=== PATIENT | female | born 1940 | race Hispanic/Latino ===

== ENCOUNTER 2017-01-02 01:33 | Inpatient (IN) | payer MEDICARE, OTHER, MEDICAID ==
--- NOTE | 2017-01-02 01:37 | ED PDOC ---
Arrival/HPI - General Time Seen by Provider: 01/02/17 01:37 Historian: Patient, EMS - History of Present Illness Narrative History of Present Illness (Text): 01/02/17 01:37 Kp Sanders is a 76 year old female, whose past medical history includes hypertension,atrial fibrillation, COPD, aspiration pneumonia, left-sided CVA, and depression, who presents to the Emergency department sent from detention complaining of shortness of breath tonight. Patient notes some improvement after receiving Duoneb and Albuterol in the field. Patient denies any fever, chills, chest pain, nausea, vomiting, diarrhea, urinary symptoms, back pain, neck pain, headache, dizziness, or any other complaints. PMD: Dr. Jung Time/Duration: Other (tonight) Symptom Onset: Gradual Symptom Course: Unchanged Activities at Onset: Rest, Light Context: Home (senior care) Past Medical History - Provider Review Nursing Documentation Reviewed: Yes - Infectious Disease Hx of Infectious Diseases: None - Cardiac Hx Hypertension: Yes - Pulmonary Hx Respiratory Disorders: No - Neurological HX Cerebrovascular Accident: Yes Hx Dementia: Yes - HEENT Hx Cataracts: Yes - Renal Hx Renal Disorder: No - Endocrine/Metabolic Hx Endocrine Disorders: No - Hematological/Oncological Hx Anemia: Yes - Integumentary Hx Cellulitis: Yes (face) - Musculoskeletal/Rheumatological Hx Falls: No - Gastrointestinal Hx Gastrointestinal Disorders: No - Genitourinary/Gynecological Hx Genitourinary Disorders: No - Psychiatric Hx Depression: Yes Hx Substance Use: No - Anesthesia Hx Anesthesia: Yes Hx Anesthesia Reactions: No Hx Malignant Hyperthermia: No - Suicidal Assessment Feels Threatened In Home Enviroment: No Family/Social History - Physician Review Nursing Documentation Reviewed: Yes Family/Social History: No Known Family HX Smoking Status: Never Smoked Hx Alcohol Use: No Hx Substance Use: No Hx Substance Use Treatment: No Allergies/Home Meds Allergies/Adverse Reactions: Allergies No Known Allergies Allergy (Verified 01/02/17 01:38) Home Medications: Home Meds Medication Instructions Recorded Confirmed Acetaminophen [Tylenol (Renal)] 650 mg PO Q4H PRN 06/04/12 01/14/14 Albuterol/Ipratropium [Duoneb 3 1 ea IH Q6 PRN 06/04/12 01/14/14 mg/0.5 mg (3 ml) UD] Amlodipine Besylate 10 mg PO DAILY 06/04/12 01/19/14 Donepezil Hydrochloride 10 mg PO HS 06/04/12 01/19/14 Metoprolol Tartrate 50 mg PO DAILY 06/04/12 01/19/14 Mvi, Adult No.1 with Vit K [M.v.i. 1 tab PO DAILY 06/04/12 01/14/14 Adult] Omeprazole 20 mg PO BID 06/04/12 01/19/14 Warfarin Sodium [Warfarin] 4 mg PO DAILY 06/04/12 01/14/14 Calcium Carbonate [Oyster Shell 1 tab PO DAILY 01/14/14 01/19/14 Calcium 500] Ergocalciferol (Vitamin D2) 1 cap PO QWK 01/14/14 01/14/14 [Vitamin D2] Lidocaine [Lidoderm] 1 patch TP DAILY 01/14/14 01/19/14 [id number] Ethyl Esters [Lovaza] 2 cap PO BID 01/14/14 01/14/14 Travoprost [Travatan 2.5 ml] 1 drop OU HS 01/14/14 01/14/14 Review of Systems - Physician Review All systems were reviewed & negative as marked: Yes - Review of Systems Constitutional: Normal. absent: Fevers Eyes: Normal ENT: Normal Respiratory: SOB. absent: Cough Cardiovascular: Normal. absent: Chest Pain Gastrointestinal: Normal. absent: Abdominal Pain, Diarrhea, Nausea, Vomiting Genitourinary Female: Normal. absent: Dysuria, Frequency, Hematuria, Urine Output Changes Musculoskeletal: Normal. absent: Back Pain, Neck Pain Skin: Normal. absent: Rash Neurological: Normal. absent: Headache, Dizziness Endocrine: Normal Hemo/Lymphatic: Normal Psychiatric: Normal Physical Exam Vital Signs Reviewed: Yes Vital Signs Temp Pulse Resp BP Pulse Ox 01/02/17 04:24 100 H 100/43 L 01/02/17 04:22 100/43 L 01/02/17 01:52 95 01/02/17 01:34 99.1 F 106 H 18 101/50 L 94 L Temperature: Afebrile Blood Pressure: Normal Pulse: Regular Respiratory Rate: Normal Appearance: Positive for: Well-Appearing, Non-Toxic, Comfortable Pain Distress: None Mental Status: Positive for: Alert and Oriented X 3 - Systems Exam Head: Present: Atraumatic, Normocephalic Pupils: Present: PERRL Extroacular Muscles: Present: EOMI Conjunctiva: Present: Normal Mouth: Present: Moist Mucous Membranes Neck: Present: Normal Range of Motion Respiratory/Chest: Present: Decreased Breath Sounds (Decreased breath sounds bilaterally). No: Respiratory Distress, Accessory Muscle Use Cardiovascular: Present: Regular Rate and Rhythm, Normal S1, S2. No: Murmurs Abdomen: Present: Normal Bowel Sounds. No: Tenderness, Distention, Peritoneal Signs Upper Extremity: Present: Normal Inspection. No: Cyanosis, Edema Lower Extremity: Present: Normal Inspection. No: Edema Neurological: Present: GCS=15, CN II-XII Intact, Speech Normal, Other (Left- sided plegia) Skin: Present: Warm, Dry, Normal Color. No: Rashes Psychiatric: Present: Alert, Oriented x 3, Normal Insight, Normal Concentration Medical Decision Making ED Course and Treatment: 01/02/17 01:37 Impression: 76 year old female complaining of shortness of breath tonight. Plan: -- EKG -- Chest X-ray -- Labs, cardiac enzymes, BNP -- Solu-medrol -- Duoneb -- Reassess and disposition Prior Visits: Notes and results from previous visits were reviewed. Progress Notes: Reviewed EKG, sinus tachycardia at 118 bpm. Inferior infarct. Lateral ST/T wave changes. 01/02/17 03:25 Reviewed labs, troponin: 1.22, BNP: 7890. Lasix ordered. Reviewed radiology, Chest X-ray shows chronic interstitial markings. 01/02/17 03:[address] Jung, who is aware and agrees with plan. Accepts pt in to her service. Requests consults with Dr. Christianson and Dr. Del Castillo. case discussed with Dr. Whitten, sliver former, who is aware and and agrees with plan. educational institution president notified. Pt will be admitted to ICU for NSTEMI and CHF/COPD. - Critical Care Critical Care Minutes: 30 minutes - Lab Interpretations Lab Results: 01/02/17 01:55 01/02/17 01:55 Lab Results 01/02/17 01:55: WBC 10.7 D, RBC 4.13, Hgb 9.5 L, Hct 31.6 L, MCV 76.5 L, MCH 23.0 L, MCHC 30.1 L, RDW 17.7 H, Plt Count 270, MPV 11.6 H, PT 11.0, INR 1.02, APTT 26.6, Sodium 139, Potassium 4.4, Chloride 103, Carbon Dioxide 24, Anion Gap 16, BUN 21, Creatinine 1.1, Est GFR ( Amer) 58, Est GFR (Non-Af Amer ) 48, Random Glucose 180 H, Calcium 9.1, Total Bilirubin 0.5, AST 30, ALT 23, Alkaline Phosphatase 80, Lactate Dehydrogenase 547, Total Creatine Kinase 185, Troponin I 1.22 H* D, NT-Pro-B Natriuret Pep 7890 H, Total Protein 8.1, Albumin 3.9, Globulin 4.1, Albumin/Globulin Ratio 1.0 L I have reviewed the lab results: Yes - RAD Interpretation Radiology Orders: 01/02/17 01:52 CHEST PORTABLE [RAD] Stat Florist Designer: ED Physician - EKG Interpretation Interpreted by ED Physician: Yes Type: 12 lead EKG - Medication Orders Current Medication Orders: Albuterol/Ipratropium (Duoneb 3 Mg/0.5 Mg (3 Ml) Ud) 3 ml IH Q2H PRN PRN Reason: Shortness of Breath Last Admin: 01/03/17 04:00 Dose: 3 ML Albuterol/Ipratropium (Duoneb 3 Mg/0.5 Mg (3 Ml) Ud) 3 ml IH [id number] [facility] Last Admin: 01/03/17 13:05 Dose: 3 ML Aspirin (Ecotrin) 81 mg PO DAILY [facility] Last Admin: 01/03/17 08:59 Dose: 81 MG Atorvastatin Calcium (Lipitor) 80 mg PO DIN [facility] Last Admin: 01/02/17 17:04 Dose: 80 MG Budesonide (Pulmicort Respules) 1 mg IH [id number] [facility] Last Admin: 01/03/17 07:04 Dose: 0.5 MG Clopidogrel Bisulfate (Plavix) 75 mg PO DAILY [facility] Last Admin: 01/03/17 09:01 Dose: 75 MG Donepezil HCl (Aricept) 10 mg PO HS [facility] Last Admin: 01/02/17 23:13 Dose: 10 MG Levofloxacin/Dextrose (Levaquin 750mg) 150 mls @ 100 mls/hr IVPB Q48H [facility] Last Admin: 01/02/17 09:21 Dose: 100 MLS/HR eMAR Start Stop Document 01/02/17 09:21 JC (Rec: 01/02/17 09:21 [facility] [id number]) Intravenous Solution Start Date 01/02/17 Start Time 09:21 End Date 01/02/17 End time 10:25 Total Infusion Time 64 Latanoprost (Xalatan Opht) 0 ml OU HS [facility] Last Admin: 01/02/17 23:44 Dose: 2.5 ML Metoprolol Tartrate (Lopressor) 25 mg PO BID [facility] Last Admin: 01/03/17 09:00 Dose: 25 MG MAR Pulse and Blood Pressure Document 01/03/17 09:00 ALIPM (Rec: 01/03/17 09:00 ALIPM [id number]) Pulse Pulse Rate (60-90) 94 Blood Pressure Blood Pressure (100/60-150/90) 100/49 Pantoprazole Sodium (Protonix Inj) 40 mg IVP DAILY [facility] Last Admin: 01/03/17 09:01 Dose: 40 MG IVP Administration Document 01/03/17 09:01 ALIPM (Rec: 01/03/17 09:01 ALIPM [id number]) Charges for Administration # of IVP Administrations 1 Discontinued Medications Albuterol/Ipratropium (Duoneb 3 Mg/0.5 Mg (3 Ml) Ud) Confirm Administered Dose 3 ml .ROUTE .STK-MED ONE Stop: 01/02/17 01:51 Last Admin: 01/02/17 01:52 Dose: 3 ML Albuterol/Ipratropium (Duoneb 3 Mg/0.5 Mg (3 Ml) Ud) 3 ml IH ONCE STA Stop: 01/02/17 01:53 Last Admin: 01/02/17 01:55 Dose: Albuterol/Ipratropium (Duoneb 3 Mg/0.5 Mg (3 Ml) Ud) 3 ml IH [id number] [facility] Last Admin: 01/02/17 07:30 Dose: 3 ML Aspirin (Ecotrin) 325 mg PO STAT STA Stop: 01/02/17 04:06 Last Admin: 01/02/17 04:41 Dose: 325 MG Clopidogrel Bisulfate (Plavix) 75 mg PO STAT STA Stop: 01/02/17 10:34 Last Admin: 01/02/17 10:40 Dose: 75 MG Enoxaparin Sodium (Lovenox) 70 mg SC Q12H FILI PRN Reason: Protocol Last Admin: 01/02/17 23:13 Dose: 70 MG Subcutaneous Administrations Document 01/02/17 23:13 LEVI (Rec: 01/02/17 23:13 [facility]EVI [id number]) Injection Site MAR Injection Site Right Abdomen Charges for Administration # of Subcutaneous Administrations 1 Furosemide (Lasix) 60 mg IVP ONCE ONE Stop: 01/02/17 03:38 Last Admin: 01/02/17 04:22 Dose: Not Given Non-Admin Reason: BP Parameters Not Met MAR Blood Pressure Document 01/02/17 04:22 SB (Rec: 01/02/17 04:23 SB [id number]) Blood Pressure Blood Pressure (100/60-150/90) 100/43 Furosemide (Lasix) 40 mg IVP STAT STA Stop: 01/03/17 15:05 Last Admin: 01/03/17 15:05 Dose: 40 MG MAR Blood Pressure Document 01/03/17 15:05 ALIPM (Rec: 01/03/17 15:30 ALIPM [id number]) Blood Pressure Blood Pressure (100/60-150/90) 178/88 IVP Administration Document 01/03/17 15:05 ALIPM (Rec: 01/03/17 15:30 ALIPM [id number]) Charges for Administration # of IVP Administrations 1 Furosemide (Lasix) Confirm Administered Dose 40 mg .ROUTE .STK-MED ONE Stop: 01/03/17 15:06 Last Admin: 01/03/17 15:30 Dose: Heparin Sodium/Sodium Chloride (Heparin 50178 Units/250ml 1/2 Normal Saline) 250 mls @ 9.525 mls/hr IV .Q24H FILI; 12 UNITS/KG/HR PRN Reason: Protocol Heparin Sodium/Sodium Chloride (Heparin 57265 Units/250ml 1/2 Normal Saline) 250 mls @ 9.961 mls/hr IV .Q24H FILI; 12 UNITS/KG/HR PRN Reason: Protocol Last Titration: 01/02/17 07:12 Dose: 0 UNITS/KG/HR Titration Intervention Document 01/02/17 07:12 LEVI (Rec: 01/02/17 07:13 LEVI [id number]) Titration Dosing Titration Dose 0 IV Rate 0 Intake/Decrease Pause Methylprednisolone (Solu-Medrol) 125 mg IVP ONCE ONE Stop: 01/02/17 01:53 Last Admin: 01/02/17 02:06 Dose: 125 MG IVP Administration Document 01/02/17 02:06 SB (Rec: 01/02/17 02:06 SB [id number]) Charges for Administration # of IVP Administrations 1 Methylprednisolone (Solu-Medrol) 60 mg IV BID [facility] Last Admin: 01/02/17 09:20 Dose: 60 MG eMAR Start Stop Document 01/02/17 09:20 JC (Rec: 01/02/17 09:20 [facility] [id number]) Intravenous Solution Start Date 01/02/17 Start Time 09:20 End Date 01/02/17 End time 09:25 Total Infusion Time 5 Metoprolol Tartrate (Lopressor) 50 mg PO BID [facility] Last Admin: 01/02/17 04:24 Dose: Not Given Non-Admin Reason: BP Parameters Not Met [facility] Pulse and Blood Pressure Document 01/02/17 04:24 (Rec: 01/02/17 04:24 [id number] Pulse Pulse Rate (60-90) 100 Blood Pressure Blood Pressure (100/60-150/90) 100/43 Metoprolol Tartrate (Lopressor) 50 mg PO BID [facility] Last Admin: 01/02/17 17:04 Dose: 50 MG MAR Pulse and Blood Pressure Document 01/02/17 17:04 JC (Rec: 01/02/17 17:04 [facility] [id number]) Pulse Pulse Rate (60-90) 78 Blood Pressure Blood Pressure (100/60-150/90) 106/51 - Scribe Statement The provider has reviewed the documentation as recorded by the Tray Gusman Provider Attestation: All medical record entries made by the Tray were at my direction and personally dictated by me. I have reviewed the chart and agree that the record accurately reflects my personal performance of the history, physical exam, medical decision making, and the department course for this patient. I have also personally directed, reviewed, and agree with the discharge instructions and disposition. Disposition/Present on Arrival - Present on Arrival Any Indicators Present on Arrival: No History of DVT/PE: No History of Uncontrolled Diabetes: No Urinary Catheter: No History of Decub. Ulcer: No History Surgical Site Infection Following: None - Disposition Have Diagnosis and Disposition been Completed?: Yes Diagnosis: COPD exacerbation, CHF (congestive heart failure), NSTEMI (non-ST elevated myocardial infarction) Disposition: HOSPITALIZED Disposition Time: 03:46 Patient Plan: Admission Patient Problems: Current Active Problems Problem Status Diagnosed CHF (congestive heart failure) Acute COPD exacerbation Acute NSTEMI (non-ST elevated myocardial infarction) Acute Condition: GUARDED
[2017-01-02] MEDS ORDERED: Albuterol-Ipratrop 3 mg / 0.5 (3 ml) UD ONE (01:50)
[2017-01-02] MEDS ORDERED: Albuterol-Ipratrop 3 mg / 0.5 (3 ml) UD IH STA (01:52)
[2017-01-02 02:07] LABS: HEMATOCRIT 31.6 % (36.0-48.0); MEAN CELL VOLUME 76.5 fL (80.0-105.0); MEAN CORPUSCULAR HGB CONC 30.1 g/dl (31.0-37.0); MEAN PLATELET VOLUME 11.6 fl (7.0-11.0); RED CELL DISTRIBUTION WIDTH 17.7 % (11.5-14.5); WHITE BLOOD COUNT 10.7 10^3/ul (4.5-11.0)
[2017-01-02 02:14] LABS: BILIRUBIN,TOTAL 0.5 mg/dL (0.2-1.3); CALCIUM 9.1 mg/dL (8.4-10.5); POTASSIUM 4.4 mmol/L (3.6-5.0); TOTAL PROTEIN 8.1 g/dL (5.8-8.3)
[2017-01-02 02:15] LABS: INR 1.02 (0.93-1.08); PARTIAL THROMBOPLASTIN TIME 26.6 Seconds (23.7-30.8)
[2017-01-02 03:05] LABS: TROPONIN I 1.22 ng/mL
[2017-01-02] MEDS ORDERED: Heparin25000 units/250ml 1/2NS 250 ML IV SCH ×2 (04:00→04:45)
[2017-01-02] MEDS ORDERED: Albuterol-Ipratrop 3 mg / 0.5 (3 ml) UD IH PRN (04:02)
[2017-01-02] MEDS ORDERED: Aspirin 325 mg EC Tablets PO STA (04:05)
--- NOTE | 2017-01-02 05:05 | CP.PCM.CON ---
<BobbyKee green - Last Filed: 01/02/17 05:50> History of Present Illness - History of Present Illness History of Present Illness: ICU Consult note - Kee Cuellar PGY 1 cc: Shortness of breath HPI: Patient is a 76yo female with past medical history of hypertension, left- sided CVA, COPD and dementia that [facility] c/o shortness of breath for the past day. Patient is a poor historian and was unable to provide much medical history however she denied complaints of chest pain, palpitations, abdominal pain, nausea and vomiting. On arrival to the ED, patient's vitals were as follows: temperature 99.1F, heart rate 106bpm, blood pressure 101/50, RR 18, o2 sat 94% on 2LNC. Her labs were notable for a troponin of 1.22, NT-proBNP of 7890, H/H 9.5/31.6. An EKG revealed sinus tachycardia at 118bpm with inferior infarct (age undetermined) and lateral ST-T wave changes. A chest xray revealed increased interstitial markings. The patient was subsequently taken to the ICU for further management and treatment of suspected NSTEMI. 12point ROS as per HPI above otherwise negative PMHx: Hypertension, left-sided CVA, COPD, depression, dementia Allergies: NKDA Family Hx: Noncontributory Social Hx: Former smoker; Denies alcohol and illicit drugs PMD: Dr. Jung Past Patient History - Infectious Disease Hx of Infectious Diseases: None - Past Medical History & Family History Past Medical History?: Yes - Past Social History Smoking Status: Never Smoked - CARDIAC Hx Hypertension: Yes - PULMONARY Hx Respiratory Disorders: No - NEUROLOGICAL HX Cerebrovascular Accident: Yes Hx Dementia: Yes - HEENT Hx Cataracts: Yes - RENAL Hx Chronic Kidney Disease: No - ENDOCRINE/METABOLIC Hx Endocrine Disorders: No - HEMATOLOGICAL/ONCOLOGICAL Hx Anemia: Yes - INTEGUMENTARY Hx Cellulitis: Yes (face) - MUSCULOSKELETAL/RHEUMATOLOGICAL Hx Falls: No - GASTROINTESTINAL Hx Gastrointestinal Disorders: No - GENITOURINARY/GYNECOLOGICAL Hx Genitourinary Disorders: No - PSYCHIATRIC Hx Depression: Yes Hx Substance Use: No - ANESTHESIA Hx Anesthesia: Yes Hx Anesthesia Reactions: No Hx Malignant Hyperthermia: No Meds Allergies/Adverse Reactions: Allergies Allergy/AdvReac Type Severity Reaction Status Date / Time No Known Allergies Allergy Verified 01/02/17 01:38 - Medications Medications: Current Medications Albuterol/Ipratropium (Duoneb 3 Mg/0.5 Mg (3 Ml) Ud) 3 ml IH Q2H PRN PRN Reason: Shortness of Breath Albuterol/Ipratropium (Duoneb 3 Mg/0.5 Mg (3 Ml) Ud) 3 ml IH [id number] [facility] Aspirin (Ecotrin) 81 mg PO DAILY [facility] Atorvastatin Calcium (Lipitor) 80 mg PO DIN [facility] Heparin Sodium/Sodium Chloride (Heparin 99258 Units/250ml 1/2 Normal Saline) 250 mls @ 9.961 mls/hr IV .Q24H [facility]I; 12 UNITS/KG/HR PRN Reason: Protocol Last Admin: 01/02/17 04:50 Dose: 9.961 mls/hr Methylprednisolone (Solu-Medrol) 60 mg IV BID [facility] Metoprolol Tartrate (Lopressor) 50 mg PO BID [facility] Pantoprazole Sodium (Protonix Inj) 40 mg IVP DAILY [facility] Physical Exam - Constitutional Appears: No Acute Distress - Head Exam Head Exam: ATRAUMATIC, NORMAL INSPECTION, NORMOCEPHALIC - Eye Exam Eye Exam: EOMI, PERRL - ENT Exam ENT Exam: Mucous Membranes Moist - Neck Exam Neck exam: Positive for: Normal Inspection. Negative for: Lymphadenopathy, Tenderness, Thyromegaly - Respiratory Exam Respiratory Exam: Decreased Breath Sounds (decreased breath sounds bilaterally) , Rhonchi. absent: Accessory Muscle Use, Clear to Auscultation Bilateral, Rales , Wheezes - Cardiovascular Exam Cardiovascular Exam: RRR, +S1, +S2. absent: Gallop, JVD, Rubs - GI/Abdominal Exam GI & Abdominal Exam: Soft. absent: Distended, Firm, Guarding, Rebound, Tenderness - Neurological Exam Neurological exam: Alert, Oriented x3 - Psychiatric Exam Psychiatric exam: Normal Affect, Normal Mood - Skin Skin Exam: Dry, Intact, Normal Color, Warm Results - Vital Signs Recent Vital Signs: Last Vital Signs Temp 99.1 F 01/02/17 01:34 Pulse 100 H 01/02/17 04:44 Resp 18 01/02/17 04:44 BP 100/43 L 01/02/17 04:44 Pulse Ox 96 01/02/17 04:44 - Labs Result Diagrams: 01/02/17 01:55 01/02/17 01:55 Assessment & Plan - Assessment and Plan (Free Text) Assessment: 76yo female with history of hypertension, left-sided CVA, COPD and dementia admitted to the ICU for shortness of breath secondary to NSTEMI Plan: Neuro: -Maintain normothermia -History of dementia and left-sided CVA Cardio: -Troponin 1.22, will trend -EKG reviewed -Hemodynamic monitoring to maintain goal MAP > 65 -NSTEMI protocol - continue with heparin drip, metoprolol 50 PO BID, lipitor 80mg HS, ASA 81 PO qd -Cardiology consulted - Dr. Del Castillo -Echocardiogram pending Pulm: - Titrate to maintain spo2>90, pao2>60 -Currently oxygenating well (spo2>90) on 2L NC -Continue duoneb q4h FILI and q2h PRN GI: -NPO -GI prophylaxis with protonix Renal: -Monitor and replete electrolytes as needed -Will continue to monitor renal function -Strict I's and O's Endo: -Maintain euglycemia with goal blood glucose between 140-180 Heme: -Continue with heparin drip for NSTEMI ID: -Patient afebrile, no leukocytosis -no overt signs of infection Patient seen and case discussed with attending, Dr. Whitten - Date & Time Date: 01/02/17 Time: 05:19 <Malvin Whitten MD - Last Filed: 01/02/17 07:24> Meds - Medications Medications: Current Medications Albuterol/Ipratropium (Duoneb 3 Mg/0.5 Mg (3 Ml) Ud) 3 ml IH Q2H PRN PRN Reason: Shortness of Breath Albuterol/Ipratropium (Duoneb 3 Mg/0.5 Mg (3 Ml) Ud) 3 ml IH [id number] FILI Apixaban (Eliquis) 5 mg PO BID [facility] PRN Reason: Protocol Aspirin (Ecotrin) 81 mg PO DAILY [facility] Atorvastatin Calcium (Lipitor) 80 mg PO DIN [facility] Levofloxacin/Dextrose (Levaquin 750mg) 150 mls @ 100 mls/hr IVPB Q48H [facility] Methylprednisolone (Solu-Medrol) 60 mg IV BID [facility] Metoprolol Tartrate (Lopressor) 50 mg PO BID [facility] Pantoprazole Sodium (Protonix Inj) 40 mg IVP DAILY [facility] Results - Vital Signs Recent Vital Signs: Last Vital Signs Temp 98.9 F 01/02/17 06:31 Pulse 105 H 01/02/17 06:31 Resp 20 01/02/17 06:31 BP 117/65 01/02/17 06:31 Pulse Ox 96 01/02/17 04:30 - Labs Result Diagrams: 01/02/17 06:20 01/02/17 01:55 Labs: Laboratory Results - last 24 hr 01/02/17 06:20 WBC 8.3 D RBC 3.85 Hgb 9.0 L Hct 29.2 L MCV 75.8 L MCH 23.4 L MCHC 30.8 L RDW 17.8 H Plt Count 238 MPV 11.8 H Attending/Attestation - Attestation I have personally seen and examined this patient.: Yes I have fully participated in the care of the patient.: Yes I have reviewed all pertinent clinical information: Yes Notes (Text): 01/02/17 07:21 -I agree with the above consult H&P completed by the resident physician. -Briefly, the patient is a 76 year old woman with a history of hypertension, CVA (with residual left-sided hemiparesis), COPD and dementia, [facility] from the prison due to acute SOB and questionable chest pain. On ED labs, the patient also found to have elevated trop (1.12). She will be treated empirically for NSTEMI and COPD exacerbation.
[2017-01-02 06:33] LABS: HEMATOCRIT 29.2 % (36.0-48.0); MEAN CELL VOLUME 75.8 fL (80.0-105.0); MEAN CORPUSCULAR HEMOGLOBIN 23.4 pg (25.0-35.0); MEAN CORPUSCULAR HGB CONC 30.8 g/dl (31.0-37.0); MEAN PLATELET VOLUME 11.8 fl (7.0-11.0); PLATELET COUNT 238 10^3/uL (120.0-450.0); RED CELL DISTRIBUTION WIDTH 17.8 % (11.5-14.5)
[2017-01-02 06:48] LABS: ADD MANUAL DIFF? YES; WHITE BLOOD COUNT 8.3 10^3/ul (4.5-11.0)
[2017-01-02 07:03] VITALS: BMI 31.4
[2017-01-02 07:10] LABS: MAGNESIUM 2.2 mg/dL (1.7-2.2); PHOSPHOROUS 3.8 mg/dL (2.5-4.5)
[2017-01-02] MEDS ORDERED: Albuterol-Ipratrop 3 mg / 0.5 (3 ml) UD IH SCH (07:30)
[2017-01-02 07:42] LABS: TROPONIN I 5.95 ng/mL
[2017-01-02 08:31] LABS: ANISOCYTOSIS 1+; HYPOCHROMIA SLIGHT; NEUTROPHIL 95 % (50.0-70.0); PLATELET ESTIMATE NORMAL (NORMAL)
[2017-01-02 08:32] LABS: OVALOCYTES SLIGHT
[2017-01-02 08:34] LABS: MICROCYTOSIS 1+; TOXIC GRANULATION 1+
[2017-01-02 09:02] LABS: BILIRUBIN,TOTAL 0.4 mg/dL (0.2-1.3); CALCIUM 8.8 mg/dL (8.4-10.5); POTASSIUM 3.7 mmol/L (3.6-5.0); TOTAL PROTEIN 7.4 g/dL (5.8-8.3)
[2017-01-02 09:24] LABS: INR 1.02 (0.93-1.08); PARTIAL THROMBOPLASTIN TIME 27.3 Seconds (23.7-30.8)
[2017-01-02] MEDS ORDERED: MethylPREDNISolone 40 mg Vial IV SCH (10:00)
--- NOTE | 2017-01-02 10:02 | RAD ---
HISTORY: sob COMPARISON: 12/08/2015 FINDINGS: LUNGS: Opacity at right lung base. Possible pneumonia. Linear scar/ atelectasis at left base. PLEURA: No significant pleural effusion identified, no pneumothorax apparent. CARDIOVASCULAR: Normal. OSSEOUS STRUCTURES: No significant abnormalities. VISUALIZED UPPER ABDOMEN: Normal. OTHER FINDINGS: None. IMPRESSION: Opacity at right base. Possible pneumonia. Followup advised.
[2017-01-02] MEDS: Enoxaparin 80 mg Syringe SC SCH ×2 (10:40→23:13)
--- NOTE | 2017-01-02 11:13 | CON ---
DATE: 01/02/2017 SERVICE: Cardiology. REASON FOR CONSULTATION: Qad-RO-tmsnjdt myocardial infarction, congestive heart failure, COPD, cardi ac evaluation, transferred from [facility], [facility]. BRIEF CLINICAL HISTORY: This is a 76-year-old lady from [facility], bedridden, CVA with le ft-sided contracture of upper extremity transferred from [facility] complaining of shortnes s of breath. The patient has a history of atrial fibrillation paroxysmal, COPD on Eliquis; last dose of Eliquis was given last night as per chart. Transferred here because of shortness of breath. The patient denies any chest pain, denies any palpitation. PAST MEDICAL HISTORY: Significant for CVA, depression, COPD, atrial fibrillation paroxysmal, history of aspiration pneumonia. Very sketchy information available from the chart. The patient is a very poor historian. On admitting, patient had a temperature of 99 also. 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 ALLERGIES: No known drug allergy. CURRENT MEDICATIONS: The patient at [facility], was taking Coumadin 4 mg, , albutero l, amlodipine and acetaminophen. REVIEW OF SYSTEMS: As per HPI. PHYSICAL EXAMINATION: VITAL SIGNS: Temperature afebrile, heart rate 92, blood pressure 128/91. Temperature 99 on admissio n, 99.1. HEENT: PERRLA. Extraocular muscles intact. NECK: Supple. No carotid bruits or thyromegaly. CHEST: Clear to auscultation. Decreased air entry at the bases. ABDOMEN: Soft. EXTREMITIES: Clubbing and cyanosis negative. Left upper extremity contracture, history of cerebrova scular accident. LABORATORY DATA: EKG shows sinus tachycardia with significant ST-T changes noted. Blood workup as follows: WBC 8.3, hemoglobin 9, hematocrit 29.2, platelet count 238. INR 1. Sodium 130, potassium 3.7, chloride 103, carbon dioxide 20, anion gap of 19, BUN 22, creatinine 1.1. Rando m glucose 213. Troponin 1.22, second troponin 5.95. IMPRESSION: Non-ST segment myocardial infarction, coronary artery disease, diabetes, hypertension, h yperlipidemia, cerebrovascular accident, dementia. Tried to reach family in the chart, name is Rebeca Plascencia, telephone was [phone], repeat [phone] . Called this number, they say the bus iness has changed. Second number available in the chart is [phone]. This is the lab number and nobody is available, and this is the lab of the [facility], so no further information obta inable from the family member. Wanted to discuss the DNR issue. Since the patient is bedridden, asy mptomatic, demented, will try to treat medically. Initially, the word of mouth was still the patient was on Eliquis, last dose was last night, but does not appear to be true. When the medics reviewed, the patient was on Coumadin and mentioned that patient was on Coumadin 4 mg, so we will start Loveno x dose and treat as medical treatment for dhw-LR-imgkdfi myocardial infarction with diuretics, beta b locker and nitrate as blood pressure is tolerated. Again, because we need to sort out, Eliquis was s tarted, so is not sure where it was started here because of the medic found this, is on Eliquis menti oned. So we are going to discontinue Eliquis. We will try to reach Dr. Jung, reference venu Drummond nd we will discuss with her. But for now we will treat patient aggressively with medical treatment. No invasive cardiac workup. Will get echo. Further recommendation depends on hospital course. We will try to reach the family again with the numbers available to get more information as well as from Dr. Jung. Adam Del Castillo MD cc: [id number] TT: 01/02/2017 11:12:52 Confirmation # [id number] Dictation # [id number] an
[2017-01-02] MEDS: Albuterol-Ipratrop 3 mg / 0.5 (3 ml) UD IH SCH ×2 (13:13→19:57)
--- NOTE | 2017-01-02 14:43 | CON ---
DATE: 01/02/2017 HISTORY OF PRESENT ILLNESS: This is a 76-year-old lady with history of CVA, COPD, paroxysmal atrial fibrillation who was presented from alf with some rapid onset of dyspnea. The patient is a very poor historian and, besides this information, cannot provide any additional details. She denies chest pain , no nausea, no vomiting, no diarrhea, no constipation. PAST MEDICAL HISTORY: CVA, depression, COPD, paroxysmal atrial fibrillation and aspiration pneumonia. MEDICATIONS AT HOME: Warfarin, Travatan eyedrops, omeprazole, Lovaza, metoprolol, lidocaine, donepezil, amlodipine, Tylenol, DuoNeb. MEDICATIONS IN THE HOSPITAL: Aspirin, Lipitor, Plavix, Aricept, Lovenox, Levaquin, Solu-Medrol, metoprolol, Protonix. ALLERGIES: NKDA. FAMILY HISTORY: Noncontributory. SOCIAL HISTORY: No alcohol or illicit drug abuse. REVIEW OF SYSTEMS: Review of 12-organ system other than mentioned in history of present illness is negative. PHYSICAL EXAMINATION: VITAL SIGNS: Temperature 98.6, heart rate 96, blood pressure 125/64, respiratory rate 22, oxygen saturation 97% on nasal cannula. HEAD AND NECK: Atraumatic. LUNGS: Clear to auscultation bilaterally. HEART: Regular rate and rhythm. S1, S2 normal. ABDOMEN: Soft, nontender, nondistended. MUSCULOSKELETAL: No C/C/E. NEUROLOGIC: The patient moves all extremities spontaneously. SKIN: Moist. PSYCHIATRIC: The patient is alert and oriented x 3. LABORATORY DATA: WBC 8.3, hemoglobin 9, platelet count 238. Sodium 138, potassium 3.7, chloride 103, carbon dioxide 20, BUN 22, creatinine 1.1. Troponin 5.95. AST 55, ALT 23. INR 1.02. An EKG today showed ST depression in I, aVL, V4, V5, V6. Chest x-ray showed opacity at the right base, questionable pneumonia. ASSESSMENT AND PLAN: This is a 76-year-old lady who presented with acute or subacute onset of dyspnea, ST depression in anterolateral segments on EKG and troponin increment, all suggesting diagnosis of efx-ZH-vnfllhxql myocardial infarction. Coincidental finding of the right lower lobe infiltrate may be related to also component of CAP (formerly would-be meeting definition of healthcare-associated pneumonia). The patient does not appear to be wheezing; however, she has had a history of underlying chronic obstructive pulmonary disease; thus I will continue with inhaled corticosteroids and anticholinergic nebulizers. The patient currently is on dual antiplatelet therapy/therapeutic anticoagulation/statins/beta blockers. Dr. Del Castillo is trying to reach family to decide about invasive vs non-invasive approach. Echocardiogram is pending. At present time, the patient is hemodynamically stable and able to protect airways. Respiratory-kent, comfortable and stable. Will continue to target euvolemia, euglycemia, normothermia and oxygen saturation more than 90%. I will order procalcitonin, and if it returns elevated I will empirically escalate her antibiotic therapy. Otherwise, she will continue with levofloxacin at present time. Will continue with gastrointestinal prophylaxis. ccm time 40 min Siddhartha Loyola MD cc: [id number] TT: 01/02/2017 12:49:35 Confirmation # [id number] Dictation # [id number] mn 01/02/2017 13:42:24 NATHANIEL
[2017-01-02 14:50] LABS: TROPONIN I 9.09 ng/mL
--- NOTE | 2017-01-02 17:58 | CARD ---
APPROVED REPORT EKG Measurement Heart [id number] <Conclusion> Sinus tachycardia Possible Left atrial enlargement Inferior infarct, age undetermined Marked ST abnormality, possible lateral subendocardial injury Abnormal ECG
--- NOTE | 2017-01-02 18:01 | CARD ---
APPROVED REPORT EKG Measurement Heart [id number] <Conclusion> Sinus tachycardia Inferior infarct, age undetermined Marked ST abnormality, possible lateral subendocardial injury Abnormal ECG
--- NOTE | 2017-01-02 19:47 | CARD ---
APPROVED REPORT EXAM: Two-dimensional and M-mode echocardiogram with Doppler and color Doppler. INDICATION Chest Pain Non STEMI LVFX 2D DIMENSIONS Left Atrium (2D)4.7 (1.6-4.0cm)IVSd1.1 (0.7-1.1cm) LVDd4.6 (3.9-5.9cm)LVOT Diameter1.6 (1.8-2.4cm) PWd1.3 (0.7-1.1cm) M-Mode DIMENSIONS Aortic Root2.90 (2.2-3.7cm)Aortic Cusp Exc.0.70 (1.5-2.0cm) Aortic Valve AoV Peak Wrzcglqt051.0cm/sAoV NFF504.0cmAO Peak GR.74mmHg LVOT Peak Fsgabmgx78.5cm/sLVOT VTI24.90cmAO Mean GR.40mmHg GAYLA (VMAX)0.11cr8DJU (VTI)0.64bg5IZ P 1/2 Nuxe977hr Mitral Valve MV E Qoutanib097.0cm/sMV A Umdhlyzk426.0cm/sMV ZER65lc E/A ratio0.9MVA (PHT)2.44cm2 TDI Lateral E' Peak V4.97cm/sMedial E' Peak V4.29cm/sE/Lateral E'27.2 E/Medial E'31.5 Pulmonary Valve PV Peak Qflhkrna21.1cm/sPV Peak Grad.2mmHg Tricuspid Valve TR Peak Jgqtzgpm502cv/sRAP GGZMFGVS74lbOkAJ Peak Gr.33mmHg JJLO23caHw LEFT VENTRICLE The left ventricle is normal size. There is mild concentric left ventricular hypertrophy. The systolic function is moderately impaired.EF-35-40% Regional wall motion abnormalities noted. There is mild to moderate hypokinesis in the apical anterior wall. Transmitral Doppler flow pattern is Grade III-reversible restrictive diastolic dysfunction. No left ventricle thrombus noted on this study. There is no ventricular septal defect visualized. There is no left ventricular aneurysm. There is no mass noted in the left ventricle. RIGHT VENTRICLE The right ventricle is normal size. There is normal right ventricular wall thickness. The right ventricular systolic function is normal. ATRIA The left atrium is moderately dilated. The right atrium size is normal. The interatrial septum is intact with no evidence for an atrial septal defect. AORTIC VALVE The aortic valve is calcified and displays decreased opening. There is moderate aortic regurgitation. There is severe valvular aortic stenosis. There is no aortic valvular vegetation. MITRAL VALVE The mitral valve is thickened but opens well. Mitral annular calcification is moderate. Mitral regurgitation is mild to moderate. There is no mitral valve stenosis. There is no evidence of mitral valve prolapse. TRICUSPID VALVE The tricuspid valve leaflets are thickened , but open well. There is mild to moderate tricuspid regurgitation.RSVP-43 mmofHg. There is no tricuspid valve stenosis. There is no tricuspid valve prolapse or vegetation. GREAT VESSELS The aortic root is normal in size. The ascending aorta is normal in size. The pulmonary artery is normal. The IVC is normal in size and collapses >50% with inspiration. PERICARDIAL EFFUSION There is no pleural effusion. There is no pericardial effusion. <Conclusion> The left ventricle is normal size. The systolic function is moderately impaired.EF-35-40% There is moderate aortic regurgitation. There is severe valvular aortic stenosis. Mitral regurgitation is mild to moderate. There is mild to moderate tricuspid regurgitation.RSVP-43 mmofHg.
[2017-01-02] MEDS: Budesonide 0.5 mg/2 ml Inhal Susp UD IH SCH (19:57)
[2017-01-02] MEDS: Latanoprost 2.5 ml Opht Soln OU SCH (23:44)
[2017-01-03] MEDS: Albuterol-Ipratrop 3 mg / 0.5 (3 ml) UD IH SCH ×4 (01:10→20:10)
[2017-01-03 05:49] LABS: GRAN # 8.92 (1.4-6.5); GRAN % 89.4 % (50.0-68.0); HEMATOCRIT 24.9 % (36.0-48.0); LYMPH # 0.6 (1.2-3.4); LYMPH % 5.7 % (22.0-35.0); MEAN CELL VOLUME 74.8 fL (80.0-105.0); MEAN CORPUSCULAR HEMOGLOBIN 22.8 pg (25.0-35.0); MEAN CORPUSCULAR HGB CONC 30.5 g/dl (31.0-37.0); MEAN PLATELET VOLUME 11.3 fl (7.0-11.0); MONO # 0.5 (0.1-0.6); MONO % 4.9 % (1.0-6.0); PLATELET COUNT 234 10^3/uL (120.0-450.0)
[2017-01-03 05:52] LABS: ALB/GLOB RATIO 0.9 (1.1-1.8); BILIRUBIN,TOTAL 0.4 mg/dL (0.2-1.3); CALCIUM 8.5 mg/dL (8.4-10.5); MAGNESIUM 2.2 mg/dL (1.7-2.2); PHOSPHOROUS 3.8 mg/dL (2.5-4.5); POTASSIUM 4.1 mmol/L (3.6-5.0); TOTAL PROTEIN 6.8 g/dL (5.8-8.3)
[2017-01-03 06:22] LABS: ADD MANUAL DIFF? NO
[2017-01-03] MEDS: Budesonide 0.5 mg/2 ml Inhal Susp UD IH SCH ×2 (07:04→20:10)
--- NOTE | 2017-01-03 07:45 | CON ---
DATE: 01/02/2017 REFERRING PHYSICIAN: Dr. Jung REASON FOR CONSULTATION: Chronic obstructive lung disease, admitted with shortness of breath, heart failure. HISTORY OF PRESENT ILLNESS: This is a 76-year-old female sent from long term with past medical hi story significant for CVA, chronic obstructive lung disease, atrial fibrillation, recurrent aspiratio n pneumonia with shortness of breath, palpitation. Presently, lying in ICU bed, head at 45 degrees. There is no cough, no sputum production, but shortness of breath. No chest pain, no nausea, no vomi ting, no diarrhea. No leg pain or leg swelling. PAST MEDICAL HISTORY: Chronic obstructive lung disease, atrial fibrillation, history of stroke. ALLERGIES: None known. SOCIAL HISTORY: snf resident. No current smoking or alcohol use. FAMILY HISTORY: No significant cardiopulmonary disease reported. MEDICATIONS: She is on Aricept 10 mg daily, DuoNeb q. 2 hours p.r.n., also DuoNeb q. 6 hours around the clock, Ecotrin 81 mg daily, Levaquin 750 mg q. 48 hours, Lipitor 80 mg daily, metoprolol tartrate 50 mg twice a day, Lovenox 70 mg subQ q. 12 hours, Plavix 75 mg daily, Protonix 40 mg daily, Pulmico rt inhaled twice a day, eyedrops. REVIEW OF SYSTEMS: No headache, no rhinitis. Has some cough and shortness of breath. No chest pain . No vomiting, no hematuria, no diarrhea. No leg pain or leg swelling. PHYSICAL EXAMINATION: GENERAL: Lying in the bed, no acute distress. VITAL SIGNS: Temp is 98, heart rate 68, respiratory rate is 20, blood pressure 106/51, pulse ox 94% on room air. HEENT: Moist mucous membranes. Crowded airway. Mallampati score is 4. NECK: Supple. No JVD. LUNGS: Has a few rhonchi, crackles at the bases. HEART: S1, S2 irregular. ABDOMEN: Soft, nontender. No organomegaly. EXTREMITIES: No edema. NEUROLOGIC: Awake, alert, does follow simple commands, but confused. LABORATORY DATA: Shows hemoglobin 9.0, hematocrit 29.2, WBC 8.3, platelet count is 238. INR 1.02, P TT is 27. Sodium 138, potassium 3.7, chloride 103, bicarbonate 20, BUN 22, creatinine 1.1, glucose i s 213, hemoglobin A1c 5.7, calcium 8.8, phosphorus 3.8, magnesium 2.2, AST 55, ALT 23, alkaline phosp hatase is 81. LDH 537. Troponin is 9.09. ProBNP 7890. Albumin is 3.7. Cholesterol 152. TSH 0.44 . Had echocardiogram done today, which shows right ventricular systolic pressure is 43, LV ejection fraction is 35%-40%, severe valvular aortic stenosis, moderate aortic regurgitation. Chest x-ray sri ws right base opacity, may have effusion versus pneumonia. IMPRESSION AND PLAN: Non-ST elevation myocardial infarction, heart failure, severe aortic stenosis, pulmonary hypertension, cardiomyopathy, chronic obstructive lung disease. There is also right lower lobe pneumonia, history of chronic obstructive lung disease, history of cerebrovascular accident in t he past. There may be component of sleep apnea syndrome. Agree with Dr. Jung with the present man agement. The patient on anticoagulation, gastric prophylaxis. Keep head elevated at 45 degrees. Wi ll add inhaled bronchodilator. Also, start antibiotics. Follow up x-ray. Cardiology followup. Con friend of the court BiPAP use at nighttime. Thank you and we will follow with you. Adam Christianson MD cc: [id number] TT: 01/03/2017 07:45:06 Confirmation # [id number] Dictation # [id number] en
[2017-01-03 08:18] LABS: HEMATOCRIT 25.5 % (36.0-48.0)
--- NOTE | 2017-01-03 08:24 | HP ---
CHIEF COMPLAINT: Very short of breath, not feeling very well. HISTORY OF PRESENT ILLNESS: The patient is a 76-year-old, my private patient, resident of [facility], with past medical history of hypertension, atrial fibrillation, COPD, aspiration pneumonia, left-arturo ed CVA, history of bilateral carotid artery stenosis, history of bilateral carotid artery stenting, d epression, skin cancers. Came to the Emergency Room from long term complaining about shortness of breath. The patient noticed to have some improvement after receiving DuoNeb and albuterol in the eld. The patient denies any fever or chills, nausea, vomiting, or diarrhea. No hematuria, no hemato chezia. The patient is a very poor historian. She is partially aphasic due to CVA. I saw the patie nt in the unit. PAST MEDICAL HISTORY: Hypertension, CVA, dementia, cataract surgery, anemia, cellulitis of the face, depression, history of skin cancers. FAMILY HISTORY: Father and mother noncontributory. HABITS: Never smoked, no drugs, no ethanol. ALLERGIES: The patient is not allergic with any medications. HOME MEDICATIONS: Tylenol, DuoNeb, albuterol, donepezil, metoprolol, omeprazole. Used to be on Coum anival, now she is on Eliquis. On calcium, vitamin D, lidocaine, omega-3, Travatan. REVIEW OF SYSTEMS: The patient is seen and examined on the bedside in the unit. Cough is getting a little bit better. Shortness of breath is getting to be better. No fever, no chills, no chest pain, no abdominal pain, no diarrhea, nausea, vomiting. No dysuria, no hematuria. No swelling of the leg s. No back pain, no neck pain. No rash on the skin. No headache, no dizziness. PHYSICAL EXAMINATION: VITAL SIGNS: Temperature 99.1, pulse 106, respiratory rate 18, blood pressure 101/50, pulse oximetry 94. HEENT: Head normocephalic, atraumatic. Eyes: PERRLA. Extraocular muscles intact. Conjunctivae pi nk. Eyelids unremarkable. Nose patent. NECK: Supple. No carotid bruit. No JVD or thyromegaly. CHEST: Bilaterally symmetrical. HEART: S1, S2 positive. RESPIRATORY: Decreased breath sounds. ABDOMEN: Soft. Bowel sounds present. No organomegaly. EXTREMITIES: No edema, no cyanosis. LABORATORY DATA: White blood cells 10.7, hemoglobin 9.5, hematocrit 31.6, platelets 270. Sodium 139 , potassium 4.4, BUN 21, creatinine 1.1, glucose 180. ASSESSMENT AND PLAN: The patient is a 76-year-old lady with anemia, hyperglycemia, came with shortne ss of breath, history of cerebrovascular accident, hemiparalysis, depression, chronic obstructive pul monary disease; atrial fibrillation, paroxysmal; history of aspiration pneumonia, history of bilatera l carotid artery stenosis, status post ____. The patient used on Coumadin, but due to a different ty pe of skin cancers she saw Dr. Sandhu and he changed Coumadin to Eliquis. Now patient is getting El iquis. Hypercholesterolemia, dementia. The patient is full code. The patient had fcg-PC-npbapmr my ocardial infarction, with diuretics and beta annabelle and nitrates as blood pressure tolerated. No in vasive cardiac workup as per hog stomach preparer. Continue present treatment. Gastrointestinal and deep ve nous thrombosis prophylaxis. Repeat labs. Will follow up. Florence Jung MD cc: [id number] TT: 01/03/2017 08:24:22 jose alberto
--- NOTE | 2017-01-03 09:53 | PN ---
DATE: 01/03/2017 REASON FOR CONSULTATION AND FOLLOWUP: Tfg-HP-flsonbt myocardial infarction, congestive heart failure , COPD, cardiac evaluation, transferred from the care home, [facility], dropping hemog lobin and hematocrit. BRIEF CLINICAL HISTORY: This is a 76-year-old lady from [facility], CVA, left-sided, con tracture of upper extremity, weakness of left lower extremity, bedbound at [facility] and transferred because of shortness of breath, history of paroxysmal atrial fibrillation, COPD, on Eliq uis. Last dose of Eliquis was given last night as per chart. Transferred here because of the shortn ess of breath. The patient denies any chest pain, but significant ST-T changes. Subsequently, jhoan nt ruled in for kot-GF-xikthhk myocardial infarction. Tried yesterday to reach the family, son, but the number in the chart was a nonworking number and moved the business. This morning, patient droppe d hemoglobin, so I signed the consent for the physician, 2 physicians, one of the physicians I signed to get the blood transfusion. Admitting hemoglobin was 9.6, today it was 7.6. Denies any chest sheri n, shortness of breath, any palpitation. PHYSICAL EXAMINATION: VITAL SIGNS: Temperature afebrile, heart rate 89, blood pressure 99/49. HEENT: PERRLA. Extraocular muscles intact. NECK: Supple. No carotid bruits. No thyromegaly. CHEST: Clear to auscultation. HEART: S1, S2 regular. ABDOMEN: Soft. EXTREMITIES: Clubbing, cyanosis negative. BLOOD WORKUP: WBC 10, hemoglobin 7.6, hematocrit 24.9, platelet count 234. Chemistry shows sodium 1 30, potassium 4.1, chloride 104, carbon dioxide 24, anion gap , BUN 31, creatinine 1.2. Troponi n 9.09. Total CPK 310. IMPRESSION: Non-ST segment myocardial infarction, coronary artery disease, cerebrovascular accident, contracture of the left upper extremity, weakness on the left side, left-sided hemiparesis, carotid artery stenting, carotid artery stenosis, possible carotid artery stenting, paroxysmal atrial fibrill ation, was on Eliquis, dropping hemoglobin and hematocrit. Family members not available, neither on telephone as well and no contact information available, no other contact number available. The patie nt had echocardiography done yesterday that showed ejection fraction 35%-40%, moderate aortic regurgi tation, severe aortic stenosis, mild to moderate mitral regurgitation, mild to moderate tricuspid reg urgitation, right ventricular systolic pressure 43. In view of above, we suggested to treat the kristopher ent medically and no invasive workup. Reason because no family member is there and patient is asympt omatic as well as patient has dropping hemoglobin and hematocrit without invasive procedures started, so high risk of complication postop, so we will try to treat medically. We will hold Lovenox becaus e the patient is dropping hemoglobin and hematocrit. Continue aspirin and Plavix. Monitor hemoglobin and hematocrit. Give 2 units of packed red blood cells as physician consent because no family membe r is available, history of dementia as well. The patient is bedbound and bedridden, so aggressive me dical treatment for non-ST elevation myocardial infarction, monitor hemoglobin and hematocrit, histor y of aortic stenosis as mentioned. Continue low-dose beta-annabelle as blood pressure is tolerat ed. Now, the blood pressure is 99. We will cut down beta-annabelle to 25 mg daily. Continue gentle d iuretics. Continue atorvastatin, continue aspirin, continue Plavix. Monitor hemoglobin and hematocr it. Give 2 units of packed red blood cells. If the patient further drops hemoglobin and hematocrit, we will hold aspirin and Plavix as well. Overall, patient's condition is critical. Long-Term progno sis is extremely guarded. Discussed yesterday with Dr. Jung. Thank you, Dr. Jung, for providing us the opportunity in taking care of the patient. For the time being, we will not start Eliquis, though patient was started on Eliquis at [facility] for paroxysmal a trial fibrillation because the patient is dropping hemoglobin and hematocrit and is already on aspiri n and Plavix. Once the hemoglobin and hematocrit remains stable, we can consider later restarting El iquis. Also, we will send stool for guaiac. We will follow with you. Thank you, Dr. Jung, for providing us the opportunity in taking care of the patient. Adam Del Castillo MD cc: [id number] TT: 01/03/2017 09:52:57 Confirmation # [id number] Dictation # [id number] en
--- NOTE | 2017-01-03 12:26 | CP.CCUPN ---
<Nora Belle - Last Filed: 01/03/17 12:23> CCU Subjective - Physician Review Events Since Last Encounter (Free Text): 01/03/17 12:23 Patient seen and examined bedside. Started having gross hematuria overnight. Patient is unable to provide consent and family is unreachable (non-working phone number). Patient denies CP, SOB, however does not consistently answer all ROS questions. Critical Care Time Spent (in minutes): 30 CCU Objective - Vital Signs / Intake & Output Vital Signs (Last 4 hours): Vital Signs Temp Pulse Resp BP Pulse Ox 01/03/17 12:00 98.2 F 86 24 118/55 L 94 L 01/03/17 11:33 98.1 F 91 H 20 121/49 L 01/03/17 11:29 91 H 25 H 121/49 L 95 01/03/17 11:00 81 20 110/42 L 97 01/03/17 10:48 98.7 F 88 21 106/49 L 01/03/17 10:44 89 22 106/49 L 94 L 01/03/17 10:33 98.2 F 104 H 20 111/52 L 01/03/17 10:25 91 H 26 H 111/52 L 96 01/03/17 10:00 82 21 112/45 L 97 01/03/17 09:00 100 H 29 H 118/58 L 95 Intake and Output (Last 8hrs): Intake & Output 01/02/17 01/03/17 01/03/17 22:59 06:59 14:59 Intake Total 425 0 Output Total 0 Balance 425 0 Intake: Oral 325 Blood Product 0 Red Blood Cells Cpd As5 0 Lr Unit [id number] Other 100 Output: Stool 0 Other: Voiding Method Indwelling Catheter - Physical Exam Head: Positive for: Atraumatic, Normocephalic Pupils: Positive for: PERRL Extroacular Muscles: Positive for: EOMI Conjunctiva: Positive for: Normal Mouth: Positive for: Moist Mucous Membranes Neck: Positive for: Normal Range of Motion Respiratory/Chest: Positive for: Decreased Breath Sounds (Decreased breath sounds bilaterally). Negative for: Respiratory Distress, Accessory Muscle Use Cardiovascular: Positive for: Regular Rate and Rhythm, Normal S1, S2. Negative for: Murmurs Abdomen: Positive for: Normal Bowel Sounds. Negative for: Tenderness, Distention, Peritoneal Signs Upper Extremity: Positive for: Normal Inspection. Negative for: Cyanosis, Edema Lower Extremity: Positive for: Normal Inspection. Negative for: Edema Neurological: Positive for: GCS=15, CN II-XII Intact, Speech Normal, Other (Left -sided plegia) Skin: Positive for: Warm, Dry, Normal Color. Negative for: Rashes Psychiatric: Positive for: Alert, Oriented x 3, Normal Insight, Normal Concentration - Medications Active Medications: Active Medications Generic Name Dose Route Start Last Admin Trade Name Freq PRN Reason Stop Dose Admin Albuterol/Ipratropium 3 ml 01/02/17 04:02 01/03/17 04:00 Duoneb 3 Mg/0.5 Mg (3 Ml) Ud IH 3 ml Q2H PRN Administration Shortness of Breath Albuterol/Ipratropium 3 ml 01/02/17 14:00 01/03/17 07:04 Duoneb 3 Mg/0.5 Mg (3 Ml) Ud IH 3 ml [id number] FILI Administration Aspirin 81 mg 01/02/17 10:00 01/03/17 08:59 Ecotrin PO 81 mg DAILY FILI Administration Atorvastatin Calcium 80 mg 01/02/17 17:00 01/02/17 17:04 Lipitor PO 80 mg DIN FILI Administration Budesonide 1 mg 01/02/17 20:00 01/03/17 07:04 Pulmicort Respules IH 0.5 mg [id number] FILI Administration Clopidogrel Bisulfate 75 mg 01/03/17 10:00 01/03/17 09:01 Plavix PO 75 mg DAILY FILI Administration Donepezil HCl 10 mg 01/02/17 22:00 01/02/17 23:13 Aricept PO 10 mg HS FILI Administration Levofloxacin/Dextrose 150 mls @ 100 mls/hr 01/02/17 10:00 01/02/17 09:21 Levaquin 750mg IVPB 100 mls/hr Q48H FILI Administration Latanoprost 0 ml 01/02/17 22:00 01/02/17 23:44 Xalatan Opht OU 2.5 ml HS FILI Administration Metoprolol Tartrate 25 mg 01/03/17 10:00 01/03/17 09:00 Lopressor PO 25 mg BID FILI Administration Pantoprazole Sodium 40 mg 01/02/17 10:00 01/03/17 09:01 Protonix Inj IVP 40 mg DAILY FILI Administration - Patient Studies Lab Studies: Lab Studies 01/03/17 01/03/17 01/03/17 Range/Units 09:00 08:25 08:04 WBC (4.5-11.0) 10^3/ul RBC (3.5-6.1) 10^6/uL Hgb 7.7 L (12.0-16.0) gm/dL Hct 25.5 L (36.0-48.0) % MCV (80.0-105.0) fL MCH (25.0-35.0) pg MCHC (31.0-37.0) g/dl RDW (11.5-14.5) % Plt Count (120.0-450.0) 10^3/uL MPV (7.0-11.0) fl Gran % (50.0-68.0) % Lymph % (Auto) (22.0-35.0) % [place] % (Auto) (1.0-6.0) % Eos % (Auto) (1.5-5.0) % Baso % (Auto) (0.0-3.0) % Gran # (1.4-6.5) Lymph # (1.2-3.4) [place] # (0.1-0.6) Eos # (0.0-0.7) Baso # (0.0-2.0) K/mm3 Sodium (132-148) mmol/L Potassium (3.6-5.0) mmol/L Chloride (98-107) mmol/L Carbon Dioxide (21-33) mmol/L Anion Gap (10-20) BUN (7-21) mg/dL Creatinine (0.5-1.4) mg/dL Est GFR ( Amer) Est GFR (Non-Af Amer) Random Glucose (70-110) mg/dL Calcium (8.4-10.5) mg/dL Phosphorus (2.5-4.5) mg/dL Magnesium (1.7-2.2) mg/dL Total Bilirubin (0.2-1.3) mg/dL AST (15-39) U/L ALT (7-56) U/L Alkaline Phosphatase (38-133) U/L Lactate Dehydrogenase (333-699) U/L Total Creatine Kinase (35-230) U/L CK-MB (CK-2) (0.0-3.6) ng/mL CK-MB (CK-2) % (2.5-3.0) % Troponin I ng/mL Total Protein (5.8-8.3) g/dL Albumin (3.0-4.8) g/dL Globulin gm/dL Albumin/Globulin Ratio (1.1-1.8) Blood Type O POSITIVE Blood Type Confirm O POSITIVE Antibody Screen Negative Crossmatch See Detail BBK History Checked No verified bt 01/03/17 01/02/17 Range/Units 05:20 14:01 WBC 10.0 D (4.5-11.0) 10^3/ul RBC 3.33 L (3.5-6.1) 10^6/uL Hgb 7.6 L (12.0-16.0) gm/dL Hct 24.9 L (36.0-48.0) % MCV 74.8 L (80.0-105.0) fL MCH 22.8 L (25.0-35.0) pg MCHC 30.5 L (31.0-37.0) g/dl RDW 18.0 H (11.5-14.5) % Plt Count 234 (120.0-450.0) 10^3/uL MPV 11.3 H (7.0-11.0) fl Gran % 89.4 H (50.0-68.0) % Lymph % (Auto) 5.7 L (22.0-35.0) % [place] % (Auto) 4.9 (1.0-6.0) % Eos % (Auto) 0.0 L (1.5-5.0) % Baso % (Auto) 0.0 (0.0-3.0) % Gran # 8.92 H (1.4-6.5) Lymph # 0.6 L (1.2-3.4) [place] # 0.5 (0.1-0.6) Eos # 0.0 (0.0-0.7) Baso # 0.00 (0.0-2.0) K/mm3 Sodium 137 (132-148) mmol/L Potassium 4.1 (3.6-5.0) mmol/L Chloride 104 (98-107) mmol/L Carbon Dioxide 24 (21-33) mmol/L Anion Gap 13 (10-20) BUN 31 H (7-21) mg/dL Creatinine 1.2 (0.5-1.4) mg/dL Est GFR ( Amer) 53 Est GFR (Non-Af Amer) 44 Random Glucose 122 H (70-110) mg/dL Calcium 8.5 (8.4-10.5) mg/dL Phosphorus 3.8 (2.5-4.5) mg/dL Magnesium 2.2 (1.7-2.2) mg/dL Total Bilirubin 0.4 (0.2-1.3) mg/dL AST 61 H (15-39) U/L ALT 34 (7-56) U/L Alkaline Phosphatase 58 (38-133) U/L Lactate Dehydrogenase 596 (333-699) U/L Total Creatine Kinase 310 H (35-230) U/L CK-MB (CK-2) 26.0 H (0.0-3.6) ng/mL CK-MB (CK-2) % 8.4 H (2.5-3.0) % Troponin I 9.09 H* D ng/mL Total Protein 6.8 (5.8-8.3) g/dL Albumin 3.3 (3.0-4.8) g/dL Globulin 3.5 gm/dL Albumin/Globulin Ratio 0.9 L (1.1-1.8) Blood Type Blood Type Confirm Antibody Screen Crossmatch BBK History Checked Laboratory Results - last 24 hr 01/02/17 01/03/17 01/03/17 14:01 05:20 08:04 WBC 10.0 D RBC 3.33 L Hgb 7.6 L 7.7 L Hct 24.9 L 25.5 L MCV 74.8 L MCH 22.8 L MCHC 30.5 L RDW 18.0 H Plt Count 234 MPV 11.3 H Gran % 89.4 H Lymph % (Auto) 5.7 L [place] % (Auto) 4.9 Eos % (Auto) 0.0 L Baso % (Auto) 0.0 Gran # 8.92 H Lymph # 0.6 L [place] # 0.5 Eos # 0.0 Baso # 0.00 Sodium 137 Potassium 4.1 Chloride 104 Carbon Dioxide 24 Anion Gap 13 BUN 31 H Creatinine 1.2 Est GFR ( Amer) 53 Est GFR (Non-Af Amer) 44 Random Glucose 122 H Calcium 8.5 Phosphorus 3.8 Magnesium 2.2 Total Bilirubin 0.4 AST 61 H ALT 34 Alkaline Phosphatase 58 Lactate Dehydrogenase 596 Total Creatine Kinase 310 H CK-MB (CK-2) 26.0 H CK-MB (CK-2) % 8.4 H Troponin I 9.09 H* D Total Protein 6.8 Albumin 3.3 Globulin 3.5 Albumin/Globulin Ratio 0.9 L Blood Type Blood Type Confirm Antibody Screen Crossmatch BBK History Checked 01/03/17 01/03/17 08:25 09:00 WBC RBC Hgb Hct MCV MCH MCHC RDW Plt Count MPV Gran % Lymph % (Auto) [place] % (Auto) Eos % (Auto) Baso % (Auto) Gran # Lymph # [place] # Eos # Baso # Sodium Potassium Chloride Carbon Dioxide Anion Gap BUN Creatinine Est GFR ( Amer) Est GFR (Non-Af Amer) Random Glucose Calcium Phosphorus Magnesium Total Bilirubin AST ALT Alkaline Phosphatase Lactate Dehydrogenase Total Creatine Kinase CK-MB (CK-2) CK-MB (CK-2) % Troponin I Total Protein Albumin Globulin Albumin/Globulin Ratio Blood Type O POSITIVE Blood Type Confirm O POSITIVE Antibody Screen Negative Crossmatch See Detail BBK History Checked No verified bt EKG/Cardiology Studies: Cardiology / EKG Studies 01/03/17 08:55 ELECTROCARDIOGRAM Routine Comment: Reason For Exam: CAD PRE OP:: N Does Patient Have a Pacemaker?: No Review of Systems - Review of Systems Systems not reviewed;Unavailable: Dementia - Cardiovascular Cardiovascular: absent: Chest Pain, Dyspnea Critical Care Progress Note - Ventilator Checklist PUD Prophalyxis: Yes DVT Prophylaxis: (gross hematuria, Hb drop) - Nutrition Nutrition: Nutrition Category Date Time Status Heart Healthy Diet [DIET] Diets 01/02/17 Dinner Ordered Assessment/Plan - Assessment and Plan (Free Text) Assessment: 76 yo F w h/o CVA, COPD, PAF on coumadin, CAD, advanced dementia admitted to ICU with anterolateral NSTEMI and RLL infiltrate Plan: Neuro: Advanced dementia, NAD Continue Aricept Maintain normothermia CV: ASA and plavix for CAD s/p NSTEMI, h/o CVA Hold lovenox given gross hematuria Maintain MAP >65 2D ECHO showed LVEF 35-40%, mod AR, severe , mild-mod MR, mild-mod TR, RVSP 43mmHg, moderately dilated LA, grade 3 restrictive diastolic dysfunction Continue lipitor Pulm: Duonebs Q6hr, Pulmicort Tolerating Room air. Maintain spo2>90 GI/: Gross hematuria - hold SQL Transfuse 2units pRBCs Renal: CKD stage 3A. No acute issues. Monitor renal function I&Os Endo: A1C 5.7. Maintain euglycemia 140-180 ID: RLL PNA on Levaquin Afebrile. No leukocytosis. Procalcitonin still pending Heme: Gross heamturia - hold Lovenox Hb 7.6 this morning. Transfuse 2 units pRBCs. Repeat H&H DVT/GI ppx: Protonix, HHD, contraindication to AC due to active bleed Dispo: Transfer to telemetry - Date & Time Date: 01/03/17 Time: 12:26 <Siddhartha Loyola - Last Filed: 01/03/17 14:34> CCU Objective - Vital Signs / Intake & Output Vital Signs (Last 4 hours): Vital Signs Temp Pulse Resp BP Pulse Ox 01/03/17 14:00 84 26 H 108/47 L 96 01/03/17 13:47 98.4 F 86 20 128/45 L 01/03/17 13:42 91 H 60 H 128/45 L 96 01/03/17 13:27 98.6 F 80 22 103/44 L 01/03/17 13:17 98.6 F 85 22 103/44 L 01/03/17 13:16 98.6 F 85 22 103/44 L 01/03/17 13:12 86 45 H 103/44 L 95 01/03/17 13:00 77 51 H 106/44 L 93 L 01/03/17 12:05 84 27 H 95 01/03/17 12:00 98.2 F 86 24 118/55 L 94 L 01/03/17 11:33 98.1 F 91 H 20 121/49 L 01/03/17 11:29 91 H 25 H 121/49 L 95 01/03/17 11:00 81 20 110/42 L 97 01/03/17 10:48 98.7 F 88 21 106/49 L 01/03/17 10:44 89 22 106/49 L 94 L 01/03/17 10:33 98.2 F 104 H 20 111/52 L Intake and Output (Last 8hrs): Intake & Output 01/02/17 01/03/17 01/03/17 22:59 06:59 14:59 Intake Total 425 271 Output Total 0 Balance 425 271 Intake: Oral 325 Blood Product 261 Red Blood Cells Cpd As5 261 Lr Unit [id number] Red Blood Cells Cpd As5 0 Lr Unit [id number] Other 100 10 Red Blood Cells Cpd As5 10 Lr Unit [id number] Output: Stool 0 Other: Voiding Method Indwelling Catheter - Medications Active Medications: Active Medications Generic Name Dose Route Start Last Admin Trade Name Freq PRN Reason Stop Dose Admin Albuterol/Ipratropium 3 ml 01/02/17 04:02 01/03/17 04:00 Duoneb 3 Mg/0.5 Mg (3 Ml) Ud IH 3 ml Q2H PRN Administration Shortness of Breath Albuterol/Ipratropium 3 ml 01/02/17 14:00 01/03/17 13:05 Duoneb 3 Mg/0.5 Mg (3 Ml) Ud IH 3 ml [id number] FILI Administration Aspirin 81 mg 01/02/17 10:00 01/03/17 08:59 Ecotrin PO 81 mg DAILY FILI Administration Atorvastatin Calcium 80 mg 01/02/17 17:00 01/02/17 17:04 Lipitor PO 80 mg DIN FILI Administration Budesonide 1 mg 01/02/17 20:00 01/03/17 07:04 Pulmicort Respules IH 0.5 mg [id number] FILI Administration Clopidogrel Bisulfate 75 mg 01/03/17 10:00 01/03/17 09:01 Plavix PO 75 mg DAILY FILI Administration Donepezil HCl 10 mg 01/02/17 22:00 01/02/17 23:13 Aricept PO 10 mg HS FILI Administration Levofloxacin/Dextrose 150 mls @ 100 mls/hr 01/02/17 10:00 01/02/17 09:21 Levaquin 750mg IVPB 100 mls/hr Q48H FILI Administration Latanoprost 0 ml 01/02/17 22:00 04/06/17 23:44 Xalatan Opht OU 2.5 ml HS FILI Administration Metoprolol Tartrate 25 mg 01/03/17 10:00 01/03/17 09:00 Lopressor PO 25 mg BID FILI Administration Pantoprazole Sodium 40 mg 01/02/17 10:00 01/03/17 09:01 Protonix Inj IVP 40 mg DAILY FILI Administration - Patient Studies Lab Studies: Lab Studies 01/03/17 01/03/17 01/03/17 Range/Units 09:00 08:25 08:04 WBC (4.5-11.0) 10^3/ul RBC (3.5-6.1) 10^6/uL Hgb 7.7 L (12.0-16.0) gm/dL Hct 25.5 L (36.0-48.0) % MCV (80.0-105.0) fL MCH (25.0-35.0) pg MCHC (31.0-37.0) g/dl RDW (11.5-14.5) % Plt Count (120.0-450.0) 10^3/uL MPV (7.0-11.0) fl Gran % (50.0-68.0) % Lymph % (Auto) (22.0-35.0) % [place] % (Auto) (1.0-6.0) % Eos % (Auto) (1.5-5.0) % Baso % (Auto) (0.0-3.0) % Gran # (1.4-6.5) Lymph # (1.2-3.4) [place] # (0.1-0.6) Eos # (0.0-0.7) Baso # (0.0-2.0) K/mm3 Sodium (132-148) mmol/L Potassium (3.6-5.0) mmol/L Chloride (98-107) mmol/L Carbon Dioxide (21-33) mmol/L Anion Gap (10-20) BUN (7-21) mg/dL Creatinine (0.5-1.4) mg/dL Est GFR ( Amer) Est GFR (Non-Af Amer) Random Glucose (70-110) mg/dL Calcium (8.4-10.5) mg/dL Phosphorus (2.5-4.5) mg/dL Magnesium (1.7-2.2) mg/dL Total Bilirubin (0.2-1.3) mg/dL AST (15-39) U/L ALT (7-56) U/L Alkaline Phosphatase (38-133) U/L Lactate Dehydrogenase (333-699) U/L Total Creatine Kinase (35-230) U/L CK-MB (CK-2) (0.0-3.6) ng/mL CK-MB (CK-2) % (2.5-3.0) % Troponin I ng/mL Total Protein (5.8-8.3) g/dL Albumin (3.0-4.8) g/dL Globulin gm/dL Albumin/Globulin Ratio (1.1-1.8) Blood Type O POSITIVE Blood Type Confirm O POSITIVE Antibody Screen Negative Crossmatch See Detail BBK History Checked No verified bt 01/03/17 01/02/17 Range/Units 05:20 14:01 WBC 10.0 D (4.5-11.0) 10^3/ul RBC 3.33 L (3.5-6.1) 10^6/uL Hgb 7.6 L (12.0-16.0) gm/dL Hct 24.9 L (36.0-48.0) % MCV 74.8 L (80.0-105.0) fL MCH 22.8 L (25.0-35.0) pg MCHC 30.5 L (31.0-37.0) g/dl RDW 18.0 H (11.5-14.5) % Plt Count 234 (120.0-450.0) 10^3/uL MPV 11.3 H (7.0-11.0) fl Gran % 89.4 H (50.0-68.0) % Lymph % (Auto) 5.7 L (22.0-35.0) % [place] % (Auto) 4.9 (1.0-6.0) % Eos % (Auto) 0.0 L (1.5-5.0) % Baso % (Auto) 0.0 (0.0-3.0) % Gran # 8.92 H (1.4-6.5) Lymph # 0.6 L (1.2-3.4) [place] # 0.5 (0.1-0.6) Eos # 0.0 (0.0-0.7) Baso # 0.00 (0.0-2.0) K/mm3 Sodium 137 (132-148) mmol/L Potassium 4.1 (3.6-5.0) mmol/L Chloride 104 (98-107) mmol/L Carbon Dioxide 24 (21-33) mmol/L Anion Gap 13 (10-20) BUN 31 H (7-21) mg/dL Creatinine 1.2 (0.5-1.4) mg/dL Est GFR ( Amer) 53 Est GFR (Non-Af Amer) 44 Random Glucose 122 H (70-110) mg/dL Calcium 8.5 (8.4-10.5) mg/dL Phosphorus 3.8 (2.5-4.5) mg/dL Magnesium 2.2 (1.7-2.2) mg/dL Total Bilirubin 0.4 (0.2-1.3) mg/dL AST 61 H (15-39) U/L ALT 34 (7-56) U/L Alkaline Phosphatase 58 (38-133) U/L Lactate Dehydrogenase 596 (333-699) U/L Total Creatine Kinase 310 H (35-230) U/L CK-MB (CK-2) 26.0 H (0.0-3.6) ng/mL CK-MB (CK-2) % 8.4 H (2.5-3.0) % Troponin I 9.09 H* D ng/mL Total Protein 6.8 (5.8-8.3) g/dL Albumin 3.3 (3.0-4.8) g/dL Globulin 3.5 gm/dL Albumin/Globulin Ratio 0.9 L (1.1-1.8) Blood Type Blood Type Confirm Antibody Screen Crossmatch BBK History Checked Laboratory Results - last 24 hr 01/02/17 01/03/17 01/03/17 14:01 05:20 08:04 WBC 10.0 D RBC 3.33 L Hgb 7.6 L 7.7 L Hct 24.9 L 25.5 L MCV 74.8 L MCH 22.8 L MCHC 30.5 L RDW 18.0 H Plt Count 234 MPV 11.3 H Gran % 89.4 H Lymph % (Auto) 5.7 L [place] % (Auto) 4.9 Eos % (Auto) 0.0 L Baso % (Auto) 0.0 Gran # 8.92 H Lymph # 0.6 L [place] # 0.5 Eos # 0.0 Baso # 0.00 Sodium 137 Potassium 4.1 Chloride 104 Carbon Dioxide 24 Anion Gap 13 BUN 31 H Creatinine 1.2 Est GFR ( Amer) 53 Est GFR (Non-Af Amer) 44 Random Glucose 122 H Calcium 8.5 Phosphorus 3.8 Magnesium 2.2 Total Bilirubin 0.4 AST 61 H ALT 34 Alkaline Phosphatase 58 Lactate Dehydrogenase 596 Total Creatine Kinase 310 H CK-MB (CK-2) 26.0 H CK-MB (CK-2) % 8.4 H Troponin I 9.09 H* D Total Protein 6.8 Albumin 3.3 Globulin 3.5 Albumin/Globulin Ratio 0.9 L Blood Type Blood Type Confirm Antibody Screen Crossmatch BBK History Checked 01/03/17 01/03/17 08:25 09:00 WBC RBC Hgb Hct MCV MCH MCHC RDW Plt Count MPV Gran % Lymph % (Auto) [place] % (Auto) Eos % (Auto) Baso % (Auto) Gran # Lymph # [place] # Eos # Baso # Sodium Potassium Chloride Carbon Dioxide Anion Gap BUN Creatinine Est GFR ( Amer) Est GFR (Non-Af Amer) Random Glucose Calcium Phosphorus Magnesium Total Bilirubin AST ALT Alkaline Phosphatase Lactate Dehydrogenase Total Creatine Kinase CK-MB (CK-2) CK-MB (CK-2) % Troponin I Total Protein Albumin Globulin Albumin/Globulin Ratio Blood Type O POSITIVE Blood Type Confirm O POSITIVE Antibody Screen Negative Crossmatch See Detail BBK History Checked No verified bt EKG/Cardiology Studies: Cardiology / EKG Studies 01/03/17 08:55 ELECTROCARDIOGRAM Routine Comment: Reason For Exam: CAD PRE OP:: N Does Patient Have a Pacemaker?: No Critical Care Progress Note - Nutrition Nutrition: Nutrition Category Date Time Status Heart Healthy Diet [DIET] Diets 01/02/17 Dinner Ordered Addendum Addendum: 01/03/17 14:29 patient was seen, examined and discussed at bedside with Dr. Belle shoulder to shoulder. Her note reflects my exam, assessment and plan, except as below. Meds/ Labs/ONE reviewed. 76 yo female with NSTEMI. On TAC with Lovenox, however Hb dropped and gross hematuria present. Will hold lovenox, transfuse to hb 10, continue with DAP, bb and statins. Coronary angio decision will be deferred to cardio service. ccm time 40 min
--- NOTE | 2017-01-03 16:45 | CARD ---
APPROVED REPORT EKG Measurement Heart [id number] <Conclusion> Normal sinus rhythm Inferior infarct, age undetermined ST & T wave abnormality, consider lateral ischemia Abnormal ECG
[2017-01-03 21:12] LABS: MEAN CELL VOLUME 76.2 fL (80.0-105.0); MEAN CORPUSCULAR HEMOGLOBIN 24.8 pg (25.0-35.0); MEAN CORPUSCULAR HGB CONC 32.5 g/dl (31.0-37.0); MEAN PLATELET VOLUME 11.7 fl (7.0-11.0); RED CELL DISTRIBUTION WIDTH 17.2 % (11.5-14.5); WHITE BLOOD COUNT 9.3 10^3/ul (4.5-11.0)
[2017-01-03] MEDS: Latanoprost 2.5 ml Opht Soln OU SCH (21:21)
--- NOTE | 2017-01-03 21:22 | PN ---
DATE: 01/03/2017 REFERRING PHYSICIAN: Dr. Jung. SUBJECTIVE: She is lying in the bed, not feeling well, increasing shortness of breath, has a cough, hematuria, 12 hemoglobin requiring transfusion. No abdominal pain. No leg pain or leg swelling. OBJECTIVE: GENERAL: Mild distress secondary to cough and shortness of breath. VITAL SIGNS: Temperature is 98, heart rate 91, respiratory rate is 27, blood pressure 129/57, pulse ox 97% on nasal cannula. HEENT: Moist mucous membranes. Crowded airway. Mallampati score is 4. NECK: Supple. No JVD. LUNGS: Has bilateral expiratory wheezing and crackles. HEART: S1, S2. ABDOMEN: Soft, nontender, no organomegaly. Soni catheter has hematuria. EXTREMITIES: There is no edema. NEUROLOGIC: Awake, alert, follows simple commands. MEDICATIONS: She is on Aricept 10 mg at bedtime, DuoNeb q. 6 hours p.r.n., Ecotrin 81 mg daily, Leva herminio 750 mg q. 48 hours, Lipitor 10 mg daily, metoprolol tartrate 25 mg twice a day, Plavix 75 mg buck ly, Protonix 40 mg daily, Pulmicort inhaled twice a day, Lovenox just got discontinued. She received a stat dose of Lasix 40 mg 1 dose. LABORATORY DATA: Shows hemoglobin 7.6, hematocrit 24.9, WBC 10, platelet count is 234. INR 1.02, PT T 27. Sodium 137, potassium 4.1, chloride 104, bicarbonate 24, BUN 31, creatinine 1.2, glucose 122, calcium 8.5, phosphorus 3.8, magnesium 2.2, total bilirubin 0.4, AST 61, ALT 34, alkaline phosphatase 68, troponin 9.09. Albumin is 3.3. Procalcitonin 0.14. Microbiology in nares, positive and negati ve. IMPRESSION AND PLAN: [place], was on anticoagulation, ended up with hematuria, dropped hematocrit and hem oglobin, requiring transfusion, has cardiomyopathy with decreased LV function, presently in pulmonar y edema, also history of severe aortic stenosis, chronic obstructive lung disease, may have component of sleep apnea syndrome, history of cerebrovascular accident. Case discussed the hospitalist medical director. I also spoke to nursing staff and requested to keep the patient in the intensive care unit. Contin ue close followup. Follow up hemoglobin and hematocrit. Urology consult. Agree with discontinuing Lovenox. I agree with Lasix. May continue to use p.r.n. basis Lasix. Get ABG, chest x-ray, CBC, CM P, and BNP in the morning. Keep head elevated at 45 degrees. May use BiPAP while sleeping. Thank bony arita and we will follow with you. Adam Christianson MD cc: [id number] TT: 01/03/2017 21:21:35 Confirmation # [id number] Dictation # [id number]
[2017-01-04] MEDS: Albuterol-Ipratrop 3 mg / 0.5 (3 ml) UD IH SCH ×4 (01:15→20:00)
[2017-01-04 06:05] LABS: ADD MANUAL DIFF? NO
[2017-01-04 06:22] LABS: GRAN # 6.04 (1.4-6.5); HEMATOCRIT 33.5 % (36.0-48.0); LYMPH # 0.7 (1.2-3.4); LYMPH % 9.9 % (22.0-35.0); MEAN CELL VOLUME 76.5 fL (80.0-105.0); MEAN CORPUSCULAR HEMOGLOBIN 24.2 pg (25.0-35.0); MEAN CORPUSCULAR HGB CONC 31.6 g/dl (31.0-37.0); MONO # 0.4 (0.1-0.6); MONO % 6.1 % (1.0-6.0); PLATELET COUNT 208 10^3/uL (120.0-450.0); RED CELL DISTRIBUTION WIDTH 17.3 % (11.5-14.5); WHITE BLOOD COUNT 7.2 10^3/ul (4.5-11.0)
[2017-01-04 06:23] LABS: BILIRUBIN,TOTAL 0.9 mg/dL (0.2-1.3); CALCIUM 8.5 mg/dL (8.4-10.5); MAGNESIUM 2.2 mg/dL (1.7-2.2); PHOSPHOROUS 3.5 mg/dL (2.5-4.5); POTASSIUM 3.4 mmol/L (3.6-5.0); TOTAL PROTEIN 6.9 g/dL (5.8-8.3)
[2017-01-04 06:51] LABS: TROPONIN I 6.74 ng/mL
--- NOTE | 2017-01-04 07:30 | PN ---
DATE: 01/03/2017 SUBJECTIVE: The patient seen and examined on the bedside, still in the unit. Looks comfortable. Overnight had an episode of gross hematuria. The patient denies chest pain. No shortness of breath. No headache and no dizziness. No fever and no chills. No swelling of the legs. PHYSICAL EXAMINATION: VITAL SIGNS: Temperature 98.6, pulse 79, blood pressure 129/57 and respiratory rate 18. HEAD: Normocephalic and atraumatic. EYES: PERRLA. Extraocular muscles intact. Conjunctivae pink. Eyelids unremarkable. Nose patent. Mucous membranes moist. NECK: Supple. No carotid bruit, JVD or thyromegaly. CHEST: Bilaterally symmetrical. HEART: S1, S2 positive. LUNGS: Clear to auscultation. ABDOMEN: Soft. Bowel sounds positive. No organomegaly. EXTREMITIES: No edema and no cyanosis. NEUROLOGIC: The patient is awake, alert and communicating even if he is partially aphasic MEDICATIONS: Aricept, DuoNeb, Ecotrin, Levaquin, Lipitor, Lopressor, Plavix, Protonix, Pulmicort and Xarelto. LABORATORY DATA: White blood cells 9.7, hemoglobin 10.4, hematocrit 32.0 and platelets 196. Sodium 137, potassium 4.1, BUN 31, creatinine 1.2, glucose 122, troponin 5.95 and repeated 9.09. ASSESSMENT AND PLAN: The patient is a 76-year-old lady with anemia, hyperglycemia, diabetes mellitus, abnormal liver function test and troponin trending up, acute myocardial infarction. I reviewed Dr. Del Castillo's notes. Non-ST segment myocardial infarction, coronary artery disease, cerebrovascular accident , hemiparesis, contractures of the extremities, carotid artery stenting replacement and carotid artery stenosis disease fibrillation, was on Eliquis, drop in hemoglobin and hematocrit. The patient has only 1 son who is living in [place], does not keep in touch with that son. The patient has a public guardian. We can call [facility] to get guardianship number. According to Dr. Del Castillo, due to condition, he does not want to do invasive procedures. I appreciate Dr. Del Castillo's input. The patient has history of nephrolithiasis. manages patient's urologist, history of ureteral stent placement, history of hematuria overnight, holding Lovenox. Transfuse packed RBCs. The patient has positive aphagia, history of chronic obstructive pulmonary disease, asthma, hypertension and hypercholesterolemia. Continue present treatment. I reviewed Dr. Del Castillo's and Dr. Christianson's notes. Will follow up. Florence Jung MD cc: [id number] TT: 01/03/2017 22:36:57 Confirmation # [id number] Dictation # [id number] 01/04/2017 06:30:06 NATHANIEL
[2017-01-04] MEDS: Budesonide 0.5 mg/2 ml Inhal Susp UD IH SCH (07:47)
--- NOTE | 2017-01-04 09:11 | PN ---
DATE: 01/04/2017 SUBJECTIVE: The patient is resting in bed, awake and responds appropriately. She has no complaint o f increased shortness of breath, cough today. She continues to have hematuria and has no complaints of abdominal pain. The patient has had all anticoagulants held and is noted to have no fever or chil ls. No nausea or vomiting. No abdominal pain, no diarrhea. PHYSICAL EXAMINATION: VITAL SIGNS: Temperature is 98.4, her pulse is 98, BP is 129/57 and respirations are 27. The patien t's O2 saturation is 98 on 3 liters of nasal cannula. HEENT: Head is atraumatic, normocephalic. Eyes reactive to light. Ears, nose and throat seem to be within normal limits. NECK: Supple. No JVD, no thyroid enlargement, no lymph nodes. CARDIOVASCULAR: Heart has regular rate and rhythm. Normal S1, S2. LUNGS: Reveal mild rhonchi bilaterally. ABDOMEN: Soft. Decreased bowel sounds. GENITALIA AND RECTAL: Deferred. MUSCULOSKELETAL: There seems to be some weakness and contraction of the left upper extremity. GENITOURINARY: Deferred. NEUROLOGICAL: The patient does have some contractions and weakness of the left upper extremity, but is awake and alert and seems to be moving all extremities. LABORATORY: Reveal a white count of 7.2, hemoglobin is 10.6, hematocrit is 33.5 with platelets of 20 8,000. Sodium is 140, potassium 3.4, chloride 103, CO2 of 28 with a BUN of 33, creatinine of 1.3, an d a glucose of 88. Note that the patient does have an increased troponin of 6.74 down from 9.09 on . IMPRESSION: This patient has a non-ST elevation myocardial infarction, has history of coronary arter y disease. The patient has hematuria and dementia and history of congestive heart failure, chronic o bstructive pulmonary disease, and anemia. PLAN: The patient is getting bronchodilators of DuoNeb and all anticoagulants have been held and hem oglobin is being watched closely because of the hematuria. The patient is getting Lasix for appropri ate diuresis. She is on Levaquin as an antibiotic and Pulmicort as well. We will continue with aggr essive pulmonary toilet, continue with O2 via nasal cannula and continue to treat aggressively and wo rk closely with the other consultants and the primary care doctor. Herbert Cárdenas MD cc: [id number] TT: 01/04/2017 09:10:41 Confirmation # [id number] Dictation # [id number] jn
--- NOTE | 2017-01-04 12:05 | PN ---
DATE: 01/04/2017 REASON FOR THE CONSULTATION AND FOLLOWUP: [id number]-jcgkexn myocardial infarction, congestive heart jairon lure, COPD, cardiac evaluation, transferred from intermediate, [facility], dropping H and H, and hemat ocrit. BRIEF CLINICAL HISTORY: A 76-year-old female, transferred from the intermediate with a history of ch ronic left-sided weakness and contracture of upper extremity, bed bound, is a resident of [facility], transferred because of shortness of breath, history of paroxysmal atrial fibrillation, h istory of COPD, was on Eliquis, last dose of Eliquis was night before admission. The patient ruled i n for subsequent myocardial infarction because of underlying comorbidity, decided to treat medically. The patient dropped hemoglobin to 7.6 yesterday, 2 units of packed RBCs being given. PHYSICAL EXAMINATION: VITAL SIGNS: Temperature afebrile, heart rate 98, blood pressure 107/43. HEENT: PERRLA. Extraocular muscles intact. NECK: Supple. No carotid bruits. No thyromegaly. CHEST: Clear to auscultation. HEART: S1, S2 regular. ABDOMEN: Soft. EXTREMITIES: Clubbing and cyanosis negative. LABORATORY DATA: Blood workup as follows: WBC , hemoglobin 10.6, hematocrit 33.5, platelet cou nt 208. Chemistry shows sodium 140, potassium 3.4, chloride 106, carbon dioxide 28, anion gap of 12, BUN 33, creatinine 1.3. Troponin 6.74. CPK 153. IMPRESSION: Non-ST segment myocardial infarction, drop in hemoglobin and hematocrit, cerebrovascular accident, dementia, bed bound, asymptomatic. RECOMMENDATION: Aggressive medical treatment, though patient has qhx-LA-sxpooan myocardial infarctio n, but in view of underlying comorbidity, decided to treat medically. The patient had drop in hemogl obin and hematocrit. Stool guaiac is pending. We will give 2 units of packed RBC, keep hemoglobin a round 10, if needed, more. Abnormal LFTs, history of carotid artery stenosis, history of paroxysmal atrial fibrillation. Due to overall medical condition, decided to treat medically. No guardian is a vailable. Tried to reach the number of the son, was not available, so ultimately with a 2-physician consent, we gave 2 units of packed RBC yesterday. Continue aggressive medical treatment. No invasiv e cardiac workup is planned. Continue beta annabelle. Continue aspirin and Plavix as tolerated. We w ill follow with you. Thank you, Dr. Jung, for providing the opportunity in taking care of the patient. Repeat the blood workup in the morning. Adam Del Castillo MD cc: [id number] TT: 01/04/2017 12:05:16 Confirmation # [id number] Dictation # [id number]
--- NOTE | 2017-01-04 18:05 | CON ---
DATE: 01/04/2017 CHIEF COMPLAINT: Hematuria. HISTORY OF PRESENT ILLNESS: History is obtained from the chart since the patient is unable to give a competent history. She is a 76-year-old resident of [facility]. She has a history of atrial fibrill ation and has been on Eliquis, COPD, and she has had a CVA. She was admitted with shortness of breat h and found to have an WA. She has expressive aphasia. PAST MEDICAL HISTORY: Is significant for having had hypertension, dementia and a CVA. ALLERGIES: He has no allergies. MEDICATIONS: At home she is on DuoNeb, albuterol, Toprol, omeprazole and Eliquis. SOCIAL HISTORY: She does not drink or smoke. FAMILY HISTORY: Noncontributory. REVIEW OF SYMPTOMS: She has no apparent symptoms referable to the head, eyes, ears, nose or throat. She has ecchymoses visible. No apparent chest pain. No apparent nausea or vomiting. PHYSICAL EXAMINATION: VITAL SIGNS: Shows her to be afebrile, blood pressure 140/56, respirations 18, pulse 78. HEENT: Normocephalic. As mentioned, she has ecchymoses. CARDIAC: Currently, she is in sinus rhythm. ABDOMEN: Soft. No rebound, no guarding. No suprapubic tenderness. No CVA pain. GENITALIA: Soni is draining dark urine that is bloody. No clots. Her urine culture was growing a gram-negative kristin. She currently is on Levaquin. I spoke to t he nurse taking care of her. I would allow the urine just to clear on its own. If there is any issu e, I would not put a 3-way in, but rather change the catheter that she has and put in a 22-Czech 2-w ay and the catheter itself can be irrigated; the current one or a larger one as needed. Given the antonio nj's history and medical situation I would not do any intervention unless absolutely necessary. I am ordering a bedside renal ultrasound and a urine for cytology. I would not do any cystoscopy if t his clears. Elroy Jacobo MD cc: [id number] TT: 01/04/2017 18:04:56 Confirmation # [id number] Dictation # [id number] dn
--- NOTE | 2017-01-04 18:41 | PN ---
DATE: 01/04/2017 REFERRING PHYSICIAN: Dr. Jung. SUBJECTIVE: She is lying in the bed, eyes closed, has some nausea. No vomiting. Breathing is amy r. Cough is decreased. No abdominal pain. Still having hematuria. No leg swelling. OBJECTIVE: GENERAL: No acute distress. VITAL SIGNS: Temperature is 98, heart rate is ____, respiratory rate is 20, blood pressure 132/57, p ulse ox 95% on nasal cannula. HEENT: Moist mucous membranes. Crowded airway. Mallampati score is 4. NECK: Supple. No JVD. LUNGS: Has basilar crackles with few rhonchi. HEART: S1 and S2. ABDOMEN: Soft, nontender, nondistended. EXTREMITIES: There is no edema. NEUROLOGIC: Sleepy, arousable. Soni catheter draining bloody urine. MEDICATIONS: She is on Aricept 10 mg at bedtime, DuoNeb q. 2 hours p.r.n. and q. 6 hours around th e clock, Ecotrin 81 mg daily, Levaquin 750 mg q. 48 hours, Lipitor 80 mg daily, metoprolol tartrate 2 5 mg twice a day, ____ 5 mg daily, Protonix 20 mg daily, Pulmicort inhaled twice a day. Eye drops. LABORATORY DATA: Shows hemoglobin 10.6, hematocrit ____.5, WBC 7.2, platelet is 208. Sodium 140, po tassium 3.4, chloride 103, bicarbonate 28, BUN 33, creatinine 1.3, glucose 88, calcium is 8.5, phosph orus 3.5, magnesium is 2.2, AST 54, ALT 36, alkaline phosphatase is 59. LDH is 759. Troponin is 6.7 5. Albumin is 3.4. Urine culture has gram-negative rods. IMPRESSION AND PLAN: Status post myocardial infarction, cardiomyopathy, hematuria will extend requir ing blood transfusion, cardiomyopathy with decreased left ventricular function, probably pulmonary ed aide slowly improving, severe aortic stenosis, chronic obstructive lung disease, may be component of s leep apnea syndrome, history of cerebrovascular accident. Case discussed with the nursing staff. Al so reviewed urology note, Dr. Jacobo for conservative treatment. Follow H and H closely until urine cl ear. Keep head elevated at 45 degree. Bronchodilator. We will get a chest x-ray in the morning. F ollow up electrolytes. Thank you and will follow with you. Adam Christianson MD cc: [id number] TT: 01/04/2017 18:40:29 Confirmation # [id number] Dictation # [id number] jn
--- NOTE | 2017-01-04 21:35 | PN ---
DATE: 01/04/2017 SUBJECTIVE: The patient seen and examined on the bedside, sleepy, arousable, moving all 4 extremitie s. No focal deficits. No fever, no chills. Still having hematuria. No swelling of the leg. PHYSICAL EXAMINATION: VITAL SIGNS: Temperature 98, heart rate 80, respiratory rate 20, blood pressure 130/57, pulse oximet ry 96% on room air. HEENT: Head normocephalic, atraumatic. Eyes PERRLA. Extraocular muscles intact. Conjunctivae pink . Eyelids unremarkable. Nose patent. Mucous membranes moist. NECK: Supple. No carotid bruit, JVD or thyromegaly. CHEST: Bilaterally symmetrical. HEART: S1, S2 positive. ABDOMEN: Soft. Bowel sounds present. No organomegaly. EXTREMITIES: No edema, no cyanosis. NEUROLOGIC: The patient is sleepy, arousable. MEDICATIONS: Aricept, DuoNeb, Ecotrin, Levaquin, Lipitor, metoprolol, Protonix, Pulmicort. LABORATORY DATA: Hemoglobin 10.6, white blood cells 7.2, platelets 208. Sodium 140, potassium 3.4, BUN 33, creatinine 1.3. AST 54, ALT 36. Troponin 6.75. ASSESSMENT AND PLAN: The patient is a 76-year-old lady, status post myocardial infarction, cardiomyo jones, hematuria, anemia requiring blood transfusion, cardiomyopathy with decreased left ventricular ejection fraction, pulmonary edema, slowly improving, history of deep venous thrombosis, severe aorti c stenosis, chronic obstructive lung disease, sleep apnea, history of cerebrovascular accident, hemip legia. According to Dr. Jacobo, conservative treatment. Follow H and H, bronchodilators. I reviewed Dr. Christianson's notes. I reviewed Dr. Jacobo notes also. The patient has dementia, bilateral carotid art stevenson stenosis, status post a stent. Urine culture is growing gram-negative rods. The patient is on L evaquin. Given the patient's history and medical situation, according to Dr. Jacobo, would not do any intervention unless absolutely a necessity. He ordered bilateral renal ultrasound and urine for cyto logy. The patient is seen by Dr. Del Castillo also. Gastrointestinal and deep venous thrombosis prophylaxis. We will follow up. Florence Jung MD cc: [id number] TT: 01/04/2017 21:35:21 Confirmation # [id number] Dictation # [id number] rn
[2017-01-04] MEDS: Latanoprost 2.5 ml Opht Soln OU SCH (22:03)
[2017-01-05] MEDS: Albuterol-Ipratrop 3 mg / 0.5 (3 ml) UD IH SCH ×4 (01:42→20:41)
[2017-01-05 06:36] LABS: ADD MANUAL DIFF? NO
[2017-01-05 06:58] LABS: ALB/GLOB RATIO 0.9 (1.1-1.8); BILIRUBIN,TOTAL 0.6 mg/dL (0.2-1.3); CALCIUM 8.5 mg/dL (8.4-10.5); MAGNESIUM 2.2 mg/dL (1.7-2.2); PHOSPHOROUS 3.5 mg/dL (2.5-4.5); POTASSIUM 3.2 mmol/L (3.6-5.0); TOTAL PROTEIN 6.9 g/dL (5.8-8.3)
[2017-01-05 07:23] LABS: EOS % 0.5 % (1.5-5.0); GRAN # 4.52 (1.4-6.5); GRAN % 81.9 % (50.0-68.0); HEMATOCRIT 33.4 % (36.0-48.0); LYMPH # 0.7 (1.2-3.4); LYMPH % 11.8 % (22.0-35.0); MEAN CELL VOLUME 77.3 fL (80.0-105.0); MEAN CORPUSCULAR HEMOGLOBIN 24.5 pg (25.0-35.0); MEAN CORPUSCULAR HGB CONC 31.7 g/dl (31.0-37.0); MONO # 0.3 (0.1-0.6); MONO % 5.8 % (1.0-6.0); PLATELET COUNT 180 10^3/uL (120.0-450.0); WHITE BLOOD COUNT 5.5 10^3/ul (4.5-11.0)
[2017-01-05] MEDS: Budesonide 0.5 mg/2 ml Inhal Susp UD IH SCH ×2 (07:25→20:42)
[2017-01-05 07:41] LABS: TROPONIN I 3.3 ng/mL
--- NOTE | 2017-01-05 08:35 | PN ---
DATE: 01/05/2017 SUBJECTIVE: The patient is resting in bed, on room air and has a good O2 saturation. She has no com plaints of shortness of breath or cough. The patient has no abdominal pain and continues to be off a nticoagulants. No fever, chills. No nausea, vomiting, no diarrhea. PHYSICAL EXAMINATION: VITAL SIGNS: Her temperature is 97.4, pulse is 84, respirations are 26, and BP is 120/60. SKIN: Warm and dry. HEAD: Atraumatic, normocephalic. EYES: Reactive to light. EARS, NOSE AND THROAT: Seem to be within normal limits. NECK: Supple. No JVD, no thyroid enlargement, no lymph nodes. HEART: Has a regular rate and rhythm. Normal S1, S2. LUNGS: Reveal rare rhonchi. ABDOMEN: Soft, nontender, normal bowel sounds. GENITALIA AND RECTAL: Deferred. MUSCULOSKELETAL: No joint deformities. EXTREMITIES: Reveal no significant edema. NEUROLOGIC: She seemed to be grossly intact. LABORATORIES: Pending. IMPRESSION: The patient has a non-ST elevation myocardial infarction with a history of coronary jean claude ry disease. She has hematuria and dementia as well as a history of congestive heart failure, chronic obstructive pulmonary disease, and anemia. PLAN: We will continue with bronchodilators of DuoNeb and we will follow patient closely for hematur ia. The patient is getting Lasix for diuresis and Levaquin as well as Pulmicort. We will continue w ith aggressive pulmonary toilet, O2 via nasal cannula and work closely with the other consultants and the primary care doctor. Herbert Cárdenas MD cc: [id number] TT: 01/05/2017 08:35:03 Confirmation # [id number] Dictation # [id number] en
--- NOTE | 2017-01-05 08:56 | RAD ---
HISTORY: chf COMPARISON: 01/02/2017 FINDINGS: LUNGS: Improving infiltrate at right lung base. Improving vascular congestion PLEURA: No significant pleural effusion identified, no pneumothorax apparent. CARDIOVASCULAR: Normal. OSSEOUS STRUCTURES: No significant abnormalities. VISUALIZED UPPER ABDOMEN: Normal. OTHER FINDINGS: None. IMPRESSION: Improving vascular congestion and improving infiltrate right lung base
[2017-01-05] MEDS ORDERED: Potassium Chloride 20 mEq ER Tab PO ONE (11:21)
--- NOTE | 2017-01-05 12:34 | PN ---
DATE: 01/05/2017 REASON FOR CONSULTATION: [id number]-ML-[id number] myocardial infarction, congestive heart failure, COPD, cardi ac evaluation, transferred from skilled nursing, [facility], dropping H and H, and hematocrit, hematuria. BRIEF CLINICAL HISTORY: This is a 76-year-old female, transferred from skilled nursing with a history o f chronic left-sided weakness and contracture of upper extremity, bedbound, resident of [facility], transferred because of shortness of breath, paroxysmal atrial fibrillation, history of COPD, was on Eliquis, last dose prior to admission. Subsequently, the patient ruled in for myocardial inf arction, but because of underlying comorbidity and asymptomatic, it was decided to treat medically. Later on, patient dropped hemoglobin requiring 2 units of packed RBC. As no family member available, so physician consented, which I also consented as one of the physicians to give the blood. Now kristopher ent is stable. Denies any chest pain, shortness of breath, but still has hematuria, also decided to be treated medically. PHYSICAL EXAMINATION: VITAL SIGNS: Temperature afebrile, heart rate 84, blood pressure 120/60. HEENT: PERRLA. Extraocular muscles intact. NECK: Supple. No carotid bruit, no thyromegaly. CHEST: Clear to auscultation. HEART: S1, S2 regular. ABDOMEN: Soft. EXTREMITIES: Clubbing, cyanosis negative. BLOOD WORKUP: WBC 5.5, hemoglobin 10. , hematocrit 33.4, platelet count 180. Chemistry shows so dium 141, potassium 3.2, chloride 103, carbon dioxide 27, anion gap of 14, BUN , creatinine 1.2. Troponin 3.30. IMPRESSION: Non-ST segment myocardial infarction, anemia, dropping H and H, which is now stable stat us post 2 packed red blood cell transfusions, lowest hemoglobin is 7.7, hypokalemia, cerebrovascular accident, left-sided weakness, TSH low, probably sick euthyroid. Triglycerides 65, cholesterol 152, LDL 77, HDL 41. Hematuria, bedbound. RECOMMENDATION: Aggressive medical treatment. Continue Plavix, continue aspirin, continue atorvasta tin, continue beta annabelle. If the patient can tolerate aspirin and Plavix, continue Plavix for 4 we eks. Will treat as non-ST, medical treatment for [id number]-sacwcvr myocardial infarction. We will foll ow with you. Discontinue IV fluid. We will follow with you. Repeat the lab in the morning. Supple ment potassium and monitor electrolytes in the morning. Adam Del Castillo MD cc: [id number] TT: 01/05/2017 12:33:32 Confirmation # [id number] Dictation # [id number] en
[2017-01-05] MEDS: Cefepime 1gm in NS 100ml 100 ML IVPB SCH (17:35)
--- NOTE | 2017-01-05 17:53 | PN ---
DATE: 01/05/2017 REFERRING PHYSICIAN: Dr. Jung. SUBJECTIVE: She is lying in the bed, head at 45 degrees, sleepy, arousable. Mild cough and shortnes s of breath. No chest pain, no nausea, no vomiting, no diarrhea. Still has hematuria. No leg pain or leg swelling. OBJECTIVE: GENERAL: No acute distress. VITAL SIGNS: Temp is 98, heart rate 88, respiratory rate is 25, pulse ox 94% on nasal cannula, blood pressure 120/60. HEENT: Moist mucous membranes. Crowded airway. Mallampati score is 4. NECK: Supple. No JVD. LUNGS: Has scattered rhonchi and crackles at the bases. HEART: S1 and S2. ABDOMEN: Soft, nontender. No organomegaly. EXTREMITIES: There is no edema. NEUROLOGIC: Sleepy, arousable, follows simple commands. MEDICATIONS: She is on Aricept 10 mg at bedtime, DuoNeb q. 12 hours p.r.n. and q. 6 hours around the clock, Ecotrin 81 mg daily, Levaquin 750 mg q. 48 hours, Lipitor 80 mg daily, metoprolol tartrate 25 mg twice a day, Plavix 75 mg daily, Protonix 40 mg daily, Pulmicort inhaled twice a day. LABORATORY DATA: Shows hemoglobin 10.6, hematocrit 33.4, WBC 5.5, platelet is 180. Sodium 141, pota ssium 3.2, chloride 103, bicarbonate 27, BUN 23, creatinine 1.2, glucose 83, calcium is 8.5, phosphor us 3.5, magnesium 2.2. AST 41, ALT 33, alkaline phosphatase is 57, LDH is 628. Troponin is 3.3. Al bumin is 3.3. Urine culture has Providencia stuarti, which is resistant to Cipro. Chest x-ray done today, which shows improving vascular congestion and improving infiltrate in the right lung base. IMPRESSION AND PLAN: Status post myocardial infarction, cardiomyopathy, persistent hematuria requiri ng transfusion, has cardiomyopathy, decreased left ventricular function, resolving pulmonary edema. There may be a component of pneumonia. History of severe aortic stenosis, chronic obstructive lung d isease, may have sleep apnea syndrome, history of cerebrovascular accident in the remote past. Case discussed with the nursing staff. We will discontinue Levaquin and start cefepime 2 grams IV daily. Continue diuretics. Sleep apnea precautions. Keep head elevated at 45 degree. Follow up CBC, CMP. Aspiration precautions. Cardiology followup. Urology followup. Follow up labs in the morning. We will follow with you. Adam Christianson MD cc: [id number] TT: 01/05/2017 17:52:02 Confirmation # [id number] Dictation # [id number] rn
--- NOTE | 2017-01-05 19:44 | CP.PCM.CON ---
History of Present Illness - History of Present Illness History of Present Illness: Infectious Disease Consultation: January 05, 2017 76 yo female with presentation of shortness of breath. She was found to have signs for NSTEMI and admitted to the MICU for further care. She was later verified to have STEMI with decreased cardiac function and also found to have a UTI with gram negative rods. This was identified at [facility]. The patient herself is a very poor historian. There has been no leukocytosis or fevers during this hospitalization. The patient is a bit lethargic. PMHx: Hypertension, Left-sided CVA, COPD, depression, anxiety, paroxysmal atrial fibrillation, history of skin cancer PSHx: Cataract surgery Allergies: NKDA Social Hx: No tobacco, EtOH, or illicit drug use Active Medications Albuterol/Ipratropium (Duoneb 3 Mg/0.5 Mg (3 Ml) Ud) 3 ml IH Q2H PRN PRN Reason: Shortness of Breath Last Admin: 01/03/17 04:00 Dose: 3 ml Albuterol/Ipratropium (Duoneb 3 Mg/0.5 Mg (3 Ml) Ud) 3 ml IH [id number] [facility] Last Admin: 01/05/17 13:09 Dose: 3 ml Aspirin (Ecotrin) 81 mg PO DAILY [facility] Last Admin: 01/05/17 10:15 Dose: 81 mg Atorvastatin Calcium (Lipitor) 80 mg PO DIN [facility] Last Admin: 01/05/17 17:35 Dose: 80 mg Budesonide (Pulmicort Respules) 1 mg IH [id number] [facility] Last Admin: 01/05/17 07:25 Dose: 1 mg Clopidogrel Bisulfate (Plavix) 75 mg PO DAILY [facility] Last Admin: 01/05/17 10:15 Dose: 75 mg Donepezil HCl (Aricept) 10 mg PO HS [facility] Last Admin: 01/04/17 21:50 Dose: 10 mg Cefepime HCl (Maxipime 1gm) 100 mls @ 100 mls/hr IVPB Q24H [facility] PRN Reason: Protocol Last Admin: 01/05/17 17:35 Dose: 100 mls/hr Latanoprost (Xalatan Opht) 0 ml OU HS [facility] Last Admin: 01/04/17 22:03 Dose: 2.5 ml Metoprolol Tartrate (Lopressor) 25 mg PO BID [facility] Last Admin: 01/05/17 17:35 Dose: 25 mg Pantoprazole Sodium (Protonix Inj) 40 mg IVP DAILY [facility] Last Admin: 01/05/17 10:15 Dose: 40 mg Family Hx: none given ROS: Patient unable to provide. Past Patient History - Infectious Disease Hx of Infectious Diseases: None - Past Medical History & Family History Past Medical History?: Yes - Past Social History Smoking Status: Never Smoked - CARDIAC Hx Hypertension: Yes - PULMONARY Hx Respiratory Disorders: No - NEUROLOGICAL HX Cerebrovascular Accident: Yes Hx Dementia: Yes - HEENT Hx Cataracts: Yes - RENAL Hx Chronic Kidney Disease: No - ENDOCRINE/METABOLIC Hx Endocrine Disorders: No - HEMATOLOGICAL/ONCOLOGICAL Hx Anemia: Yes - INTEGUMENTARY Hx Cellulitis: Yes (face) - MUSCULOSKELETAL/RHEUMATOLOGICAL Hx Falls: No - GASTROINTESTINAL Hx Gastrointestinal Disorders: No - GENITOURINARY/GYNECOLOGICAL Hx Genitourinary Disorders: No - PSYCHIATRIC Hx Depression: Yes Hx Substance Use: No - ANESTHESIA Hx Anesthesia: Yes Hx Anesthesia Reactions: No Hx Malignant Hyperthermia: No Meds Allergies/Adverse Reactions: Allergies Allergy/AdvReac Type Severity Reaction Status Date / Time No Known Allergies Allergy Verified 01/02/17 01:38 - Medications Medications: Current Medications Albuterol/Ipratropium (Duoneb 3 Mg/0.5 Mg (3 Ml) Ud) 3 ml IH Q2H PRN PRN Reason: Shortness of Breath Last Admin: 01/03/17 04:00 Dose: 3 ml Albuterol/Ipratropium (Duoneb 3 Mg/0.5 Mg (3 Ml) Ud) 3 ml IH [id number] [facility] Last Admin: 01/05/17 13:09 Dose: 3 ml Aspirin (Ecotrin) 81 mg PO DAILY [facility] Last Admin: 01/05/17 10:15 Dose: 81 mg Atorvastatin Calcium (Lipitor) 80 mg PO DIN [facility] Last Admin: 01/05/17 17:35 Dose: 80 mg Budesonide (Pulmicort Respules) 1 mg IH [id number] [facility] Last Admin: 01/05/17 07:25 Dose: 1 mg Clopidogrel Bisulfate (Plavix) 75 mg PO DAILY [facility] Last Admin: 01/05/17 10:15 Dose: 75 mg Donepezil HCl (Aricept) 10 mg PO HS [facility] Last Admin: 01/04/17 21:50 Dose: 10 mg Cefepime HCl (Maxipime 1gm) 100 mls @ 100 mls/hr IVPB Q24H [facility] PRN Reason: Protocol Last Admin: 01/05/17 17:35 Dose: 100 mls/hr Latanoprost (Xalatan Opht) 0 ml OU HS [facility] Last Admin: 01/04/17 22:03 Dose: 2.5 ml Metoprolol Tartrate (Lopressor) 25 mg PO BID [facility] Last Admin: 01/05/17 17:35 Dose: 25 mg Pantoprazole Sodium (Protonix Inj) 40 mg IVP DAILY [facility] Last Admin: 01/05/17 10:15 Dose: 40 mg Physical Exam - Constitutional Appears: Non-toxic, No Acute Distress, Chronically Ill - Head Exam Head Exam: ATRAUMATIC, NORMOCEPHALIC - Eye Exam Eye Exam: EOMI, PERRL Pupil Exam: NORMAL ACCOMODATION, PERRL - ENT Exam ENT Exam: Mucous Membranes Moist, Normal External Ear Exam, TM's Normal Bilaterally - Neck Exam Neck exam: Positive for: Full Rom, Normal Inspection - Respiratory Exam Respiratory Exam: Clear to Auscultation Bilateral, NORMAL BREATHING PATTERN. absent: Rales, Rhonchi, Wheezes - Cardiovascular Exam Cardiovascular Exam: REGULAR RHYTHM, RRR, +S1, +S2 - GI/Abdominal Exam GI & Abdominal Exam: Normal Bowel Sounds, Soft. absent: Distended, Tenderness - Extremities Exam Extremities exam: Positive for: full ROM, normal inspection - Neurological Exam Neurological exam: Alert, CN II-XII Intact, Oriented x3 Additional comments: very poor memory especially short term memory. - Psychiatric Exam Psychiatric exam: Normal Affect, Normal Mood - Skin Skin Exam: Intact, Normal Color Results - Vital Signs Recent Vital Signs: Last Vital Signs Temp 98.1 F 01/05/17 12:00 Pulse 82 01/05/17 18:00 Resp 26 H 01/05/17 18:00 BP 136/56 L 01/05/17 18:00 Pulse Ox 97 01/05/17 18:00 - Labs Result Diagrams: 01/05/17 06:00 01/05/17 06:00 Labs: Laboratory Results - last 24 hr 01/05/17 06:00 WBC 5.5 D RBC 4.32 Hgb 10.6 L Hct 33.4 L MCV 77.3 L MCH 24.5 L MCHC 31.7 RDW 18.0 H Plt Count 180 Gran % 81.9 H Lymph % (Auto) 11.8 L [place] % (Auto) 5.8 Eos % (Auto) 0.5 L Baso % (Auto) 0.0 Gran # 4.52 Lymph # 0.7 L [place] # 0.3 Eos # 0.0 Baso # 0.00 Sodium 141 Potassium 3.2 L Chloride 103 Carbon Dioxide 27 Anion Gap 14 BUN 23 H Creatinine 1.2 Est GFR ( Amer) 53 Est GFR (Non-Af Amer) 44 Random Glucose 83 Calcium 8.5 Phosphorus 3.5 Magnesium 2.2 Total Bilirubin 0.6 AST 41 H ALT 33 Alkaline Phosphatase 57 Lactate Dehydrogenase 628 Total Creatine Kinase 116 Troponin I 3.30 H* D Total Protein 6.9 Albumin 3.3 Globulin 3.6 Albumin/Globulin Ratio 0.9 L Assessment & Plan - Assessment and Plan (Free Text) Assessment: 76 yo female with multiple medical issues including recent diagnosis of NSTEMI found to have a UTI with Providencia. Patient with cardiomyopathy, hematuria, anemia requiring transfusions. The Providencia in the urine can be treated with Rocephin IV. Levaquin can be stopped. Currently on fevers or leukocytosis. So far patient is fairly stable. She has a poor short term memory but answers questions for the most part appropriately. Supportive care. Thank you for allowing me to participate in the care of the patient, we will follow with you.
--- NOTE | 2017-01-05 19:55 | PN ---
DATE: 01/05/2017 SUBJECTIVE: The patient was seen and examined on the bedside, awake, mild cough and shortness of breath still. Soni bag is full with blood, still has hematuria. No swelling of the leg. No fever, no chills. PHYSICAL EXAMINATION: VITAL SIGNS: Temperature 98, heart rate 88, respiratory rate 25, pulse oximetry 94%, blood pressure 120/60. HEAD: Normocephalic, atraumatic. EYES: PERRLA. Extraocular muscles intact. Conjunctivae pink. Eyelids unremarkable. NOSE: Is patent. NECK: Supple. No carotid bruit, JVD or thyromegaly. CHEST: Bilaterally symmetrical. HEART: S1, S2 positive. LUNGS: Has decreased rhonchi and crackles at the bases. ABDOMEN: Soft. No organomegaly. EXTREMITIES: No edema, no cyanosis. NEUROLOGIC: The patient is awake and alert, but partially aphasic; otherwise, oriented x 3. MEDICATIONS: Aricept, DuoNeb, Ecotrin, Levaquin, Lipitor, metoprolol, Plavix, Protonix, Pulmicort, LABORATORY DATA: Hemoglobin 10.6, hematocrit 33.4, white blood cell 5.5, and platelets 180. Sodium 141, potassium 3.2, BUN 23, creatinine 1.2. AST 41, ALT 33. Urine culture has Providencia stuartii, which is resistant to Cipro. Chest x-ray done, which shows improving vascular congestion and improving infiltrates in the right lung base. ASSESSMENT AND PLAN: The patient is a 76-year-old lady status post myocardial infarction, cardiomyopathy, persistent hematuria requiring transfusion. The patient has a history of kidney stones and a history of stent in the ureter. She is actually a private patient of Dr. Pravin Holliday and by mistake somebody called consult of Dr. Jacobo and we invited Dr. Holliday back to come on the case. She has decreased left ventricular function, resolving pulmonary edema, pneumonia, history of severe aortic stenosis, chronic obstructive lung disease, sleep apnea syndrome, history of cerebrovascular accident in the remote past, hemiplegia, partial aphasia. Dr. Christianson discontinued the Levaquin and started her on cefepime. Continue diuretics. Sleep apnea precautions. Repeat labs. I appreciate Dr. Christianson, Dr. Del Castillo and Dr. Herbert Cárdensa consult. ID consult called with Dr. Joshi. Gastrointestinal and deep vein thrombosis prophylaxis. Will repeat labs and will followup. Florence Jung MD cc: [id number] TT: 01/05/2017 19:54:04 Confirmation # [id number] Dictation # [id number] dn NATHANIEL
[2017-01-05] MEDS: Latanoprost 2.5 ml Opht Soln OU SCH (21:20)
[2017-01-06] MEDS: Albuterol-Ipratrop 3 mg / 0.5 (3 ml) UD IH SCH ×4 (02:07→21:00)
[2017-01-06 05:29] LABS: ADD MANUAL DIFF? NO
[2017-01-06 05:45] LABS: BLOOD UREA NITROGEN 20 mg/dL (7-21); CALCIUM 8.3 mg/dL (8.4-10.5); CARBON DIOXIDE 26 mmol/L (21-33); CHLORIDE 103 mmol/L (95-110); GFR AFRICAN-AMERICAN > 60; GLUCOSE,RANDOM 100 mg/dL (70-110); POTASSIUM 3.8 mmol/L (3.6-5.0); SODIUM 138 mmol/L (132-148)
[2017-01-06 05:51] LABS: BASO # 0.01 K/mm3 (0.0-2.0); BASO % 0.2 % (0.0-3.0); EOS # 0.1 (0.0-0.7); EOS % 0.9 % (1.5-5.0); GRAN # 4.27 (1.4-6.5); GRAN % 77.9 % (50.0-68.0); HEMATOCRIT 31.8 % (36.0-48.0); LYMPH # 0.8 (1.2-3.4); LYMPH % 14.2 % (22.0-35.0); MEAN CELL VOLUME 77.8 fL (80.0-105.0); MEAN CORPUSCULAR HEMOGLOBIN 24.7 pg (25.0-35.0); MEAN CORPUSCULAR HGB CONC 31.8 g/dl (31.0-37.0); MEAN PLATELET VOLUME 12.3 fl (7.0-11.0); MONO # 0.4 (0.1-0.6); MONO % 6.8 % (1.0-6.0); PLATELET COUNT 181 10^3/uL (120.0-450.0); RED CELL DISTRIBUTION WIDTH 18.4 % (11.5-14.5); WHITE BLOOD COUNT 5.5 10^3/ul (4.5-11.0)
[2017-01-06] MEDS: Budesonide 0.5 mg/2 ml Inhal Susp UD IH SCH ×2 (08:08→21:00)
[2017-01-06] MEDS ORDERED: Iohexol 350 MG/100 ML VIAL ONE (09:06)
--- NOTE | 2017-01-06 09:08 | US ---
PROCEDURE: Ultrasound of the Kidneys HISTORY: Hematuria COMPARISON: None available. TECHNIQUE: Grayscale imaging was performed. FINDINGS: RIGHT KIDNEY: Measures: 10.6 cm. Normal in size, contour and echogenicity. There are multiple nonobstructing stones, the largest in the lower pole measures 13 mm. No hydronephrosis, solid or cystic mass. LEFT KIDNEY: Measures: 10.3 cm. Normal in size, contour and echogenicity. There is a 9 mm nonobstructing stone in the lower pole. There is a 1.8 x 1.5 cm simple cyst in the lower pole. No solid mass lesion or hydronephrosis visualized. OTHER FINDINGS: None. IMPRESSION: 1. Multiple nonobstructing stones in the right kidney, the largest in the lower pole measures 13 mm. No hydronephrosis. 2. 9 mm nonobstructing stone in the lower pole of the left kidney. No hydronephrosis.
--- NOTE | 2017-01-06 09:42 | RAD ---
HISTORY: infiltrate COMPARISON: 01/05/2017 FINDINGS: LUNGS: There is persistent mild pulmonary venous congestion. There is no focal consolidation. There is bibasilar atelectasis. The lungs are well inflated. PLEURA: No significant pleural effusion identified, no pneumothorax apparent. CARDIOVASCULAR: Normal. OSSEOUS STRUCTURES: No significant abnormalities. VISUALIZED UPPER ABDOMEN: Normal. OTHER FINDINGS: None. IMPRESSION: Persistent mild pulmonary venous congestion. No lobar pneumonia.
[2017-01-06] MEDS: Pantoprazole 40 mg EC Tab PO SCH (10:34)
--- NOTE | 2017-01-06 12:20 | PN ---
DATE: 01/06/2017 REASON FOR CONSULTATION AND FOLLOWUP: Joe-RH-bturcom myocardial infarction, coronary artery disease, congestive heart failure, COPD, cardiac evaluation, transfer from [facility], drop in he moglobin and hematocrit, status post packed RBC transfusion, hematuria. BRIEF CLINICAL HISTORY: This is a 76-year-old female who was transferred from the care home with history of chronic left-sided weakness and contracture of left upper extremity, bedbound, resident of [facility]. Transferred because of shortness of breath; paroxysmal atrial fibrillation, o n Eliquis, at [facility]; history of COPD. As mentioned above, was on Eliquis prior to adm ission. Subsequently the patient ruled in for myocardial infarction. Because of underlying comorbid ity and ____, it was decided to treat medically. The patient also dropped hemoglobin and hematocrit r equiring ____ packed RBCs. No next of kin or guardian is available on the phone, so medical consent for the transfusion is obtained by 2 physicians, including myself. PHYSICAL EXAMINATION: VITAL SIGNS: Temperature afebrile, heart rate 70, blood pressure 124/48. HEENT: PERRLA. Extraocular muscles intact. NECK: Supple. No carotid bruits. No thyromegaly. CHEST: Clear to auscultation. HEART: S1, S2 regular. ABDOMEN: Soft. EXTREMITIES: Clubbing and cyanosis negative. BLOOD WORKUP: WBC 5.5, hemoglobin 10.____, hematocrit 31.8, platelet count 181. Chemistry shows sod ium 130, potassium 3.____, chloride 103, carbon dioxide 26, anion gap of 13, BUN 20, creatinine 1.0. BNP 10,100. IMPRESSION: [id number] myocardial infarction, anemia, drop in hemoglobin and hematocrit, now wit h hemoglobin of 10.1, still keeps on dropping slowly; history of left-sided cerebrovascular accident, [id number] myocardial infarction, coronary artery disease. The patient had echocardiography on 01/02/2017 that showed ejection fraction 35-40%, severe aortic stenosis, mild to moderate mitral regu rgitation, mild to moderate tricuspid regurgitation, history of cerebrovascular accident with left-si ded weakness with contracture of left upper extremity. RECOMMENDATION: In view of above comorbidity, no invasive procedure is planned. Continue aspirin, c ontinue Plavix for 4 weeks then baby aspirin alone. Continue atorvastatin, continue beta-annabelle. M onitor H and H. May be transferred to the telemetry. Follow up with Dr. Holliday for hematuria. Ov humberto, patient's condition is critical. Mcfp prognosis is guarded. Will follow with you. Rita pickett aggressive medical treatment. No invasive cardiac workup is planned at this time as mentioned ab romeo. Adam Del Castillo MD cc: [id number] TT: 01/06/2017 11:29:25 Confirmation # [id number] Dictation # [id number] ia 01/06/2017 11:19:14
--- NOTE | 2017-01-06 12:50 | CP.CCUPN ---
<Trevon Lu - Last Filed: 01/06/17 12:44> CCU Subjective - Physician Review Subjective (Free Text): 01/06/17 12:44 Patient seen and examined at bedside in ICU. No acute events overnight. Urine remains cranberry-colored overnight but is improved coloration from prior days. Patient remains disoriented and intermittently confused, but denies acute complaint. Pleasantly demented, intermittently oriented to self only, but is able to answer yes/no questions appropriately and follow most commands. Still some shortness of breath, but improved over yesterday; denies pain with respiration, chest pain, loss of sensation, new weakness. CCU Objective - Vital Signs / Intake & Output Vital Signs (Last 4 hours): Vital Signs Pulse Resp BP Pulse Ox 01/06/17 11:00 76 22 132/48 L 96 01/06/17 10:29 72 125/48 L 01/06/17 10:00 78 22 125/48 L 98 01/06/17 09:00 80 22 117/40 L 95 Intake and Output (Last 8hrs): Intake & Output 01/05/17 01/06/17 01/06/17 22:59 06:59 14:59 Intake Total 820 480 Output Total 700 700 Balance 120 -220 Weight 78.789 kg Intake: IV 100 0 Left Forearm 100 0 Oral 720 480 Tube Feeding 0 TPN/PPN 0 Blood Product 0 Lipid 0 Albumin 0 Other 0 Output: Urine 700 700 Urethral (Soni) 700 700 Stool 0 Urine/Stool Mix 0 Emesis 0 Oral Regurgitation 0 Other 0 Other: Voiding Method Indwelling Catheter Indwelling Catheter # Voids Urethral (Soni) 0 # Bowel Movements 0 - Physical Exam Physical Exam Limitations: Positive for: Other (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 Negative for: Altered Mental Status , Uncooperative Head: Positive for: Atraumatic, Normocephalic. Negative for: Abrasion, Laceration Pupils: Positive for: PERRL, Other (small scattered copper-colored deposits in right cornea, none obscuring pupil). Negative for: Sluggish, Non-Reactive, Pinpoint Extroacular Muscles: Positive for: EOMI (requires repeat testing due to patient requiring frequent re-orientation, but no clear gaze deviation or nystagmus). Negative for: Gaze Palsy, Entrapment Conjunctiva: Positive for: Normal. Negative for: Injected Mouth: Positive for: Moist Mucous Membranes, Other (no gross asymmetry of movement/smile/frown). Negative for: Dry, Drooling Nose (External): Positive for: Atraumatic. Negative for: Abrasion, Contusion, Laceration Neck: Negative for: Meningeal Signs Respiratory/Chest: Positive for: Wheezes (faint expiratory wheezes in all tam ), Decreased Breath Sounds (decreased sounds in all tam). Negative for: Clear to Auscultation, Good Air Exchange, Respiratory Distress, Accessory Muscle Use, Rales, Rhonchi, Tachypneic, Tender to Palpation Cardiovascular: Positive for: Regular Rate and Rhythm, Normal S1, S2. Negative for: Murmurs, Irregular Rhythm, Tachycardic, Bradycardic Abdomen: Positive for: Normal Bowel Sounds. Negative for: Tenderness, Distention, Peritoneal Signs, Guarding, Mass/Organomegaly Upper Extremity: Positive for: Other (Right upper extremity - normal ROM, intact sensation in all tested tam, spontaneous movements and able to appropriately following commands; Left upper extremity - elbow and wrist held flexed against chest wall but held flaccidly, unable to move on command, sensation intact in tested tam except in wrist and hand; +2 radial pulses and warm to palpation bilaterally, no gross edema/erythema/asymmetry). Negative for: Normal Inspection, Cyanosis, Edema Lower Extremity: Positive for: Other (Right lower extremity - normal ROM, spontaneous movements and able to appropriately following commands; Left lower extremity - flaccid, no flexion at knee or hip; +1 dorsalis pulses bilaterally, no gross edema/erythema/asymmetry, no tenderness to palpation). 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 Negative for: Motor Func Grossly Intact (refer to upper and lower extremity exams), Normal Sensory Function (refer to upper extremity exam) Skin: Positive for: Warm, Dry, Normal Color, Other (scatter small spot of skin discoloration along upper extremities bilaterally). Negative for: Rashes, Erythematous, Hot, Cold, Laceration, Abscess, Abrasion Psychiatric: Positive for: Alert. Negative for: Oriented x 3, Normal Insight, Normal Concentration Other physical findings (Free Text): Awake and alert, intermittently oriented to self, not oriented to place/year/ condition, able to appropriately answer yes/no questions, able to follow most commands appropriately; requires frequent reorientation - Medications Active Medications: Active Medications Generic Name Dose Route Start Last Admin Trade Name Freq PRN Reason Stop Dose Admin Albuterol/Ipratropium 3 ml 01/02/17 04:02 01/03/17 04:00 Duoneb 3 Mg/0.5 Mg (3 Ml) Ud IH 3 ml Q2H PRN Administration Shortness of Breath Albuterol/Ipratropium 3 ml 01/02/17 14:00 01/06/17 08:07 Duoneb 3 Mg/0.5 Mg (3 Ml) Ud IH 3 ml [id number] LOLA Administration Aspirin 81 mg 01/02/17 10:00 01/06/17 10:29 Ecotrin PO 81 mg DAILY LOLA Administration Atorvastatin Calcium 80 mg 01/02/17 17:00 01/05/17 17:35 Lipitor PO 80 mg DIN LOLA Administration Budesonide 1 mg 01/02/17 20:00 01/06/17 08:08 Pulmicort Respules IH 1 mg [id number] LOLA Administration Clopidogrel Bisulfate 75 mg 01/03/17 10:00 01/06/17 10:33 Plavix PO 75 mg DAILY LOLA Administration Donepezil HCl 10 mg 01/02/17 22:00 01/05/17 21:20 Aricept PO 10 mg HS LOLA Administration Cefepime HCl 100 mls @ 100 mls/hr 01/05/17 17:30 01/05/17 17:35 Maxipime 1gm IVPB 100 mls/hr Q24H LOLA Administration Protocol Latanoprost 0 ml 01/02/17 22:00 01/05/17 21:20 Xalatan Opht OU 2.5 ml HS LOLA Administration Metoprolol Tartrate 25 mg 01/03/17 10:00 01/06/17 10:29 Lopressor PO 25 mg BID LOLA Administration Pantoprazole Sodium 40 mg 01/06/17 07:30 01/06/17 10:34 Protonix Ec Tab PO 40 mg ACB LOLA Administration - Patient Studies Lab Studies: Microbiology Studies 01/03/17 07:39 Urine Culture - Final Urine,Catheterized Providencia Stuartii Lab Studies 01/06/17 Range/Units 05:00 WBC 5.5 (4.5-11.0) 10^3/ul RBC 4.09 (3.5-6.1) 10^6/uL Hgb 10.1 L (12.0-16.0) gm/dL Hct 31.8 L (36.0-48.0) % MCV 77.8 L (80.0-105.0) fL MCH 24.7 L (25.0-35.0) pg MCHC 31.8 (31.0-37.0) g/dl RDW 18.4 H (11.5-14.5) % Plt Count 181 (120.0-450.0) 10^3/uL MPV 12.3 H (7.0-11.0) fl Gran % 77.9 H (50.0-68.0) % Lymph % (Auto) 14.2 L (22.0-35.0) % Pender % (Auto) 6.8 H (1.0-6.0) % Eos % (Auto) 0.9 L (1.5-5.0) % Baso % (Auto) 0.2 (0.0-3.0) % Gran # 4.27 (1.4-6.5) Lymph # 0.8 L (1.2-3.4) Pender # 0.4 (0.1-0.6) Eos # 0.1 (0.0-0.7) Baso # 0.01 (0.0-2.0) K/mm3 Sodium 138 (132-148) mmol/L Potassium 3.8 (3.6-5.0) mmol/L Chloride 103 (95-110) mmol/L Carbon Dioxide 26 (21-33) mmol/L Anion Gap 13 (10-20) BUN 20 (7-21) mg/dL Creatinine 1.0 (0.5-1.4) mg/dL Est GFR ( Amer) > 60 Est GFR (Non-Af Amer) 54 Random Glucose 100 (70-110) mg/dL Calcium 8.3 L (8.4-10.5) mg/dL NT-Pro-B Natriuret Pep 11021 H (0-450) pg/mL Laboratory Results - last 24 hr 01/06/17 05:00 WBC 5.5 RBC 4.09 Hgb 10.1 L Hct 31.8 L MCV 77.8 L MCH 24.7 L MCHC 31.8 RDW 18.4 H Plt Count 181 MPV 12.3 H Gran % 77.9 H Lymph % (Auto) 14.2 L Pender % (Auto) 6.8 H Eos % (Auto) 0.9 L Baso % (Auto) 0.2 Gran # 4.27 Lymph # 0.8 L Pender # 0.4 Eos # 0.1 Baso # 0.01 Sodium 138 Potassium 3.8 Chloride 103 Carbon Dioxide 26 Anion Gap 13 BUN 20 Creatinine 1.0 Est GFR ( Amer) > 60 Est GFR (Non-Af Amer) 54 Random Glucose 100 Calcium 8.3 L NT-Pro-B Natriuret Pep 74447 H Review of Systems - Review of Systems Systems not reviewed;Unavailable: Dementia Review of Systems: Some shortness of breath but improved over prior day, no chest pain or pain with respiration, no other acute complaints ROS limited due to dementia and disorientation (requires frequent reorientation) Critical Care Progress Note - Nutrition Nutrition: Nutrition Category Date Time Status Heart Healthy Diet [DIET] Diets 01/02/17 Dinner Ordered Assessment/Plan - Assessment and Plan (Free Text) Assessment: This is a 76 yo F with PMH of CVA with residual left extremity paresis , COPD, Paroxysmal AFib on coumadin, CAD, severe , and advanced dementia admitted to ICU for high-risk NSTEMI, who subsequently developed persisting zaire hematuria. Plan: Neuro: -Awake, alert, intermittently oriented to self only; no acute distress -following most commands appropriately, answers yes/no questions appropriately -Hx of dementia, Hx of CVA with residual left-extremity paresis -High fall risk; PT/OT consulted -Continue aricept -Maintain normothermia, Tmax overnight 100F Pulm: -Hx COPD, shortness of breath improved -Satting well on NC and Room Air, 94% on bedside monitor on room air at time of exam -Continue Duonebs q6 lola and q2 prn -Continue Budesonide -Pulm following (Dr. Christianson), appreciate any recs -Conservative O2 Management, maintain SaO2 > 90% and paO2 > 60 -CXR today notable for persistent mild pulmonary venous congestion, no lobar pneumonia -Levaquin stopped as per ID and Pulm Cardio: -Regular rate and rhythm, hemodynamically stable with BP of 135/42 and HR 70's at bedside at time of exam -Holding AC due to gross hematuria, hematuria persists but Hgb and BPs are stable -s/p 2 units pRBCs transfusion on 01/03, hgb stable since (10.1 today), no further transfusions indicated at this time -Cardio following (Dr. Del Castillo), appreciate any recs; initial issue was deciding invasive vs non-invasive management, patient unable to consent due to dementia and family/person to contact unreachable for several days (primary phone number incorrect/disconnected, secondary connects to patient's senior care) -Continue ASA and plavix, high dose statin; continue lopressor -Maintain MAP > 65 GI: -Heart-healthy diet -Protonix for GI ppx Renal: -Gross hematuria persists, but coloration improved (previously dark red urine, now cranberry-colored), no clots; continue to hold AC -Renal US obtained, notable for multiple right kidney stones (largest 13mm) and left kidney 9mm stone, both non-obstructing, no hydronephrosis bilaterally -Urine culture positive for Providencia stuartii, covered by Cefepime as per ID -ID (Dr. Joshi) and Urology (Dr. Aguilar) on board, appreciate any recs -Etilogy of hematuria likely nephrolithiasis vs 2/2 infection, may be multifactorial; Hgb and BP remain stable despite persistence of hematuria, no further transfusions indicated at this time -Avoid nephrotoxic drugs where feasible, Cr. 1.0 (was 1.1) -Maintain euvolemia and euglycemia -Monitor and replete electrolytes as needed -Monitor I's & O's ID: -CXR today negative for pneumonia, Levaquin stopped as per ID and Pulm -ID (Dr. Joshi) following, appreciate any recs -Continue Cefepime IV as per ID Heme: -Gross heamturia persists so continue holding AC, but Hgb and BPs stable, so no indication to transfuse further at this time -Hgb 10.1 (was 10.6) -S/p 2 units pRBCs on 01/03, transfused total 2 units pRBC during this hospitalization -SCDs for DVT ppx Dispo: In ICU for high risk NSTEMI and persisting hematuria, stable for transfer to telemetry at this point FEN: Heart-healthy diet Access: Peripheral IV Consults: Cardio, ID, Pulm, Urology Ppx: Protonix for GI, SCDs for DVT (avoid AC given persisting hematuria) Code status: Unknown, so full code Patient seen, reviewed, and discussed with attending, Dr. Morales. - Date & Time Date: 01/06/17 Time: 13:58 <Kelsey Morales MD H - Last Filed: 01/06/17 14:05> CCU Objective - Vital Signs / Intake & Output Vital Signs (Last 4 hours): Vital Signs Pulse Resp BP Pulse Ox 01/06/17 11:00 76 22 132/48 L 96 01/06/17 10:29 72 125/48 L Intake and Output (Last 8hrs): Intake & Output 01/05/17 01/06/17 01/06/17 22:59 06:59 14:59 Intake Total 820 480 Output Total 700 700 Balance 120 -220 Weight 173 lb 11.2 oz Intake: IV 100 0 Left Forearm 100 0 Oral 720 480 Tube Feeding 0 TPN/PPN 0 Blood Product 0 Lipid 0 Albumin 0 Other 0 Output: Urine 700 700 Urethral (Soni) 700 700 Stool 0 Urine/Stool Mix 0 Emesis 0 Oral Regurgitation 0 Other 0 Other: Voiding Method Indwelling Catheter Indwelling Catheter # Voids Urethral (Soni) 0 # Bowel Movements 0 - Medications Active Medications: Active Medications Generic Name Dose Route Start Last Admin Trade Name Freq PRN Reason Stop Dose Admin Albuterol/Ipratropium 3 ml 01/02/17 04:02 01/03/17 04:00 Duoneb 3 Mg/0.5 Mg (3 Ml) Ud IH 3 ml Q2H PRN Administration Shortness of Breath Albuterol/Ipratropium 3 ml 01/02/17 14:00 01/06/17 13:18 Duoneb 3 Mg/0.5 Mg (3 Ml) Ud IH 3 ml [id number] LOLA Administration Aspirin 81 mg 01/02/17 10:00 01/06/17 10:29 Ecotrin PO 81 mg DAILY LOLA Administration Atorvastatin Calcium 80 mg 01/02/17 17:00 01/05/17 17:35 Lipitor PO 80 mg DIN LOLA Administration Budesonide 1 mg 01/02/17 20:00 01/06/17 08:08 Pulmicort Respules IH 1 mg [id number] LOLA Administration Clopidogrel Bisulfate 75 mg 01/03/17 10:00 01/06/17 10:33 Plavix PO 75 mg DAILY LOLA Administration Donepezil HCl 10 mg 01/02/17 22:00 01/05/17 21:20 Aricept PO 10 mg HS LOLA Administration Cefepime HCl 100 mls @ 100 mls/hr 01/05/17 17:30 01/05/17 17:35 Maxipime 1gm IVPB 100 mls/hr Q24H LOLA Administration Protocol Latanoprost 0 ml 01/02/17 22:00 01/05/17 21:20 Xalatan Opht OU 2.5 ml HS LOLA Administration Metoprolol Tartrate 25 mg 01/03/17 10:00 01/06/17 10:29 Lopressor PO 25 mg BID LOLA Administration Pantoprazole Sodium 40 mg 01/06/17 07:30 01/06/17 10:34 Protonix Ec Tab PO 40 mg ACB LOLA Administration - Patient Studies Lab Studies: Lab Studies 01/06/17 Range/Units 05:00 WBC 5.5 (4.5-11.0) 10^3/ul RBC 4.09 (3.5-6.1) 10^6/uL Hgb 10.1 L (12.0-16.0) gm/dL Hct 31.8 L (36.0-48.0) % MCV 77.8 L (80.0-105.0) fL MCH 24.7 L (25.0-35.0) pg MCHC 31.8 (31.0-37.0) g/dl RDW 18.4 H (11.5-14.5) % Plt Count 181 (120.0-450.0) 10^3/uL MPV 12.3 H (7.0-11.0) fl Gran % 77.9 H (50.0-68.0) % Lymph % (Auto) 14.2 L (22.0-35.0) % Pender % (Auto) 6.8 H (1.0-6.0) % Eos % (Auto) 0.9 L (1.5-5.0) % Baso % (Auto) 0.2 (0.0-3.0) % Gran # 4.27 (1.4-6.5) Lymph # 0.8 L (1.2-3.4) Pender # 0.4 (0.1-0.6) Eos # 0.1 (0.0-0.7) Baso # 0.01 (0.0-2.0) K/mm3 Sodium 138 (132-148) mmol/L Potassium 3.8 (3.6-5.0) mmol/L Chloride 103 (95-110) mmol/L Carbon Dioxide 26 (21-33) mmol/L Anion Gap 13 (10-20) BUN 20 (7-21) mg/dL Creatinine 1.0 (0.5-1.4) mg/dL Est GFR ( Amer) > 60 Est GFR (Non-Af Amer) 54 Random Glucose 100 (70-110) mg/dL Calcium 8.3 L (8.4-10.5) mg/dL NT-Pro-B Natriuret Pep 62957 H (0-450) pg/mL Laboratory Results - last 24 hr 01/06/17 05:00 WBC 5.5 RBC 4.09 Hgb 10.1 L Hct 31.8 L MCV 77.8 L MCH 24.7 L MCHC 31.8 RDW 18.4 H Plt Count 181 MPV 12.3 H Gran % 77.9 H Lymph % (Auto) 14.2 L Pender % (Auto) 6.8 H Eos % (Auto) 0.9 L Baso % (Auto) 0.2 Gran # 4.27 Lymph # 0.8 L Pender # 0.4 Eos # 0.1 Baso # 0.01 Sodium 138 Potassium 3.8 Chloride 103 Carbon Dioxide 26 Anion Gap 13 BUN 20 Creatinine 1.0 Est GFR ( Amer) > 60 Est GFR (Non-Af Amer) 54 Random Glucose 100 Calcium 8.3 L NT-Pro-B Natriuret Pep 42388 H Critical Care Progress Note - Nutrition Nutrition: Nutrition Category Date Time Status Heart Healthy Diet [DIET] Diets 01/02/17 Dinner Ordered Attending/Attestation - Attestation I have personally seen and examined this patient.: Yes I have fully participated in the care of the patient.: Yes I have reviewed all pertinent clinical information: Yes Notes (Text): 01/06/17 14:02 76 y/o F w/ NSTEMI and Hematuria NSTEMI Conservative medical management per Cardiology. Asprin, plavix B Blockers as needed. No cardiac cath planned. No further troponin elevation or CP. Hematuria Noted to have HGb drop earlier in the admission. currently stable > 10. Off Heparin. On plavix and asprin. US renal showed multiple renal stones, non obstructive currently but possibly contributed to the hematuria and UTI. On abx for presumed Gram neg torri in the urine. Currently afebrile and asymptomatic. ID following. PT/OT needed Transfer out later today to telemetry . cc time 45 min
--- NOTE | 2017-01-06 13:25 | PQF CHF ---
This form is a permanent part of the medical record Dr. Jung, Please document type and severity of CHF present in this patient. Clarification of your documentation is requested to better reflect the severity of illness and intensity of treatment of your patient. Indicators present ASK SCREENING NURSE ? [x] Diagnosis of CHF and/or history of CHF [x] BNP > 200 [x] Imaging Finding of Pulmonary Edema /Pleural Effusions [] Fluid/Volume Overload [] Pitting edema [] Ejection Fraction < 40% (Indicative of Systolic Heart Failure) [] Ejection Fraction > 40% (Indicative of Diastolic Heart Failure) [] Dyspnea / Orthopenea / Paroxysmal Nocturnal Dyspnea [] Other: Location in the medical record that reflects the above clinical findings: [] Treatment Provided: [] PHYSICIAN'S RESPONSE Based on your medical judgment of the clinical indicators outlined above, are you treating this patient for a known or suspected: [] Acute CHF [] Systolic [] Diastolic [] Combined [] Chronic CHF [] Systolic [] Diastolic [] Combined [] Acute on Chronic CHF []Systolic [] Diastolic [] Combined [] CHF due hypertension [] Acute systolic []Chronic systolic [] Acute/ chronic systolic [] Other, please indicate: [] [] If Unable to Determine, please check the box, sign and date. Present On Admission (POA) Indicator: [] Present at the time of admission [] Not present at the time of admission [] Clinically Undetermined In responding to this query, please exercise your independent professional judgment. The fact that a question is asked does not imply that any particular answer is desired or expected. Thank you for your clarification on this documentation. If you have any questions please call:[ ] * Thank you, [ ]Debbie Watt [facility] #[id number] leguillon debeader NATHANIEL
[2017-01-06] MEDS: Cefepime 1gm in NS 100ml 100 ML IVPB SCH (17:33)
--- NOTE | 2017-01-06 19:33 | CP.PCM.PN ---
Subjective - Date & Time of Evaluation Date of Evaluation: 01/06/17 Time of Evaluation: 18:30 - Subjective Subjective: Infectious Disease Follow Up: January 06, 2017 76 yo female with presentation of shortness of breath. She was found to have signs for NSTEMI and admitted to the MICU for further care. She was later verified to have STEMI with decreased cardiac function and also found to have a UTI with gram negative rods. This was identified at [facility]. The patient herself is a very poor historian. There has been no leukocytosis or fevers during this hospitalization. The patient is a bit lethargic. She is less short of breath compared to yesterday and she states that she feels much better today comparatively speaking. Objective - Vital Signs/Intake and Output Vital Signs (last 24 hours): Temp Pulse Resp BP Pulse Ox 97.8 F 78 23 133/44 L 98 01/06/17 16:00 01/06/17 18:00 01/06/17 18:00 01/06/17 18:00 01/06/17 18:00 Intake and Output: 01/06/17 01/07/17 18:59 06:59 Intake Total 520 Output Total 600 Balance -80 - Medications Medications: Current Medications Albuterol/Ipratropium (Duoneb 3 Mg/0.5 Mg (3 Ml) Ud) 3 ml IH Q2H PRN PRN Reason: Shortness of Breath Last Admin: 01/03/17 04:00 Dose: 3 ml Albuterol/Ipratropium (Duoneb 3 Mg/0.5 Mg (3 Ml) Ud) 3 ml IH [id number] [facility] Last Admin: 01/06/17 13:18 Dose: 3 ml Aspirin (Ecotrin) 81 mg PO DAILY [facility] Last Admin: 01/06/17 10:29 Dose: 81 mg Atorvastatin Calcium (Lipitor) 80 mg PO DIN [facility] Last Admin: 01/06/17 17:30 Dose: 80 mg Budesonide (Pulmicort Respules) 1 mg IH [id number] [facility] Last Admin: 01/06/17 08:08 Dose: 1 mg Clopidogrel Bisulfate (Plavix) 75 mg PO DAILY [facility] Last Admin: 01/06/17 10:33 Dose: 75 mg Donepezil HCl (Aricept) 10 mg PO HS [facility] Last Admin: 01/05/17 21:20 Dose: 10 mg Cefepime HCl (Maxipime 1gm) 100 mls @ 100 mls/hr IVPB Q24H [facility] PRN Reason: Protocol Last Admin: 01/06/17 17:33 Dose: 100 mls/hr Latanoprost (Xalatan Opht) 0 ml OU HS [facility] Last Admin: 01/05/17 21:20 Dose: 2.5 ml Metoprolol Tartrate (Lopressor) 25 mg PO BID [facility] Last Admin: 01/06/17 17:30 Dose: 25 mg Pantoprazole Sodium (Protonix Ec Tab) 40 mg PO ACB [facility] Last Admin: 01/06/17 10:34 Dose: 40 mg - Labs Labs: 01/06/17 05:00 01/06/17 05:00 PT 11.0 Seconds (9.9-11.8) 01/02/17 06:00 INR 1.02 (0.93-1.08) 01/02/17 06:00 APTT 27.3 Seconds (23.7-30.8) 01/02/17 06:00 - Constitutional Appears: Non-toxic, No Acute Distress, Chronically Ill - Head Exam Head Exam: ATRAUMATIC, NORMOCEPHALIC - Eye Exam Eye Exam: EOMI, PERRL Pupil Exam: NORMAL ACCOMODATION, PERRL - ENT Exam ENT Exam: Mucous Membranes Moist, Normal External Ear Exam, TM's Normal Bilaterally - Neck Exam Neck Exam: Full ROM, Normal Inspection - Respiratory Exam Respiratory Exam: Clear to Ausculation Bilateral, NORMAL BREATHING PATTERN. absent: Rales, Rhonchi, Wheezes - Cardiovascular Exam Cardiovascular Exam: REGULAR RHYTHM, RRR, +S1 - GI/Abdominal Exam GI & Abdominal Exam: Soft, Normal Bowel Sounds. absent: Distended, Tenderness - Extremities Exam Extremities Exam: Full ROM, Normal Inspection - Neurological Exam Neurological Exam: Alert, Awake, CN II-XII Intact, Oriented x3 Additional comments: very poor memory especially short term memory. - Psychiatric Exam Psychiatric exam: Normal Affect, Normal Mood - Skin Skin Exam: Intact, Normal Color Assessment and Plan - Assessment and Plan (Free Text) Assessment: 76 yo female with multiple medical issues including recent diagnosis of NSTEMI found to have a UTI with Providencia. Patient with cardiomyopathy, hematuria, anemia requiring transfusions. The Providencia in the urine can be treated with Cefepime IV. Currently on fevers or leukocytosis. So far patient is fairly stable. She has a poor short term memory but answers questions for the most part appropriately. Overall, she states that she feels better over the past few days. Supportive care. Continue on Cefepime treatment. No further cultures pending at this time. Thank you for allowing me to participate in the care of the patient, we will follow with you.
--- NOTE | 2017-01-06 20:39 | PN ---
DATE: 01/06/2017 REFERRING PHYSICIAN: Dr. Jung. SUBJECTIVE: She is lying in the bed, sleepy, arousable. Has some cough, decreased shortness of dean th. No chest pain, no nausea, no vomiting. Very poor appetite. Still has a Soni catheter with hem aturia. No leg swelling. OBJECTIVE: GENERAL: Sleepy, arousable. VITAL SIGNS: Temp is 98, heart rate 78, respiratory rate is 22, blood pressure 133/44, pulse ox 98% on nasal cannula. HEENT: Small oral cavity. Crowded airway. NECK: Supple. No JVD. LUNGS: Have crackles and rhonchi. HEART: S1, S2. ABDOMEN: Soft, nontender. No organomegaly. EXTREMITIES: There is no edema. NEUROLOGIC: Sleepy, arousable. MEDICATIONS: She is on Aricept 10 mg at bedtime, DuoNeb q. 6 hours, Ecotrin 81 mg daily, Lipitor 80 mg daily, metoprolol tartrate 25 mg twice a day, cefepime 1 g q. 24 hours, Plavix 75 mg daily, Proton ix 40 mg ACB, Pulmicort inhaled twice a day. LABORATORY DATA: Shows hemoglobin 10.1, hematocrit 31.8, WBC 5.5, platelet is 181. Sodium 138, pota ssium 3.8, chloride 103, bicarbonate 26, BUN 20, creatinine 1.0. Glucose is 100, calcium is 8.3. Pr oBNP is 10,100. Urine culture has providencia. Chest x-ray done today shows persistent mild pulmona ry venous congestion. IMPRESSION AND PLAN: Status post myocardial infarction, cardiomyopathy, persistent hematuria requiri ng transfusion, cardiomyopathy, decreased left ventricular function, resolving pulmonary edema, histo ry of cerebrovascular accident, severe aortic stenosis, chronic obstructive lung disease. May have a component of sleep apnea syndrome. Will try to place her on BiPAP 10/7 with 35% oxygen while sleepi ng. Keep head at 45 degrees. Inhaled bronchodilator. Continue diuretics. Follow up H and H. Thank you, and will follow with you. Adam Christianson MD cc: [id number] TT: 01/06/2017 20:39:39 Confirmation # [id number] Dictation # [id number] mn
[2017-01-06] MEDS: Latanoprost 2.5 ml Opht Soln OU SCH (21:45)
[2017-01-07] MEDS: Albuterol-Ipratrop 3 mg / 0.5 (3 ml) UD IH SCH ×4 (01:29→20:59)
--- NOTE | 2017-01-07 01:55 | PN ---
DATE: 01/06/2017 SUBJECTIVE: The patient was seen and examined on the bedside. He looks comfortable, still in the unit. No fever, no chills, no nausea, vomiting, or diarrhea. No hematuria or hematochezia. No swelling of the legs. Poor appetite. The patient has a Soni catheter with hematuria. The patient is not a very good historian. PHYSICAL EXAMINATION: VITAL SIGNS: Temperature 98, heart rate 78, respiratory rate is 22, blood pressure 133/44, and pulse oximetry 98% on nasal cannula. HEENT: Head normocephalic, atraumatic. Eyes: PERRLA. Extraocular muscles intact. Conjunctivae pink. Eyelids unremarkable. Nose patent. NECK: Supple. No carotid bruit, JVD or thyromegaly. CHEST: Bilaterally symmetrical. HEART: S1, S2 positive. LUNGS: Has crackles at the rhonchi. ABDOMEN: Soft, nontender. No organomegaly. EXTREMITIES: No edema, no cyanosis. NEUROLOGIC: The patient is awake, alert. MEDICATIONS: Aricept, DuoNeb, Ecotrin, Lipitor, metoprolol, cefepime, Plavix, Protonix, Pulmicort, LABORATORY DATA: Hemoglobin 10.1, hematocrit 31.8, white blood cells 5.5, and platelets 191. Sodium 138, potassium 3.8, BUN 20, creatinine 1.0, glucose 100. Urine culture has Providencia. Chest x-ray shows a persistent mild pulmonary venous congestion. ASSESSMENT AND PLAN: The patient is a 76-year-old lady status post myocardial infarction, cardiomyopathy, persistent hematuria requiring blood transfusion, decreased left ventricular function, resolving pulmonary edema, still has pulmonary congestion, cerebrovascular accident, severe stenosis, chronic lung disease, sleep apnea syndrome. Dr. Christianson put the patient on BiPAP, 07/05 with 35% oxygen while sleeping. Forty-five degree in violation of bronchodilators. Urologist is on the case. The patient is seen by Dr. Joshi, infectious disease. Has NSTEMI, cardiomyopathy. Providencia in the urine can be treated with cefepime. Currently no fever or leukocytosis, but overall the patient feels better. Gastrointestinal and deep venous thrombosis prophylaxis. We will follow up. Florence Jung MD cc: [id number] TT: 01/07/2017 01:42:10 Confirmation # [id number] Dictation # [id number] jn MTDD
[2017-01-07 06:09] LABS: ADD MANUAL DIFF? NO
[2017-01-07 06:20] LABS: BASO # 0.01 K/mm3 (0.0-2.0); BASO % 0.2 % (0.0-3.0); EOS # 0.1 (0.0-0.7); EOS % 2.1 % (1.5-5.0); GRAN # 4.31 (1.4-6.5); GRAN % 75.3 % (50.0-68.0); HEMATOCRIT 31.5 % (36.0-48.0); LYMPH # 0.9 (1.2-3.4); LYMPH % 15.4 % (22.0-35.0); MEAN CELL VOLUME 78.2 fL (80.0-105.0); MEAN CORPUSCULAR HEMOGLOBIN 24.6 pg (25.0-35.0); MEAN CORPUSCULAR HGB CONC 31.4 g/dl (31.0-37.0); MONO # 0.4 (0.1-0.6); PLATELET COUNT 158 10^3/uL (120.0-450.0); RED CELL DISTRIBUTION WIDTH 18.6 % (11.5-14.5); WHITE BLOOD COUNT 5.7 10^3/ul (4.5-11.0)
[2017-01-07 06:36] LABS: BLOOD UREA NITROGEN 16 mg/dL (7-21); CALCIUM 8.2 mg/dL (8.4-10.5); CARBON DIOXIDE 27 mmol/L (21-33); CHLORIDE 103 mmol/L (98-107); GFR AFRICAN-AMERICAN > 60; GLUCOSE,RANDOM 89 mg/dL (70-110); PHOSPHOROUS 3.5 mg/dL (2.5-4.5); POTASSIUM 3.6 mmol/L (3.6-5.0); SODIUM 137 mmol/L (132-148)
[2017-01-07] MEDS: Pantoprazole 40 mg EC Tab PO SCH (07:39)
[2017-01-07] MEDS: Budesonide 0.5 mg/2 ml Inhal Susp UD IH SCH ×2 (08:00→20:59)
--- NOTE | 2017-01-07 08:41 | PQF CHF ---
This form is a permanent part of the medical record Dr. Del Castillo, This query was referred to you from Dr. Jung: Please specify type and severity of CHF present in this patient. Clarification of your documentation is requested to better reflect the severity of illness and intensity of treatment of your patient. Indicators present [x] Diagnosis of CHF and/or history of CHF [x] BNP > 200 [x] Imaging Finding of Pulmonary Edema /Pleural Effusions [] Fluid/Volume Overload [] Pitting edema [] Ejection Fraction < 40% (Indicative of Systolic Heart Failure) [x] Ejection Fraction > 40% (Indicative of Diastolic Heart Failure) [] Dyspnea / Orthopenea / Paroxysmal Nocturnal Dyspnea [] Other: Location in the medical record that reflects the above clinical findings: [] Treatment Provided: [] PHYSICIAN'S RESPONSE Based on your medical judgment of the clinical indicators outlined above, are you treating this patient for a known or suspected: [] Acute CHF [] Systolic [] Diastolic [] Combined [] Chronic CHF [] Systolic [] Diastolic [] Combined [x] Acute on Chronic CHF [x]Systolic [] Diastolic [] Combined [] CHF due hypertension [] Acute systolic []Chronic systolic [] Acute/ chronic systolic [] Other, please indicate: [] [] If Unable to Determine, please check the box, sign and date. Present On Admission (POA) Indicator: [] Present at the time of admission [] Not present at the time of admission [] Clinically Undetermined In responding to this query, please exercise your independent professional judgment. The fact that a question is asked does not imply that any particular answer is desired or expected. Thank you for your clarification on this documentation. If you have any questions please call:[ ] * Thank you, [ ]Debbie Watt [facility] #[id number] laboratory supervisor NATHANIEL
--- NOTE | 2017-01-07 12:14 | PN ---
DATE: 01/07/2017 REASON FOR CONSULTATION AND FOLLOWUP: Non-ST segment myocardial infarction, cardiac evaluation. Ane meagan, status post packed RBCs transfusion, hematuria. BRIEF CLINICAL HISTORY: A 76-year-old female transferred [facility] the [facility] with history of chron ic left-sided weakness with contracture of extremity, bedbound, resident of a detention, transferr ed because of shortness of breath, subsequently ruled in for myocardial infarction, decided to treat medically. The patient is anemic, required 2 units of packed RBC. Denies any chest pain, shortness of breath, any palpitation. PHYSICAL EXAMINATION: VITAL SIGNS: Temperature afebrile, heart rate 77, blood pressure 120/60. HEENT: PERRLA. Extraocular muscles intact. NECK: Supple. No carotid bruits. No thyromegaly. CHEST: Clear to auscultation. HEART: S1, S2 regular. ABDOMEN: Soft. EXTREMITIES: Clubbing and cyanosis negative. LABORATORY DATA: WBC 5.3, hemoglobin 9.9, hematocrit 31.5, platelet count 158. Chemistry shows sodi um 137, potassium 3.6, chloride 103, carbon dioxide 27, anion gap of 11, BUN 16, creatinine 0.9. IMPRESSION: Non-ST segment myocardial infarction, coronary artery disease, bedbound, asymptomatic, d rop in hemoglobin and hematocrit, status post packed RBC, cerebrovascular accident, left-sided weakne ss with contracture. RECOMMENDATION: Since the patient is asymptomatic and demented and bedbound, I will try to treat the patient medically. No coronary intervention is planned. No family member is around, tried to get i n touch with family member, but unable. So, ultimately we gave the consent for the blood with 2 phys icians. At this point, we will try to treat patient medically with baby aspirin 81 mg, atorvastatin, metoprolol and Plavix 75 mg as tolerated. We will follow with you. Thank you, Dr. Jung, for providing the opportunity in taking care of the patient. We will follow w ith you. Adam Del Castillo MD cc:Florence Jung MD [id number] TT: 01/07/2017 12:13:33 Confirmation # [id number] Dictation # [id number] tn
[2017-01-07] MEDS: Cefepime 1gm in NS 100ml 100 ML IVPB SCH (17:52)
--- NOTE | 2017-01-07 18:55 | PN ---
DATE: 01/07/2017 REFERRING PHYSICIAN: Dr. Jung SUBJECTIVE: She is lying in the bed, head at 45 degree. Night was unremarkable. Still has some cou gh, wheezing. No sputum production. No nausea, no vomiting, no diarrhea. No leg pain or leg swelli ng. Persistent bloody urine. OBJECTIVE: GENERAL: No acute distress. VITAL SIGNS: Temp is 98, heart rate is 84, respiratory rate is 20, blood pressure 129/45, pulse ox 9 5% on nasal cannula. HEENT: Moist mucous membranes. Crowded airway. Mallampati score is 4. NECK: Supple. No JVD. LUNGS: Has basilar crackles and rhonchi. HEART: S1, S2. ABDOMEN: Soft, nontender. No organomegaly. EXTREMITIES: There is no edema. NEUROLOGIC: Awake, alert, follows simple command. MEDICATIONS: She is on Aricept 10 mg at bedtime, DuoNeb q.2 hours p.r.n. and q.6 hours around the cl ock, Ecotrin 81 mg daily, Lipitor 80 mg daily, Lopressor 25 mg twice a day, cefepime 1 gram IV q.24 h ours, Plavix 75 mg daily, Protonix 40 mg daily, Pulmicort inhaled twice a day. LABORATORY DATA: Shows hemoglobin 9.9, hematocrit 31.5, WBC 5.7, platelet is 158. Sodium 137, potas sium 3.6, chloride 103, bicarbonate 27, BUN 16, creatinine 0.9, glucose 89, calcium 8.2, phosphorus 3 .5, magnesium is 2.0. ProBNP was 10,100. IMPRESSION AND PLAN: Status post myocardial infarction, cardiomyopathy, persistent hematuria requiri ng transfusion, has a decreased left ventricular function, resolving pulmonary edema, history of cere brovascular accident, severe aortic stenosis, chronic obstructive lung disease. May have a component of sleep apnea syndrome. Will continue bronchodilator. Keep head elevated at 45 degree. Careful w ith fluids. Continue diuretics. Encourage bilevel positive airway pressure use at nighttime. Aspir ation precaution. Cardiology followup. Urology followup. Follow up labs in the morning. Thank you and we will follow with you. Adam Christianson MD cc: [id number] TT: 01/07/2017 18:54:52 Confirmation # [id number] Dictation # [id number] sn
[2017-01-07] MEDS: Latanoprost 2.5 ml Opht Soln OU SCH (21:29)
--- NOTE | 2017-01-07 21:46 | PN ---
DATE: 01/07/2017 SUBJECTIVE: The patient was seen and examined on the bedside in the unit, sitting on the recliner, feeling better. No nausea, vomiting, or diarrhea. No hematuria or hematochezia. No swelling of the leg. No chest pain, no palpitations. Looks improved a lot. PHYSICAL EXAMINATION: VITAL SIGNS: Temperature 98, heart rate 84, respiratory rate 20, blood pressure 110 /45, pulse oximetry is 95% on nasal cannula. HEENT: Head normocephalic, atraumatic. Eyes, PERRLA. Extraocular muscles intact. Conjunctivae pink. Eyelids unremarkable. Nose patent. Mucous membranes moist. NECK: Supple. No carotid bruit, JVD or thyromegaly. CHEST: Bilaterally symmetrical. HEART: S1, S2 positive. LUNGS: Has basal crackles and rhonchi. ABDOMEN: Soft, nontender. No organomegaly. EXTREMITIES: No edema, no cyanosis. NEUROLOGIC: The patient is awake, alert, follows simple commands. MEDICATIONS: Aricept, DuoNeb, Ecotrin, Lipitor, Lopressor, cefepime, Plavix, Protonix, Pulmicort, LABORATORY DATA: Hemoglobin 9.9, hematocrit 31.5, white blood cells 5.7, platelets 158. Sodium 137, potassium 3.6, BUN 15, creatinine 0.9, magnesium 2.0. BNP is 10,100. ASSESSMENT AND PLAN: The patient is a 76-year-old female with multiple medical problems, status post myocardial infarction, cardiomyopathy, persistent hematuria requiring transfusion, has decreased left ventricular function, resolving pulmonary edema, history of cerebrovascular accident, severe aortic stenosis, chronic obstructive lung disease, sleep apnea syndrome. Continue diuretics. Dr. Christianson ordered positive airway pressure at nighttime, aspiration precautions. Seen by Dr. Del Castillo, fire protection engineer. Non-ST segment myocardial infarction, coronary artery disease, bedbound, asymptomatic. Due to hematuria, hemoglobin dropped, got packed RBC. Cerebrovascular accident. The patient has left-sided weakness and contractures, dementia according to fire protection engineer because of the patient's comorbidities, dementia, bedbound. The patient is asymptomatic at rest. We will treat the patient medically. No cardiac intervention is planned. Seen by the urologist and Dr. Adi ROBLEDO. Continue present treatment. Repeat labs. We will follow up. Florence Jung MD cc: [id number] TT: 01/07/2017 21:45:53 Confirmation # [id number] Dictation # [id number] rn MTDD
[2017-01-08] MEDS: Albuterol-Ipratrop 3 mg / 0.5 (3 ml) UD IH SCH ×4 (02:05→20:30)
[2017-01-08 06:50] LABS: HEMATOCRIT 32.3 % (36.0-48.0); MEAN CELL VOLUME 78.2 fL (80.0-105.0); MEAN CORPUSCULAR HEMOGLOBIN 24.2 pg (25.0-35.0); PLATELET COUNT 160 10^3/uL (120.0-450.0); RED CELL DISTRIBUTION WIDTH 19.1 % (11.5-14.5); WHITE BLOOD COUNT 6.6 10^3/ul (4.5-11.0)
[2017-01-08 06:58] LABS: ALB/GLOB RATIO 0.9 (1.1-1.8); ALKALINE PHOSPHATASE 59 U/L (38-133); ALT/SGPT 31 U/L (7-56); AST/SGOT 39 U/L (15-39); BILIRUBIN,TOTAL 0.6 mg/dL (0.2-1.3); BLOOD UREA NITROGEN 17 mg/dL (7-21); CALCIUM 8.4 mg/dL (8.4-10.5); CARBON DIOXIDE 26 mmol/L (21-33); CHLORIDE 104 mmol/L (98-107); GFR AFRICAN-AMERICAN > 60; GLUCOSE,RANDOM 92 mg/dL (70-110); POTASSIUM 3.4 mmol/L (3.6-5.0); SODIUM 138 mmol/L (132-148); TOTAL PROTEIN 6.6 g/dL (5.8-8.3)
[2017-01-08] MEDS: Budesonide 0.5 mg/2 ml Inhal Susp UD IH SCH ×2 (07:09→20:31)
[2017-01-08] MEDS: Pantoprazole 40 mg EC Tab PO SCH (08:16)
--- NOTE | 2017-01-08 08:22 | PQF ANEMIA ---
This form is a permanent part of the medical record Dr. Jung, Please specify the type and severity of the anemia present and treated: acute or chronic blood loss, other. Clarification of your documentation is requested to better reflect the severity of illness and intensity of treatment of your patient. Indicators present [x] Anemia [x] Drop in H&H from []___ to []___ [x] Hypotension [] GI Bleed [x] Transfusion(s) [x] Acute bleed other sites : gross hematuria [] Tachycardia [] Surgical Procedure Blood Loss (expected not a complication) Other:[] Location in the medical record that reflects the above clinical findings: [x] Treatment Provided: [] PHYSICIAN'S RESPONSE Based on your medical judgment of the clinical indicators outlined above, are you treating this patient for a known or suspected: [] Acute blood loss anemia [] Chronic blood loss anemia x[] Acute on Chronic blood loss anemia [] Anemia due to malignancy [] Anemia due to chemotherapy or radiation therapy [] Anemia of Chronic Disease, please specify: [] [] Other, please indicate type of anemia []____ [] If Unable to Determine, please check the box, sign and date. Present On Admission (POA) Indicator: [x] Present at the time of admission [] Not present at the time of admission [] Clinically Undetermined In responding to this query, please exercise your independent professional judgment. The fact that a question is asked does not imply that any particular answer is desired or expected. Thank you for your clarification on this documentation. If you have any questions please call:[ ] * Thank you, [ ]Debbie Watt [facility] #[id number] system administration advisor NATHANIEL
[2017-01-08] MEDS ORDERED: Potassium Chloride 20 mEq ER Tab PO ONE (09:29)
--- NOTE | 2017-01-08 10:00 | PN ---
DATE: 01/08/2017 REASON FOR CONSULTATION FOLLOWUP: Tol-FE-zwyznee myocardial infarction, cardiac evaluation, anemia, status post RBC transfusion, hematuria. BRIEF CLINICAL HISTORY: This is a 76-year-old female transferred from the [facility] with left-arturo ed weakness, contracture of upper extremity, bed bound, resident of [facility]. Subsequently, the patient ruled in for myocardial infarction. The patient was anemic, required transfusion. Lying fla t. Denies any chest pain, mild wheezing. PHYSICAL EXAMINATION: VITAL SIGNS: Temperature afebrile, heart rate 84, blood pressure 129/45. HEENT: PERRLA. Extraocular muscles intact. NECK: Supple. No carotid bruit or thyromegaly. CHEST: Clear to auscultation. HEART: S1, S2 regular. ABDOMEN: Soft. EXTREMITIES: Clubbing and cyanosis negative. LABORATORY DATA: Blood workup as follows: WBC 6.6, hemoglobin 10.0, hematocrit 32.3, platelet count 160. Chemistry shows sodium 138, potassium 3.4, chloride 104, carbon dioxide 36, anion gap of 11, B UN 17, creatinine 0.9. Total protein 6.6, albumin 3.2, albumin/globulin ratio 0.9. IMPRESSION: Hypokalemia, anemia, status post RBC transfusion, cerebrovascular accident, left-sided w eakness. Fmr-ZL-mgvibta myocardial infarction, coronary artery disease. Wheezing. Usm-DF-sytqmkt m yocardial infarction, asymptomatic. No chest pain. History of paroxysmal atrial fibrillation, was o n Eliquis at [facility]. Now, the patient is in normal sinus. The patient's last echo 01/02/2017 sh owed ejection fraction 35-40%, moderate aortic regurgitation, severe valvular aortic stenosis, mild t o moderate mitral regurgitation, mild to moderate tricuspid regurgitation, cardiomyopathy, severe aor tic stenosis. RECOMMENDATION: Continue aggressive medical treatment. Overall, the patient's condition has a lot o f comorbidity. Based on this and symptomatology, from cardiac point of view, no chest pain, no angin al symptoms, try to treat medically. Continue atorvastatin, continue beta annabelle. Continue aspirin . We will give 1 dose of Lasix now; patient is wheezing. We will follow with you. Thank you, Dr. Jung, for providing the opportunity in taking care of the patient. Adam Del Castillo MD cc: [id number] TT: 01/08/2017 10:00:28 Confirmation # [id number] Dictation # [id number] tn
--- NOTE | 2017-01-08 12:56 | PN ---
DATE: 01/08/2017 REFERRING PHYSICIAN: Dr. Jung. SUBJECTIVE: The patient is lying in the bed, sleepy, arousable. Night was unremarkable. Still has some cough and shortness of breath. No nausea, no vomiting, diarrhea. Has continuous bloody urine. No leg swelling. OBJECTIVE: GENERAL: No acute distress. VITAL SIGNS: Temperature is 98, heart is 84, respiratory rate is 129/45, pulse ox 94% on 3 liters na jelly cannula. HEENT: Moist mucous membrane. Crowded airway. NECK: Supple, no JVD. LUNGS: Have scattered crackles in the bases and scattered rhonchi. HEART: S1, S2. ABDOMEN: Soft, nontender. No organomegaly. EXTREMITIES: There is no edema. NEUROLOGIC: Awake, alert, follows simple commands. MEDICATIONS: She is on Aricept 10 mg at bedtime, DuoNeb q. 2 hours p.r.n., DuoNeb q. 6 hours around the clock, Ecotrin 81 mg daily, potassium 20 mEq daily, Lasix 40 mg IV daily, Lipitor 80 mg daily, m etoprolol tartrate 25 mg twice a day, cefepime 1 g q. 12 hours, Plavix 75 mg daily, Protonix 40 mg da agata, Pulmicort inhaled twice a day. LABORATORY DATA: Shows hemoglobin 10.0, hematocrit 32.3, WBC 6.6, platelet is 160. Sodium 138, pota ssium 3.4, chloride 104, bicarbonate 26, BUN 17, creatinine 0.9, glucose 92, calcium is 8.4, AST 39, ALT 31, alk phos is 59, albumin is 3.2. IMPRESSION AND PLAN: Status post myocardial infarction, cardiomyopathy, persistent hematuria requiri ng transfusion, decreased LV function, resolving pulmonary edema, history of cerebrovascular acciden t, severe aortic stenosis, chronic obstructive lung disease, may have a component of sleep apnea synd [place]. I spoke to nursing staff. Keep head elevated at 45 degrees, get out of bed to chair, diuretic s have been increased, needs close monitoring for cardiopulmonary stability. We will encourage CPAP use. Follow up labs in the morning. Thank you and we will follow with you. Adam Christianson MD cc: [id number] TT: 01/08/2017 12:55:40 Confirmation # [id number] Dictation # [id number] an
[2017-01-08] MEDS: Cefepime 1gm in NS 100ml 100 ML IVPB SCH (16:48)
--- NOTE | 2017-01-08 17:08 | CP.PCM.PN ---
Subjective - Date & Time of Evaluation Date of Evaluation: 01/07/17 Time of Evaluation: 17:04 - Subjective Subjective: Infectious Disease Follow Up: January 07, 2017 76 yo female with presentation of shortness of breath. She was found to have signs for NSTEMI and admitted to the MICU for further care. She was later verified to have STEMI with decreased cardiac function and also found to have a UTI with gram negative rods. This was identified at [facility]. The patient herself is a very poor historian. There has been no leukocytosis or fevers during this hospitalization. The patient is a bit lethargic. She is less short of breath compared to yesterday and she states that she feels much better today comparatively speaking. She is not making any new complaints. Objective - Vital Signs/Intake and Output Vital Signs (last 24 hours): Temp Pulse Resp BP Pulse Ox 98.3 F 81 18 134/50 L 94 L 01/08/17 14:20 01/08/17 15:10 01/08/17 14:20 01/08/17 14:20 01/08/17 14:20 Intake and Output: 01/08/17 01/08/17 06:59 18:59 Intake Total 300 600 Output Total 500 1050 Balance -200 -450 - Medications Medications: Current Medications Albuterol/Ipratropium (Duoneb 3 Mg/0.5 Mg (3 Ml) Ud) 3 ml IH Q2H PRN PRN Reason: Shortness of Breath Last Admin: 01/03/17 04:00 Dose: 3 ml Albuterol/Ipratropium (Duoneb 3 Mg/0.5 Mg (3 Ml) Ud) 3 ml [facility] [id number] [facility] Last Admin: 01/08/17 13:08 Dose: 3 ml Aspirin (Ecotrin) 81 mg PO DAILY [facility] Last Admin: 01/08/17 09:22 Dose: 81 mg Atorvastatin Calcium (Lipitor) 80 mg PO DIN [facility] Last Admin: 01/08/17 16:53 Dose: 80 mg Budesonide (Pulmicort Respules) 1 mg IH [id number] [facility] Last Admin: 01/08/17 07:09 Dose: 1 mg Clopidogrel Bisulfate (Plavix) 75 mg PO DAILY [facility] Last Admin: 01/08/17 09:22 Dose: 75 mg Donepezil HCl (Aricept) 10 mg PO HS [facility] Last Admin: 01/07/17 21:29 Dose: 10 mg Furosemide (Lasix) 40 mg IV DAILY [facility] Cefepime HCl (Maxipime 1gm) 100 mls @ 100 mls/hr IVPB Q24H FILI PRN Reason: Protocol Last Admin: 01/08/17 16:48 Dose: 100 mls/hr Latanoprost (Xalatan Opht) 0 ml OU HS [facility] Last Admin: 01/07/17 21:29 Dose: 2.5 ml Metoprolol Tartrate (Lopressor) 25 mg PO BID [facility] Last Admin: 01/08/17 09:22 Dose: 25 mg Pantoprazole Sodium (Protonix Ec Tab) 40 mg PO ACB [facility] Last Admin: 01/08/17 08:16 Dose: 40 mg Potassium Chloride (K-Dur 20 Meq Er Tab) 20 meq PO BRK [facility] - Labs Labs: 01/08/17 05:30 01/08/17 05:30 PT 11.0 Seconds (9.9-11.8) 01/02/17 06:00 INR 1.02 (0.93-1.08) 01/02/17 06:00 APTT 27.3 Seconds (23.7-30.8) 01/02/17 06:00 - Constitutional Appears: Non-toxic, No Acute Distress, Chronically Ill - Head Exam Head Exam: ATRAUMATIC, NORMOCEPHALIC - Eye Exam Eye Exam: EOMI, PERRL Pupil Exam: NORMAL ACCOMODATION, PERRL - ENT Exam ENT Exam: Mucous Membranes Moist, Normal External Ear Exam, TM's Normal Bilaterally - Neck Exam Neck Exam: Full ROM, Normal Inspection - Respiratory Exam Respiratory Exam: Clear to Ausculation Bilateral, NORMAL BREATHING PATTERN. absent: Rales, Rhonchi, Wheezes - Cardiovascular Exam Cardiovascular Exam: REGULAR RHYTHM, RRR, +S1, +S2 - GI/Abdominal Exam GI & Abdominal Exam: Soft, Normal Bowel Sounds. absent: Distended, Tenderness - Extremities Exam Extremities Exam: Full ROM, Normal Inspection - Neurological Exam Neurological Exam: Alert, Awake, CN II-XII Intact, Oriented x3 Additional comments: very poor memory especially short term memory. - Psychiatric Exam Psychiatric exam: Normal Affect, Normal Mood - Skin Skin Exam: Intact, Normal Color Assessment and Plan - Assessment and Plan (Free Text) Assessment: 76 yo female with multiple medical issues including recent diagnosis of NSTEMI found to have a UTI with Providencia. Patient with cardiomyopathy, hematuria, anemia requiring transfusions. The Providencia in the urine can be treated with Cefepime IV. Currently on fevers or leukocytosis. So far patient is fairly stable. She has a poor short term memory but answers questions for the most part appropriately. Overall, she states that she feels better over the past few days. Supportive care. Continue on Cefepime treatment. No further cultures pending at this time. Thank you for allowing me to participate in the care of the patient, we will follow with you.
--- NOTE | 2017-01-08 17:12 | CP.PCM.PN ---
Subjective - Date & Time of Evaluation Date of Evaluation: 01/08/17 Time of Evaluation: 15:30 - Subjective Subjective: Infectious Disease Follow Up: January 08, 2017 76 yo female with presentation of shortness of breath. She was found to have signs for NSTEMI and admitted to the MICU for further care. She was later verified to have STEMI with decreased cardiac function and also found to have a UTI with gram negative rods. This was identified at [facility]. The patient herself is a very poor historian. There has been no leukocytosis or fevers during this hospitalization. The patient is a bit lethargic. She is less short of breath compared to admission. No new complaints at this time. Objective - Vital Signs/Intake and Output Vital Signs (last 24 hours): Temp Pulse Resp BP Pulse Ox 98.3 F 82 18 111/74 94 L 01/08/17 14:20 01/08/17 17:05 01/08/17 14:20 01/08/17 17:05 01/08/17 14:20 Intake and Output: 01/08/17 01/08/17 06:59 18:59 Intake Total 300 600 Output Total 500 1050 Balance -200 -450 - Medications Medications: Current Medications Albuterol/Ipratropium (Duoneb 3 Mg/0.5 Mg (3 Ml) Ud) 3 ml IH Q2H PRN PRN Reason: Shortness of Breath Last Admin: 01/03/17 04:00 Dose: 3 ml Albuterol/Ipratropium (Duoneb 3 Mg/0.5 Mg (3 Ml) Ud) 3 ml IH [id number] [facility] Last Admin: 01/08/17 13:08 Dose: 3 ml Aspirin (Ecotrin) 81 mg PO DAILY [facility] Last Admin: 01/08/17 09:22 Dose: 81 mg Atorvastatin Calcium (Lipitor) 80 mg PO DIN [facility] Last Admin: 01/08/17 16:53 Dose: 80 mg Budesonide (Pulmicort Respules) 1 mg IH [id number] [facility] Last Admin: 01/08/17 07:09 Dose: 1 mg Clopidogrel Bisulfate (Plavix) 75 mg PO DAILY [facility] Last Admin: 01/08/17 09:22 Dose: 75 mg Donepezil HCl (Aricept) 10 mg PO HS [facility] Last Admin: 01/07/17 21:29 Dose: 10 mg Furosemide (Lasix) 40 mg IV DAILY [facility] Cefepime HCl (Maxipime 1gm) 100 mls @ 100 mls/hr IVPB Q24H [facility] PRN Reason: Protocol Last Admin: 01/08/17 16:48 Dose: 100 mls/hr Latanoprost (Xalatan Opht) 0 ml OU HS [facility] Last Admin: 01/07/17 21:29 Dose: 2.5 ml Metoprolol Tartrate (Lopressor) 25 mg PO BID [facility] Last Admin: 01/08/17 17:05 Dose: 25 mg Pantoprazole Sodium (Protonix Ec Tab) 40 mg PO ACB [facility] Last Admin: 01/08/17 08:16 Dose: 40 mg Potassium Chloride (K-Dur 20 Meq Er Tab) 20 meq PO BRK [facility] - Labs Labs: 01/08/17 05:30 01/08/17 05:30 PT 11.0 Seconds (9.9-11.8) 01/02/17 06:00 INR 1.02 (0.93-1.08) 01/02/17 06:00 APTT 27.3 Seconds (23.7-30.8) 01/02/17 06:00 - Constitutional Appears: Non-toxic, No Acute Distress, Chronically Ill - Head Exam Head Exam: ATRAUMATIC, NORMOCEPHALIC - Eye Exam Eye Exam: EOMI, PERRL Pupil Exam: NORMAL ACCOMODATION, PERRL - ENT Exam ENT Exam: Mucous Membranes Moist, Normal External Ear Exam, TM's Normal Bilaterally - Neck Exam Neck Exam: Full ROM, Normal Inspection - Respiratory Exam Respiratory Exam: Clear to Ausculation Bilateral, NORMAL BREATHING PATTERN. absent: Rales, Rhonchi, Wheezes - Cardiovascular Exam Cardiovascular Exam: REGULAR RHYTHM, RRR, +S1, +S2 - GI/Abdominal Exam GI & Abdominal Exam: Soft, Normal Bowel Sounds. absent: Distended, Tenderness - Extremities Exam Extremities Exam: Full ROM, Normal Inspection - Neurological Exam Neurological Exam: Alert, Awake, CN II-XII Intact, Oriented x3 Additional comments: very poor memory especially short term memory. - Psychiatric Exam Psychiatric exam: Normal Affect, Normal Mood - Skin Skin Exam: Intact, Normal Color Assessment and Plan - Assessment and Plan (Free Text) Assessment: 76 yo female with multiple medical issues including recent diagnosis of NSTEMI found to have a UTI with Providencia. Patient with cardiomyopathy, hematuria, anemia requiring transfusions. The Providencia in the urine can be treated with Cefepime IV. Currently on fevers or leukocytosis. So far patient is fairly stable. She has a poor short term memory but answers questions for the most part appropriately. Overall, she states that she feels better over the past few days. Supportive care. Continued on Cefepime treatment. No further cultures pending at this time. No new issues. Transferred to Telemetry Floor today. Thank you for allowing me to participate in the care of the patient, we will follow with you.
--- NOTE | 2017-01-08 21:46 | PCM.URO ---
Urology Progress Note - Objective Lab Results Last 24 Hours: Laboratory Results - last 24 hr 01/08/17 05:30 WBC 6.6 RBC 4.13 Hgb 10.0 L Hct 32.3 L MCV 78.2 L MCH 24.2 L MCHC 31.0 RDW 19.1 H Plt Count 160 Sodium 138 Potassium 3.4 L Chloride 104 Carbon Dioxide 26 Anion Gap 11 BUN 17 Creatinine 0.9 Est GFR ( Amer) > 60 Est GFR (Non-Af Amer) > 60 Random Glucose 92 Calcium 8.4 Total Bilirubin 0.6 AST 39 ALT 31 Alkaline Phosphatase 59 Total Protein 6.6 Albumin 3.2 Globulin 3.4 Albumin/Globulin Ratio 0.9 L Intake & Output: Intake & Output 01/08/17 01/08/17 01/09/17 06:59 18:59 06:59 Intake Total 300 600 Output Total 500 1050 Balance -200 -450 Intake: Oral 300 600 Output: Urine 1050 Urethral (Soni) 1050 Stool 500 Other: Voiding Method Indwelling Catheter Vital Signs: Vital Signs - 24 hr 01/07/17 01/07/17 01/08/17 22:00 23:00 00:00 Temperature 98 F Pulse Rate 88 75 76 Respiratory 26 H 20 23 Rate Blood Pressure 149/54 L 142/50 L 152/51 H O2 Sat by Pulse 95 96 95 Oximetry 01/08/17 01/08/17 01/08/17 01:00 02:00 03:00 Temperature Pulse Rate 73 73 72 Respiratory 18 23 24 Rate Blood Pressure 137/47 L 137/48 L 142/63 O2 Sat by Pulse 95 95 94 L Oximetry 01/08/17 01/08/17 01/08/17 03:01 04:00 05:00 Temperature 98.4 F Pulse Rate 73 73 73 Respiratory 28 H 26 H 29 H Rate Blood Pressure 142/53 L 142/48 L 139/51 L O2 Sat by Pulse 96 94 L 94 L Oximetry 01/08/17 01/08/17 01/08/17 06:00 07:00 08:00 Temperature Pulse Rate 68 73 86 Respiratory 23 22 Rate Blood Pressure 144/49 L 140/52 L 122/49 L O2 Sat by Pulse 95 93 L 92 L Oximetry 01/08/17 01/08/17 01/08/17 09:00 09:22 09:39 Temperature Pulse Rate 88 84 Respiratory 24 Rate Blood Pressure 137/52 L 129/45 L 129/45 L O2 Sat by Pulse 92 L Oximetry 01/08/17 01/08/17 01/08/17 10:00 11:00 12:00 Temperature Pulse Rate 89 85 87 Respiratory 25 H 23 29 H Rate Blood Pressure 145/52 L 141/58 L 147/69 O2 Sat by Pulse 94 L 93 L 93 L Oximetry 01/08/17 01/08/17 01/08/17 13:00 14:00 14:01 Temperature Pulse Rate 72 85 85 Respiratory 30 H 20 Rate Blood Pressure 141/57 L 147/55 L O2 Sat by Pulse 96 91 L 93 L Oximetry 01/08/17 01/08/17 01/08/17 14:20 15:10 17:05 Temperature 98.3 F Pulse Rate 84 81 82 Respiratory 18 Rate Blood Pressure 134/50 L 111/74 O2 Sat by Pulse 94 L Oximetry 01/08/17 01/08/17 17:25 18:00 Temperature 98.2 F Pulse Rate 82 82 Respiratory 20 18 Rate Blood Pressure 111/74 111/74 O2 Sat by Pulse Oximetry
[2017-01-08] MEDS: Latanoprost 2.5 ml Opht Soln OU SCH (22:35)
[2017-01-09 06:13] VITALS: O2SAT 93
[2017-01-09] MEDS: Budesonide 0.5 mg/2 ml Inhal Susp UD IH SCH ×2 (07:42→19:34)
[2017-01-09] MEDS: Albuterol-Ipratrop 3 mg / 0.5 (3 ml) UD IH SCH ×3 (07:42→19:34)
[2017-01-09] MEDS: Potassium Chloride 20 mEq ER Tab PO SCH (08:20)
[2017-01-09] MEDS: Pantoprazole 40 mg EC Tab PO SCH (08:20)
[2017-01-09 08:24] LABS: HEMATOCRIT 32.2 % (36.0-48.0); MEAN CELL VOLUME 77.4 fL (80.0-105.0); MEAN CORPUSCULAR HEMOGLOBIN 24.3 pg (25.0-35.0); MEAN CORPUSCULAR HGB CONC 31.4 g/dl (31.0-37.0); PLATELET COUNT 170 10^3/uL (120.0-450.0); RED CELL DISTRIBUTION WIDTH 19.3 % (11.5-14.5); WHITE BLOOD COUNT 7.7 10^3/ul (4.5-11.0)
[2017-01-09 08:36] LABS: BILIRUBIN,TOTAL 0.7 mg/dL (0.2-1.3); CALCIUM 8.7 mg/dL (8.4-10.5); POTASSIUM 3.3 mmol/L (3.6-5.0); TOTAL PROTEIN 7.1 g/dL (5.8-8.3)
--- NOTE | 2017-01-09 09:02 | PN ---
DATE: 01/08/2017 SUBJECTIVE: The patient was seen and examined on the bedside. Looks comfortable. No nausea, vomiti ng, or diarrhea. No hematuria or hematochezia. No swelling of the leg. No chest pain, no palpitati on, no headache, no dizziness. No fever, no chills. PHYSICAL EXAMINATION: VITAL SIGNS: Temperature 98, pulse 84, blood pressure 129/45, pulse oximetry 94% on 3 liters nasal c annula. HEENT: Head normocephalic, atraumatic. Eyes: PERRLA. Extraocular muscles intact. Conjunctivae pin k. Eyelids unremarkable. Nose patent. Mucous membranes moist. NECK: Supple. No carotid bruit, JVD or thyromegaly. LUNGS: Has scattered crackles in the bases and scattered rhonchi. HEART: S1, S2 positive. ABDOMEN: Soft, nontender, no organomegaly. EXTREMITIES: No edema, no cyanosis. NEUROLOGIC: The patient is awake, alert, follows simple commands. MEDICATIONS: Aricept, DuoNeb, Ecotrin, potassium, Lasix, Lipitor, metoprolol, cefepime, Plavix, Prot hugo, Pulmicort. LABORATORY DATA: Hemoglobin 10.0, hematocrit 32.3, white blood cell 6.6, platelets 160. Sodium 138, potassium 3.4, BUN 17, creatinine 0.9, glucose 92, AST 39, ALT 31. ASSESSMENT AND PLAN: The patient is a 76-year-old lady, status post myocardial infarction, cardiomyo jones, persistent hematuria requiring transfusion because of anemia, decreased left ventricular funct ion, resolved, pulmonary edema, history of cerebrovascular accident, severe aortic stenosis, chronic obstructive lung disease, obstructive sleep apnea syndrome. The patient looks better. Discussion do ne with Dr. Christianson and nursing staff. Get out of bed. Diuretics have been increased. Needs close m onitoring for cardiopulmonary stability. Will encourage CPAP. Reviewed Dr. Christianson's notes. I revie wed Dr. Vinnie Joshi's notes also. Has urinary tract infection with Providencia, getting antibiotics, cefepime. Gastrointestinal and deep vein thrombosis prophylaxis. Florence Jung MD cc: [id number] TT: 01/08/2017 20:36:38 Confirmation # [id number] Dictation # [id number] kecia 01/09/2017 08:01:52
[2017-01-09] MEDS ORDERED: Potassium Chloride 20 mEq ER Tab PO ONE ×2 (09:16→17:00)
--- NOTE | 2017-01-09 09:58 | PN ---
DATE: 01/08/2017 UROLOGY PROGRESS NOTE See the previously dictated consult note. The patient has some hematuria and urolithiasis. The patient was originally seen in the ICU. She is admitted with an exacerbation of COPD. She is no w currently resting comfortably in her bed. Soni catheter still has blood in the urine. PAST MEDICAL HISTORY AND SURGICAL HISTORY: No other changes. REVIEW OF SYSTEMS: Listed. PHYSICAL EXAMINATION: GENERAL: Well-nourished female in no apparent distress. VITAL SIGNS: Noted. ABDOMEN: Relatively soft. Soni catheter is with blood in the urine. LABORATORY DATA: Noted. DIAGNOSES: Urolithiasis, gross hematuria. PLAN: As follows: We will have to discuss the options with Dr. Jung and the patient, and then get consent if possible for a cystoscopy, rule out malignancies and whether or not the stone should be t reated, we need to consider carefully. The patient has had recurrent episodes over time. We will have to discuss various options. Pravin Holliday MD cc: [id number] TT: 01/09/2017 09:57:10 Confirmation # [id number] Dictation # [id number] jn
--- NOTE | 2017-01-09 10:10 | CON ---
DATE: 01/06/2017 REASON FOR CONSULTATION: Hematuria. The patient is a very pleasant lady who is in the ICU currently for the presence of gross hematuria a nd infection. She is also in for admission of exacerbation of COPD. From a urology standpoint, she has blood in the Soni catheter. She has a history of stone disease. See the plan as listed below. PAST MEDICAL AND SURGICAL HISTORY: As listed on the chart. REVIEW OF SYSTEMS: SOCIAL HISTORY: Essentially unremarkable. (I do want to mention, though, that she requires consent not from herself.) See below. PHYSICAL EXAMINATION: GENERAL: Well-nourished female in no apparent distress. VITAL SIGNS: Within normal limits. ABDOMEN: Not grossly distended. Soni catheter in place. Noted to be having bloody urine. DIAGNOSES: Gross hematuria and urolithiasis. PLAN: We will discuss options with Dr. Jung for now and do nothing while the patient is recovering . We will see how recovery goes and then we discuss options for stones. We will, for now, leave the Soni catheter in place and see how the patient does clinically, and then we can discuss options. T he patient may require cystoscopy and treatment of the stones and evaluation of the blood in the urin e. The blood in the urine could certainly be infection, could be malignancy, especially with her who le history. We have to discuss as well as consider her medical options, medical stability factor; will discuss th is with Dr. Jung, but for now, just continue the Soni catheter and will monitor the patient and th en we will see what to do. Pravin Holliday MD cc: [id number] TT: 01/09/2017 10:09:40 Confirmation # [id number] Dictation # [id number]
--- NOTE | 2017-01-09 16:21 | PN ---
DATE: 01/09/2017 REASON FOR CONSULTATION FOLLOWUP: [id number] myocardial infarction, cardiac evaluation, anemia, status post packed RBC transfusion, hematuria. BRIEF CLINICAL HISTORY: A 76-year-old female transferred from the intermediate with left-sided CVA c ontracture, bedbound, transferred from the intermediate. Subsequently, the patient ruled in for myoc ardial infarction and the patient was anemic, required blood transfusion. Lying flat. Denies any ch est pain, shortness of breath, any palpitation, is status post so far 3 packed units of blood has bee n transfused. PHYSICAL EXAMINATION: VITAL SIGNS: Temperature afebrile, heart rate 77, blood pressure 149/49. HEENT: PERRLA. Extraocular muscles intact. NECK: Supple. No carotid bruits. No thyromegaly. CHEST: Clear to auscultation. HEART: S1, S2 regular. ABDOMEN: Soft. EXTREMITIES: Clubbing, cyanosis negative. BLOOD WORKUP: WBC 7. , hemoglobin 10. , hematocrit 32.2, platelet count 170. Chemistry show s sodium 130, potassium 3.3, chloride 102, carbon dioxide 27, anion gap of 12, BUN 20, creatinine 1.2 . Total protein 7.1, albumin 3.5, albumin/globulin ratio 1.0. IMPRESSION: Hematuria, status post packed red blood cell transfusion, [id number] myocardial infa rction, coronary artery disease, cardiomyopathy, ejection fraction 35%-40%, severe aortic stenosis, m oderate aortic regurgitation, mild to moderate mitral regurgitation, mild to moderate tricuspid regur gitation, cardiomyopathy, possibly ischemic, anemia, cerebrovascular accident with contracture of the upper extremity of left side. RECOMMENDATION: Aggressive medical treatment. No plan for cardiac intervention at this time. Becau se of underlying comorbidity and the patient is asymptomatic, we will treat medically. The patient's family has no guardian. Blood transfusion consent needs done by 2 physicians consent. So far, is s table. Once the patient is stable from urology point of view, hematuria, patient can be transferred back to intermediate. Cardiology point of view, patient is fairly stable, aggressive medical treatme nt. Continue aspirin, continue Plavix for 4 weeks, then baby aspirin alone. Continue atorvastatin. Continue gentle diuretics. In a day or two, if remains stable, we will change the Lasix to p.o. Co ntinue potassium supplement p.r.n. Continue antibiotic. Continue low-dose beta-annabelle. We will fo llow with you. Thank you, Dr. Jung, for providing us the opportunity in taking care of the patient. We will suppl ement potassium today 40; 20 mEq was given in the morning, we will give 20 more additional. We will get SMA-7, magnesium level in the morning. Adam Del Castillo MD cc: [id number] TT: 01/09/2017 16:20:37 Confirmation # [id number] Dictation # [id number]
[2017-01-09] MEDS: Cefepime 1gm in NS 100ml 100 ML IVPB SCH (17:49)
--- NOTE | 2017-01-09 18:25 | CP.PCM.PN ---
Subjective - Date & Time of Evaluation Date of Evaluation: 01/09/17 Time of Evaluation: 17:30 - Subjective Subjective: Infectious Disease Follow Up: January 09, 2017 76 yo female with presentation of shortness of breath. She was found to have signs for NSTEMI and admitted to the MICU for further care. She was later verified to have STEMI with decreased cardiac function and also found to have a UTI with gram negative rods. This was identified at [facility]. The patient herself is a very poor historian. There has been no leukocytosis or fevers during this hospitalization. The patient is a bit lethargic. She is less short of breath compared to admission. No new complaints at this time. Patient appears fairly comfortable at this time. Currently receiving Cefepime treatment. Objective - Vital Signs/Intake and Output Vital Signs (last 24 hours): Temp Pulse Resp BP Pulse Ox 98.3 F 86 18 127/80 93 L 01/09/17 11:53 01/09/17 17:49 01/09/17 11:53 01/09/17 17:49 01/09/17 06:00 Intake and Output: 01/09/17 01/09/17 06:59 18:59 Intake Total 780 Output Total 425 Balance 355 - Medications Medications: Current Medications Albuterol/Ipratropium (Duoneb 3 Mg/0.5 Mg (3 Ml) Ud) 3 ml IH Q2H PRN PRN Reason: Shortness of Breath Last Admin: 01/03/17 04:00 Dose: 3 ml Albuterol/Ipratropium (Duoneb 3 Mg/0.5 Mg (3 Ml) Ud) 3 ml IH [id number] [facility] Last Admin: 01/09/17 13:48 Dose: Not Given Aspirin (Ecotrin) 81 mg PO DAILY [facility] Last Admin: 01/09/17 09:40 Dose: 81 mg Atorvastatin Calcium (Lipitor) 80 mg PO DIN [facility] Last Admin: 01/09/17 17:48 Dose: 80 mg Budesonide (Pulmicort Respules) 1 mg IH [id number] [facility] Last Admin: 01/09/17 07:42 Dose: 1 mg Clopidogrel Bisulfate (Plavix) 75 mg PO DAILY [facility] Last Admin: 01/09/17 09:41 Dose: 75 mg Donepezil HCl (Aricept) 10 mg PO HS [facility] Last Admin: 01/08/17 22:18 Dose: 10 mg Furosemide (Lasix) 40 mg IV DAILY [facility] Last Admin: 01/09/17 09:40 Dose: 40 mg Cefepime HCl (Maxipime 1gm) 100 mls @ 100 mls/hr IVPB Q24H [facility] PRN Reason: Protocol Last Admin: 01/09/17 17:49 Dose: 100 mls/hr Latanoprost (Xalatan Opht) 0 ml OU HS [facility] Last Admin: 01/08/17 22:35 Dose: 2.5 ml Metoprolol Tartrate (Lopressor) 25 mg PO BID [facility] Last Admin: 01/09/17 17:49 Dose: 25 mg Pantoprazole Sodium (Protonix Ec Tab) 40 mg PO ACB [facility] Last Admin: 01/09/17 08:20 Dose: 40 mg Potassium Chloride (K-Dur 20 Meq Er Tab) 20 meq PO BRK [facility] Last Admin: 01/09/17 08:20 Dose: 20 meq - Labs Labs: 01/09/17 07:00 01/09/17 07:20 PT 11.0 Seconds (9.9-11.8) 01/02/17 06:00 INR 1.02 (0.93-1.08) 01/02/17 06:00 APTT 27.3 Seconds (23.7-30.8) 01/02/17 06:00 - Constitutional Appears: Non-toxic, No Acute Distress, Chronically Ill - Head Exam Head Exam: ATRAUMATIC, NORMOCEPHALIC - Eye Exam Eye Exam: EOMI, PERRL Pupil Exam: NORMAL ACCOMODATION, PERRL - ENT Exam ENT Exam: Mucous Membranes Moist, Normal External Ear Exam, TM's Normal Bilaterally - Neck Exam Neck Exam: Full ROM, Normal Inspection - Respiratory Exam Respiratory Exam: Clear to Ausculation Bilateral, NORMAL BREATHING PATTERN. absent: Rales, Rhonchi, Wheezes - Cardiovascular Exam Cardiovascular Exam: REGULAR RHYTHM, RRR, +S1, +S2 - GI/Abdominal Exam GI & Abdominal Exam: Soft, Normal Bowel Sounds. absent: Distended, Tenderness - Extremities Exam Extremities Exam: Full ROM, Normal Inspection - Neurological Exam Neurological Exam: Alert, Awake, CN II-XII Intact, Oriented x3 Additional comments: very poor memory especially short term memory. - Psychiatric Exam Psychiatric exam: Normal Affect, Normal Mood - Skin Skin Exam: Intact, Normal Color Assessment and Plan - Assessment and Plan (Free Text) Assessment: 76 yo female with multiple medical issues including recent diagnosis of NSTEMI found to have a UTI with Providencia. Patient with cardiomyopathy, hematuria, anemia requiring transfusions. The Providencia in the urine can be treated with Cefepime IV. Currently on fevers or leukocytosis. So far patient is fairly stable. She has a poor short term memory but answers questions for the most part appropriately. Overall, she states that she feels better over the past few days. Supportive care. Continue on Cefepime treatment. No further cultures pending at this time. Planning 7 days of therapy with Cefepime. Patient still with hematuria and possible urolithiasis. On Cefepime for Providencia UTI. Possible cystoscopy in the future. Thank you for allowing me to participate in the care of the patient, we will follow with you.
--- NOTE | 2017-01-09 20:56 | PN ---
DATE: 01/09/2017 REFERRING PHYSICIAN: Dr. Jung. SUBJECTIVELY: She is lying in the bed, sleepy, arousable. No headache, no rhinitis. Still has some cough and shortness of breath. No nausea, no vomiting, no diarrhea. Has bloody urine. No leg swel ling. OBJECTIVELY: In no acute distress. Temp is 98, heart rate is 86, respiratory rate is 18, blood pressure 127/80, pulse ox 93% on room air . HENT: Moist mucous membrane. Crowded airway. NECK: Supple. No JVD. LUNGS: Has basilar crackles. HEART: S1 and S2. ABDOMEN: Soft, nontender. No organomegaly. EXTREMITIES: No edema. NEUROLOGICALLY: Sleepy, arousable. Follows simple commands. MEDICATIONS: She is on Aricept 10 mg at bedtime, DuoNeb q. 2 hours p.r.n., Ecotrin 81 mg daily, pota ssium 20 mEq daily, Lasix 40 mg daily, Lipitor 80 mg daily, metoprolol tartrate 25 mg twice a day, ce fepime 1 g IV q. 24 hours, Plavix 75 mg daily, Protonix 40 mg daily, Pulmicort inhaled twice a day. LABORATORY DATA: Shows hemoglobin 10.1, hematocrit 32.2, WBC 7.7, platelet is 170. Sodium 138, pota ssium 2.3, chloride 102, bicarbonate 27, BUN 20, creatinine 1.2, glucose is 104, calcium 8.7. AST is 29, ALT 33, alk phos is 58, albumin is 3.5. IMPRESSION AND PLAN: Status post myocardial infarction, cardiomyopathy, persistent hematuria requiri ng transfusion, decreased left ventricular function resolved, and pulmonary edema, history of cerebro vascular accident, severe aortic stenosis, chronic obstructive lung disease, may have a sleep apnea s yndrome. Continue bronchodilator. Keep head at 45 degrees. Sleep apnea precautions. The patient refused to use CPAP. Careful with sedation. Follow up H and H. The patient was seen by Dr. Pravin Holliday. If persistent hematuria is there, need to consider other options including cystoscopy, understanding the risk/benefit ratio. From the last 1 week or so she persistent bleeding. If cleared by cardiolog y, may need to do cysto. Thank you, and will follow with you. Adam Christianson MD cc: [facility] TT: 01/09/2017 20:55:49 Confirmation # [id number] Dictation # [id number]
[2017-01-09] MEDS: Latanoprost 2.5 ml Opht Soln OU SCH (21:06)
[2017-01-10 07:24] LABS: ADD MANUAL DIFF? NO
[2017-01-10 07:28] LABS: BASO # 0.01 K/mm3 (0.0-2.0); BASO % 0.1 % (0.0-3.0); EOS # 0.2 (0.0-0.7); EOS % 2.2 % (1.5-5.0); GRAN # 6.23 (1.4-6.5); GRAN % 74.5 % (50.0-68.0); HEMATOCRIT 33.2 % (36.0-48.0); LYMPH # 1.5 (1.2-3.4); LYMPH % 17.6 % (22.0-35.0); MEAN CELL VOLUME 77.9 fL (80.0-105.0); MEAN CORPUSCULAR HEMOGLOBIN 23.7 pg (25.0-35.0); MEAN CORPUSCULAR HGB CONC 30.4 g/dl (31.0-37.0); MONO # 0.5 (0.1-0.6); MONO % 5.6 % (1.0-6.0); PLATELET COUNT 186 10^3/uL (120.0-450.0); RED CELL DISTRIBUTION WIDTH 19.4 % (11.5-14.5); WHITE BLOOD COUNT 8.4 10^3/ul (4.5-11.0)
[2017-01-10 07:58] LABS: ALB/GLOB RATIO 0.9 (1.1-1.8); BILIRUBIN,TOTAL 0.6 mg/dL (0.2-1.3); CALCIUM 8.9 mg/dL (8.4-10.5); MAGNESIUM 1.9 mg/dL (1.7-2.2); POTASSIUM 4.2 mmol/L (3.6-5.0); TOTAL PROTEIN 7.1 g/dL (5.8-8.3)
[2017-01-10] MEDS: Pantoprazole 40 mg EC Tab PO SCH (08:00)
[2017-01-10] MEDS: Potassium Chloride 20 mEq ER Tab PO SCH (08:00)
--- NOTE | 2017-01-10 08:05 | PN ---
DATE: 01/09/2017 SUBJECTIVE: The patient was seen and examined on the bedside, looks comfortable. No nausea, vomiting, or diarrhea. No hematuria or hematochezia. No swelling of the leg. No chest pain, no palpitations, still having hematuria. PHYSICAL EXAMINATION: VITAL SIGNS: Temperature is 98, heart raten 80 , respiratory rate 12, blood pressure 127/80, and pulse oximetry 93% on room air. HEENT: Head normocephalic, atraumatic. Eyes: PERRLA. Extraocular muscles intact. Conjunctivae pink. Eyelids unremarkable. Nose patent. Mucous membranes moist. NECK: Supple. No carotid bruit, JVD or thyromegaly. LUNGS: Has bibasilar crackles. HEART: S1, S2 positive. ABDOMEN: Soft. No organomegaly. EXTREMITIES: No edema, no cyanosis. NEUROLOGIC: The patient is awake, follows simple commands. MEDICATIONS: Aricept, DuoNeb, Ecotrin, potassium, Lasix, Lipitor, metoprolol, cefepime, Plavix, Protonix, Pulmicort, LABORATORY DATA: Hemoglobin 10.1, hematocrit 32.2, white blood cells 7.7, and platelets 170. Sodium 138, potassium 2.3, BUN 20, creatinine 1.2, AST 29, ALT 33. ASSESSMENT: The patient who is 76-year-old lady, status post myocardial infarction, cardiomyopathy, persistent hematuria, history of nephrolithiasis, history of ureteral stents, requiring transfusion. Urologist is on the case. Decreased left ventricular ejection fraction , had pulmonary edema, history of cerebrovascular accident, severe aortic stenosis, chronic obstructive pulmonary disease, may have sleep apnea syndrome, hemiparesis, history of carotid artery disease. PLAN: To continue present treatment, use a CPAP, careful with sedation. Follow up H and H. The patient has persistent hematuria. Dr. Pravin Holliday has to do cystoscopy. From the last one week, the patient has persistent hematuria. First patient was seen by Dr. Jacobo, but the patient had Dr. Pravin Holliday as private urologist long time . Dr. Pravin Holliday consult called. Now awaiting Dr. Holliday's input. Seen by Dr. Christianson, Dr. Joshi and Dr. Del Castillo. GI, DVT prophylaxis. Repeat labs. We will follow. Florence Jung MD cc: [id number] TT: 01/10/2017 00:42:25 Confirmation # [id number] Dictation # [id number] 01/10/2017 02:35:35 NATHANIEL
[2017-01-10] MEDS: Albuterol-Ipratrop 3 mg / 0.5 (3 ml) UD IH SCH ×2 (08:13→13:43)
[2017-01-10] MEDS: Budesonide 0.5 mg/2 ml Inhal Susp UD IH SCH (08:14)
[2017-01-10 11:57] VITALS: TEMP 98.5
[2017-01-10] MEDS ORDERED: Enoxaparin 60 mg Syringe SC SCH (13:15)
--- NOTE | 2017-01-10 14:10 | PN ---
DATE: 01/10/2017 REFERRING PHYSICIAN: Dr. Jung. SUBJECTIVE: She is lying in the bed, head at 45 degrees. No headache, no rhinitis. Still has some cough. No nausea, no vomiting, no diarrhea. Has hematuria. No leg pain or leg swelling. OBJECTIVE: GENERAL: No acute distress. VITAL SIGNS: Temp is 98, heart rate is 78, respiratory rate is 20, blood pressure 142/59 and pulse o x 94% on 2 liters nasal cannula. HEENT: Moist mucous membrane. No ulcer or oral thrush noted. Crowded airway. NECK: Supple, no JVD. LUNGS: Has a few crackles in the bases. HEART: S1, S2. ABDOMEN: Soft, nontender. No organomegaly. EXTREMITIES: No edema. NEUROLOGIC: Awake, alert, follows simple commands, but confused. MEDICATIONS: She is on Aricept 10 mg at bedtime, DuoNeb q. 2 hours p.r.n. and q. 6 hours around the clock, Ecotrin 81 mg daily, potassium 20 mEq daily, Lasix 40 mg daily, Lipitor 80 mg daily, metoprolo l tartrate 25 mg twice a day, Lovenox 60 mg subQ q. 12 hours, Protonix 40 mg daily, Pulmicort inhaled twice a day. LABORATORY DATA: Shows hemoglobin 10.1, hematocrit 33.2, WBC 8.4, platelet is 186. Sodium 142, pota ssium 4.2, chloride 104, bicarbonate 26, BUN 26, creatinine 1.3, calcium is 8.9, AST 31, ALT 31, antonio line phosphatase is 63, albumin is 3.1. Urine culture has Providencia. IMPRESSION AND PLAN: Status post myocardial infarction, cardiomyopathy, persistent hematuria requiri ng transfusion, pulmonary edema which is slowly improving, history of cerebrovascular accident, aorti c stenosis, chronic obstructive lung disease, may have sleep apnea syndrome. Noted patient started o n full anticoagulation. Also on platelet inhibitor, Plavix and aspirin. We will speak to Dr. Jung if needs Lovenox so we can discontinue it. Continue following H and H. Aspiration precautions. Ur ology followup. If no cystoscopy, patient could be sent back to residential and follow H and H ever y 2-3 days. Will follow with you. Adam Christianson MD cc: [facility] TT: 01/10/2017 14:09:54 Confirmation # [id number] Dictation # [id number]
--- NOTE | 2017-01-10 15:02 | PN ---
DATE: 01/10/2017 The patient is in room 271, bed 1. REASON FOR CONSULTATION AND FOLLOWUP: Non-ST segment elevation myocardial infarction, anemia, status post RBC transfusion, hematuria. HISTORY OF PRESENT ILLNESS: A 76-year-old female who was [facility] with left-arturo ed CVA, contracture on the left arm and bedbound. The patient found to have severe anemia, required blood transfusion. Also found to have non-ST segment elevation myocardial infarction. The patient l silas flat in bed without any chest pain, shortness of breath, palpitation. The patient already recei rain 3 units of blood transfusions. PHYSICAL EXAMINATION: VITAL SIGNS: Blood pressure 137/63, respirations 19, pulse 78, temperature 98.5. HEAD: Normocephalic. EYES: Pupils normal. Conjunctivae slightly pale. NECK: JVP low. Carotid equal. THORAX: AP diameter normal. LUNGS: Clear. CARDIOVASCULAR: S1, S2. ABDOMEN: Soft, no tenderness, no organomegaly. Bowel sounds normal. EXTREMITIES: No clubbing, no cyanosis. LABORATORIES: WBC 8.4, hemoglobin 10.1, hematocrit 33.2, platelets 186. Sodium 142, potassium 4.2, BUN 26, creatinine 1.3. AST, ALT normal. Total protein, albumin normal. DIAGNOSES: Hematuria, status post packed blood transfusion, severe anemia, non-ST segment elevation myocardial infarction, cardiomyopathy, ejection fraction 35%-40%, severe aortic stenosis, moderate ao rtic regurgitation, mild to moderate mitral regurgitation, mild to moderate tricuspid regurgitation, cardiomyopathy possibly ischemic, cerebrovascular accident with contracture of upper extremity on the left side. PLAN: The patient has other comorbidities and she is asymptomatic from cardiac point of view, so we will treat her medically. The patient's family has no guardian, so blood transfusion was given with 2 physicians' consent. We will continue aspirin and Plavix for 4 weeks and then baby aspirin alone. Continue atorvastatin. Continue gentle diuretics. The patient, if needs any procedure, then Plavix can be stopped and restart after the procedure because patient has been having zaire hematuria, so s he may need urology intervention. In the meantime, patient can be [facility]. Continue present therapy. Adam Rothman MD cc: [id number] TT: 01/10/2017 15:02:33 Confirmation # [id number] Dictation # [id number]
--- NOTE | 2017-01-10 16:23 | CP.PCM.PN ---
Subjective - Date & Time of Evaluation Date of Evaluation: 01/10/17 Time of Evaluation: 15:15 - Subjective Subjective: Infectious Disease Follow Up: January 10, 2017 76 yo female with presentation of shortness of breath. She was found to have signs for NSTEMI and admitted to the MICU for further care. She was later verified to have STEMI with decreased cardiac function and also found to have a UTI with gram negative rods. This was identified at [facility]. The patient herself is a very poor historian. There has been no leukocytosis or fevers during this hospitalization. The patient is a bit lethargic. She is less short of breath compared to admission. No new complaints at this time. Patient appears fairly comfortable at this time. Currently receiving Cefepime treatment. Objective - Vital Signs/Intake and Output Vital Signs (last 24 hours): Temp Pulse Resp BP Pulse Ox 98.5 F 78 19 142/59 L 93 L 01/10/17 11:57 01/10/17 11:57 01/10/17 11:57 01/10/17 11:57 01/10/17 05:27 Intake and Output: 01/10/17 01/10/17 06:59 18:59 Intake Total 1080 Output Total 1050 Balance 30 - Medications Medications: Current Medications Albuterol/Ipratropium (Duoneb 3 Mg/0.5 Mg (3 Ml) Ud) 3 ml IH Q2H PRN PRN Reason: Shortness of Breath Last Admin: 01/03/17 04:00 Dose: 3 ml Albuterol/Ipratropium (Duoneb 3 Mg/0.5 Mg (3 Ml) Ud) 3 ml IH [id number] [facility] Last Admin: 01/10/17 13:43 Dose: 3 ml Aspirin (Ecotrin) 81 mg PO DAILY [facility] Last Admin: 01/10/17 10:12 Dose: 81 mg Atorvastatin Calcium (Lipitor) 80 mg PO DIN [facility] Last Admin: 01/09/17 17:48 Dose: 80 mg Budesonide (Pulmicort Respules) 1 mg IH [id number] [facility] Last Admin: 01/10/17 08:14 Dose: 1 mg Donepezil HCl (Aricept) 10 mg PO HS [facility] Last Admin: 01/09/17 21:06 Dose: 10 mg Enoxaparin Sodium (Lovenox) 60 mg SC Q12H FILI PRN Reason: Protocol Furosemide (Lasix) 40 mg PO DAILY [facility] Latanoprost (Xalatan Opht) 0 ml OU HS [facility] Last Admin: 01/09/17 21:06 Dose: 2.5 ml Metoprolol Tartrate (Lopressor) 25 mg PO BID [facility] Last Admin: 01/10/17 10:12 Dose: 25 mg Pantoprazole Sodium (Protonix Ec Tab) 40 mg PO ACB [facility] Last Admin: 01/10/17 08:00 Dose: 40 mg Potassium Chloride (K-Dur 20 Meq Er Tab) 20 meq PO BRK [facility] Last Admin: 01/10/17 08:00 Dose: 20 meq - Labs Labs: 01/10/17 05:30 01/10/17 05:30 PT 11.0 Seconds (9.9-11.8) 01/02/17 06:00 INR 1.02 (0.93-1.08) 01/02/17 06:00 APTT 27.3 Seconds (23.7-30.8) 01/02/17 06:00 - Constitutional Appears: Non-toxic, No Acute Distress, Chronically Ill - Head Exam Head Exam: ATRAUMATIC, NORMOCEPHALIC - Eye Exam Eye Exam: EOMI, PERRL Pupil Exam: NORMAL ACCOMODATION, PERRL - ENT Exam ENT Exam: Mucous Membranes Moist, Normal External Ear Exam, TM's Normal Bilaterally - Neck Exam Neck Exam: Full ROM, Normal Inspection - Respiratory Exam Respiratory Exam: Clear to Ausculation Bilateral, NORMAL BREATHING PATTERN. absent: Rales, Rhonchi, Wheezes - Cardiovascular Exam Cardiovascular Exam: REGULAR RHYTHM, RRR, +S1, +S2 - GI/Abdominal Exam GI & Abdominal Exam: Soft, Normal Bowel Sounds. absent: Tenderness, Diminished Bowel Sounds - Extremities Exam Extremities Exam: Full ROM, Normal Inspection - Neurological Exam Neurological Exam: Alert, Awake, CN II-XII Intact, Oriented x3 - Psychiatric Exam Psychiatric exam: Normal Affect, Normal Mood - Skin Skin Exam: Intact, Normal Color Assessment and Plan - Assessment and Plan (Free Text) Assessment: 76 yo female with multiple medical issues including recent diagnosis of NSTEMI found to have a UTI with Providencia. Patient with cardiomyopathy, hematuria, anemia requiring transfusions. The Providencia in the urine can be treated with Cefepime IV. Currently on fevers or leukocytosis. So far patient is fairly stable. She has a poor short term memory but answers questions for the most part appropriately. Overall, she states that she feels better over the past few days. Supportive care. Continue on Cefepime treatment. No further cultures pending at this time. Planning 7 days of therapy with Cefepime. On day 6 today. She can go back to nursing facility today. Patient still with hematuria and possible urolithiasis. On Cefepime for Providencia UTI. Possible cystoscopy in the future. Thank you for allowing me to participate in the care of the patient, we will follow with you.
[2017-01-10 17:29] LABS: FOLATE > 20.0 ng/mL
[2017-01-10 17:44] VITALS: BP 135/41; PULSE 84; RESP 20
--- NOTE | 2017-01-10 18:48 | DS ---
Discharged on 01/10/2017 to [facility]. CHIEF COMPLAINT: Shortness of breath, not feeling very well. HISTORY OF PRESENT ILLNESS: The patient is a 76-year-old female with multiple medical problems, a re sident of [facility], with history of atrial fibrillation, COPD, aspiration pneumonia, left-sided CVA, history of bilateral carotid artery stenosis, history of bilateral carotid artery stenting, depressi on, skin cancer, came to the Emergency Room from the alf complaining about severe shortness of breath. The patient noted to have some improvement after receiving, DuoNeb, albuterol. We admitt ed the patient. Chest x-ray done and renal ultrasound. Urologist consult called because the patient started hematuria. The patient was seen by Dr. Jacobo and Dr. Pravin Holliday, seen by Dr. Adi Woodall for infectious disease. The patient was kept in the unit. Seen by Dr. Herbert Cárdenas in the unit. Th e patient had acute ID because of her comorbidity. Further testing was not done as per line up machine operator because of hematuria. Urologist wanted to do cystoscopy, but is not doing it because the patient is on Plavix and aspirin. We spoke to Dr. Holliday and he is planning to do a cystoscopy as outpatient. PAST MEDICAL HISTORY: Hypertension, CVA, dementia, cataract surgery, anemia, cellulitis of the face, depression, history of skin cancer. FAMILY HISTORY: Father and mother noncontributory. HABITS: Never smoked, no drugs, no ethanol. ALLERGIES: The patient is not allergic to any medications. HOME MEDICATIONS: Reviewed by me. REVIEW OF SYSTEMS: The patient was seen and examined on the bedside early in the morning. Looks com fortable. Still Soni bag has blood, but feeling better. No headache, no dizziness. No shortness o f breath. No rhinitis. Coughing is better. No nausea, vomiting, or diarrhea. No fever, no chills. PHYSICAL EXAMINATION: VITAL SIGNS: Temperature 98, heart rate 78, respiratory rate 20, blood pressure 140/59, pulse oximet ry 94% on 2 liters nasal cannula. HEENT: Head normocephalic, atraumatic. Eyes: PERRLA. Extraocular muscles intact. Conjunctivae pin k. Eyelids unremarkable. Nose patent. Mucous membranes moist. NECK: Supple. No carotid bruit, JVD or thyromegaly. CHEST: Bilaterally symmetrical. HEART: S1, S2 positive. LUNGS: Clear to auscultation. ABDOMEN: Soft. Bowel sounds present. No organomegaly. EXTREMITIES: No edema, no cyanosis. NEUROLOGIC: The patient is awake, alert, follows simple commands. MEDICATIONS: Aricept, DuoNeb, Ecotrin, potassium, Lasix, Lipitor, metoprolol, Lovenox, Protonix, Pul micort. LABORATORY DATA: Hemoglobin 10.1, hematocrit 33.2, white blood cells 8.4, platelets 186. Sodium 142 , potassium 4.2, BUN 26, creatinine 1.3, AST 31, ALT 31. Urine culture has Providencia. ASSESSMENT AND PLAN: The patient is a 76-year-old lady status post myocardial infarction, cardiomyop athy, persistent hematuria requiring blood transfusion, anemia, pulmonary edema slowly improving, his tory of cerebrovascular accident, aortic stenosis, history of obstructive lung disease, sleep apnea s yndrome. According to patient, needs cystoscopy. According to Dr. Holliday, he will do as outpatient after stabilization of the patient. Aspiration precautions. Today, the patient is going back to re habilitation. We will follow up with H and H 2 times a week. Had left-sided cerebrovascular acciden t, contraction of the left arm and bedbound. The patient had non-ST segment elevated myocardial infa rction. The patient received 3 units of packed RBCs. History of bilateral carotid artery stenting d one many years ago. Because of many comorbidities, line up machine operator planned to treat patient medically Continue atorvastatin. According to line up machine operator, we have to keep at least Plavix and aspirin for 4 weeks. According to line up machine operator, the procedure can be done and we can hold Plavix. Gastrointestina l and deep venous thrombosis prophylaxis. We will follow up. Florence Jung MD cc: [id number] TT: 01/10/2017 18:48:03 kecia
== END 2017-01-10 19:00 | disposition home health service (06) | DRG 280 ==
LOC: ED 01:33 → ERH 03:44 → CCU 06:26 → 2RSO 01-08 14:34
PROVIDERS: ADMIT Internal Medicine; ATTEND Internal Medicine
PROC: 30233N1 Transfusion of Nonautologous Red Blood Cells into Peripheral Vein, Percutaneous Approach (ICD-10-PCS; principal; 2017-01-03)
DX: I21.4 Non-ST elevation (NSTEMI) myocardial infarction (principal); I50.23 Acute on chronic systolic (congestive) heart failure; J18.9 Pneumonia, unspecified organism; D62 Acute posthemorrhagic anemia; N02.9 Recurrent and persistent hematuria with unspecified morphologic changes; N39.0 Urinary tract infection, site not specified; J44.1 Chronic obstructive pulmonary disease with (acute) exacerbation; I69.354 Hemiplegia and hemiparesis following cerebral infarction affecting left non-dominant side; I11.0 Hypertensive heart disease with heart failure; I27.2 Other secondary pulmonary hypertension; F03.90 Unspecified dementia, unspecified severity, without behavioral disturbance, psychotic disturbance, mood disturbance, and anxiety; E11.65 Type 2 diabetes mellitus with hyperglycemia; I08.3 Combined rheumatic disorders of mitral, aortic and tricuspid valves; F32.9 Major depressive disorder, single episode, unspecified; I48.0 Paroxysmal atrial fibrillation; I65.23 Occlusion and stenosis of bilateral carotid arteries; E78.00 Pure hypercholesterolemia, unspecified; R31.0 Gross hematuria; D50.0 Iron deficiency anemia secondary to blood loss (chronic); J45.909 Unspecified asthma, uncomplicated; N20.0 Calculus of kidney; G47.33 Obstructive sleep apnea (adult) (pediatric); E87.6 Hypokalemia; E07.81 Sick-euthyroid syndrome; I25.10 Atherosclerotic heart disease of native coronary artery without angina pectoris; B96.89 Other specified bacterial agents as the cause of diseases classified elsewhere; I25.5 Ischemic cardiomyopathy; I69.320 Aphasia following cerebral infarction; Z95.828 Presence of other vascular implants and grafts; Z85.828 Personal history of other malignant neoplasm of skin; Z86.718 Personal history of other venous thrombosis and embolism; Z74.01 Bed confinement status

== ENCOUNTER 2017-01-29 06:11 | Day surgery (SDC) | payer MEDICARE, OTHER, MEDICAID ==
[2017-01-23 07:57] VITALS: BMI 33.3
[2017-01-29] MEDS ORDERED: ePHEDrine 50 mg/ml Inj ONE (08:31)
[2017-01-29] MEDS ORDERED: Phenylephrine 10 mg/ml Inj ONE (08:31)
[2017-01-29] MEDS ORDERED: Propofol 10 mg/ml Inj (20 ML) ONE (08:31)
[2017-01-29] MEDS ORDERED: Iohexol 240 (50 ml) ONE ×2 (08:52→09:39)
[2017-01-29] MEDS ORDERED: cefTRIAXone (Rocephin) 1 gm Inj ONE (08:52)
[2017-01-29] MEDS ORDERED: Lidocaine 2% Jelly (Uro-Jet) ONE (08:52)
[2017-01-29] MEDS ORDERED: Sodium Chloride 0.9% 1,000 ML IV SCH (10:15)
[2017-01-29 10:57] VITALS: RESP 18; TEMP 97.4
[2017-01-29 11:45] VITALS: BP 151/63; PULSE 65; O2SAT 92
--- NOTE | 2017-01-29 15:40 | RAD ---
PROCEDURE: Retrograde pyelogram HISTORY: BILATERAL STENTS COMPARISON: TECHNIQUE: Fluoroscopy was provided in the operating room. Seventeen images were submitted. FINDINGS: Study shows a dilated right distal ureter. There is placement of the stent. 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 There is placement of a stent into the lower pole collecting system IMPRESSION: As above
--- NOTE | 2017-02-12 12:22 | HP ---
UROLOGY ADMISSION HISTORY AND PHYSICAL REASON FOR THE ADMISSION: Treatment of kidney stones. A very pleasant lady who has some kind of underlying disorder for which, although she is able to answ er questions, she has the ____. I discussed options for her medical treatment with her medical doctor as well. She has ____ infections, and she has kidney stones ____ she is here today for retrograde and stent in [facility]. We had stopped her Plavix in preparation for today. She is here for beginning stage I of ____ stone ____. See the plan below. PAST MEDICAL HISTORY: As listed above. No history of an DE or CVA, and ____ on the chart. I previo usly saw her in a recent consult, ____ it looks well. MEDICATIONS: See the chart. Again, she has been off the Plavix and the aspirin. REVIEW OF SYSTEMS: Listed above, noncontributory. SOCIAL HISTORY: Socially, as mentioned above. ____. PHYSICAL EXAM: ____. VITAL SIGNS: ____ noted. The ____. So the patient is very ____. ____: Within normal limits. DIAGNOSES: Urolithiasis, hematuria, recurrent urinary tract infection. PLAN: The patient has been on antibiotics. She is going to get extra antibiotic prophylaxis today. Discussed the options with her medical doctor, and I got consent from the state. She has been transferred from a half-way. She lives at [facility]. PLAN: 1. Antibiotic prophylaxis. 2. Cysto-retrograde stent insertion. ____. Pravin Holliday MD cc: [id number] TT: 02/12/2017 09:29:36 jn 02/12/2017 11:21:18
--- NOTE | 2017-02-12 12:22 | OP ---
PROCEDURE DATE: 01/29/2017 PREOPERATIVE DIAGNOSES: Urolithiasis, recurrent urinary tract infections, hematuria. POSTOPERATIVE DIAGNOSES: Urolithiasis, recurrent urinary tract infections, hematuria. PROCEDURE: Cystoscopy, bilateral retrograde pyelograms and stent insertion on the left and insertion of Soni catheter. COMPLICATIONS: There were no complications. ____ further plans. We discussed various options with medical team. She is here for the above listed procedure. FINDINGS: Normal bladder mucosa. Kidney outline ____. Double-J stent inserted. There were no complications. INDICATIONS: See the history and physical. PROCEDURE: After obtaining informed consent, the patient was brought to the operating ____. Routine monitors were placed. Timeouts was called. Consent had been obtained, confirmed the patient and po sitioning, antibiotic prophylaxis, etc. all done. Timeout confirmed everything. The procedure began ____ urethra. Ureteral orifices were identified. Retrograde pyelogram performed . A double-J stent inserted. Bladder was emptied ____. At the termination of the procedure, the double-J stent is in good locatio n. There were no complications. Pravin Holliday MD cc: [id number] TT: 02/12/2017 09:47:16 tn
--- NOTE | 2017-02-12 12:32 | OP ---
PROCEDURE DATE: 02/12/2017 UROLOGY OPERATIVE REPORT PREOPERATIVE DIAGNOSES: Urolithiasis, recurrent infections. POSTOPERATIVE DIAGNOSES: Urolithiasis, recurrent infections. PROCEDURE: ____ bilateral retrograde pyelograms, and bilateral double-J stent insertion, and bilater al hydronephrosis. There were no complications. At the termination of the procedure, the Soni catheter placed at the patient's double-J stent. COMPLICATIONS: There were no complications. INDICATIONS: ____. We had stopped the Plavix ____. ____Foley ____ urinary ____. ____ to evaluate ____. ____. PROCEDURE: After obtaining informed consent, the patient was placed on the table ____. ____ the urethra. ____ unremarkable. Able to insert a Soni catheter ____ without complications. ____. Pravin Holliday MD cc: [id number] TT: 02/12/2017 11:00:39 jn
== END 2017-01-29 13:50 | disposition home or self-care (01) ==
LOC: SDS 06:11
PROVIDERS: ATTEND Urology
DX: N20.0 Calculus of kidney (principal); N39.0 Urinary tract infection, site not specified; R31.9 Hematuria, unspecified
CPT/HCPCS: 52332; 74420; C1758; C1769 ×2; C2625; J0696; J1100; J2001; J2370; J2405; J2704; J3010; J7040; J7120; Q9966

== ENCOUNTER 2017-02-19 06:04 | Day surgery (SDC) | payer MEDICARE, OTHER, MEDICAID ==
[2017-01-23 07:57] VITALS: BMI 33.3
[2017-02-19] MEDS ORDERED: HYDROmorphone 0.5 mg/0.5 ml ISec IVP PRN (08:39)
[2017-02-19] MEDS ORDERED: Iohexol 240 (50 ml) ONE (09:42)
[2017-02-19] MEDS ORDERED: Propofol 10 mg/ml Inj (20 ML) ONE (09:43)
[2017-02-19] MEDS: cefTRIAXone (Rocephin) 1 gm Inj ONE ×2 (10:00→10:11)
[2017-02-19] MEDS ORDERED: ePHEDrine 50 mg/ml Inj ONE (10:04)
[2017-02-19 11:19] VITALS: PULSE 77
[2017-02-19 11:43] VITALS: RESP 20; TEMP 97.5; O2SAT 96
[2017-02-19 13:11] VITALS: BP 119/69
--- NOTE | 2017-02-19 18:05 | RAD ---
PROCEDURE: Fluoroscopy up to 1 hr. HISTORY: CYSTOGRAM BILATERAL COMPARISON: None TECHNIQUE: Standard protocol for this study/examination. FINDINGS: Submitted images from the current procedure: Greater than 10. IMPRESSION: Total fluoroscopic time (continuous mode) utilized during the procedure: 1 minutes 49 seconds.
--- NOTE | 2017-03-10 11:53 | OP ---
PROCEDURE DATE: 02/19/2017 PREOPERATIVE DIAGNOSES: Urinary retention, voiding dysfunction, bilateral hydronephrosis. POSTOPERATIVE DIAGNOSES: Urinary retention, voiding dysfunction, bilateral hydronephrosis. PROCEDURES: A cystoscopy, removal of a left double-J stent, removal of right double-J stent, left re trograde pyelogram, right retrograde pyelogram, insertion of bilateral stents. COMPLICATIONS: There were no complications. INDICATIONS: See the history and physical for further details. A very pleasant lady with hydronephr osis with voiding dysfunction, recurrent infections. We discussed options with the patient, but mostly also with her ____, with the state-assigned ____ of attorney recruiter. After discussing options, the patient is here for the above procedure. PROCEDURE: After obtaining informed consent, the patient was placed on the table, routine monitors p laced, timeouts were called. Again, the patient has recurrent infections, some stone disease. It is a little bit of a difficult management issue and hydronephrosis is noted, and the patient is here fo r the above procedure. DESCRIPTION OF PROCEDURE: After obtaining informed consent, the patient was placed on the table. Wesley eouts were called and we confirmed the patient. We had consent from the state-appointed . Antibiotic prophylaxis was given. Cystoscope via the urethra. Identified the stents, removed 1 stent. Retrograde pyelogram is perform ed. I removed 1 stent. Put a wire up to the kidney, put an open-ended, put a contrast, and then we repla nora it. Same thing on either side. Bilateral stent changes. There were no complications. We left the patient with an indwelling Soni. We need to discuss further options in terms of stone management, but today I just wanted to change th e stents and see the current status with films that were submitted to the radiologist for further rev iew and then further plans will follow. Pravin Holliday MD cc: [phone] TT: 03/10/2017 11:42:34 ut 03/10/2017 10:52:08
--- NOTE | 2017-03-13 10:20 | OP ---
PROCEDURE DATE: 02/19/2017 This is a repeat of a dictation, as I am dictating it and going through my mind, this is a repeat of a dictation. The details are clear, but I would like to type in that this is a repeat dictation. PREOPERATIVE DIAGNOSES: Hydronephrosis, stone disease, recurrent infections, urinary retention, void ing dysfunction. POSTOPERATIVE DIAGNOSES: Hydronephrosis, stone disease, recurrent infections, urinary retention, voi ding dysfunction. PROCEDURE: Cystoscopy, removal of right double-J stent, right retrograde pyelogram, insertion of rig ht double-J stent, a left retrograde pyelogram, removal of a left double-J stent, insertion of a left double-J stent, insertion of Soni catheter and cystogram. COMPLICATIONS: There were no complications. BLOOD LOSS: Less than 10 mL. INDICATIONS: See history and physical for the details. A very pleasant lady first from the al [employer] and also from the power of insurance attorney for the [facility]. See the previous history. The patient with stone disease and hydronephrosis and here now for the abo ve procedure. There were no complications. PLAN: To continue to change the stent. We have to discuss further management issues. See the history and physical for details. DESCRIPTION OF PROCEDURE: After obtaining informed consent and discussing options, the patient broug ht to the OR and placed on the table, routine monitors placed, timeouts were called to confirm the pa tient, the positioning, etc. The patient had been given antibiotic prophylaxis, cystoscope via the u rethra. The patient placed in lithotomy. We confirmed everything. Cystoscope via the urethra, identified the ureteral stents. Removed one wire up to the kidney through the stent. A retrograde pyelogram was then done over an open-ended catheter and then a wire was put back in and we placed a new double-J stent, similarly on the other side. Both sides without difficulty. There seems to still be some hydronephrosis. Films are submitted for the radiologist to read. We also placed a Soni catheter and there were no complications. The patient tolerated without complication. ADDENDUM: See the history and physical for the details. The patient is living in a care home. V stevenson difficult management issue because we have had some other issues. Further plans will follow at this point. Pravin Holliday MD cc: [phone] TT: 03/13/2017 10:19:38 rn
--- NOTE | 2017-05-05 10:25 | HP ---
UROLOGY ADMISSION HISTORY AND PHYSICAL REASON FOR ADMISSION: Urinary retention and bilateral hydronephrosis. HISTORY OF PRESENT ILLNESS: Ms. Sanders is a very pleasant lady. She is actually pleasant, aware of her surrounding, but for provision sake, we obtain consent from the stay. This is a patient with stone disease, hydronephrosis, urinary retention and voiding dysfunction and what she is here for today is to change the stents bilaterally. We are not actually actively treating her stones, we just changing her stents and we will also inserting a Soni catheter (I do want mention that every time we see the patient, she is in retention and every time we leave the Soni catheter) and even despite multiple phone calls to the home very often the catheter is removed. Including today, the patient is in urinary retention. So, the plan for today, see the plan listed below. In the interim, the patient had not any difficulty. She is from what I can gather from the skilled nursing notes and from the nurses, the patient has been stable throughout. She came here for a change in the stent and for Soni catheter insertion. See the plan listed below. PAST MEDICAL AND SURGICAL HISTORY: As listed in the chart. The patient of Dr. Jung. No history of an [place]. SOCIAL HISTORY: Socially, as mentioned, we obtain consent from the stay. She lives in a skilled nursing. MEDICATIONS: See chart. ALLERGIES: NONE. PHYSICAL EXAMINATION: GENERAL: A well-nourished female in no apparent distress. VITAL SIGNS: Within normal limits as listed in the chart. LUNGS: Clear. HEART: S1 and S2. ABDOMEN: Soft and nontender. PELVIC/RECTAL: no pelvic or rectal mass. DIAGNOSES: Urolithiasis, gross hematuria, urinary retention and hydronephrosis. PLAN: As follows; we are going to bring the patient to the hospital for cystoscopy. Then, I remove the stent and insert a new stent. We will going to insert a Soni catheter and further plan as follow. I have explain to the stay and to the medical doctors our plan, and the plan is as listed above. I have also explained to the stay, but apparently the risk associated. Pravin Holliday MD
== END 2017-02-19 13:55 ==
LOC: SDS 06:04
PROVIDERS: ATTEND Urology
DX: N13.2 Hydronephrosis with renal and ureteral calculous obstruction (principal)
CPT/HCPCS: 52332; 74430; 88300; C2625; J0696; J1170; J2001; J2405; J2704; J3010; Q9966

== ENCOUNTER 2017-02-21 01:49 | Inpatient (IN) | payer MEDICARE, OTHER, MEDICAID ==
[2017-02-21 01:54] VITALS: BMI 36.0
[2017-02-21] MEDS ORDERED: Vancomycin 1gm in NS 250ml 1 GM/250 ML BAG IVPB STA (02:25)
[2017-02-21] MEDS ORDERED: Piperacill/Tazo 4.5gm in NS 4.5 GM/100 ML BAG IVPB STA (02:25)
[2017-02-21 02:52] LABS: PH,URINE 6.5 (4.7-8.0); URINE BILIRUBIN NEGATIVE (NEGATIVE); URINE BLOOD LARGE (NEGATIVE); URINE GLUCOSE (UA) NEGATIVE (NEGATIVE); URINE KETONE NEGATIVE (NEGATIVE); URINE LEUKOCYTE ESTERASE MODERATE Leu/uL (NEGATIVE); URINE PROTEIN 100 mg/dL (<30 mg/dL)
[2017-02-21 02:53] LABS: URINE APPEARANCE SLIGHT-CLOUDY (CLEAR)
[2017-02-21 03:04] LABS: ADD MANUAL DIFF? NO
[2017-02-21 03:16] LABS: URINE RBC 25 - 30 /hpf (0-2); URINE WBC 15 - 20 /hpf (0-6)
[2017-02-21 03:17] LABS: URINE AMORPHOUS SEDIMENT MODERATE; URINE EPITHELIAL CELLS MANY /hpf (0-5)
--- NOTE | 2017-02-21 03:18 | ED PDOC ---
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 Patient was given Tylenol. Denies headache, dizziness, chest pain, shortness of breath, abdominal pain, nausea, vomiting, diarrhea, urinary symptoms, or any other complaints at this time. 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) - HEENT Hx Cataracts: Yes Hx Glaucoma: Yes - Renal Hx Renal Disorder: No - Endocrine/Metabolic Hx Endocrine Disorders: No - Hematological/Oncological Hx Blood Transfusions: (UNKNOWN) - Integumentary Hx Cellulitis: Yes (face) - Musculoskeletal/Rheumatological Hx Musculoskeletal Disorders: Yes (HEMIPLEGIA, HEMIPARESIS) - Gastrointestinal Hx Gastrointestinal Disorders: No Hx Gastroesophageal Reflux: Yes - Genitourinary/Gynecological Hx Genitourinary Disorders: No - Psychiatric Hx Emotional Abuse: No Hx Physical Abuse: No Hx Substance Use: No - Anesthesia Hx Anesthesia: Yes Hx Anesthesia Reactions: No Hx Malignant Hyperthermia: No - Suicidal Assessment Feels Threatened In Home Enviroment: No Family/Social History - Physician Review Nursing Documentation Reviewed: Yes Family/Social History: No Known Family HX Smoking Status: Never Smoked Hx Alcohol Use: No Hx Substance Use: No Hx Substance Use Treatment: No Allergies/Home Meds Allergies/Adverse Reactions: Allergies No Known Allergies Allergy (Verified 01/02/17 01:38) Home Medications: Home Meds Medication Instructions Recorded Confirmed Aspirin [Adult Low Dose Aspirin EC] 81 mg PO DAILY 01/23/17 02/21/17 Atorvastatin [Lipitor] 80 mg PO DAILY 01/23/17 02/21/17 Bimatoprost [Lumigan 2.5 ml] 1 drop OU HS 01/23/17 02/21/17 Budesonide [Pulmicort Respules] 1 mg IH Q12H 01/23/17 02/21/17 Calcium Carbonate [Calcium 1,250 mg PO DAILY 01/23/17 02/21/17 Carbonate] Clopidogrel [Plavix] 75 mg PO DAILY 01/23/17 02/21/17 Donepezil [Aricept] 10 mg PO DAILY 01/23/17 02/21/17 Famotidine [Pepcid] 40 mg PO DAILY 01/23/17 02/21/17 Furosemide [Lasix] 40 mg PO DAILY 01/23/17 02/21/17 Metoprolol Tartrate [Lopressor] 25 mg PO BID 01/23/17 02/21/17 Multivitamin [Multivitamins] 1 each PO DAILY 01/23/17 02/21/17 Acetaminophen [Tylenol 325mg tab] 650 mg PO Q6H PRN 02/17/17 02/21/17 Albuterol/Ipratropium [Duoneb 3 1 inh INH Q6H PRN 02/17/17 02/21/17 mg/0.5 mg (3 ml) UD] Potassium Chloride [K-Dur 20] 20 meq PO DAILY 02/17/17 02/21/17 Travoprost [Travatan Z 2.5 ml] 1 % OU HS 02/17/17 02/21/17 Physical Exam - Physical Exam Narrative Physical Exam (Text): - Review of Systems Constitutional: Present: Fever absent: Fatigue, Weight Change Eyes: Normal ENT: Normal Respiratory: Normal absent: SOB, Cough, Sputum Cardiovascular: Normal absent: Chest pain, Palpitations, Syncope Gastrointestinal: Normal absent: Abdominal pain, Diarrhea, Nausea, Vomiting Genitourinary: Normal. absent: Dysuria, Frequency, Hematuria Musculoskeletal: Normal. absent: Arthralgias, Back Pain, Neck Pain Skin: Normal Neurological: Normal absent: Focal Weakness Endocrine: Normal Hemo/Lymphatic: Normal Psychiatric: Normal - Physical exam Patient appears age appropriate, speaking full sentences without difficulty - Systems Exam Head: Present: Atraumatic, Normocephalic Pupils: Present: PERRL Extraocular Muscles: Present: EOMI Conjunctiva: Present: Normal Mouth: Present: Moist Mucous Membranes Neck: Present: Normal Range of Motion. No: MIDLINE TENDERNESS, Paraspinal Tenderness Respiratory/Chest: Present: Bibasilar crackles , Good Air Exchange. No: Respiratory Distress, Accessory Muscle Use, Tachypneic Cardiovascular: Present: Regular Rate and Rhythm, Normal S1, S2, Peripheral Pulses Present. No: Murmurs Abdomen: Present: Normal Bowel Sounds, No: Tenderness, Peritoneal Signs, Rebound, Guarding, Distention Back: Present: Normal Inspection. No: Midline Tenderness, Paraspinal Tenderness Upper Extremity: Present: No mobility of left extremity, pt states it is chronic. No: Cyanosis, Edema Lower Extremity: Present: No mobility of left extremity, pt states it is chronic. No: Edema Neurological: Present: GCS=15, Speech Normal, cranial nerves II through XII fully intact with no cerebellar abnormality. No focal neurological deficits other than LUE/LLE. Skin: Present: Warm, Dry, Normal Color. No: Rashes Lymphatic: Present: OX3, NI, NC Psychiatric: Present: Alert, Oriented x 3, Normal Insight, Normal Concentration Vital Signs Reviewed: Yes Vital Signs Temp Pulse Resp BP Pulse Ox 02/21/17 05:41 99.3 F 77 16 104/50 L 94 L 02/21/17 04:03 100.6 F H 02/21/17 02:01 100.6 F H 79 16 129/50 L 94 L Temperature: Febrile Blood Pressure: Hypotensive Pulse: Regular Respiratory Rate: Normal Appearance: Positive for: Well-Appearing, Non-Toxic, Comfortable Pain Distress: None Mental Status: Positive for: Alert and Oriented X 3 Medical Decision Making ED Course and Treatment: 02/21/17 03:24 Impression: A 76 year old female who presents to the emergency department from [facility] for evaluation of fever. Patient currently denies any complaints. On PE, pt has bibasilar crackles and no mobility of left extremities s/p CVA. Plan: -- EKG -- Labs -- Chest X-ray -- Motrin -- IV fluids -- Blood Culture -- Urine Culture -- Urinalysis -- Reassess and disposition Progress Notes: 02/21/17 03:28 Patient did not receive 30mg/kg initial bolus due to finding of bibasilar crackles and possibility of fluid overload. 02/21/17 04:06 Chest X-Ray interpreted by me: Chest xray shows no cardiomegaly, no pneumothorax, no effusion, no infiltrates. 02/21/17 04:20 Case discussed with who is aware and agrees with the plan to admit patient to telemetry. Accepts patient under her service with on consult. Patient is aware and in agreement with plan. - Lab Interpretations Lab Results: 02/21/17 02:47 02/21/17 02:47 Lab Results 02/21/17 02:47: Sodium 134, Chloride 100, Potassium 3.8, Carbon Dioxide 28, Anion Gap 10, BUN 14, Creatinine 0.9, Est GFR ( Amer) > 60, Est GFR (Non- Af Amer) > 60, Random Glucose 109, Calcium 8.5, Phosphorus 3.5, Magnesium 1.9, Total Bilirubin 0.6, AST 25, ALT 29, Alkaline Phosphatase 76, Troponin I 0.05 D , Total Protein 6.4, Albumin 3.2, Globulin 3.2, Albumin/Globulin Ratio 1.0 L 02/21/17 02:47: pO2 43, VBG pH 7.39, VBG pCO2 46.0, VBG HCO3 27.8, VBG Total CO2 29.2 H, VBG O2 Sat (Calc) 84.5 H, VBG Base Excess 2.5 H, VBG Potassium 3.9, Sodium 135.0, Chloride 106.0, Glucose 111 H, Lactate 0.8, FiO2 21.0, Venous Blood Potassium 3.9 02/21/17 02:47: PT 11.9 H, INR 1.10 H, APTT 29.0 02/21/17 02:47: WBC 11.1 H D, RBC 3.59, Hgb 9.0 L, Hct 29.5 L, MCV 82.2, MCH 25.1, MCHC 30.5 L, RDW 19.7 H, Plt Count 139, MPV 12.7 H, Gran % 89.5 H, Lymph % (Auto) 5.2 L, Turner % (Auto) 5.0, Eos % (Auto) 0.1 L, Baso % (Auto) 0.2, Gran # 9.93 H, Lymph # 0.6 L, Turner # 0.6, Eos # 0.0, Baso # 0.02 02/21/17 02:30: Urine Color yellow, Urine Appearance Slight-cloudy, Urine pH 6.5 , Ur Specific Fritch 1.015, Urine Protein 100 H, Urine Glucose (UA) Negative, Urine Ketones Negative, Urine Blood Large H, Urine Nitrate Negative, Urine Bilirubin Negative, Urine Urobilinogen 1.0 H, Ur Leukocyte Esterase Moderate H, Urine RBC 25 - 30, Urine WBC 15 - 20, Ur Epithelial Cells Many, Amorphous Sediment Moderate I have reviewed the lab results: Yes - RAD Interpretation Radiology Orders: 02/21/17 02:25 CHEST PORTABLE [RAD] Stat Television Picture Tube Rebuilder: Radiologist - EKG Interpretation Interpreted by ED Physician: Yes Type: 12 lead EKG - Medication Orders Current Medication Orders: Discontinued Medications Sodium Chloride 2,000 ml/ IV (SUPPLIES) 2,000 mls @ 6,259.56 mls/hr IV ONCE ONE PRN Reason: 60 ML/KG/HR Stop: 02/21/17 02:26 Last Admin: 02/21/17 04:05 Dose: 6,259.56 mls/hr Vancomycin HCl (Vancomycin 1gm) 1 gm in 250 mls @ 167 mls/hr IVPB STAT STA PRN Reason: Protocol Stop: 02/21/17 03:54 Last Admin: 02/21/17 05:27 Dose: 167 mls/hr Piperacillin Sod/Tazobactam Sod (Zosyn 4.5 Gm In Ns 100ml) 4.5 gm in 100 mls @ 200 mls/hr IVPB STAT STA PRN Reason: Protocol Stop: 02/21/17 02:54 Last Admin: 02/21/17 04:04 Dose: 200 mls/hr Ibuprofen (Motrin Tab) 600 mg PO STAT STA Stop: 02/21/17 02:30 Last Admin: 02/21/17 04:03 Dose: 600 mg - Scribe Statement The provider has reviewed the documentation as recorded by the Tray Chicas Provider Attestation: Provider Scribe Attestation: All medical record entries made by the Tray were at my direction and personally dictated by me. I have reviewed the chart and agree that the record accurately reflects my personal performance of the history, physical exam, medical decision making, and the department course for this patient. I have also personally directed, reviewed, and agree with the discharge instructions and disposition. Disposition/Present on Arrival - Present on Arrival Any Indicators Present on Arrival: No History of DVT/PE: No History of Uncontrolled Diabetes: No Urinary Catheter: No History of Decub. Ulcer: No History Surgical Site Infection Following: None - Disposition Have Diagnosis and Disposition been Completed?: Yes Diagnosis: Fever Disposition: HOSPITALIZED Disposition Time: 04:21 Patient Plan: Admission Condition: FAIR
[2017-02-21 03:20] LABS: VENOUS BLOOD GAS BASE EXCESS 2.5 mmol/L (0.0-2.0); VENOUS BLOOD PH 7.39 (7.32-7.43)
[2017-02-21 03:21] LABS: ALKALINE PHOSPHATASE 76 U/L (38-133); ALT/SGPT 29 U/L (7-56); AST/SGOT 25 U/L (15-39); BILIRUBIN,TOTAL 0.6 mg/dL (0.2-1.3); BLOOD UREA NITROGEN 14 mg/dL (7-21); CALCIUM 8.5 mg/dL (8.4-10.5); CARBON DIOXIDE 28 mmol/L (21-33); CHLORIDE 100 mmol/L (98-107); GFR AFRICAN-AMERICAN > 60; GLUCOSE,RANDOM 109 mg/dL (70-110); MAGNESIUM 1.9 mg/dL (1.7-2.2); PHOSPHOROUS 3.5 mg/dL (2.5-4.5); POTASSIUM 3.8 mmol/L (3.6-5.0); SODIUM 134 mmol/L (132-148); TOTAL PROTEIN 6.4 g/dL (5.8-8.3)
[2017-02-21 03:23] LABS: INR 1.1 (0.93-1.08)
[2017-02-21 03:24] LABS: WHITE BLOOD COUNT 11.1 10^3/ul (4.5-11.0)
[2017-02-21 03:25] LABS: BASO # 0.02 K/mm3 (0.0-2.0); BASO % 0.2 % (0.0-3.0); EOS % 0.1 % (1.5-5.0); GRAN # 9.93 (1.4-6.5); GRAN % 89.5 % (50.0-68.0); HEMATOCRIT 29.5 % (36.0-48.0); LYMPH # 0.6 (1.2-3.4); LYMPH % 5.2 % (22.0-35.0); MEAN CELL VOLUME 82.2 fL (80.0-105.0); MEAN CORPUSCULAR HEMOGLOBIN 25.1 pg (25.0-35.0); MEAN CORPUSCULAR HGB CONC 30.5 g/dl (31.0-37.0); MEAN PLATELET VOLUME 12.7 fl (7.0-11.0); MONO # 0.6 (0.1-0.6); PLATELET COUNT 139 10^3/uL (120.0-450.0); RED CELL DISTRIBUTION WIDTH 19.7 % (11.5-14.5)
[2017-02-21 03:31] LABS: TROPONIN I 0.05 ng/mL
[2017-02-21] MEDS: Cefepime IV 2 gm in NS 2 GM/100 ML BAG IVPB SCH ×2 (09:00→13:50)
--- NOTE | 2017-02-21 09:31 | RAD ---
HISTORY: Sepsis Patient COMPARISON: 01/06/2017 FINDINGS: LUNGS: No active pulmonary disease. PLEURA: No significant pleural effusion identified, no pneumothorax apparent. CARDIOVASCULAR: Normal. OSSEOUS STRUCTURES: No significant abnormalities. VISUALIZED UPPER ABDOMEN: Normal. OTHER FINDINGS: None. IMPRESSION: No active disease.
[2017-02-21] MEDS ORDERED: Budesonide 0.5 mg/2 ml Inhal Susp UD IH SCH (10:30)
--- NOTE | 2017-02-21 15:18 | CARD ---
APPROVED REPORT EKG Measurement Heart [id number] <Conclusion> Normal sinus rhythm Inferior infarct, age undetermined ST & T wave abnormality, consider anterolateral ischemia Abnormal ECG
--- NOTE | 2017-02-21 17:25 | CP.PCM.CON ---
History of Present Illness - History of Present Illness History of Present Illness: 76 year old female with PMH of CVA, CAD with history of STEMI, history of UTI, indwelling Soni catheter, urolithiasis and S/P bilateral ureteral stent placement, history of skin cancer, atril fibrillation was brought in from the correction because of fevers. the patient did not notice that she was febrile and denies chills. The patient has an indwelling Soni catheter but denies suprapubic pain or flank pain. The patient denies headache or dizziness, no chest pain, no SOB, no cough or colds, no abdominal pain, no SOB, no sore throat , no dysphagia. Infectious Diseases consult is requested to further evaluate and manage. 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) - HEENT Hx Cataracts: Yes Hx Glaucoma: Yes - RENAL Hx Chronic Kidney Disease: No - ENDOCRINE/METABOLIC Hx Endocrine Disorders: No - HEMATOLOGICAL/ONCOLOGICAL Hx Blood Transfusions: (UNKNOWN) - INTEGUMENTARY Hx Cellulitis: Yes (face) - MUSCULOSKELETAL/RHEUMATOLOGICAL Hx Musculoskeletal Disorders: Yes (HEMIPLEGIA, HEMIPARESIS) - GASTROINTESTINAL Hx Gastrointestinal Disorders: No Hx Gastroesophageal Reflux: Yes - GENITOURINARY/GYNECOLOGICAL Hx Genitourinary Disorders: No - PSYCHIATRIC Hx Emotional Abuse: No Hx Physical Abuse: No Hx Substance Use: No - SURGICAL HISTORY Hx Surgeries: Yes (CYSTO 01/29/17) - ANESTHESIA Hx Anesthesia: Yes Hx Anesthesia Reactions: No Hx Malignant Hyperthermia: No Meds Allergies/Adverse Reactions: Allergies Allergy/AdvReac Type Severity Reaction Status Date / Time No Known Allergies Allergy Verified 01/02/17 01:38 Physical Exam - Constitutional Appears: Non-toxic, No Acute Distress - Head Exam Head Exam: NORMAL INSPECTION - ENT Exam ENT Exam: Mucous Membranes Moist - Neck Exam Neck exam: Negative for: Lymphadenopathy, Meningismus - Respiratory Exam Respiratory Exam: Decreased Breath Sounds - Cardiovascular Exam Cardiovascular Exam: +S1, +S2 - GI/Abdominal Exam GI & Abdominal Exam: Soft. absent: Tenderness Results - Vital Signs Recent Vital Signs: Last Vital Signs Temp 99.3 F 02/21/17 05:41 Pulse 77 02/21/17 05:41 Resp 16 02/21/17 05:41 BP 104/50 L 02/21/17 05:41 Pulse Ox 94 L 02/21/17 05:41 - Labs Result Diagrams: 02/21/17 02:47 02/21/17 02:47 Assessment & Plan - Assessment and Plan (Free Text) Plan: Assessment Consider sepsis due to urinary tract infection in a patient with bilateral ureteral stents and indwelling Soni catheter CVA CAD with history of STEMI history of UTI indwelling Soni catheter urolithiasis and S/P bilateral ureteral stent placement history of skin cancer atrial fibrillation Plan Based on previous cultures, we have started the patient on Cefepime pending blood and urine cx; will also check renal ultrasound Will monitor clinically
[2017-02-21] MEDS: Albuterol-Ipratrop 3 mg / 0.5 (3 ml) UD INH PRN (17:55)
--- NOTE | 2017-02-21 18:35 | CP.PCM.PN ---
<AllegraHiren - Last Filed: 02/21/17 19:10> Subjective - Date & Time of Evaluation Date of Evaluation: 02/21/17 Time of Evaluation: 18:31 - Subjective Subjective: Rapid Response Note. Dr. Musa Responded stat to 263-1. As per nursing staff, patient was seen by primary attending a little while prior to IT SECURITY ANALYST. Patient c/o shortness of breath, was ordered breathing treatment. Patient then started c/o increasing Shortness of breath visibly in distress and so IT SECURITY ANALYST called. Currently, patient denies any chest pain. Does report short of breath. No N/V/D. no other complaints. VS: 99.5F Axillary 104.5F Rectal 184/92 HR 142 O2 Saturation 96 on nonrebreather FS blood glucose 171 Objective - Vital Signs/Intake and Output Vital Signs (last 24 hours): Temp Pulse Resp BP Pulse Ox 98.4 F 73 20 137/55 L 94 L 02/21/17 12:00 02/21/17 12:00 02/21/17 12:00 02/21/17 13:00 02/21/17 05:41 - Medications Medications: Current Medications Acetaminophen (Tylenol 325mg Tab) 650 mg PO Q6H PRN PRN Reason: Fever >100.4 F Albuterol/Ipratropium (Duoneb 3 Mg/0.5 Mg (3 Ml) Ud) 3 ml INH [id number] PRN PRN Reason: Shortness of Breath Aspirin (Ecotrin) 81 mg PO DAILY [facility] Atorvastatin Calcium (Lipitor) 80 mg PO DAILY [facility] Budesonide (Pulmicort Respules) 1 mg IH Q12H [facility] Calcium Carbonate (Oscal) 1,250 mg PO DAILY [facility] Last Admin: 02/21/17 13:00 Dose: 1,250 mg Clopidogrel Bisulfate (Plavix) 75 mg PO DAILY [facility] Last Admin: 02/21/17 13:00 Dose: 75 mg Donepezil HCl (Aricept) 10 mg PO DAILY [facility] Last Admin: 02/21/17 12:59 Dose: 10 mg Famotidine (Pepcid) 40 mg PO DAILY [facility] Furosemide (Lasix) 40 mg PO DAILY [facility] Last Admin: 02/21/17 13:00 Dose: 40 mg Furosemide (Lasix) 40 mg IVP STAT STA Stop: 02/21/17 18:28 Cefepime HCl (Maxipime 2gm) 2 gm in 100 mls @ 100 mls/hr IVPB Q8 [facility] PRN Reason: Protocol Stop: 02/26/17 06:16 Last Admin: 02/21/17 13:50 Dose: 100 mls/hr Latanoprost (Xalatan Opht) 0 ml OU HS [facility] Methylprednisolone (Solu-Medrol) 125 mg IVP ONCE ONE Stop: 02/21/17 18:28 Metoprolol Tartrate (Lopressor) 25 mg PO BID [facility] Multivitamins (Thera Tab) 1 tab PO DAILY [facility] Potassium Chloride (K-Dur 20 Meq Er Tab) 20 meq PO DAILY [facility] - Labs Labs: PT 11.9 Seconds (9.9-11.8) H 02/21/17 02:47 INR 1.10 (0.93-1.08) H 02/21/17 02:47 APTT 29.0 Seconds (23.7-30.8) 02/21/17 02:47 - Constitutional Appears: In Acute Distress - Head Exam Head Exam: ATRAUMATIC, NORMAL INSPECTION, NORMOCEPHALIC - Eye Exam Eye Exam: EOMI, PERRL Pupil Exam: PERRL - ENT Exam ENT Exam: Mucous Membranes Moist - Respiratory Exam Respiratory Exam: Accessory Muscle Use, Decreased Breath Sounds, Rales ( Scattered), Rhonchi, Wheezes, Respiratory Distress - Cardiovascular Exam Cardiovascular Exam: Tachycardia. absent: JVD - GI/Abdominal Exam GI & Abdominal Exam: Soft. absent: Distended, Rigid, Tenderness, Rebound - Extremities Exam Extremities Exam: Normal Inspection. absent: Calf Tenderness, Pedal Edema Additional comments: Left arm contracture - Neurological Exam Neurological Exam: Alert, Awake, Oriented x3 - Psychiatric Exam Psychiatric exam: Anxious - Skin Skin Exam: Diaphoretic Additional comments: pink, diaphoretic. Assessment and Plan - Assessment and Plan (Free Text) Assessment: 76yo F with acute respiratory distress. Upon chart review, patient was admitted overnight for fever noticed at [facility] living. Found to have a lactate of 2.7 on ABG. Rectal temp of 104.5F. Plan: - CODE sepsis - STAT CXR, EKG, ABG - 40mg Lasix - 125mg Solumedrol - Tylenol 650 RC - Consult ICU, Dr. Rocky Morales. Case discussed with Dr. Morales. Will evaluate - Consult Pulmonology, Dr. Christianson - CXR shows congestion. Will hold fluids due to risk of overload at this time. Secondary to underlying CHF. - f/u Stool C. Diff - Repeat Blood Cxs - Notified attending physician, Dr. Paredes. Requested ICU and pulmonary consults. - Notified Dr. Christianson, requests transfer patient to ICU. Additional orders placed as per Dr. Christianson: Vanc q12, Vac trough after 3rd dose. <Val Musa - Last Filed: 02/21/17 20:38> Objective - Vital Signs/Intake and Output Vital Signs (last 24 hours): Temp Pulse Resp BP Pulse Ox 104.5 F H 144 H 20 128/100 H 94 L 02/21/17 19:01 02/21/17 18:49 02/21/17 12:00 02/21/17 18:27 02/21/17 05:41 Intake and Output: 02/21/17 02/22/17 18:59 06:59 Intake Total 0 Output Total 700 Balance -700 - Medications Medications: Current Medications Acetaminophen (Tylenol 325mg Tab) 650 mg PO Q6H PRN PRN Reason: Fever >100.4 F Albuterol/Ipratropium (Duoneb 3 Mg/0.5 Mg (3 Ml) Ud) 3 ml INH [id number] PRN PRN Reason: Shortness of Breath Last Admin: 02/21/17 17:55 Dose: 3 ml Aspirin (Ecotrin) 81 mg PO DAILY [facility] Atorvastatin Calcium (Lipitor) 80 mg PO DAILY [facility] Budesonide (Pulmicort Respules) 1 mg IH Q12H [facility] Calcium Carbonate (Oscal) 1,250 mg PO DAILY [facility] Last Admin: 02/21/17 13:00 Dose: 1,250 mg Clopidogrel Bisulfate (Plavix) 75 mg PO DAILY [facility] Last Admin: 02/21/17 13:00 Dose: 75 mg Donepezil HCl (Aricept) 10 mg PO DAILY [facility] Last Admin: 02/21/17 12:59 Dose: 10 mg Famotidine (Pepcid) 40 mg PO DAILY [facility] Furosemide (Lasix) 40 mg PO DAILY [facility] Last Admin: 02/21/17 13:00 Dose: 40 mg Cefepime HCl (Maxipime 2gm) 2 gm in 100 mls @ 100 mls/hr IVPB Q8 [facility] PRN Reason: Protocol Stop: 02/26/17 06:16 Last Admin: 02/21/17 13:50 Dose: 100 mls/hr Vancomycin HCl (Vancomycin 1gm) 1 gm in 250 mls @ 167 mls/hr IVPB Q12H [facility] PRN Reason: Protocol Meropenem 1g/NS 100mL IVPB (Meropenem 1g/Ns 100ml Ivpb) 1 gm in 100 mls @ 100 mls/hr IVPB STAT STA PRN Reason: Protocol Stop: 02/21/17 20:34 Sodium Chloride (Sodium Chloride 0.9%) 1,000 mls @ 999 mls/hr IV .Q1H1M STA Stop: 02/21/17 20:36 Metronidazole (Flagyl) 500 mg in 100 mls @ 100 mls/hr IVPB Q8 [facility] PRN Reason: Protocol Latanoprost (Xalatan Opht) 0 ml OU HS [facility] Metoprolol Tartrate (Lopressor) 25 mg PO BID [facility] Multivitamins (Thera Tab) 1 tab PO DAILY [facility] Potassium Chloride (K-Dur 20 Meq Er Tab) 20 meq PO DAILY [facility] - Labs Labs: 02/21/17 18:54 02/21/17 18:54 PT 11.9 Seconds (9.9-11.8) H 02/21/17 02:47 INR 1.10 (0.93-1.08) H 02/21/17 02:47 APTT 29.0 Seconds (23.7-30.8) 02/21/17 02:47 Attending/Attestation - Attestation I have personally seen and examined this patient.: Yes I have fully participated in the care of the patient.: Yes I have reviewed all pertinent clinical information, including history, physical exam and plan: Yes Notes (Text): 02/21/17 20:30 Patient was initially treated for clinical findings of CHF and COPD. Her Hr was 150 and lactate was reported 2.7. Code sepsis was called.Her temp was repeated rectally,it was 104.5 Fluids were not ordered immediately due to CHF. Dr Jung was notified.Javier Morales and Dr Christianson were consulted. Additional orders were placed and pt was transferred to the ICU.
[2017-02-21 18:38] LABS: ARTERIAL BLOOD GAS PH 7.25 (7.35-7.45)
--- NOTE | 2017-02-21 18:42 | RAD ---
HISTORY: Shortness of breath. Rapid response protocol. Portable study 18:32. COMPARISON: February 21, 2017. 02:51. FINDINGS: LUNGS: Multifocal infiltrates the overall appearance suggests acute pulmonary edema. PLEURA: No significant pleural effusion identified, no pneumothorax apparent. CARDIOVASCULAR: Cardiomegaly OSSEOUS STRUCTURES: No significant abnormalities. VISUALIZED UPPER ABDOMEN: Normal. OTHER FINDINGS: None. IMPRESSION: Acute pulmonary edema/ multifocal infiltrates. Findings not seen on the prior study February 21, 2017. At 02:51.
[2017-02-21 18:56] LABS: ADD MANUAL DIFF? NO
[2017-02-21 19:06] LABS: BASO # 0.03 K/mm3 (0.0-2.0); BASO % 0.1 % (0.0-3.0); EOS # 0.1 (0.0-0.7); EOS % 0.6 % (1.5-5.0); GRAN # 17.34 (1.4-6.5); HEMATOCRIT 35.2 % (36.0-48.0); LYMPH # 2.2 (1.2-3.4); LYMPH % 10.5 % (22.0-35.0); MEAN CELL VOLUME 80.5 fL (80.0-105.0); MEAN CORPUSCULAR HEMOGLOBIN 25.2 pg (25.0-35.0); MEAN CORPUSCULAR HGB CONC 31.3 g/dl (31.0-37.0); MONO # 0.8 (0.1-0.6); MONO % 3.8 % (1.0-6.0); PLATELET COUNT 206 10^3/uL (120.0-450.0); RED CELL DISTRIBUTION WIDTH 19.4 % (11.5-14.5); WHITE BLOOD COUNT 20.4 10^3/ul (4.5-11.0)
[2017-02-21 19:09] LABS: ALKALINE PHOSPHATASE 92 U/L (38-133); ALT/SGPT 28 U/L (7-56); AST/SGOT 21 U/L (15-39); BILIRUBIN,TOTAL 0.7 mg/dL (0.2-1.3); BLOOD UREA NITROGEN 15 mg/dL (7-21); CALCIUM 9.1 mg/dL (8.4-10.5); CARBON DIOXIDE 22 mmol/L (21-33); CHLORIDE 104 mmol/L (98-107); GFR AFRICAN-AMERICAN > 60; GLUCOSE,RANDOM 190 mg/dL (70-110); POTASSIUM 4.4 mmol/L (3.6-5.0); SODIUM 138 mmol/L (132-148); TOTAL PROTEIN 6.9 g/dL (5.8-8.3)
[2017-02-21] MEDS ORDERED: Sodium Chloride 0.9% 1,000 ML IV STA ×2 (19:24→19:36)
[2017-02-21] MEDS: metroNIDAZOLE IV 500 mg/100 ml 500 MG/100 ML BAG IVPB SCH (19:35)
[2017-02-21] MEDS: Vancomycin 1gm in NS 250ml 1 GM/250 ML BAG IVPB SCH (19:35)
--- NOTE | 2017-02-21 19:46 | CP.CCUPN ---
CCU Subjective - Physician Review Events Since Last Encounter (Free Text): 02/21/17 19:39 Called to the medical floor due to acute tachycardia and fevers. Pt was apparently seen SOB and tachypneic . Upon seeing the patient she had already received solumedrol, lasix and nebulizers. Found to have elevated lactate, WBC and Sinus tachycardia. CCU Objective - Vital Signs / Intake & Output Vital Signs (Last 4 hours): Vital Signs Temp BP 02/21/17 19:01 104.5 F H 02/21/17 18:27 128/100 H Intake and Output (Last 8hrs): Intake & Output 02/21/17 02/21/17 02/21/17 06:59 14:59 22:59 Intake Total 0 Output Total 700 Balance -700 Weight 185 lb 4.8 oz Intake: Oral 0 Output: Urine 700 Urine, Voided 700 Other: Voiding Method Indwelling Catheter # Bowel Movements 0 - Physical Exam Head: Positive for: Atraumatic, Normocephalic Pupils: Positive for: PERRL Extroacular Muscles: Positive for: Gaze Palsy Conjunctiva: Positive for: Normal Mouth: Positive for: Moist Mucous Membranes Neck: Positive for: Normal Range of Motion Respiratory/Chest: Positive for: Accessory Muscle Use Abdomen: Positive for: Normal Bowel Sounds Neurological: Positive for: Speech Normal (L CVA . minimal speech ) Psychiatric: Positive for: Alert - Medications Active Medications: Active Medications Generic Name Dose Route Start Last Admin Trade Name Freq PRN Reason Stop Dose Admin Acetaminophen 650 mg 02/21/17 10:20 Tylenol 325mg Tab PO Q6H PRN Fever >100.4 F Albuterol/Ipratropium 3 ml 02/21/17 10:20 02/21/17 17:55 Duoneb 3 Mg/0.5 Mg (3 Ml) Ud INH 3 ml [id number] PRN Administration Shortness of Breath Aspirin 81 mg 02/22/17 10:00 Ecotrin PO DAILY FILI Atorvastatin Calcium 80 mg 02/22/17 10:00 Lipitor PO DAILY FILI Budesonide 1 mg 02/21/17 10:30 Pulmicort Respules IH Q12H FILI Calcium Carbonate 1,250 mg 02/21/17 10:30 02/21/17 13:00 Oscal PO 1,250 mg DAILY FILI Administration Clopidogrel Bisulfate 75 mg 02/21/17 10:30 02/21/17 13:00 Plavix PO 75 mg DAILY FILI Administration Donepezil HCl 10 mg 02/21/17 10:30 02/21/17 12:59 Aricept PO 10 mg DAILY FILI Administration Famotidine 40 mg 02/22/17 10:00 Pepcid PO DAILY FILI Furosemide 40 mg 02/21/17 10:30 02/21/17 13:00 Lasix PO 40 mg DAILY FILI Administration Cefepime HCl 2 gm in 100 mls @ 100 mls/hr 02/21/17 06:15 02/21/17 13:50 Maxipime 2gm IVPB 02/26/17 06:16 100 mls/hr Q8 FILI Administration Protocol Vancomycin HCl 1 gm in 250 mls @ 167 mls/hr 02/21/17 19:15 Vancomycin 1gm IVPB Q12H FILI Protocol Sodium Chloride 1,000 mls @ 999 mls/hr 02/21/17 19:24 Sodium Chloride 0.9% IV 02/21/17 20:24 .Q1H1M STA Meropenem 1g/NS 100mL IVPB 1 gm in 100 mls @ 100 mls/hr 02/21/17 19:35 Meropenem 1g/Ns 100ml Ivpb IVPB 02/21/17 20:34 STAT STA Protocol Sodium Chloride 1,000 mls @ 999 mls/hr 02/21/17 19:36 Sodium Chloride 0.9% IV 02/21/17 20:36 .Q1H1M STA Latanoprost 0 ml 02/21/17 22:00 Xalatan Opht OU HS FILI Metoprolol Tartrate 25 mg 02/21/17 18:00 Lopressor PO BID FILI Multivitamins 1 tab 02/22/17 10:00 Thera Tab PO DAILY FILI Potassium Chloride 20 meq 02/22/17 10:00 K-Dur 20 Meq Er Tab PO DAILY FILI - Patient Studies Lab Studies: Lab Studies 02/21/17 02/21/17 02/21/17 Range/Units 18:54 18:35 06:14 WBC 20.4 H D (4.5-11.0) 10^3/ul RBC 4.37 (3.5-6.1) 10^6/uL Hgb 11.0 L (12.0-16.0) gm/dL Hct 35.2 L (36.0-48.0) % MCV 80.5 (80.0-105.0) fL MCH 25.2 (25.0-35.0) pg MCHC 31.3 (31.0-37.0) g/dl RDW 19.4 H (11.5-14.5) % Plt Count 206 (120.0-450.0) 10^3/uL Gran % 85.0 H (50.0-68.0) % Lymph % (Auto) 10.5 L (22.0-35.0) % [place] % (Auto) 3.8 (1.0-6.0) % Eos % (Auto) 0.6 L (1.5-5.0) % Baso % (Auto) 0.1 (0.0-3.0) % Gran # 17.34 H (1.4-6.5) Lymph # 2.2 (1.2-3.4) [place] # 0.8 H (0.1-0.6) Eos # 0.1 (0.0-0.7) Baso # 0.03 (0.0-2.0) K/mm3 pCO2 48 H (35-45) mm/Hg pO2 89.0 (80-100) mm/Hg HCO3 21.0 (21-28) mmol/L ABG pH 7.25 L (7.35-7.45) ABG Total CO2 22.5 (22-28) mmol.L ABG O2 Saturation 97.5 (95-98) % ABG Base Excess -6.4 L (-2.0-3.0) mmol/L ABG Potassium 3.9 (3.6-5.2) mmol/L Sodium 139.0 (132-148) mmol/L Chloride 113.0 H (98-107) mmol/L Glucose 184 H (65-105) mg/dl Lactate 2.7 H (0.7-2.1) mmol/L FiO2 50.0 % Procalcitonin 0.16 L (0.19-0.49) NG/ML Arterial Blood Potassium 3.9 (3.6-5.2) mmol/L Laboratory Results - last 24 hr 02/21/17 02/21/17 02/21/17 06:14 18:35 18:54 WBC 20.4 H D RBC 4.37 Hgb 11.0 L Hct 35.2 L MCV 80.5 MCH 25.2 MCHC 31.3 RDW 19.4 H Plt Count 206 Gran % 85.0 H Lymph % (Auto) 10.5 L [place] % (Auto) 3.8 Eos % (Auto) 0.6 L Baso % (Auto) 0.1 Gran # 17.34 H Lymph # 2.2 Screven # 0.8 H Eos # 0.1 Baso # 0.03 pCO2 48 H pO2 89.0 HCO3 21.0 ABG pH 7.25 L ABG Total CO2 22.5 ABG O2 Saturation 97.5 ABG Base Excess -6.4 L ABG Potassium 3.9 Sodium 139.0 Chloride 113.0 H Glucose 184 H Lactate 2.7 H FiO2 50.0 Procalcitonin 0.16 L Arterial Blood Potassium 3.9 EKG/Cardiology Studies: Cardiology / EKG Studies 02/21/17 18:30 EKG [ELECTROCARDIOGRAM] Stat Comment: Reason For Exam: sob Review of Systems - Review of Systems Systems not reviewed;Unavailable: Altered Mental Status (lethargic, tachypneic and diaphoretic) Critical Care Progress Note - Ventilator Checklist PUD Prophalyxis: Yes DVT Prophylaxis: Yes Assessment/Plan - Assessment and Plan (Free Text) Assessment: 76 y/o F w/ Worsening Sepsis likely from Urinary source. Would continue IV fluids w/ N.S 2L STAT Continue Vancomycin and Meropenum added . Blood and urine cx added. BIPAP added to help overcome the WOB . ABG shows acute resp acidosis . Would give volume before treating any HR . Would likely need a CT abd/ pelvis to r/o any other findings. Urology consult would be warranted. PCP aware of the change in the level of care. DVT P Hep sq tid. Sinus tachycardia , should improve after treating fevers with Tylenol and IV fluids. cc time 65 min
[2017-02-21 20:01] LABS: TROPONIN I 0.17 ng/mL
[2017-02-21] MEDS: Meropenem 1g/NS 100mL IVPB 1 GM/100 ML PIGGYBACK IVPB STA ×2 (20:57→20:59)
--- NOTE | 2017-02-21 20:59 | PN ---
DATE: 02/21/2017 SUBJECTIVE: The patient was seen and examined on the bedside in the evening, was in her home, looks like coughing, wheezing and shortness of breath. I informed nurse that the patient needs stat DuoNeb treatment. PHYSICAL EXAMINATION: VITAL SIGNS: Temperature 98.4, pulse 73, blood pressure 137/55. HEENT: Head normocephalic, atraumatic. Eyes open. Nose patent. Mucous membranes are moist. NECK: Supple. No carotid bruit, JVD or thyromegaly. CHEST: Bilaterally symmetrical. HEART: S1, S2 positive. LUNGS: Positive wheezing bilaterally. ABDOMEN: Soft. Bowel sounds positive. No organomegaly. EXTREMITIES: No edema, no cyanosis. NEUROLOGIC: The patient is awake, alert and moving all 4 extremities. No focal deficits. MEDICATIONS: Aricept, DuoNeb, Ecotrin, Flagyl, K-Dur, Lasix, Lipitor, Lopressor, cefepime, meropenem , Pepcid, Lasix. LABORATORY DATA: White blood cells is 11.1, hemoglobin 9.0, hematocrit 29.5, and platelets 139. Sod ium 134, potassium 3.9, BUN 14, creatinine 0.9, glucose 109. ASSESSMENT AND PLAN: The patient is a 76-year-old lady with leukocytosis, anemia, history of chronic obstructive pulmonary disease, asthma, history of cerebrovascular accident, coronary artery disease , history of STEMI, multiple time urinary tract infection, indwelling Soni catheter, urolithiasis, a sked to evaluate ureteral stent placement, history of skin cancer, atrial fibrillation, has shortness of breath. DuoNeb given. Sepsis may be urinary tract infection with bilateral ureteral stents and indwelling Soni catheter. Urolithiasis, atrial fibrillation. The patient is getting cefepime, wait ing for the culture. Reviewed Dr. Alofnso's paper. GI and deep venous thrombosis prophylaxis. Repea t labs. We will follow up. Florence Jung MD cc: [id number] TT: 02/21/2017 20:59:09 Confirmation # [id number] Dictation # [id number] antonio
--- NOTE | 2017-02-21 21:15 | CON ---
DATE: 02/21/2017 REFERRING PHYSICIAN: Dr. Jung. REASON FOR CONSULT: History of CVA, may have sleep apnea syndrome, chronic obstructive lung disease. HISTORY OF PRESENT ILLNESS: This is a 76-year-old female. She is a shelter resident. Also, christian s atrial fibrillation and recurrent aspiration pneumonia, brought in not feeling well, shortness of b reath. No hemoptysis, no hematemesis, no hematuria, no diarrhea reported. PAST MEDICAL HISTORY: Chronic obstructive lung disease, atrial fibrillation, history of stroke, recu rrent aspiration pneumonia. ALLERGIES: None known. SOCIAL HISTORY: prison resident. No history of smoking or alcohol use. FAMILY HISTORY: No significant cardiopulmonary disease reported. MEDICATIONS: She is on Aricept 10 mg daily, DuoNeb q. 6 hours p.r.n., Ecotrin 81 mg daily, potassium 20 mEq daily, Lasix 40 mg daily, Lipitor 80 mg daily, metoprolol tartrate 25 mg twice a day, cefepim e 2 g IV q. 8 hours, Pepcid 40 mg daily, Plavix 75 mg daily, budesonide inhaled twice a day, multivit amins daily, Tylenol p.r.n., eye drops. REVIEW OF SYSTEMS: No headache, no rhinitis. Has cough, shortness of breath. General body aches an d pains. No nausea, no vomiting. No dysuria, no leg pain or leg swelling. PHYSICAL EXAMINATION: GENERAL: Sleepy, arousable. VITAL SIGNS: Temp is 98, heart rate is 73, respiratory rate is 20, blood pressure 137/55, pulse 94% on room air. HEENT: Moist mucous membranes. Crowded airway. Mallampati score is 4. NECK: Supple. No JVD. LUNGS: Has a poor effort with scattered rhonchi. HEART: S1, S2. ABDOMEN: Soft, nontender. No organomegaly. EXTREMITIES: There is no edema. NEUROLOGIC: Sleepy, arousable, follows simple commands. LABORATORY DATA: Shows hemoglobin 9.0, hematocrit 29.5, WBC 11.1, and platelet is 139. INR 1.10, PT T is 29. Blood gases show VBG pH 7.39, pCO2 is 46, O2 43. Sodium 134, potassium 2.8, chloride 100, bicarbonate 28, BUN 14, creatinine 0.9, glucose 109, calcium 8.5, magnesium 1.9, AST 25, ALT 29, antonio line phosphatase is 76, albumin is 3.2. Procalcitonin 0.16. Chest x-ray done in the ER today shows no significant pleural effusion. IMPRESSION AND PLAN: Cardiomyopathy, history of myocardial infarction, renal stone with persistent h ematuria, history of cerebrovascular accident, aortic stenosis, chronic obstructive lung disease, may have a sleep apnea syndrome. Will continue antibiotics. Keep head elevated at 45 degrees. Broncho dilator, will place her on CPAP 8 cm with 35% oxygen while sleeping. Follow up labs in the morning. Thank you and will follow with you. Adam Christianson MD cc: [id number] TT: 02/21/2017 21:14:46 Confirmation # [id number] Dictation # [id number] jn
[2017-02-21] MEDS ORDERED: Iohexol 350 MG/100 ML VIAL ONE (21:53)
[2017-02-21] MEDS ORDERED: Non Formulary Medication (Bimatoprost [Lumigan] 1 DROP) OU SCH (22:00)
--- NOTE | 2017-02-21 22:47 | HP ---
CHIEF COMPLAINT: Fever, shortness of breath. HISTORY OF PRESENT ILLNESS: The patient is a 76-year-old my private patient, a resident of [place] ,has history of cerebrovascular accident with left upper and lower extremity weakness, indwelling Snoi catheter, was having fever, shortness of breath, and faint. [place]'s then sent the patient to [facility] Emergency Room. The patient was admitted. Antibiotics were given. ID consult called. PAST MEDICAL HISTORY: Atrial fibrillation, congestive heart failure, COPD, dementia, history of paralysis, cataract, glaucoma, hemiplegia, hemiparesis. FAMILY HISTORY: Mother, father noncontributory. HABITS: Never smoked, no drugs, no ethanol. ALLERGIES: The patient is not allergic to any medications. HOME MEDICATIONS: Reviewed by me. Aspirin, Lipitor, Pulmicort, Plavix, Aricept , Pepcid, Lasix, Lopressor, DuoNeb, potassium. PHYSICAL EXAMINATION: The patient is examined on the bedside in the unit. She was having shortness of breath. No diarrhea, no constipation, no headache, no dizziness. The patient partially aphasic, not able to give a complete review of systems. For further H and P, see my 2 days of progress notes. Florence Jung MD cc: [id number] TT: 02/21/2017 22:46:21 jn MTDD
--- NOTE | 2017-02-21 23:07 | CT ---
EXAM: CT Chest Without and With Intravenous Contrast CLINICAL HISTORY: 76 years old, female; Signs and symptoms; Fever; Shortness of breath; Additional info: Sepsis, h/o as TECHNIQUE: Axial computed tomography images of the chest without and with intravenous contrast. This CT exam was performed using one or more of the following dose reduction techniques: automated exposure control, adjustment of the mA and/or kV according to patient size, and/or use of iterative reconstruction technique. Coronal and sagittal reformatted images were created and reviewed. CONTRAST: 100 mL of OMNI administered intravenously. COMPARISON: There are no prior studies for comparison. FINDINGS: Artifacts: Motion artifact degrades image quality. Lungs and Pleural space: Trachea and main bronchi are patent. There are bilateral pleural effusions right greater than left. There are patchy opacities bilaterally greatest in the left upper lobe. There are groundglass opacities bilaterally. There is airspace disease at both lung bases. Heart and Vasculature: The heart is mildly enlarged. There are coronary calcifications. There are calcifications at the aortic valve.There is no aneurysm or dissection.There are vascular calcifications. There is perfusion of the 3 arch vessels. There is no thoracic aortic aneurysm or dissection. There is mural thrombus in the distal thoracic aorta with small areas of ulceration. Bolus timing and motion limit evaluation of pulmonary vessels. Mediastinum: Esophagus is unremarkable. There is a small hiatal hernia. There are shotty mediastinal nodes. There is no hilar adenopathy. Thyroid: Thyroid is unremarkable Bones/joints: Bony structures are osteopenic.There are degenerative changes in the osseus structures. Soft tissues: unremarkable Upper abdomen: Refer to the following report for abdominal findings IMPRESSION: Bilateral airspace disease/pneumonia with pleural effusions and basilar atelectasis; cardiomegaly and atherosclerotic disease, no aortic aneurysm or dissection EXAM: CT Abdomen and Pelvis Without and With Intravenous Contrast CLINICAL HISTORY: 76 years old, female; Signs and symptoms; Fever; Shortness of breath; Additional info: Sepsis, h/o as TECHNIQUE: Axial computed tomography images of the abdomen and pelvis without and with intravenous contrast. This CT exam was performed using one or more of the following dose reduction techniques: automated exposure control, adjustment of the mA and/or kV according to patient size, and/or use of iterative reconstruction technique. Coronal and sagittal reformatted images were created and reviewed. CONTRAST: 100 mL of OMNI administered intravenously. EXAM DATE/TIME: 02/21/2017 9:26 PM COMPARISON: There are no prior studies for comparison. FINDINGS: Lower thorax: Refer to prior report for chest findings ABDOMEN: Liver: There are multiple low attenuation lesions in the liver too small to accurately characterize. Gallbladder and bile ducts: Gallbladder is distended with small calcified stones. Common bile duct is mildly prominent. Pancreas: Pancreas is atrophic. Spleen: Spleen is unremarkable. There are accessory spleens in the left upper quadrant. Adrenals: unremarkable Kidneys and ureters: There are bilateral nonobstructing renal stones. There are small renal cysts There are bilateral ureteral stents. On the left, the stent is in the upper pole moiety of a duplication. There is no upper pole pelvocaliectasis or ureterectasis. There is mild left lower pole ureterectasis to the level of the pelvis. There may be a single system distally. There is air in the right renal collecting system. There is right pelvocaliectasis and ureterectasis. Stomach and bowel: Stomach is almost empty. Rotation is normal. There is no small bowel obstruction. Terminal ileum is unremarkable. Appendix is unremarkable. Colon is incompletely distended which limits evaluation.There is diverticulosis. Appendix: See stomach and bowel PELVIS: Bladder: The bladder is empty. There is a Soni catheter in the bladder. There is mild bladder wall thickening. There is perivesical inflammation. There is a small amount of air in the bladder. Reproductive: Uterus and adnexal structures are unremarkable. ABDOMEN and PELVIS: Intraperitoneal space: There is no free fluid in the pelvis. There is no free air. There is a small amount of free fluid in the left colic gutter. Bones/joints: Bony structures are osteopenic.There are degenerative changes in the osseus structures. There is L5-S1 ankylosis. There are postsurgical changes in the left hip. Soft tissues: There is a small fat containing umbilical hernia. Vasculature: Abdominal aorta is normal in caliber. There is extensive atherosclerotic disease. There is an IVC filter. Lymph nodes: unremarkable IMPRESSION: Gallstones; bilateral nonobstructing renal stones; bilateral ureteral stents with right pelvocaliectasis and ureterectasis; mild left lower pole pelvocaliectasis and ureterectasis; bladder wall thickening with perivesical inflammation; minimal free fluid in the left colic gutter; atherosclerotic disease, no abdominal aortic aneurysm; IVC filter Additional findings as described above.
[2017-02-21 23:10] LABS: VENOUS BLOOD PH 7.37 (7.32-7.43)
[2017-02-22] MEDS: Latanoprost 2.5 ml Opht Soln OU SCH ×2 (01:50→22:31)
[2017-02-22] MEDS: Enoxaparin 80 mg Syringe SC SCH ×2 (02:07→13:02)
[2017-02-22 05:14] LABS: VENOUS BLOOD GAS BASE EXCESS -2.8 mmol/L (0.0-2.0); VENOUS BLOOD PH 7.29 (7.32-7.43)
[2017-02-22 05:30] LABS: HEMATOCRIT 30.7 % (36.0-48.0); MEAN CORPUSCULAR HEMOGLOBIN 24.5 pg (25.0-35.0); MEAN CORPUSCULAR HGB CONC 30.3 g/dl (31.0-37.0); PLATELET COUNT 134 10^3/uL (120.0-450.0); RED CELL DISTRIBUTION WIDTH 19.4 % (11.5-14.5); WHITE BLOOD COUNT 8.5 10^3/ul (4.5-11.0)
[2017-02-22 05:40] LABS: BILIRUBIN,TOTAL 0.4 mg/dL (0.2-1.3); CALCIUM 8.6 mg/dL (8.4-10.5); POTASSIUM 4.1 mmol/L (3.6-5.0); TOTAL PROTEIN 6.4 g/dL (5.8-8.3)
[2017-02-22] MEDS: metroNIDAZOLE IV 500 mg/100 ml 500 MG/100 ML BAG IVPB SCH ×3 (05:55→22:30)
[2017-02-22] MEDS: Meropenem 1g/NS 100mL IVPB 1 GM/100 ML PIGGYBACK IVPB SCH ×3 (06:11→22:27)
[2017-02-22] MEDS: Albuterol-Ipratrop 3 mg / 0.5 (3 ml) UD INH PRN ×2 (07:09→20:28)
[2017-02-22] MEDS: Potassium Chloride 20 mEq ER Tab PO SCH (09:16)
[2017-02-22] MEDS: Multivitamin Therapeutic Tab PO SCH (09:16)
--- NOTE | 2017-02-22 09:16 | PN ---
DATE: 02/22/2017 The patient is in bed in no acute distress, nontoxic, was seen in [facility], bed 1. PHYSICAL EXAMINATION: VITAL SIGNS: Temperature is 97, blood pressure is 119/60, respiratory rate of 20, heart rate of 82. HEENT: Unremarkable. NECK: Supple. LUNGS: Have decreased breath sounds. HEART: Normal S1, S2. ABDOMEN: Soft, nontender. LABORATORY DATA: Reveals a white count of 8, hemoglobin of 9. The chemistries reveal a BUN of 18, c reatinine of 1.1. Urinalysis is noted. Microbiology reveals the blood cultures are [facility] and [facility]; bilateral airspace disease, pneumo radha with pleural effusions and basilar atelectasis, cardiomegaly was noted of the chest and abdomen a nd pelvis, gallstones are noted, nonobstructive renal stones are noted, bilateral ureteral stents and bladder wall thickening is noted. Dr. Jung's history and physical examination is noted. ASSESSMENT AND PLAN: A 76-year-old female with cerebrovascular accident, coronary artery disease, hi story of ST elevation myocardial infarction and history of urinary tract infection and sepsis with ur inary tract infection and bilateral stent, indwelling Soni catheter in the patient with cerebrovascu lar accident, coronary artery disease. Currently, the patient is on cefepime with negative blood cul tures. The urine cultures are pending. Will make further recommendations. The patient is also on v ancomycin, meropenem and Flagyl. We will check on the urine cultures and make appropriate changes. Lamberto Lima MD cc: [id number] TT: 02/22/2017 09:15:31 Confirmation # [id number] Dictation # [id number] antonio
[2017-02-22] MEDS: Vancomycin 1gm in NS 250ml 1 GM/250 ML BAG IVPB SCH ×2 (09:17→20:41)
--- NOTE | 2017-02-22 09:41 | US ---
PROCEDURE: Ultrasound of the Kidneys HISTORY: rule out hydronephrosis COMPARISON: Renal ultrasound 01/05/2017. TECHNIQUE: Sonogram of the kidneys. FINDINGS: RIGHT KIDNEY: Measures: 10.1 cm. Unremarkable in echogenicity. Cortical thinning noted which can be seen in medical renal disease. Multiple nonobstructing stones noted with the largest measuring 1.1 cm in the mid/ lower pole. There is a questionable 1.2 cm cyst in the mid/lower pole. No hydronephrosis is identified. LEFT KIDNEY: Measures: 10.6 cm. Unremarkable in echogenicity. Cortical thinning noted which can be seen in medical renal disease. Lower pole cyst measuring 1.2 cm. No shadowing renal stone or hydronephrosis is identified. OTHER FINDINGS: None IMPRESSION: Cortical thinning of both kidneys which can be seen in medical renal disease. Nonobstructing right renal stones as above with the largest measuring 1.1 cm. No hydronephrosis. Suspected right renal cyst. Left renal cyst as above.
--- NOTE | 2017-02-22 14:10 | CARD ---
APPROVED REPORT EKG Measurement Heart [id number] <Conclusion> Supraventricular tachycardia Left axis deviation Left ventricular hypertrophy with repolarization abnormality Cannot rule out Septal infarct, age undetermined Abnormal ECG
--- NOTE | 2017-02-22 15:05 | CP.CCUPN ---
<Veda Alvarez - Last Filed: 02/22/17 15:12> CCU Subjective - Physician Review Events Since Last Encounter (Free Text): 02/22/17 15:04 Pt stable overnight Subjective (Free Text): 02/22/17 15:04 Critical care progress note for Dr. Mariia Alvarez, PGY-1 Pt S & E at bedside this AM. 76F w/PMH CVA, CAD with history of STEMI, history of UTI, indwelling Soni catheter, urolithiasis and S/P bilateral ureteral stent placement, history of skin cancer, atril fibrillation admitted for tachycardia, diaphoresis, tachypnea - possible worsening sepsis. Pt stabilized overnight. CCU Objective - Vital Signs / Intake & Output Vital Signs (Last 4 hours): Vital Signs Temp Pulse Resp BP Pulse Ox 02/22/17 14:00 85 20 122/58 L 97 02/22/17 13:50 74 15 99 02/22/17 13:45 78 16 114/49 L 98 02/22/17 13:40 73 14 99 02/22/17 13:30 76 16 124/48 L 98 02/22/17 13:20 82 17 98 02/22/17 13:15 81 17 118/51 L 97 02/22/17 13:10 89 24 99 02/22/17 13:00 77 14 117/45 L 99 02/22/17 12:50 76 17 99 02/22/17 12:45 74 14 109/45 L 99 02/22/17 12:40 74 14 99 02/22/17 12:30 86 37 H 127/47 L 84 L 02/22/17 12:20 85 22 98 02/22/17 12:15 92 H 27 H 149/65 97 02/22/17 12:10 86 18 98 02/22/17 12:00 97.7 F 92 H 20 114/89 87 L 02/22/17 11:53 83 19 117/54 L 97 02/22/17 11:52 84 02/22/17 11:50 84 22 90 L 02/22/17 11:46 86 32 H 117/54 L 87 L 02/22/17 11:40 73 16 100 02/22/17 11:30 73 15 112/46 L 100 02/22/17 11:20 73 16 100 02/22/17 11:15 72 14 114/44 L 78 L 02/22/17 11:10 79 15 73 L Intake and Output (Last 8hrs): Intake & Output 02/22/17 02/22/17 02/22/17 06:59 14:59 22:59 Intake Total 650 Output Total 975 Balance -325 Intake: IV 650 Left Forearm 650 Output: Urine 975 Urine, Voided 975 Other: Voiding Method Indwelling Catheter - Physical Exam Head: Positive for: Atraumatic, Normocephalic Pupils: Positive for: PERRL Extroacular Muscles: Positive for: Gaze Palsy Conjunctiva: Positive for: Normal Mouth: Positive for: Moist Mucous Membranes Neck: Positive for: Normal Range of Motion Respiratory/Chest: Positive for: Accessory Muscle Use Abdomen: Positive for: Normal Bowel Sounds Neurological: Positive for: Speech Normal (L CVA . minimal speech ) Psychiatric: Positive for: Alert - Medications Active Medications: Active Medications Generic Name Dose Route Start Last Admin Trade Name Freq PRN Reason Stop Dose Admin Acetaminophen 650 mg 02/21/17 10:20 Tylenol 325mg Tab PO Q6H PRN Fever >100.4 F Albuterol/Ipratropium 3 ml 02/21/17 10:20 02/22/17 07:09 Duoneb 3 Mg/0.5 Mg (3 Ml) Ud INH 3 ml [id number] PRN Administration Shortness of Breath Aspirin 81 mg 02/22/17 10:00 02/22/17 09:15 Ecotrin PO 81 mg DAILY FILI Administration Atorvastatin Calcium 80 mg 02/22/17 10:00 02/22/17 09:16 Lipitor PO 80 mg DAILY FILI Administration Budesonide 1 mg 02/21/17 10:30 Pulmicort Respules IH Q12H FILI Calcium Carbonate 1,250 mg 02/21/17 10:30 02/22/17 09:16 Oscal PO 1,250 mg DAILY FILI Administration Clopidogrel Bisulfate 75 mg 02/21/17 10:30 02/22/17 09:16 Plavix PO 75 mg DAILY FILI Administration Donepezil HCl 10 mg 02/21/17 10:30 02/22/17 09:15 Aricept PO 10 mg DAILY FILI Administration Enoxaparin Sodium 70 mg 02/22/17 01:30 02/22/17 13:02 Lovenox SC 70 mg Q12H FILI Administration Protocol Famotidine 40 mg 02/22/17 10:00 02/22/17 09:15 Pepcid PO 40 mg DAILY FILI Administration Furosemide 40 mg 02/21/17 10:30 02/21/17 13:00 Lasix PO 40 mg DAILY FILI Administration Vancomycin HCl 1 gm in 250 mls @ 167 mls/hr 02/21/17 19:15 02/22/17 09:17 Vancomycin 1gm IVPB 167 mls/hr Q12H FILI Administration Protocol Metronidazole 500 mg in 100 mls @ 100 mls/hr 02/21/17 22:00 02/22/17 13:02 Flagyl IVPB 100 mls/hr Q8 FILI Administration Protocol Meropenem 1g/NS 100mL IVPB 1 gm in 100 mls @ 100 mls/hr 02/22/17 06:00 13:01 Meropenem 1g/Ns 100ml Ivpb IVPB 02/26/17 07:01 100 mls/hr Q8 FILI Administration Protocol Latanoprost 0 ml 02/21/17 22:00 02/22/17 01:50 Xalatan Opht OU Not Given HS FILI Metoprolol Tartrate 25 mg 02/21/17 18:00 Lopressor PO BID FILI Multivitamins 1 tab 02/22/17 10:00 02/22/17 09:16 Thera Tab PO 1 tab DAILY FILI Administration Potassium Chloride 20 meq 02/22/17 10:00 02/22/17 09:16 K-Dur 20 Meq Er Tab PO 20 meq DAILY FILI Administration - Patient Studies Lab Studies: Lab Studies 02/22/17 02/22/17 02/22/17 Range/Units 06:30 05:00 05:00 WBC (4.5-11.0) 10^3/ul RBC (3.5-6.1) 10^6/uL Hgb (12.0-16.0) gm/dL Hct (36.0-48.0) % MCV (80.0-105.0) fL MCH (25.0-35.0) pg MCHC (31.0-37.0) g/dl RDW (11.5-14.5) % Plt Count (120.0-450.0) 10^3/uL Gran % (50.0-68.0) % Lymph % (Auto) (22.0-35.0) % Bull[place] % (Auto) (1.0-6.0) % Eos % (Auto) (1.5-5.0) % Baso % (Auto) (0.0-3.0) % Gran # (1.4-6.5) Lymph # (1.2-3.4) [place] # (0.1-0.6) Eos # (0.0-0.7) Baso # (0.0-2.0) K/mm3 pCO2 (35-45) mm/Hg pO2 30 (80-100) mm/Hg HCO3 (21-28) mmol/L ABG pH (7.35-7.45) ABG Total CO2 (22-28) mmol.L ABG O2 Saturation (95-98) % ABG Base Excess (-2.0-3.0) mmol/L ABG Potassium (3.6-5.2) mmol/L VBG pH 7.29 L (7.32-7.43) VBG pCO2 50.0 (40-60) VBG HCO3 24.0 (21-28) mmol/l VBG Total CO2 25.5 (22-28) mmol.L VBG O2 Sat (Calc) 55.3 (40-65) % VBG Base Excess -2.8 L (0.0-2.0) mmol/L VBG Potassium 4.2 (3.6-5.2) mmol/L Sodium 138.0 139 (132-148) mmol/L Chloride 111.0 H 105 (98-107) mmol/L Glucose 177 H (65-105) mg/dl Lactate 2.7 H (0.7-2.1) mmol/L FiO2 21.0 % Potassium 4.1 (3.6-5.0) mmol/L Carbon Dioxide 22 (21-33) mmol/L Anion Gap 16 (10-20) BUN 18 (7-21) mg/dL Creatinine 1.1 (0.5-1.4) mg/dL Est GFR ( Amer) 58 Est GFR (Non-Af Amer) 48 Random Glucose 162 H (70-110) mg/dL Lactic Acid (0.7-2.1) mmol/L Calcium 8.6 (8.4-10.5) mg/dL Total Bilirubin 0.4 (0.2-1.3) mg/dL AST 60 H (15-39) U/L ALT 35 (7-56) U/L Alkaline Phosphatase 72 (38-133) U/L Troponin I 9.92 H* D ng/mL Total Protein 6.4 (5.8-8.3) g/dL Albumin 3.1 (3.0-4.8) g/dL Globulin 3.2 gm/dL Albumin/Globulin Ratio 1.0 L (1.1-1.8) Arterial Blood Potassium (3.6-5.2) mmol/L Venous Blood Potassium 4.2 (3.6-5.2) mmol/L 02/22/17 02/21/17 02/21/17 Range/Units 05:00 23:59 23:02 WBC 8.5 D (4.5-11.0) 10^3/ul RBC 3.79 (3.5-6.1) 10^6/uL Hgb 9.3 L (12.0-16.0) gm/dL Hct 30.7 L (36.0-48.0) % MCV 81.0 (80.0-105.0) fL MCH 24.5 L (25.0-35.0) pg MCHC 30.3 L (31.0-37.0) g/dl RDW 19.4 H (11.5-14.5) % Plt Count 134 (120.0-450.0) 10^3/uL Gran % (50.0-68.0) % Lymph % (Auto) (22.0-35.0) % Bull[place] % (Auto) (1.0-6.0) % Eos % (Auto) (1.5-5.0) % Baso % (Auto) (0.0-3.0) % Gran # (1.4-6.5) Lymph # (1.2-3.4) Bulloch # (0.1-0.6) Eos # (0.0-0.7) Baso # (0.0-2.0) K/mm3 pCO2 (35-45) mm/Hg pO2 (80-100) mm/Hg HCO3 (21-28) mmol/L ABG pH (7.35-7.45) ABG Total CO2 (22-28) mmol.L ABG O2 Saturation (95-98) % ABG Base Excess (-2.0-3.0) mmol/L ABG Potassium (3.6-5.2) mmol/L VBG pH (7.32-7.43) VBG pCO2 (40-60) VBG HCO3 (21-28) mmol/l VBG Total CO2 (22-28) mmol.L VBG O2 Sat (Calc) (40-65) % VBG Base Excess (0.0-2.0) mmol/L VBG Potassium (3.6-5.2) mmol/L Sodium (132-148) mmol/L Chloride (98-107) mmol/L Glucose (65-105) mg/dl Lactate (0.7-2.1) mmol/L FiO2 % Potassium (3.6-5.0) mmol/L Carbon Dioxide (21-33) mmol/L Anion Gap (10-20) BUN (7-21) mg/dL Creatinine (0.5-1.4) mg/dL Est GFR ( Amer) Est GFR (Non-Af Amer) Random Glucose (70-110) mg/dL Lactic Acid 1.5 (0.7-2.1) mmol/L Calcium (8.4-10.5) mg/dL Total Bilirubin (0.2-1.3) mg/dL AST (15-39) U/L ALT (7-56) U/L Alkaline Phosphatase (38-133) U/L Troponin I 4.34 H* D ng/mL Total Protein (5.8-8.3) g/dL Albumin (3.0-4.8) g/dL Globulin gm/dL Albumin/Globulin Ratio (1.1-1.8) Arterial Blood Potassium (3.6-5.2) mmol/L Venous Blood Potassium (3.6-5.2) mmol/L 02/21/17 02/21/17 02/21/17 Range/Units 23:02 18:54 18:54 WBC 20.4 H D (4.5-11.0) 10^3/ul RBC 4.37 (3.5-6.1) 10^6/uL Hgb 11.0 L (12.0-16.0) gm/dL Hct 35.2 L (36.0-48.0) % MCV 80.5 (80.0-105.0) fL MCH 25.2 (25.0-35.0) pg MCHC 31.3 (31.0-37.0) g/dl RDW 19.4 H (11.5-14.5) % Plt Count 206 (120.0-450.0) 10^3/uL Gran % 85.0 H (50.0-68.0) % Lymph % (Auto) 10.5 L (22.0-35.0) % Bulloch % (Auto) 3.8 (1.0-6.0) % Eos % (Auto) 0.6 L (1.5-5.0) % Baso % (Auto) 0.1 (0.0-3.0) % Gran # 17.34 H (1.4-6.5) Lymph # 2.2 (1.2-3.4) Bulloch # 0.8 H (0.1-0.6) Eos # 0.1 (0.0-0.7) Baso # 0.03 (0.0-2.0) K/mm3 pCO2 (35-45) mm/Hg pO2 56 H (80-100) mm/Hg HCO3 (21-28) mmol/L ABG pH (7.35-7.45) ABG Total CO2 (22-28) mmol.L ABG O2 Saturation (95-98) % ABG Base Excess (-2.0-3.0) mmol/L ABG Potassium (3.6-5.2) mmol/L VBG pH 7.37 (7.32-7.43) VBG pCO2 38.0 L (40-60) VBG HCO3 22.0 (21-28) mmol/l VBG Total CO2 23.2 (22-28) mmol.L VBG O2 Sat (Calc) 92.2 H (40-65) % VBG Base Excess -3.0 L (0.0-2.0) mmol/L VBG Potassium 3.6 (3.6-5.2) mmol/L Sodium 136.0 138 (132-148) mmol/L Chloride 111.0 H 104 (98-107) mmol/L Glucose 183 H (65-105) mg/dl Lactate 1.7 (0.7-2.1) mmol/L FiO2 21.0 % Potassium 4.4 (3.6-5.0) mmol/L Carbon Dioxide 22 (21-33) mmol/L Anion Gap 16 (10-20) BUN 15 (7-21) mg/dL Creatinine 0.9 (0.5-1.4) mg/dL Est GFR ( Amer) > 60 Est GFR (Non-Af Amer) > 60 Random Glucose 190 H (70-110) mg/dL Lactic Acid (0.7-2.1) mmol/L Calcium 9.1 (8.4-10.5) mg/dL Total Bilirubin 0.7 (0.2-1.3) mg/dL AST 21 (15-39) U/L ALT 28 (7-56) U/L Alkaline Phosphatase 92 (38-133) U/L Troponin I 0.17 H* D ng/mL Total Protein 6.9 (5.8-8.3) g/dL Albumin 3.5 (3.0-4.8) g/dL Globulin 3.5 gm/dL Albumin/Globulin Ratio 1.0 L (1.1-1.8) Arterial Blood Potassium (3.6-5.2) mmol/L Venous Blood Potassium 3.6 (3.6-5.2) mmol/L 05/26/17 Range/Units 18:35 WBC (4.5-11.0) 10^3/ul RBC (3.5-6.1) 10^6/uL Hgb (12.0-16.0) gm/dL Hct (36.0-48.0) % MCV (80.0-105.0) fL MCH (25.0-35.0) pg MCHC (31.0-37.0) g/dl RDW (11.5-14.5) % Plt Count (120.0-450.0) 10^3/uL Gran % (50.0-68.0) % Lymph % (Auto) (22.0-35.0) % [place] % (Auto) (1.0-6.0) % Eos % (Auto) (1.5-5.0) % Baso % (Auto) (0.0-3.0) % Gran # (1.4-6.5) Lymph # (1.2-3.4) Bulloch # (0.1-0.6) Eos # (0.0-0.7) Baso # (0.0-2.0) K/mm3 pCO2 48 H (35-45) mm/Hg pO2 89.0 (80-100) mm/Hg HCO3 21.0 (21-28) mmol/L ABG pH 7.25 L (7.35-7.45) ABG Total CO2 22.5 (22-28) mmol.L ABG O2 Saturation 97.5 (95-98) % ABG Base Excess -6.4 L (-2.0-3.0) mmol/L ABG Potassium 3.9 (3.6-5.2) mmol/L VBG pH (7.32-7.43) VBG pCO2 (40-60) VBG HCO3 (21-28) mmol/l VBG Total CO2 (22-28) mmol.L VBG O2 Sat (Calc) (40-65) % VBG Base Excess (0.0-2.0) mmol/L VBG Potassium (3.6-5.2) mmol/L Sodium 139.0 (132-148) mmol/L Chloride 113.0 H (98-107) mmol/L Glucose 184 H (65-105) mg/dl Lactate 2.7 H (0.7-2.1) mmol/L FiO2 50.0 % Potassium (3.6-5.0) mmol/L Carbon Dioxide (21-33) mmol/L Anion Gap (10-20) BUN (7-21) mg/dL Creatinine (0.5-1.4) mg/dL Est GFR ( Amer) Est GFR (Non-Af Amer) Random Glucose (70-110) mg/dL Lactic Acid (0.7-2.1) mmol/L Calcium (8.4-10.5) mg/dL Total Bilirubin (0.2-1.3) mg/dL AST (15-39) U/L ALT (7-56) U/L Alkaline Phosphatase (38-133) U/L Troponin I ng/mL Total Protein (5.8-8.3) g/dL Albumin (3.0-4.8) g/dL Globulin gm/dL Albumin/Globulin Ratio (1.1-1.8) Arterial Blood Potassium 3.9 (3.6-5.2) mmol/L Venous Blood Potassium (3.6-5.2) mmol/L Laboratory Results - last 24 hr 02/21/17 02/21/17 02/21/17 18:35 18:54 18:54 WBC 20.4 H D RBC 4.37 Hgb 11.0 L Hct 35.2 L MCV 80.5 MCH 25.2 MCHC 31.3 RDW 19.4 H Plt Count 206 Gran % 85.0 H Lymph % (Auto) 10.5 L [place] % (Auto) 3.8 Eos % (Auto) 0.6 L Baso % (Auto) 0.1 Gran # 17.34 H Lymph # 2.2 Bulloch # 0.8 H Eos # 0.1 Baso # 0.03 pCO2 48 H pO2 89.0 HCO3 21.0 ABG pH 7.25 L ABG Total CO2 22.5 ABG O2 Saturation 97.5 ABG Base Excess -6.4 L ABG Potassium 3.9 VBG pH VBG pCO2 VBG HCO3 VBG Total CO2 VBG O2 Sat (Calc) VBG Base Excess VBG Potassium Sodium 139.0 138 Chloride 113.0 H 104 Glucose 184 H Lactate 2.7 H FiO2 50.0 Potassium 4.4 Carbon Dioxide 22 Anion Gap 16 BUN 15 Creatinine 0.9 Est GFR ( Amer) > 60 Est GFR (Non-Af Amer) > 60 Random Glucose 190 H Lactic Acid Calcium 9.1 Total Bilirubin 0.7 AST 21 ALT 28 Alkaline Phosphatase 92 Troponin I 0.17 H* D Total Protein 6.9 Albumin 3.5 Globulin 3.5 Albumin/Globulin Ratio 1.0 L Arterial Blood Potassium 3.9 Venous Blood Potassium 02/21/17 02/21/17 02/21/17 23:02 23:02 23:59 WBC RBC Hgb Hct MCV MCH MCHC RDW Plt Count Gran % Lymph % (Auto) [place] % (Auto) Eos % (Auto) Baso % (Auto) Gran # Lymph # Bull[place] # Eos # Baso # pCO2 pO2 56 H HCO3 ABG pH ABG Total CO2 ABG O2 Saturation ABG Base Excess ABG Potassium VBG pH 7.37 VBG pCO2 38.0 L VBG HCO3 22.0 VBG Total CO2 23.2 VBG O2 Sat (Calc) 92.2 H VBG Base Excess -3.0 L VBG Potassium 3.6 Sodium 136.0 Chloride 111.0 H Glucose 183 H Lactate 1.7 FiO2 21.0 Potassium Carbon Dioxide Anion Gap BUN Creatinine Est GFR ( Amer) Est GFR (Non-Af Amer) Random Glucose Lactic Acid 1.5 Calcium Total Bilirubin AST ALT Alkaline Phosphatase Troponin I 4.34 H* D Total Protein Albumin Globulin Albumin/Globulin Ratio Arterial Blood Potassium Venous Blood Potassium 3.6 02/22/17 02/22/17 02/22/17 05:00 05:00 05:00 WBC 8.5 D RBC 3.79 Hgb 9.3 L Hct 30.7 L MCV 81.0 MCH 24.5 L MCHC 30.3 L RDW 19.4 H Plt Count 134 Gran % Lymph % (Auto) [place] % (Auto) Eos % (Auto) Baso % (Auto) Gran # Lymph # [place] # Eos # Baso # pCO2 pO2 30 HCO3 ABG pH ABG Total CO2 ABG O2 Saturation ABG Base Excess ABG Potassium VBG pH 7.29 L VBG pCO2 50.0 VBG HCO3 24.0 VBG Total CO2 25.5 VBG O2 Sat (Calc) 55.3 VBG Base Excess -2.8 L VBG Potassium 4.2 Sodium 139 138.0 Chloride 105 111.0 H Glucose 177 H Lactate 2.7 H FiO2 21.0 Potassium 4.1 Carbon Dioxide 22 Anion Gap 16 BUN 18 Creatinine 1.1 Est GFR ( Amer) 58 Est GFR (Non-Af Amer) 48 Random Glucose 162 H Lactic Acid Calcium 8.6 Total Bilirubin 0.4 AST 60 H ALT 35 Alkaline Phosphatase 72 Troponin I Total Protein 6.4 Albumin 3.1 Globulin 3.2 Albumin/Globulin Ratio 1.0 L Arterial Blood Potassium Venous Blood Potassium 4.2 02/22/17 06:30 WBC RBC Hgb Hct MCV MCH MCHC RDW Plt Count Gran % Lymph % (Auto) [place] % (Auto) Eos % (Auto) Baso % (Auto) Gran # Lymph # [place] # Eos # Baso # pCO2 pO2 HCO3 ABG pH ABG Total CO2 ABG O2 Saturation ABG Base Excess ABG Potassium VBG pH VBG pCO2 VBG HCO3 VBG Total CO2 VBG O2 Sat (Calc) VBG Base Excess VBG Potassium Sodium Chloride Glucose Lactate FiO2 Potassium Carbon Dioxide Anion Gap BUN Creatinine Est GFR ( Amer) Est GFR (Non-Af Amer) Random Glucose Lactic Acid Calcium Total Bilirubin AST ALT Alkaline Phosphatase Troponin I 9.92 H* D Total Protein Albumin Globulin Albumin/Globulin Ratio Arterial Blood Potassium Venous Blood Potassium EKG/Cardiology Studies: Cardiology / EKG Studies 02/21/17 18:30 EKG [ELECTROCARDIOGRAM] Stat Comment: Reason For Exam: sob Assessment/Plan - Assessment and Plan (Free Text) Assessment: 76F w/PMH sig for CVA, CAD with history of STEMI, hx UTI, indwelling Soni catheter, urolithiasis and s/p B/L ureteral stent placement, hx skin cancer, afib admitted to ICU 2/2 acute tachypneia and fevers w/elevated WBC and lactate. Pt stable overnight. Leukocytosis resolved. Plan: Neuro Hx CVA Alert Awake AOx1 (self, thinks she is in [facility], thinks it is November) Cont home med: Aricept Stable CVS Hx CAD w/hx of STEMI, afib Normotensive Slightly Hypotensive Trops positive, 9.92 from 4.34, up trending Previous history of increased troponins in December 2016 Cont ASA Cont Lipitor Cont Plavix Cont Lovenox 70mg SC Q12H Cards consulted Pulm Sat 97% on RA Target SaO2 >94% VBG: pH 7.29, pCO2 50, pO2 30, HCO3 24 Cont Duonebs Cont Pulmicort Monitor Pulm following- CPAP GI HHD Monitor Nephro Electrolytes WNL Cont home med: K-Dur 20mEq QD, MV, Ca Carbonate Monitor Soni in place I/O's U/A pos for mod LE, neg for nitrate Monitor Endo BS 95 Target euglycemia as per NICE sugar trial ID Febrile over last 24H, Tmax 104.5- no further fevers Leukocytosis resolved from 20.4 to 8.5 Lacate 2.7 from 1.7 U/A pos for mod LE, neg nitrate, lrg blood, high protein FU blood cxr FU urine cxr FU C diff FU Vanc trough today Tylenol PRN fever Cont Vanco 1gm Q12H Cont Flagyl 500mg Q8H Cont Merrem 1gm Q8H ID following Heme Hgb 9.3 from 11 Hct 30.7 from 35.2 Plts 134 from 206 PT 11.9 INR 1.10 PTT 29 Cont Lovenox 70mg SC Q12H Monitor MSK PT/OT eval Fall precautions GI/DVT ppx Cont Lovenox 70mg SC Q12H Pepcid SCDs Dispo Stablized overnight Poss transfer to floor later today if continues to be stable. DW attending - Date & Time Date: 02/22/17 Time: 08:00 <Andrew CACERES,Kelsey Etienne - Last Filed: 02/22/17 15:48> CCU Objective - Vital Signs / Intake & Output Vital Signs (Last 4 hours): Vital Signs Temp Pulse Resp BP Pulse Ox 02/22/17 14:00 85 20 122/58 L 97 02/22/17 13:50 74 15 99 02/22/17 13:45 78 16 114/49 L 98 02/22/17 13:40 73 14 99 02/22/17 13:30 76 16 124/48 L 98 02/22/17 13:20 82 17 98 02/22/17 13:15 81 17 118/51 L 97 02/22/17 13:10 89 24 99 02/22/17 13:00 77 14 117/45 L 99 02/22/17 12:50 76 17 99 02/22/17 12:45 74 14 109/45 L 99 02/22/17 12:40 74 14 99 02/22/17 12:30 86 37 H 127/47 L 84 L 02/22/17 12:20 85 22 98 02/22/17 12:15 92 H 27 H 149/65 97 02/22/17 12:10 86 18 98 02/22/17 12:00 97.7 F 92 H 20 114/89 87 L 02/22/17 11:53 83 19 117/54 L 97 02/22/17 11:52 84 02/22/17 11:50 84 22 90 L 02/22/17 11:46 86 32 H 117/54 L 87 L Intake and Output (Last 8hrs): Intake & Output 02/22/17 02/22/17 02/22/17 06:59 14:59 22:59 Intake Total 650 Output Total 975 Balance -325 Intake: IV 650 Left Forearm 650 Output: Urine 975 Urine, Voided 975 Other: Voiding Method Indwelling Catheter - Medications Active Medications: Active Medications Generic Name Dose Route Start Last Admin Trade Name Freq PRN Reason Stop Dose Admin Acetaminophen 650 mg 02/21/17 10:20 Tylenol 325mg Tab PO Q6H PRN Fever >100.4 F Albuterol/Ipratropium 3 ml 02/21/17 10:20 02/22/17 07:09 Duoneb 3 Mg/0.5 Mg (3 Ml) Ud INH 3 ml [id number] PRN Administration Shortness of Breath Aspirin 81 mg 02/22/17 10:00 02/22/17 09:15 Ecotrin PO 81 mg DAILY FILI Administration Atorvastatin Calcium 80 mg 02/22/17 10:00 02/22/17 09:16 Lipitor PO 80 mg DAILY FILI Administration Budesonide 1 mg 02/21/17 10:30 Pulmicort Respules IH Q12H FILI Calcium Carbonate 1,250 mg 02/21/17 10:30 02/22/17 09:16 Oscal PO 1,250 mg DAILY FILI Administration Clopidogrel Bisulfate 75 mg 02/21/17 10:30 02/22/17 09:16 Plavix PO 75 mg DAILY FILI Administration Donepezil HCl 10 mg 02/21/17 10:30 02/22/17 09:15 Aricept PO 10 mg DAILY FILI Administration Enoxaparin Sodium 70 mg 02/22/17 01:30 02/22/17 13:02 Lovenox SC 70 mg Q12H FILI Administration Protocol Famotidine 40 mg 02/22/17 10:00 02/22/17 09:15 Pepcid PO 40 mg DAILY FILI Administration Furosemide 40 mg 02/21/17 10:30 02/21/17 13:00 Lasix PO 40 mg DAILY FILI Administration Vancomycin HCl 1 gm in 250 mls @ 167 mls/hr 02/21/17 19:15 02/22/17 09:17 Vancomycin 1gm IVPB 167 mls/hr Q12H FILI Administration Protocol Metronidazole 500 mg in 100 mls @ 100 mls/hr 02/21/17 22:00 02/22/17 13:02 Flagyl IVPB 100 mls/hr Q8 FILI Administration Protocol Meropenem 1g/NS 100mL IVPB 1 gm in 100 mls @ 100 mls/hr 02/22/17 06:00 13:01 Meropenem 1g/Ns 100ml Ivpb IVPB 02/26/17 07:01 100 mls/hr Q8 FILI Administration Protocol Latanoprost 0 ml 02/21/17 22:00 02/22/17 01:50 Xalatan Opht OU Not Given HS FILI Metoprolol Tartrate 25 mg 02/21/17 18:00 Lopressor PO BID FILI Multivitamins 1 tab 02/22/17 10:00 02/22/17 09:16 Thera Tab PO 1 tab DAILY FILI Administration Potassium Chloride 20 meq 02/22/17 10:00 02/22/17 09:16 K-Dur 20 Meq Er Tab PO 20 meq DAILY FILI Administration - Patient Studies Lab Studies: Lab Studies 02/22/17 02/22/17 02/22/17 Range/Units 06:30 05:00 05:00 WBC (4.5-11.0) 10^3/ul RBC (3.5-6.1) 10^6/uL Hgb (12.0-16.0) gm/dL Hct (36.0-48.0) % MCV (80.0-105.0) fL MCH (25.0-35.0) pg MCHC (31.0-37.0) g/dl RDW (11.5-14.5) % Plt Count (120.0-450.0) 10^3/uL Gran % (50.0-68.0) % Lymph % (Auto) (22.0-35.0) % Bulloch % (Auto) (1.0-6.0) % Eos % (Auto) (1.5-5.0) % Baso % (Auto) (0.0-3.0) % Gran # (1.4-6.5) Lymph # (1.2-3.4) Bulloch # (0.1-0.6) Eos # (0.0-0.7) Baso # (0.0-2.0) K/mm3 pCO2 (35-45) mm/Hg pO2 30 (80-100) mm/Hg HCO3 (21-28) mmol/L ABG pH (7.35-7.45) ABG Total CO2 (22-28) mmol.L ABG O2 Saturation (95-98) % ABG Base Excess (-2.0-3.0) mmol/L ABG Potassium (3.6-5.2) mmol/L VBG pH 7.29 L (7.32-7.43) VBG pCO2 50.0 (40-60) VBG HCO3 24.0 (21-28) mmol/l VBG Total CO2 25.5 (22-28) mmol.L VBG O2 Sat (Calc) 55.3 (40-65) % VBG Base Excess -2.8 L (0.0-2.0) mmol/L VBG Potassium 4.2 (3.6-5.2) mmol/L Sodium 138.0 139 (132-148) mmol/L Chloride 111.0 H 105 (98-107) mmol/L Glucose 177 H (65-105) mg/dl Lactate 2.7 H (0.7-2.1) mmol/L FiO2 21.0 % Potassium 4.1 (3.6-5.0) mmol/L Carbon Dioxide 22 (21-33) mmol/L Anion Gap 16 (10-20) BUN 18 (7-21) mg/dL Creatinine 1.1 (0.5-1.4) mg/dL Est GFR ( Amer) 58 Est GFR (Non-Af Amer) 48 Random Glucose 162 H (70-110) mg/dL Lactic Acid (0.7-2.1) mmol/L Calcium 8.6 (8.4-10.5) mg/dL Total Bilirubin 0.4 (0.2-1.3) mg/dL AST 60 H (15-39) U/L ALT 35 (7-56) U/L Alkaline Phosphatase 72 (38-133) U/L Troponin I 9.92 H* D ng/mL Total Protein 6.4 (5.8-8.3) g/dL Albumin 3.1 (3.0-4.8) g/dL Globulin 3.2 gm/dL Albumin/Globulin Ratio 1.0 L (1.1-1.8) Arterial Blood Potassium (3.6-5.2) mmol/L Venous Blood Potassium 4.2 (3.6-5.2) mmol/L 02/22/17 02/21/17 02/21/17 Range/Units 05:00 23:59 23:02 WBC 8.5 D (4.5-11.0) 10^3/ul RBC 3.79 (3.5-6.1) 10^6/uL Hgb 9.3 L (12.0-16.0) gm/dL Hct 30.7 L (36.0-48.0) % MCV 81.0 (80.0-105.0) fL MCH 24.5 L (25.0-35.0) pg MCHC 30.3 L (31.0-37.0) g/dl RDW 19.4 H (11.5-14.5) % Plt Count 134 (120.0-450.0) 10^3/uL Gran % (50.0-68.0) % Lymph % (Auto) (22.0-35.0) % Bulloch % (Auto) (1.0-6.0) % Eos % (Auto) (1.5-5.0) % Baso % (Auto) (0.0-3.0) % Gran # (1.4-6.5) Lymph # (1.2-3.4) Bulloch # (0.1-0.6) Eos # (0.0-0.7) Baso # (0.0-2.0) K/mm3 pCO2 (35-45) mm/Hg pO2 (80-100) mm/Hg HCO3 (21-28) mmol/L ABG pH (7.35-7.45) ABG Total CO2 (22-28) mmol.L ABG O2 Saturation (95-98) % ABG Base Excess (-2.0-3.0) mmol/L ABG Potassium (3.6-5.2) mmol/L VBG pH (7.32-7.43) VBG pCO2 (40-60) VBG HCO3 (21-28) mmol/l VBG Total CO2 (22-28) mmol.L VBG O2 Sat (Calc) (40-65) % VBG Base Excess (0.0-2.0) mmol/L VBG Potassium (3.6-5.2) mmol/L Sodium (132-148) mmol/L Chloride (98-107) mmol/L Glucose (65-105) mg/dl Lactate (0.7-2.1) mmol/L FiO2 % Potassium (3.6-5.0) mmol/L Carbon Dioxide (21-33) mmol/L Anion Gap (10-20) BUN (7-21) mg/dL Creatinine (0.5-1.4) mg/dL Est GFR ( Amer) Est GFR (Non-Af Amer) Random Glucose (70-110) mg/dL Lactic Acid 1.5 (0.7-2.1) mmol/L Calcium (8.4-10.5) mg/dL Total Bilirubin (0.2-1.3) mg/dL AST (15-39) U/L ALT (7-56) U/L Alkaline Phosphatase (38-133) U/L Troponin I 4.34 H* D ng/mL Total Protein (5.8-8.3) g/dL Albumin (3.0-4.8) g/dL Globulin gm/dL Albumin/Globulin Ratio (1.1-1.8) Arterial Blood Potassium (3.6-5.2) mmol/L Venous Blood Potassium (3.6-5.2) mmol/L 02/21/17 02/21/17 02/21/17 Range/Units 23:02 18:54 18:54 WBC 20.4 H D (4.5-11.0) 10^3/ul RBC 4.37 (3.5-6.1) 10^6/uL Hgb 11.0 L (12.0-16.0) gm/dL Hct 35.2 L (36.0-48.0) % MCV 80.5 (80.0-105.0) fL MCH 25.2 (25.0-35.0) pg MCHC 31.3 (31.0-37.0) g/dl RDW 19.4 H (11.5-14.5) % Plt Count 206 (120.0-450.0) 10^3/uL Gran % 85.0 H (50.0-68.0) % Lymph % (Auto) 10.5 L (22.0-35.0) % Bulloch % (Auto) 3.8 (1.0-6.0) % Eos % (Auto) 0.6 L (1.5-5.0) % Baso % (Auto) 0.1 (0.0-3.0) % Gran # 17.34 H (1.4-6.5) Lymph # 2.2 (1.2-3.4) Bulloch # 0.8 H (0.1-0.6) Eos # 0.1 (0.0-0.7) Baso # 0.03 (0.0-2.0) K/mm3 pCO2 (35-45) mm/Hg pO2 56 H (80-100) mm/Hg HCO3 (21-28) mmol/L ABG pH (7.35-7.45) ABG Total CO2 (22-28) mmol.L ABG O2 Saturation (95-98) % ABG Base Excess (-2.0-3.0) mmol/L ABG Potassium (3.6-5.2) mmol/L VBG pH 7.37 (7.32-7.43) VBG pCO2 38.0 L (40-60) VBG HCO3 22.0 (21-28) mmol/l VBG Total CO2 23.2 (22-28) mmol.L VBG O2 Sat (Calc) 92.2 H (40-65) % VBG Base Excess -3.0 L (0.0-2.0) mmol/L VBG Potassium 3.6 (3.6-5.2) mmol/L Sodium 136.0 138 (132-148) mmol/L Chloride 111.0 H 104 (98-107) mmol/L Glucose 183 H (65-105) mg/dl Lactate 1.7 (0.7-2.1) mmol/L FiO2 21.0 % Potassium 4.4 (3.6-5.0) mmol/L Carbon Dioxide 22 (21-33) mmol/L Anion Gap 16 (10-20) BUN 15 (7-21) mg/dL Creatinine 0.9 (0.5-1.4) mg/dL Est GFR ( Amer) > 60 Est GFR (Non-Af Amer) > 60 Random Glucose 190 H (70-110) mg/dL Lactic Acid (0.7-2.1) mmol/L Calcium 9.1 (8.4-10.5) mg/dL Total Bilirubin 0.7 (0.2-1.3) mg/dL AST 21 (15-39) U/L ALT 28 (7-56) U/L Alkaline Phosphatase 92 (38-133) U/L Troponin I 0.17 H* D ng/mL Total Protein 6.9 (5.8-8.3) g/dL Albumin 3.5 (3.0-4.8) g/dL Globulin 3.5 gm/dL Albumin/Globulin Ratio 1.0 L (1.1-1.8) Arterial Blood Potassium (3.6-5.2) mmol/L Venous Blood Potassium 3.6 (3.6-5.2) mmol/L 02/21/17 Range/Units 18:35 WBC (4.5-11.0) 10^3/ul RBC (3.5-6.1) 10^6/uL Hgb (12.0-16.0) gm/dL Hct (36.0-48.0) % MCV (80.0-105.0) fL MCH (25.0-35.0) pg MCHC (31.0-37.0) g/dl RDW (11.5-14.5) % Plt Count (120.0-450.0) 10^3/uL Gran % (50.0-68.0) % Lymph % (Auto) (22.0-35.0) % Bulloch % (Auto) (1.0-6.0) % Eos % (Auto) (1.5-5.0) % Baso % (Auto) (0.0-3.0) % Gran # (1.4-6.5) Lymph # (1.2-3.4) Bulloch # (0.1-0.6) Eos # (0.0-0.7) Baso # (0.0-2.0) K/mm3 pCO2 48 H (35-45) mm/Hg pO2 89.0 (80-100) mm/Hg HCO3 21.0 (21-28) mmol/L ABG pH 7.25 L (7.35-7.45) ABG Total CO2 22.5 (22-28) mmol.L ABG O2 Saturation 97.5 (95-98) % ABG Base Excess -6.4 L (-2.0-3.0) mmol/L ABG Potassium 3.9 (3.6-5.2) mmol/L VBG pH (7.32-7.43) VBG pCO2 (40-60) VBG HCO3 (21-28) mmol/l VBG Total CO2 (22-28) mmol.L VBG O2 Sat (Calc) (40-65) % VBG Base Excess (0.0-2.0) mmol/L VBG Potassium (3.6-5.2) mmol/L Sodium 139.0 (132-148) mmol/L Chloride 113.0 H (98-107) mmol/L Glucose 184 H (65-105) mg/dl Lactate 2.7 H (0.7-2.1) mmol/L FiO2 50.0 % Potassium (3.6-5.0) mmol/L Carbon Dioxide (21-33) mmol/L Anion Gap (10-20) BUN (7-21) mg/dL Creatinine (0.5-1.4) mg/dL Est GFR ( Amer) Est GFR (Non-Af Amer) Random Glucose (70-110) mg/dL Lactic Acid (0.7-2.1) mmol/L Calcium (8.4-10.5) mg/dL Total Bilirubin (0.2-1.3) mg/dL AST (15-39) U/L ALT (7-56) U/L Alkaline Phosphatase (38-133) U/L Troponin I ng/mL Total Protein (5.8-8.3) g/dL Albumin (3.0-4.8) g/dL Globulin gm/dL Albumin/Globulin Ratio (1.1-1.8) Arterial Blood Potassium 3.9 (3.6-5.2) mmol/L Venous Blood Potassium (3.6-5.2) mmol/L Laboratory Results - last 24 hr 02/21/17 02/21/17 02/21/17 18:35 18:54 18:54 WBC 20.4 H D RBC 4.37 Hgb 11.0 L Hct 35.2 L MCV 80.5 MCH 25.2 MCHC 31.3 RDW 19.4 H Plt Count 206 Gran % 85.0 H Lymph % (Auto) 10.5 L Bulloch % (Auto) 3.8 Eos % (Auto) 0.6 L Baso % (Auto) 0.1 Gran # 17.34 H Lymph # 2.2 Bulloch # 0.8 H Eos # 0.1 Baso # 0.03 pCO2 48 H pO2 89.0 HCO3 21.0 ABG pH 7.25 L ABG Total CO2 22.5 ABG O2 Saturation 97.5 ABG Base Excess -6.4 L ABG Potassium 3.9 VBG pH VBG pCO2 VBG HCO3 VBG Total CO2 VBG O2 Sat (Calc) VBG Base Excess VBG Potassium Sodium 139.0 138 Chloride 113.0 H 104 Glucose 184 H Lactate 2.7 H FiO2 50.0 Potassium 4.4 Carbon Dioxide 22 Anion Gap 16 BUN 15 Creatinine 0.9 Est GFR ( Amer) > 60 Est GFR (Non-Af Amer) > 60 Random Glucose 190 H Lactic Acid Calcium 9.1 Total Bilirubin 0.7 AST 21 ALT 28 Alkaline Phosphatase 92 Troponin I 0.17 H* D Total Protein 6.9 Albumin 3.5 Globulin 3.5 Albumin/Globulin Ratio 1.0 L Arterial Blood Potassium 3.9 Venous Blood Potassium 02/21/17 02/21/17 02/21/17 23:02 23:02 23:59 WBC RBC Hgb Hct MCV MCH MCHC RDW Plt Count Gran % Lymph % (Auto) Bulloch % (Auto) Eos % (Auto) Baso % (Auto) Gran # Lymph # Bulloch # Eos # Baso # pCO2 pO2 56 H HCO3 ABG pH ABG Total CO2 ABG O2 Saturation ABG Base Excess ABG Potassium VBG pH 7.37 VBG pCO2 38.0 L VBG HCO3 22.0 VBG Total CO2 23.2 VBG O2 Sat (Calc) 92.2 H VBG Base Excess -3.0 L VBG Potassium 3.6 Sodium 136.0 Chloride 111.0 H Glucose 183 H Lactate 1.7 FiO2 21.0 Potassium Carbon Dioxide Anion Gap BUN Creatinine Est GFR ( Amer) Est GFR (Non-Af Amer) Random Glucose Lactic Acid 1.5 Calcium Total Bilirubin AST ALT Alkaline Phosphatase Troponin I 4.34 H* D Total Protein Albumin Globulin Albumin/Globulin Ratio Arterial Blood Potassium Venous Blood Potassium 3.6 02/22/17 02/22/17 02/22/17 05:00 05:00 05:00 WBC 8.5 D RBC 3.79 Hgb 9.3 L Hct 30.7 L MCV 81.0 MCH 24.5 L MCHC 30.3 L RDW 19.4 H Plt Count 134 Gran % Lymph % (Auto) Bulloch % (Auto) Eos % (Auto) Baso % (Auto) Gran # Lymph # Bulloch # Eos # Baso # pCO2 pO2 30 HCO3 ABG pH ABG Total CO2 ABG O2 Saturation ABG Base Excess ABG Potassium VBG pH 7.29 L VBG pCO2 50.0 VBG HCO3 24.0 VBG Total CO2 25.5 VBG O2 Sat (Calc) 55.3 VBG Base Excess -2.8 L VBG Potassium 4.2 Sodium 139 138.0 Chloride 105 111.0 H Glucose 177 H Lactate 2.7 H FiO2 21.0 Potassium 4.1 Carbon Dioxide 22 Anion Gap 16 BUN 18 Creatinine 1.1 Est GFR ( Amer) 58 Est GFR (Non-Af Amer) 48 Random Glucose 162 H Lactic Acid Calcium 8.6 Total Bilirubin 0.4 AST 60 H ALT 35 Alkaline Phosphatase 72 Troponin I Total Protein 6.4 Albumin 3.1 Globulin 3.2 Albumin/Globulin Ratio 1.0 L Arterial Blood Potassium Venous Blood Potassium 4.2 02/22/17 06:30 WBC RBC Hgb Hct MCV MCH MCHC RDW Plt Count Gran % Lymph % (Auto) Bulloch % (Auto) Eos % (Auto) Baso % (Auto) Gran # Lymph # Bulloch # Eos # Baso # pCO2 pO2 HCO3 ABG pH ABG Total CO2 ABG O2 Saturation ABG Base Excess ABG Potassium VBG pH VBG pCO2 VBG HCO3 VBG Total CO2 VBG O2 Sat (Calc) VBG Base Excess VBG Potassium Sodium Chloride Glucose Lactate FiO2 Potassium Carbon Dioxide Anion Gap BUN Creatinine Est GFR ( Amer) Est GFR (Non-Af Amer) Random Glucose Lactic Acid Calcium Total Bilirubin AST ALT Alkaline Phosphatase Troponin I 9.92 H* D Total Protein Albumin Globulin Albumin/Globulin Ratio Arterial Blood Potassium Venous Blood Potassium EKG/Cardiology Studies: Cardiology / EKG Studies 02/21/17 18:30 EKG [ELECTROCARDIOGRAM] Stat Comment: Reason For Exam: sob Attending/Attestation - Attestation I have personally seen and examined this patient.: Yes I have fully participated in the care of the patient.: Yes I have reviewed all pertinent clinical information: Yes Notes (Text): 02/22/17 15:44 76 y/o F brought to the ICU due to concern for possible worsening intra abdominal infection CT abd shows signs of Cystitis with ureter stents in place. Overnight , unclear if labs were accurate due to WBC normalization after one blood draw. Continued on empiric abx , f/u cx . NSTEMI found with troponin elevation . Cardiology consulted and may have medical management planned. would continue Lovenox bid , beta blockers as tolerated . ppi cc time 65 min
[2017-02-22] MEDS: Nitroglycerin 2% Ointment Foilpak UD TOP SCH ×2 (16:15→22:31)
--- NOTE | 2017-02-22 19:06 | CON ---
DATE: 02/22/2017 REASON FOR CONSULTATION: Positive troponin, cardiac evaluation, asymptomatic. BRIEF CLINICAL HISTORY: This is a 76-year-old female with past medical history of [id number]-buvlvyj olivia cardial infarction, coronary artery disease, anemia, status multiple transfusions, history of cerebro vascular accident with contracted left upper extremity, left-sided weakness, indwelling Soni cathete r, a resident of [facility], transferred because of the fever, shortness of breath, flu. T he patient was in telemetry initially. Yesterday ____ found to have tachycardia, fever, sepsis, WBC 20,000, so moved to the ICU with possible code sepsis. Later on, subsequently the patient ruled in for myocardial infarction. First troponin was 0.05, next was 0.17, next was 4.37, now is 9.92, so ca rdiac consult was called. The patient is asymptomatic in ICU 129, bed 1. Denies any chest pain, sri rtness of breath, any palpitation. Hemoglobin count is 9. A past history significant for non-ST-seg ment myocardial infarction, bed bound CVA with left upper extremity contracted and weakness in the le ft lower extremity, history of leh-SP-dyesijj myocardial infarction in 01/02/2017, at that time it was decided to treat medically. The patient does not have a family member. The patient this time admitt ed with leukocytosis, anemia. PAST MEDICAL HISTORY: Significant for CVA, COPD and non-STEMI, multiple urinary tract infections, ur olithiasis, and urethral stent in the past. PREVIOUS CARDIAC WORKUP: As follows: The patient had last month a ghs-RP-heusgyc myocardial infarct ion. The patient at that time echo was done that shows ejection fraction 35%-40%, severe aortic sten osis, moderate aortic regurgitation, mild to moderate mitral regurgitation, mild to moderate tricuspi d regurgitation, cardiomyopathy, possibly ischemic. Echo dated 01/02/2017 that shows aortic valve area 0.4 cm2, mild to moderate mitral regurgitation, mild to moderate tricuspid regurgitation, systolic p ressure of 43. ALLERGIES: No known drug allergies. SOCIAL HISTORY: Does not smoke. No history of alcohol abuse. CURRENT MEDICATIONS: The patient is taking at jail: Lum[place], Lipitor, aspirin, metoprolol, L asix, clopidogrel, potassium chloride and multivitamin. REVIEW OF SYSTEMS: Negative except for HPI. PHYSICAL EXAMINATION: VITAL SIGNS: Temperature afebrile, heart rate 84, blood pressure 102/58. HEENT: PERRLA. Extraocular muscles intact. NECK: Supple. No carotid bruits. No thyromegaly. CHEST: Clear to auscultation. HEART: S1, S2 regular. ABDOMEN: Soft. EXTREMITIES: Clubbing and cyanosis negative. EKG shows significant ST-T wave changes noted. LABORATORY DATA: Blood workup as follows: WBC 8.5, hemoglobin 9.0, hematocrit 30.7, platelet count 134. Chemistry shows sodium 130, potassium 4.0, chloride 105, carbon dioxide 22, anion gap of 15, BU N 18, creatinine 1.1, the GFR 58 mL/hour. Total ____ 0.64, albumin 3, albumin/globulin ratio 1. IMPRESSION: Non-ST segment myocardial infarction, ST-T changes, severe aortic stenosis, hypertension , hyperlipidemia, cardiomyopathy, ejection fraction 30% - 35%, anemia, gastrointestinal bleed, chroni c obstructive pulmonary disease, cerebrovascular accident, left-side contracted. RECOMMENDATION: In view of patient's condition, comorbidity with severe aortic stenosis, no family m embers around to give the consent. Last time we gave the consent as no family member there, so 2 phy sicians signed the consent including myself and give the blood transfusion. In view of above and sin ce the patient is asymptomatic, at the top of everything, the patient is asymptomatic, will try to tr eat patient medically, start beta annabelle, aspirin, Plavix, Lovenox and nitrites. We will follow linda guerrero. Thank you, Dr. Jung, for providing the opportunity in taking care of this patient. The patient is absolutely asymptomatic. Denies any chest pain. Adam Del Castillo MD cc: [id number] TT: 02/22/2017 19:05:42 Confirmation # [id number] Dictation # [id number] antonio
--- NOTE | 2017-02-22 19:54 | PN ---
DATE: 02/22/2017 PULMONARY CRITICAL CARE PROGRESS NOTE REFERRING PHYSICIAN: Dr. Jung. SUBJECTIVE: She is in the intensive care unit, overnight events noted. Rapid response was called be cause of the tachypnea, tachycardia and respiratory issues, found to have AR, presently lying in the intensive care unit, head up 45 degrees, more awake and alert, feels better, decreased shortness of b reath. No cough, no chest pain, no nausea, no vomiting, no diarrhea. No leg pain or leg swelling. OBJECTIVE: GENERAL: No acute distress. VITAL SIGNS: Temp is 98, heart rate is 103, respiratory rate is 22, blood pressure 138/57, pulse ox 93% on nasal cannula. HEENT: Moist mucous membranes. Crowded airway. Mallampati score is 4. NECK: Supple. No JVD. LUNGS: Has scattered rhonchi. HEART: S1 and S2. ABDOMEN: Soft, nontender. No organomegaly. EXTREMITIES: There is no edema. NEUROLOGIC: Awake, alert, follows simple command. MEDICATIONS: She is on Aricept 10 mg daily, DuoNeb q. 6 hours, Ecotrin 81 mg daily, Flagyl 500 mg q. 8 hours, potassium 20 mEq daily, Lasix 40 mg daily, Lipitor 80 mg daily, metoprolol tartrate 25 mg t wice a day, Lovenox 70 mg subQ q. 12 hours, meropenem 1 g IV q. 8 hours, Pepcid 40 mg daily, Plavix 7 5 mg daily, Pulmicort inhaled twice a day, multivitamins daily, Tylenol p.r.n., vancomycin 1 g IV q. 12 hours. LABORATORY DATA: Shows hemoglobin 9.3, hematocrit 30.7, WBC 8.5, platelet count is 134. VBG done to day shows pH 7.29, pCO2 of 50, O2 is 55. Sodium 139, potassium 4.1, chloride 105, bicarbonate 22, BU N 18, creatinine 1.1, glucose 162, calcium is 8.6, AST 60, ALT 35, alkaline phosphatase is 72. Tropo betsey is 9.9. Albumin is 3.1. Microbiology: Blood cultures have been negative. Urine culture grew m ultiple organisms, may be contaminated. CT of the chest, abdomen and pelvis done today, which shows gallstones, bilateral nonobstructive renal stone, bilateral urethral stents with right , and ure teral ureterectasis, mild left lower pole , bladder wall thickened with perivesicular inflammati on. Chest CT shows bilateral airspace disease with pneumonia and pleural effusions with basilar atel ectasis, cardiomegaly. IMPRESSION AND PLAN: Cardiomyopathy, history of AR, has AR again, sepsis probably source is kidney _ ____ renal stones and stents, history of hematuria in the past, history of cerebrovascular accident, aortic stenosis, chronic obstructive lung disease, may have component of sleep apnea syndrome with CO 2 retention. We will get cardiology consult; Dr. Rothman's consult is placed. Pulmonary point of vie w, keep head elevated at [address] on her BiPAP / with 35% oxygen while sleeping. Gastric prophylaxis. Sequential compression device to lower extremity. Continue antibiotics cover ing healthcare-associated organism. We ordered ABG, chest x-ray, CBC for the morning. Critical care time more than 35 minutes. Thank you and will follow with you. Adam Christianson MD cc: [id number] TT: 02/22/2017 19:52:40 Confirmation # [id number] Dictation # [id number] mn
[2017-02-23] MEDS: Enoxaparin 80 mg Syringe SC SCH ×3 (01:42→21:31)
[2017-02-23] MEDS: Albuterol-Ipratrop 3 mg / 0.5 (3 ml) UD INH PRN ×2 (05:30→07:05)
[2017-02-23] MEDS: metroNIDAZOLE IV 500 mg/100 ml 500 MG/100 ML BAG IVPB SCH (06:00)
[2017-02-23] MEDS: Nitroglycerin 2% Ointment Foilpak UD TOP SCH ×4 (06:00→21:31)
[2017-02-23 06:26] LABS: ALB/GLOB RATIO 1.1 (1.1-1.8); ALKALINE PHOSPHATASE 73 U/L (38-133); ALT/SGPT 36 U/L (7-56); AST/SGOT 49 U/L (15-39); BILIRUBIN,TOTAL 0.5 mg/dL (0.2-1.3); BLOOD UREA NITROGEN 22 mg/dL (7-21); CALCIUM 8.8 mg/dL (8.4-10.5); CARBON DIOXIDE 23 mmol/L (21-33); CHLORIDE 110 mmol/L (98-107); GFR AFRICAN-AMERICAN > 60; GLUCOSE,RANDOM 115 mg/dL (70-110); SODIUM 143 mmol/L (132-148); TOTAL PROTEIN 6.4 g/dL (5.8-8.3)
[2017-02-23] MEDS: Meropenem 1g/NS 100mL IVPB 1 GM/100 ML PIGGYBACK IVPB SCH ×3 (06:41→21:31)
--- NOTE | 2017-02-23 08:02 | PN ---
DATE: 02/22/2017 The patient is a 76-year-old female. The patient was seen and examined on the bedside, looks comfortable. No nausea, vomiting, diarrhea. No hematuria, no hematochezia. No swelling of the legs. No chest pain, no palpitation. The patient is almost nonverbal, is not able to give a complete review of systems. PHYSICAL EXAMINATION: VITAL SIGNS: Temperature 98, heart rate 80 , respirations 22, blood pressure 113/57, pulse oximetry 93% on nasal cannula. HEENT: Head normocephalic, atraumatic. Eyes PERRLA. Extraocular muscles intact. Conjunctivae clear. Nose patent. Mucous membranes moist. NECK: Supple. No carotid bruit, no JVD, no thyromegaly. CHEST: Bilaterally symmetrical. HEART: S1, S2 positive. LUNGS: Clear to auscultation. ABDOMEN: Soft. Bowel sounds positive. No organomegaly. EXTREMITIES: No edema, no cyanosis. NEUROLOGIC: The patient is awake, alert, follows simple commands. MEDICATIONS: Aricept, DuoNeb, Ecotrin, Flagyl, potassium, Lasix, Lipitor, metoprolol, Lovenox, meropenem, Pepcid, Plavix, Pulmicort, multivitamins, Tylenol. LABORATORIES: Hemoglobin 9.3, hematocrit 30.7, white blood cells 8.5, platelets 134. Sodium noted , potassium 4.1, BUN 18, creatinine 1.1, glucose 162, AST 60, ALT 35. ASSESSMENT AND PLAN: The patient is a 76-year-old with cardiomyopathy, history of myocardial infarction, sepsis, probably source is renal stones and stenting, history of hematuria, cerebrovascular accident, aortic stenosis, history of chronic obstructive lung disease, history of carotid artery stenting, has sleep apnea. Garment Cutter is on the case. Senior Technical Support Engineer is on the case. Using BiPAP /. Gastric prophylaxis, sequential compression devices prophylaxis. Continue antibiotics. Gastrointestinal and deep venous thrombosis prophylaxis. Repeat labs. We will follow up. Florence Jung MD cc: [id number] TT: 02/23/2017 08:01:35 Confirmation # [id number] Dictation # [id number] en MTDD
[2017-02-23 09:12] LABS: PH,URINE 5.5 (4.7-8.0); URINE BILIRUBIN NEGATIVE (NEGATIVE); URINE BLOOD LARGE (NEGATIVE); URINE GLUCOSE (UA) NEGATIVE (NEGATIVE); URINE KETONE NEGATIVE (NEGATIVE); URINE LEUKOCYTE ESTERASE MODERATE Leu/uL (NEGATIVE); URINE PROTEIN TRACE mg/dL (<30 mg/dL); URINE UROBILINOGEN 0.2 E.U./dL (<1 E.U./dL)
[2017-02-23] MEDS: Potassium Chloride 20 mEq ER Tab PO SCH (09:16)
[2017-02-23] MEDS: Multivitamin Therapeutic Tab PO SCH (09:17)
[2017-02-23 09:41] LABS: URINE APPEARANCE CLEAR (CLEAR)
[2017-02-23 09:42] LABS: URINE EPITHELIAL CELLS MANY /hpf (0-5); URINE RBC 25 - 30 /hpf (0-2)
--- NOTE | 2017-02-23 09:42 | RAD ---
HISTORY: chf COMPARISON: 02/21/2017 FINDINGS: LUNGS: There is a decrease seen right lower lobe perihilar infiltrate. Decreased vascular congestion PLEURA: No significant pleural effusion identified, no pneumothorax apparent. CARDIOVASCULAR: Mild cardiomegaly OSSEOUS STRUCTURES: No significant abnormalities. VISUALIZED UPPER ABDOMEN: Normal. OTHER FINDINGS: None. IMPRESSION: Decreased CHF
--- NOTE | 2017-02-23 10:16 | PN ---
DATE: 02/23/2017 The patient is in bed, in no acute distress, nontoxic. PHYSICAL EXAMINATION: VITAL SIGNS: Temperature is 98, blood pressure is 117/60, respiratory rate of 18. HEENT: Unremarkable. NECK: Supple. LUNGS: Have decreased breath sounds. HEART: Normal S1, S2. ABDOMEN: Soft, nontender. LABORATORY EXAMINATION: Reveals the patient's white count is 8.5, hemoglobin of 9, platelets of 134. Chemistries: BUN of 22, creatinine of 1.0. Troponin is 9.9. Urinalysis is noted. Vancomycin tro ugh is 17.6. Microbiology reveals the blood cultures are negative. Repeat blood cultures are negati ve. Review of orders reveals the patient to be on IV Flagyl, IV meropenem and IV vancomycin. The patient had a chest x-ray today, which report is not available and had a CAT scan of the chest an d the abdomen. CAT scan of the abdomen is gallstones, nonobstructing renal stones, bilateral uretera l stents, and no abdominal aortic aneurysm, IVC filter is seen and bilateral airspace disease, pneumo radha with pleural effusions and basal atelectasis. Dr. Del Castillo's consultation is reviewed. ASSESSMENT AND PLAN: A 76-year-old female with cerebrovascular accident, coronary artery disease, hi story of ST elevation myocardial infarction, history of urinary tract infection with sepsis with urin e as the source, bilateral stents, coronary artery disease and negative blood cultures and at this ti me, non-ST elevation segment myocardial infarction with severe aortic stenosis and hypertension and c ardiomyopathy with an ejection fraction of 30%-35% with acute systolic congestive heart failure on to p of chronic congestive heart failure and with a procalcitonin that is normal makes bacterial pneumon ia less likely and positive urinalysis. Waiting for final culture results, thus far negative. We wi ll discontinue the Flagyl, discontinue the vancomycin. Blood cultures thus far are negative. Hoa oneill on meropenem day #2. The patient's white count is normal as of yesterday at 8.5. We will repeat a urinalysis and urine culture. The patient initially did have a temperature of 100.6, may be from the acute myocardial infarction and congestive heart failure. We will follow with you. Lamberto Lima MD cc: [id number] TT: 02/23/2017 10:16:01 Confirmation # [id number] Dictation # [id number] en
[2017-02-23 10:58] LABS: HEMATOCRIT 28.2 % (36.0-48.0); MEAN CELL VOLUME 78.3 fL (80.0-105.0); MEAN CORPUSCULAR HGB CONC 31.9 g/dl (31.0-37.0); PLATELET COUNT 148 10^3/uL (120.0-450.0); RED CELL DISTRIBUTION WIDTH 19.2 % (11.5-14.5); WHITE BLOOD COUNT 15.3 10^3/ul (4.5-11.0)
[2017-02-23 11:02] LABS: ADD MANUAL DIFF? YES
[2017-02-23 11:39] LABS: ATYPICAL LYMPHOCYTE 0 % (0.0-0.0); BAND 0 % (0-2); NEUTROPHIL 92 % (50.0-70.0)
[2017-02-23 11:40] LABS: HYPOCHROMIA 2+; PLATELET ESTIMATE NORMAL (NORMAL); TARGET CELLS 2+; TOXIC GRANULATION 1+
--- NOTE | 2017-02-23 12:06 | CARD ---
APPROVED REPORT EKG Measurement Heart [id number] CA [id number] <Conclusion> Sinus tachycardia Inferior infarct, age undetermined Anterior infarct, age undetermined ST & T wave abnormality, consider lateral ischemia Abnormal ECG
--- NOTE | 2017-02-23 12:10 | CARD ---
APPROVED REPORT EKG Measurement Heart [id number] IA [id number] <Conclusion> Normal sinus rhythm Possible Left atrial enlargement Possible Inferior infarct, age undetermined Anterior infarct, age undetermined ST & T wave abnormality, consider lateral ischemia Prolonged QT Abnormal ECG
--- NOTE | 2017-02-23 13:21 | PN ---
DATE: 02/23/2017 REASON FOR CONSULTATION AND FOLLOWUP: Positive troponin, cardiac evaluation, asymptomatic. BRIEF CLINICAL HISTORY: A 76-year-old female with a past medical history significant for non-ST-segm ent myocardial infarction, coronary artery disease, anemia, status post multiple transfusions, histor y of CVA, contraction of left upper extremity, contracted left upper extremity the left lower e xtremity. Admitted with sepsis, WBC 20,000, possible UTI, positive troponin, asymptomatic. Denies a ny chest pain, shortness of breath, any palpitation. PHYSICAL EXAMINATION: VITAL SIGNS: Temperature afebrile, heart rate 108, blood pressure 112/54. HEENT: PERRLA. Extraocular muscles intact. NECK: Supple. No carotid bruits. No thyromegaly. CHEST: Clear to auscultation. HEART: S1, S2 regular. ABDOMEN: Soft. EXTREMITIES: Clubbing, cyanosis negative. BLOOD WORKUP: WBC 15. , hemoglobin 9, hematocrit 28.2, platelet count 148. Chemistry shows sodi um 143, potassium 4, chloride 110, carbon dioxide 23, anion gap of 14, BUN 28, creatinine 1.0. Tropo betsey trending down to 7.93. Yesterday peaked to 9.92. IMPRESSION: Non-ST segment myocardial infarction, coronary artery disease, diabetes, hypertension, h yperlipidemia, cerebrovascular accident, contracted left upper extremity, anemia, status post bleed, status post packed red blood cell transfusion on last admission, history of myocardial infarction in the last , sepsis, possible source is urinary tract infection, stone and stent in the ureter. RECOMMENDATION: Aggressive medical treatment. The patient is not a candidate to go to the labor relations director. The patient has no next of kin available and cerebrovascular accident, asymptomatic. Continue beta annabelle. Continue high dose of atorvastatin. Continue aspirin. Continue Plavix. Continue Lovenox 1 mg/kg body weight. Monitor H and H. We will follow with you. Continue nitrate as blood pressure s tolerated. Thank you, Dr. Jung, for providing us the opportunity in taking care of the patient. We will repea t the troponin in the morning. History of severe aortic stenosis. The patient had echocardiography done 01/02/2017 that shows valve area 0.4 cm squared, mild to moderate mitral regurgitation, mild to m oderate tricuspid regurgitation, right ventricular systolic pressure 43, ejection fraction 35%-40%. Thank you, Dr. Jung, for providing us the opportunity in taking care of the patient. Adam Del Castillo MD cc: [id number] TT: 02/23/2017 13:20:22 Confirmation # [id number] Dictation # [id number] en
--- NOTE | 2017-02-23 14:07 | CP.CCUPN ---
<Veda Alvarez - Last Filed: 02/23/17 14:04> CCU Subjective - Physician Review Events Since Last Encounter (Free Text): 02/23/17 14:04 Tachycardic overnight, trops down trending Subjective (Free Text): 02/22/17 15:04 Critical care progress note for Dr. Mariia Alvarez, PGY-1 Pt S & E at bedside this AM. 76F w/PMH CVA, CAD with history of STEMI, history of UTI, indwelling Soni catheter, urolithiasis and S/P bilateral ureteral stent placement, history of skin cancer, atril fibrillation admitted for tachycardia, diaphoresis, tachypnea - possible worsening sepsis. Pt stabilized overnight. 02/23/17 14:04 Critical care progress note for Dr. Mariia Alvarez, PGY-1 Pt S & E at bedside this AM. Pt reports SOB. Denies N/V/F/C, CP, abdominal pain, other complaints. Currently on Bipap. CCU Objective - Vital Signs / Intake & Output Vital Signs (Last 4 hours): Vital Signs Temp Pulse Resp BP Pulse Ox 02/23/17 14:00 93 H 02/23/17 13:50 102 H 25 H 97 02/23/17 13:46 108 H 24 121/56 L 95 02/23/17 13:40 107 H 25 H 95 02/23/17 13:30 111 H 28 H 118/61 95 02/23/17 13:20 97 H 22 95 02/23/17 13:16 106 H 21 121/54 L 94 L 02/23/17 13:10 96 H 24 95 02/23/17 13:00 103 H 21 114/52 L 94 L 02/23/17 12:50 95 H 23 96 02/23/17 12:45 103 H 19 116/48 L 96 02/23/17 12:40 96 H 24 97 02/23/17 12:30 102 H 22 115/51 L 96 02/23/17 12:20 99 H 22 97 02/23/17 12:15 102 H 21 135/55 L 99 02/23/17 12:10 98 H 26 H 97 02/23/17 12:00 111 H 24 108/60 96 02/23/17 11:59 97.3 F L 112 H 22 111/60 97 02/23/17 11:50 104 H 25 H 96 02/23/17 11:45 103 H 22 111/60 97 02/23/17 11:40 103 H 23 97 02/23/17 11:30 107 H 23 114/53 L 97 02/23/17 11:20 106 H 25 H 100 02/23/17 11:15 103 H 21 115/56 L 100 02/23/17 11:10 98 H 21 100 02/23/17 11:00 105 H 21 113/54 L 99 02/23/17 10:50 112 H 23 99 02/23/17 10:45 110 H 44 H 120/52 L 98 02/23/17 10:40 105 H 22 100 02/23/17 10:30 105 H 21 119/55 L 95 02/23/17 10:20 107 H 23 100 02/23/17 10:15 109 H 21 112/54 L 96 02/23/17 10:10 108 H 21 100 02/23/17 10:07 107 H Intake and Output (Last 8hrs): Intake & Output 02/22/17 02/23/17 02/23/17 22:59 06:59 14:59 Intake Total 1210 700 Output Total 483 665 2040 Balance 710 300 -1100 Weight 83.053 kg Intake: IV 450 Right Forearm 450 Oral 760 50 Other 650 Output: Urine 520 332 4852 Urine, Voided 439 718 1023 Other: Voiding Method Indwelling Catheter Indwelling Catheter Indwelling Catheter # Bowel Movements 1 - Physical Exam Head: Positive for: Atraumatic, Normocephalic Pupils: Positive for: PERRL Extroacular Muscles: Positive for: EOMI Conjunctiva: Positive for: Normal, Other (Right medial eye with hemorrhage) Ears: Positive for: Normal Mouth: Positive for: Moist Mucous Membranes Neck: Positive for: Normal Range of Motion Respiratory/Chest: Positive for: Accessory Muscle Use, Rales, Tachypneic. Negative for: Clear to Auscultation, Good Air Exchange, Retracting, Rhonchi Cardiovascular: Positive for: Normal S1, S2, Tachycardic Abdomen: Positive for: Normal Bowel Sounds. Negative for: Tenderness, Distention Upper Extremity: Positive for: Normal Inspection. Negative for: Cyanosis, Edema , Tenderness, Swelling Lower Extremity: Positive for: Normal Inspection. Negative for: Edema, Temperature Abnormalties Neurological: Positive for: GCS=15, CN II-XII Intact, Speech Normal Skin: Positive for: Warm, Dry, Normal Color. Negative for: Rashes, Diaphoretic Psychiatric: Positive for: Alert, Normal Insight. Negative for: Oriented x 3 ( oriented x 1 ), Anxious, Agitated - Medications Active Medications: Active Medications Generic Name Dose Route Start Last Admin Trade Name Freq PRN Reason Stop Dose Admin Acetaminophen 650 mg 02/21/17 10:20 Tylenol 325mg Tab PO Q6H PRN Fever >100.4 F Albuterol/Ipratropium 3 ml 02/21/17 10:20 02/23/17 07:05 Duoneb 3 Mg/0.5 Mg (3 Ml) Ud INH 3 ml [id number] PRN Administration Shortness of Breath Aspirin 81 mg 02/22/17 10:00 02/23/17 09:16 Ecotrin PO 81 mg DAILY FILI Administration Atorvastatin Calcium 80 mg 02/22/17 10:00 02/23/17 09:16 Lipitor PO 80 mg DAILY FILI Administration Budesonide 1 mg 02/21/17 10:30 Pulmicort Respules IH Q12H FILI Calcium Carbonate 1,250 mg 02/21/17 10:30 02/23/17 09:17 Oscal PO 1,250 mg DAILY FILI Administration Clopidogrel Bisulfate 75 mg 02/21/17 10:30 02/23/17 09:17 Plavix PO 75 mg DAILY FILI Administration Donepezil HCl 10 mg 02/21/17 10:30 02/23/17 09:16 Aricept PO 10 mg DAILY FILI Administration Enoxaparin Sodium 70 mg 02/22/17 01:30 02/23/17 13:23 Lovenox SC 70 mg Q12H FILI Administration Protocol Famotidine 40 mg 02/22/17 10:00 02/23/17 09:17 Pepcid PO 40 mg DAILY FILI Administration Furosemide 40 mg 02/21/17 10:30 02/21/17 13:00 Lasix PO 40 mg DAILY FILI Administration Meropenem 1g/NS 100mL IVPB 1 gm in 100 mls @ 100 mls/hr 02/22/17 06:00 13:23 Meropenem 1g/Ns 100ml Ivpb IVPB 02/26/17 07:01 100 mls/hr Q8 FILI Administration Protocol Latanoprost 0 ml 02/21/17 22:00 02/22/17 22:31 Xalatan Opht OU 2.5 ml HS FILI Administration Metoprolol Tartrate 12.5 mg 02/23/17 17:00 Lopressor PO BRKDIN FILI Multivitamins 1 tab 02/22/17 10:00 02/23/17 09:17 Thera Tab PO 1 tab DAILY FILI Administration Nitroglycerin 1 ea 02/22/17 16:00 02/23/17 09:16 Nitro-Bid 2% Oint TOP 1 ea Q6H FILI Administration Potassium Chloride 20 meq 02/22/17 10:00 02/23/17 09:16 K-Dur 20 Meq Er Tab PO 20 meq DAILY FILI Administration - Patient Studies Lab Studies: Microbiology Studies 02/21/17 19:40 Blood Culture - Preliminary Blood NO GROWTH AFTER 24 HOURS 02/21/17 19:15 Blood Culture - Preliminary Blood NO GROWTH AFTER 24 HOURS Lab Studies 02/23/17 02/23/17 02/23/17 Range/Units 10:50 09:09 06:30 WBC 15.3 H D (4.5-11.0) 10^3/ul RBC 3.60 (3.5-6.1) 10^6/uL Hgb 9.0 L (12.0-16.0) gm/dL Hct 28.2 L (36.0-48.0) % MCV 78.3 L (80.0-105.0) fL MCH 25.0 (25.0-35.0) pg MCHC 31.9 (31.0-37.0) g/dl RDW 19.2 H (11.5-14.5) % Plt Count 148 (120.0-450.0) 10^3/uL Neutrophils % (Manual) 92 H (50.0-70.0) % Band Neutrophils % 0 (0-2) % Lymphocytes % (Manual) 4 L (22.0-35.0) % Atypical Lymphs % 0 (0.0-0.0) % Monocytes % (Manual) 4 (1.0-6.0) % Toxic Granulation 1+ Platelet Evaluation Normal (NORMAL) Hypochromasia 2+ Target Cells 2+ Rouleaux 2+ Sodium (132-148) mmol/L Potassium (3.6-5.0) mmol/L Chloride (98-107) mmol/L Carbon Dioxide (21-33) mmol/L Anion Gap (10-20) BUN (7-21) mg/dL Creatinine (0.5-1.4) mg/dL Est GFR ( Amer) Est GFR (Non-Af Amer) Random Glucose (70-110) mg/dL Calcium (8.4-10.5) mg/dL Total Bilirubin (0.2-1.3) mg/dL AST (15-39) U/L ALT (7-56) U/L Alkaline Phosphatase (38-133) U/L Troponin I 7.93 H* D ng/mL Total Protein (5.8-8.3) g/dL Albumin (3.0-4.8) g/dL Globulin gm/dL Albumin/Globulin Ratio (1.1-1.8) Urine Color yellow (YELLOW) Urine Appearance Clear (CLEAR) Urine pH 5.5 (4.7-8.0) Ur Specific [place] 1.010 (1.005-1.035) Urine Protein Trace H (<30 mg/dL) mg/dL Urine Glucose (UA) Negative (NEGATIVE) mg/dL Urine Ketones Negative (NEGATIVE) mg/dL Urine Blood Large H (NEGATIVE) Urine Nitrate Negative (NEGATIVE) Urine Bilirubin Negative (NEGATIVE) Urine Urobilinogen 0.2 (<1 E.U./dL) E.U./dL Ur Leukocyte Esterase Moderate H (NEGATIVE) Davis/uL Urine RBC 25 - 30 (0-2) /hpf Urine WBC 10 - 15 (0-6) /hpf Ur Epithelial Cells Many (0-5) /hpf Vancomycin Trough (5.0-10.0) ug/mL 02/23/17 02/22/17 Range/Units 05:30 19:50 WBC (4.5-11.0) 10^3/ul RBC (3.5-6.1) 10^6/uL Hgb (12.0-16.0) gm/dL Hct (36.0-48.0) % MCV (80.0-105.0) fL MCH (25.0-35.0) pg MCHC (31.0-37.0) g/dl RDW (11.5-14.5) % Plt Count (120.0-450.0) 10^3/uL Neutrophils % (Manual) (50.0-70.0) % Band Neutrophils % (0-2) % Lymphocytes % (Manual) (22.0-35.0) % Atypical Lymphs % (0.0-0.0) % Monocytes % (Manual) (1.0-6.0) % Toxic Granulation Platelet Evaluation (NORMAL) Hypochromasia Target Cells Rouleaux Sodium 143 (132-148) mmol/L Potassium 4.0 (3.6-5.0) mmol/L Chloride 110 H (98-107) mmol/L Carbon Dioxide 23 (21-33) mmol/L Anion Gap 14 (10-20) BUN 22 H (7-21) mg/dL Creatinine 1.0 (0.5-1.4) mg/dL Est GFR ( Amer) > 60 Est GFR (Non-Af Amer) 54 Random Glucose 115 H (70-110) mg/dL Calcium 8.8 (8.4-10.5) mg/dL Total Bilirubin 0.5 (0.2-1.3) mg/dL AST 49 H (15-39) U/L ALT 36 (7-56) U/L Alkaline Phosphatase 73 (38-133) U/L Troponin I ng/mL Total Protein 6.4 (5.8-8.3) g/dL Albumin 3.3 (3.0-4.8) g/dL Globulin 3.1 gm/dL Albumin/Globulin Ratio 1.1 (1.1-1.8) Urine Color (YELLOW) Urine Appearance (CLEAR) Urine pH (4.7-8.0) Ur Specific [place] (1.005-1.035) Urine Protein (<30 mg/dL) mg/dL Urine Glucose (UA) (NEGATIVE) mg/dL Urine Ketones (NEGATIVE) mg/dL Urine Blood (NEGATIVE) Urine Nitrate (NEGATIVE) Urine Bilirubin (NEGATIVE) Urine Urobilinogen (<1 E.U./dL) E.U./dL Ur Leukocyte Esterase (NEGATIVE) Davis/uL Urine RBC (0-2) /hpf Urine WBC (0-6) /hpf Ur Epithelial Cells (0-5) /hpf Vancomycin Trough 17.6 H* (5.0-10.0) ug/mL Laboratory Results - last 24 hr 02/22/17 02/23/17 02/23/17 19:50 05:30 06:30 WBC RBC Hgb Hct MCV MCH MCHC RDW Plt Count Neutrophils % (Manual) Band Neutrophils % Lymphocytes % (Manual) Atypical Lymphs % Monocytes % (Manual) Toxic Granulation Platelet Evaluation Hypochromasia Target Cells Rouleaux Sodium 143 Potassium 4.0 Chloride 110 H Carbon Dioxide 23 Anion Gap 14 BUN 22 H Creatinine 1.0 Est GFR ( Amer) > 60 Est GFR (Non-Af Amer) 54 Random Glucose 115 H Calcium 8.8 Total Bilirubin 0.5 AST 49 H ALT 36 Alkaline Phosphatase 73 Troponin I 7.93 H* D Total Protein 6.4 Albumin 3.3 Globulin 3.1 Albumin/Globulin Ratio 1.1 Urine Color Urine Appearance Urine pH Ur Specific [place] Urine Protein Urine Glucose (UA) Urine Ketones Urine Blood Urine Nitrate Urine Bilirubin Urine Urobilinogen Ur Leukocyte Esterase Urine RBC Urine WBC Ur Epithelial Cells Vancomycin Trough 17.6 H* 02/23/17 02/23/17 09:09 10:50 WBC 15.3 H D RBC 3.60 Hgb 9.0 L Hct 28.2 L MCV 78.3 L MCH 25.0 MCHC 31.9 RDW 19.2 H Plt Count 148 Neutrophils % (Manual) 92 H Band Neutrophils % 0 Lymphocytes % (Manual) 4 L Atypical Lymphs % 0 Monocytes % (Manual) 4 Toxic Granulation 1+ Platelet Evaluation Normal Hypochromasia 2+ Target Cells 2+ Rouleaux 2+ Sodium Potassium Chloride Carbon Dioxide Anion Gap BUN Creatinine Est GFR ( Amer) Est GFR (Non-Af Amer) Random Glucose Calcium Total Bilirubin AST ALT Alkaline Phosphatase Troponin I Total Protein Albumin Globulin Albumin/Globulin Ratio Urine Color yellow Urine Appearance Clear Urine pH 5.5 Ur Specific [place] 1.010 Urine Protein Trace H Urine Glucose (UA) Negative Urine Ketones Negative Urine Blood Large H Urine Nitrate Negative Urine Bilirubin Negative Urine Urobilinogen 0.2 Ur Leukocyte Esterase Moderate H Urine RBC 25 - 30 Urine WBC 10 - 15 Ur Epithelial Cells Many Vancomycin Trough EKG/Cardiology Studies: Cardiology / EKG Studies 02/22/17 16:25 EKG [ELECTROCARDIOGRAM] Urgent Comment: Reason For Exam: positiv troponin PRE OP:: N Does Patient Have a Pacemaker?: No PERFORMING PHYSICIAN/PROVIDER:: Adam Del Castillo 02/23/17 07:01 EKG [ELECTROCARDIOGRAM] Stat Comment: Reason For Exam: [email or web address] Review of Systems - Review of Systems Systems not reviewed;Unavailable: Dementia All systems: reviewed and no additional remarkable complaints except - Constitutional Constitutional: absent: Fever, Chills - EENT Eyes: UNREMARKABLE - Cardiovascular Cardiovascular: UNREMARKABLE. absent: Chest Pain, Leg Edema - Respiratory Respiratory: UNREMARKABLE - Gastrointestinal Gastrointestinal: UNREMARKABLE. absent: Abdominal Pain, Nausea, Vomiting - Musculoskeletal Musculoskeletal: UNREMARKABLE - Integumentary Integumentary: UNREMARKABLE Critical Care Progress Note - Extremities/Vascular Does the Patient have a Central Venous Catheter?: No Does the Patient need a Central Venous Catheter?: No Does the Patient have a Soni Catheter?: Yes Does the Patient need a Soni Catheter?: Yes Catheter Insertion Criteria: Incontinence as per policy - Prophylaxis GI Prophylaxis GI: PPI - Prophylaxis DVT Prophylaxis DVT: Lovenox Assessment/Plan - Assessment and Plan (Free Text) Assessment: 76F w/PMH sig for CVA, CAD with history of STEMI, hx UTI, indwelling Soni catheter, urolithiasis and s/p B/L ureteral stent placement, hx skin cancer, afib admitted to ICU 2/2 acute tachypneia and fevers w/elevated WBC and lactate. Pt tachypneic overnight, continues to require ICU care. Plan: Neuro Hx CVA Alert Awake AOx1 (self)) Cont home med: Aricept Stable CVS Hx CAD w/hx of STEMI, afib Normotensive Tachycardic Trops pos, 7.93 from 9.92- down trending Previous history of increased troponins in December 2016 Cont ASA Cont Lipitor Cont Plavix Cont Lovenox 70mg SC Q12H Started on Lopressor 12.5mg Q12H Lasix 40mg IVP x 1 No IVF at this time CXR w/Decreased CHF EKG w/NSR, poss LA enlargement, poss inferior infarct- age indet, anterior infarct- age indet, ST & T wave abnormality, consider lateral ischemia, prolonged QT Avoid QT prolonging meds Cards following- rec for Lipid panel, A1c, TSH, CPK ISO Pulm Sat 95% on RA Target SaO2 >94% Cont Duonebs Cont Pulmicort Monitor Pulm following- Bipap PRN GI HHD Monitor Nephro Electrolytes WNL Cont home med: K-Dur 20mEq QD, MV, Ca Carbonate Monitor Soni in place I/O's U/A pos for mod LE, neg for nitrate Monitor Endo BS 115 FU A1c FU TSH Target euglycemia as per NICE sugar trial ID Afebrile over last 24H Leukocytosis 15.3 from 8.5 Lacate 2.7 from 1.7 U/A pos for mod LE, neg nitrate, lrg blood, high protein Blood cxr x 24H Urine cxr- multiple species, probable contamination FU C diff Vanc trough- 17.6 Tylenol PRN fever Vanco 1gm Q12H- d/c'd Cont Merrem 1gm Q8H ID following Heme Hgb 9.0 from 9.3 Hct 28.2 from 30.7 Plts 148 from 134 Cont Lovenox 70mg SC Q12H Monitor MSK PT/OT eval Fall precautions GI/DVT ppx Cont Lovenox 70mg SC Q12H Pepcid SCDs Dispo Tachycardic overnight Continue ICU care DW attending - Date & Time Date: 02/23/17 Time: 07:45 <Andrew CACERES,Kelsey H - Last Filed: 02/23/17 16:02> CCU Objective - Vital Signs / Intake & Output Vital Signs (Last 4 hours): Vital Signs Pulse Resp BP Pulse Ox 02/23/17 14:00 93 H 02/23/17 13:50 102 H 25 H 97 02/23/17 13:46 108 H 24 121/56 L 95 02/23/17 13:40 107 H 25 H 95 02/23/17 13:30 111 H 28 H 118/61 95 02/23/17 13:20 97 H 22 95 02/23/17 13:16 106 H 21 121/54 L 94 L 02/23/17 13:10 96 H 24 95 02/23/17 13:00 103 H 21 114/52 L 94 L 02/23/17 12:50 95 H 23 96 02/23/17 12:45 103 H 19 116/48 L 96 02/23/17 12:40 96 H 24 97 02/23/17 12:30 102 H 22 115/51 L 96 02/23/17 12:20 99 H 22 97 02/23/17 12:15 102 H 21 135/55 L 99 02/23/17 12:10 98 H 26 H 97 02/23/17 12:00 111 H 24 108/60 96 Intake and Output (Last 8hrs): Intake & Output 02/23/17 02/23/17 02/23/17 06:59 14:59 22:59 Intake Total 700 Output Total 400 1100 Balance 300 -1100 Weight 183 lb 1.6 oz Intake: Oral 50 Other 650 Output: Urine 400 1100 Urine, Voided 400 1100 Other: Voiding Method Indwelling Catheter Indwelling Catheter # Bowel Movements 1 - Medications Active Medications: Active Medications Generic Name Dose Route Start Last Admin Trade Name Freq PRN Reason Stop Dose Admin Acetaminophen 650 mg 02/21/17 10:20 Tylenol 325mg Tab PO Q6H PRN Fever >100.4 F Albuterol/Ipratropium 3 ml 02/21/17 10:20 02/23/17 07:05 Duoneb 3 Mg/0.5 Mg (3 Ml) Ud INH 3 ml [id number] PRN Administration Shortness of Breath Aspirin 81 mg 02/22/17 10:00 02/23/17 09:16 Ecotrin PO 81 mg DAILY FILI Administration Atorvastatin Calcium 80 mg 02/22/17 10:00 02/23/17 09:16 Lipitor PO 80 mg DAILY FILI Administration Budesonide 1 mg 02/21/17 10:30 Pulmicort Respules IH Q12H FILI Calcium Carbonate 1,250 mg 02/21/17 10:30 02/23/17 09:17 Oscal PO 1,250 mg DAILY FILI Administration Clopidogrel Bisulfate 75 mg 02/21/17 10:30 02/23/17 09:17 Plavix PO 75 mg DAILY FILI Administration Donepezil HCl 10 mg 02/21/17 10:30 02/23/17 09:16 Aricept PO 10 mg DAILY FILI Administration Enoxaparin Sodium 70 mg 02/22/17 01:30 02/23/17 13:23 Lovenox SC 70 mg Q12H FILI Administration Protocol Famotidine 40 mg 02/22/17 10:00 02/23/17 09:17 Pepcid PO 40 mg DAILY FILI Administration Furosemide 40 mg 02/21/17 10:30 02/21/17 13:00 Lasix PO 40 mg DAILY FILI Administration Meropenem 1g/NS 100mL IVPB 1 gm in 100 mls @ 100 mls/hr 02/22/17 06:00 13:23 Meropenem 1g/Ns 100ml Ivpb IVPB 02/26/17 07:01 100 mls/hr Q8 FILI Administration Protocol Latanoprost 0 ml 02/21/17 22:00 02/22/17 22:31 Xalatan Opht OU 2.5 ml HS FILI Administration Metoprolol Tartrate 12.5 mg 02/23/17 17:00 Lopressor PO BRKDIN FILI Multivitamins 1 tab 02/22/17 10:00 02/23/17 09:17 Thera Tab PO 1 tab DAILY FILI Administration Nitroglycerin 1 ea 02/22/17 16:00 02/23/17 09:16 Nitro-Bid 2% Oint TOP 1 ea Q6H FILI Administration Potassium Chloride 20 meq 02/22/17 10:00 02/23/17 09:16 K-Dur 20 Meq Er Tab PO 20 meq DAILY FILI Administration - Patient Studies Lab Studies: Microbiology Studies 02/21/17 19:40 Blood Culture - Preliminary Blood NO GROWTH AFTER 24 HOURS 02/21/17 19:15 Blood Culture - Preliminary Blood NO GROWTH AFTER 24 HOURS Lab Studies 02/23/17 02/23/17 02/23/17 Range/Units 10:50 09:09 06:30 WBC 15.3 H D (4.5-11.0) 10^3/ul RBC 3.60 (3.5-6.1) 10^6/uL Hgb 9.0 L (12.0-16.0) gm/dL Hct 28.2 L (36.0-48.0) % MCV 78.3 L (80.0-105.0) fL MCH 25.0 (25.0-35.0) pg MCHC 31.9 (31.0-37.0) g/dl RDW 19.2 H (11.5-14.5) % Plt Count 148 (120.0-450.0) 10^3/uL Neutrophils % (Manual) 92 H (50.0-70.0) % Band Neutrophils % 0 (0-2) % Lymphocytes % (Manual) 4 L (22.0-35.0) % Atypical Lymphs % 0 (0.0-0.0) % Monocytes % (Manual) 4 (1.0-6.0) % Toxic Granulation 1+ Platelet Evaluation Normal (NORMAL) Hypochromasia 2+ Target Cells 2+ Rouleaux 2+ Sodium (132-148) mmol/L Potassium (3.6-5.0) mmol/L Chloride (98-107) mmol/L Carbon Dioxide (21-33) mmol/L Anion Gap (10-20) BUN (7-21) mg/dL Creatinine (0.5-1.4) mg/dL Est GFR ( Amer) Est GFR (Non-Af Amer) Random Glucose (70-110) mg/dL Calcium (8.4-10.5) mg/dL Total Bilirubin (0.2-1.3) mg/dL AST (15-39) U/L ALT (7-56) U/L Alkaline Phosphatase (38-133) U/L Troponin I 7.93 H* D ng/mL Total Protein (5.8-8.3) g/dL Albumin (3.0-4.8) g/dL Globulin gm/dL Albumin/Globulin Ratio (1.1-1.8) Urine Color yellow (YELLOW) Urine Appearance Clear (CLEAR) Urine pH 5.5 (4.7-8.0) Ur Specific [place] 1.010 (1.005-1.035) Urine Protein Trace H (<30 mg/dL) mg/dL Urine Glucose (UA) Negative (NEGATIVE) mg/dL Urine Ketones Negative (NEGATIVE) mg/dL Urine Blood Large H (NEGATIVE) Urine Nitrate Negative (NEGATIVE) Urine Bilirubin Negative (NEGATIVE) Urine Urobilinogen 0.2 (<1 E.U./dL) E.U./dL Ur Leukocyte Esterase Moderate H (NEGATIVE) Davis/uL Urine RBC 25 - 30 (0-2) /hpf Urine WBC 10 - 15 (0-6) /hpf Ur Epithelial Cells Many (0-5) /hpf Vancomycin Trough (5.0-10.0) ug/mL 02/23/17 02/22/17 Range/Units 05:30 19:50 WBC (4.5-11.0) 10^3/ul RBC (3.5-6.1) 10^6/uL Hgb (12.0-16.0) gm/dL Hct (36.0-48.0) % MCV (80.0-105.0) fL MCH (25.0-35.0) pg MCHC (31.0-37.0) g/dl RDW (11.5-14.5) % Plt Count (120.0-450.0) 10^3/uL Neutrophils % (Manual) (50.0-70.0) % Band Neutrophils % (0-2) % Lymphocytes % (Manual) (22.0-35.0) % Atypical Lymphs % (0.0-0.0) % Monocytes % (Manual) (1.0-6.0) % Toxic Granulation Platelet Evaluation (NORMAL) Hypochromasia Target Cells Rouleaux Sodium 143 (132-148) mmol/L Potassium 4.0 (3.6-5.0) mmol/L Chloride 110 H (98-107) mmol/L Carbon Dioxide 23 (21-33) mmol/L Anion Gap 14 (10-20) BUN 22 H (7-21) mg/dL Creatinine 1.0 (0.5-1.4) mg/dL Est GFR ( Amer) > 60 Est GFR (Non-Af Amer) 54 Random Glucose 115 H (70-110) mg/dL Calcium 8.8 (8.4-10.5) mg/dL Total Bilirubin 0.5 (0.2-1.3) mg/dL AST 49 H (15-39) U/L ALT 36 (7-56) U/L Alkaline Phosphatase 73 (38-133) U/L Troponin I ng/mL Total Protein 6.4 (5.8-8.3) g/dL Albumin 3.3 (3.0-4.8) g/dL Globulin 3.1 gm/dL Albumin/Globulin Ratio 1.1 (1.1-1.8) Urine Color (YELLOW) Urine Appearance (CLEAR) Urine pH (4.7-8.0) Ur Specific [place] (1.005-1.035) Urine Protein (<30 mg/dL) mg/dL Urine Glucose (UA) (NEGATIVE) mg/dL Urine Ketones (NEGATIVE) mg/dL Urine Blood (NEGATIVE) Urine Nitrate (NEGATIVE) Urine Bilirubin (NEGATIVE) Urine Urobilinogen (<1 E.U./dL) E.U./dL Ur Leukocyte Esterase (NEGATIVE) Davis/uL Urine RBC (0-2) /hpf Urine WBC (0-6) /hpf Ur Epithelial Cells (0-5) /hpf Vancomycin Trough 17.6 H* (5.0-10.0) ug/mL Laboratory Results - last 24 hr 02/22/17 02/23/17 02/23/17 19:50 05:30 06:30 WBC RBC Hgb Hct MCV MCH MCHC RDW Plt Count Neutrophils % (Manual) Band Neutrophils % Lymphocytes % (Manual) Atypical Lymphs % Monocytes % (Manual) Toxic Granulation Platelet Evaluation Hypochromasia Target Cells Rouleaux Sodium 143 Potassium 4.0 Chloride 110 H Carbon Dioxide 23 Anion Gap 14 BUN 22 H Creatinine 1.0 Est GFR ( Amer) > 60 Est GFR (Non-Af Amer) 54 Random Glucose 115 H Calcium 8.8 Total Bilirubin 0.5 AST 49 H ALT 36 Alkaline Phosphatase 73 Troponin I 7.93 H* D Total Protein 6.4 Albumin 3.3 Globulin 3.1 Albumin/Globulin Ratio 1.1 Urine Color Urine Appearance Urine pH Ur Specific [place] Urine Protein Urine Glucose (UA) Urine Ketones Urine Blood Urine Nitrate Urine Bilirubin Urine Urobilinogen Ur Leukocyte Esterase Urine RBC Urine WBC Ur Epithelial Cells Vancomycin Trough 17.6 H* 02/23/17 02/23/17 09:09 10:50 WBC 15.3 H D RBC 3.60 Hgb 9.0 L Hct 28.2 L MCV 78.3 L MCH 25.0 MCHC 31.9 RDW 19.2 H Plt Count 148 Neutrophils % (Manual) 92 H Band Neutrophils % 0 Lymphocytes % (Manual) 4 L Atypical Lymphs % 0 Monocytes % (Manual) 4 Toxic Granulation 1+ Platelet Evaluation Normal Hypochromasia 2+ Target Cells 2+ Rouleaux 2+ Sodium Potassium Chloride Carbon Dioxide Anion Gap BUN Creatinine Est GFR ( Amer) Est GFR (Non-Af Amer) Random Glucose Calcium Total Bilirubin AST ALT Alkaline Phosphatase Troponin I Total Protein Albumin Globulin Albumin/Globulin Ratio Urine Color yellow Urine Appearance Clear Urine pH 5.5 Ur Specific [place] 1.010 Urine Protein Trace H Urine Glucose (UA) Negative Urine Ketones Negative Urine Blood Large H Urine Nitrate Negative Urine Bilirubin Negative Urine Urobilinogen 0.2 Ur Leukocyte Esterase Moderate H Urine RBC 25 - 30 Urine WBC 10 - 15 Ur Epithelial Cells Many Vancomycin Trough EKG/Cardiology Studies: Cardiology / EKG Studies 02/22/17 16:25 EKG [ELECTROCARDIOGRAM] Urgent Comment: Reason For Exam: positiv troponin PRE OP:: N Does Patient Have a Pacemaker?: No PERFORMING PHYSICIAN/PROVIDER:: Adam Del Castillo 02/23/17 07:01 EKG [ELECTROCARDIOGRAM] Stat Comment: Reason For Exam: tachypneia Attending/Attestation - Attestation I have personally seen and examined this patient.: Yes I have fully participated in the care of the patient.: Yes I have reviewed all pertinent clinical information: Yes Notes (Text): 02/23/17 15:59 76 y/o F w/ sepsis likely from previous Cystitis NSTEMI with troponin elevation , now stabilized w/o any further EKG changes. CHF w/ occasional SOB and increased RR. BIPAP prn On empiric abx , w/ CX pending. No IV fluids and monitor for fluid overload and CHF worsening. NSTEMI with troponin now downtrending. Would medically start treating w/ b- blockers, asprin, statin , plavix etc. Cardiology following as well. poor prognosis overall. cc time 54 min
--- NOTE | 2017-02-23 19:33 | PN ---
DATE: 02/23/2017 REFERRING PHYSICIAN: Dr. Jung. SUBJECTIVE: The patient is lying in the bed, head at 45 degrees. Tolerated BiPAP well. Has conjunc tivitis the conjunctivae. No chest pain, no nausea, no vomiting, no diarrhea. No leg pain or leg swelling. OBJECTIVE: GENERAL: No acute distress. VITAL SIGNS: Temp is 98, heart rate is 98, respiratory rate is 28, blood pressure 116/58, pulse ox 9 8% on nasal cannula. HEENT: Moist mucous membranes. Crowded airway. Mallampati score is 4. NECK: Supple. No JVD. LUNGS: Have a few crackles. HEART: S1, S2. ABDOMEN: Soft, nontender. No organomegaly. EXTREMITIES: There is trace edema. NEUROLOGIC: Awake, alert, follows simple commands. MEDICATIONS: She is on Aricept 10 mg daily, DuoNeb q. 6 hours p.r.n., Ecotrin 81 mg daily, potassium 20 mEq daily, Lasix 40 mg daily, Lipitor 80 mg daily, metoprolol tartrate 25 mg twice a day, Lovenox 70 mg subQ twice a day, meropenem 1 gram IV q. 8 hours, Os-Danilo p.o. daily, Pepcid 40 mg daily, Plavi x 75 mg daily, Pulmicort inhaled twice a day, multivitamins daily, Tylenol p.r.n. LABORATORY DATA: Shows hemoglobin 9.2, hematocrit 28.2, WBC 15.3, platelet is 148. Sodium 142, pota ssium 4.0, chloride 110, bicarbonate 23, BUN 22, creatinine 1.0, glucose 115, calcium is 8.8, AST 49, ALT 36, alk phos is 73. Troponin is 7.93, albumin is 3.3. Procalcitonin is 21.9. Microbiology: B lood culture and urine culture are unremarkable. Chest x-ray done today shows improved pulmonary inf iltrates. IMPRESSION AND PLAN: Cardiomyopathy, history of myocardial infarction, again had myocardial infarcti on, elevated cardiac enzymes, pneumonia, renal stones, history of hematuria, history of cerebrovascul ar accident, aortic stenosis, chronic obstructive lung disease, may have obstructive sleep apnea synd yohan with CO2 retention, bilateral subconjunctival bleed versus infection. The patient is already on IV meropenem. Encourage BiPAP use. to the eyes. Gastric prophylaxis. On anticoagulation. C ontinue antibiotics covering healthcare-associated organism. Will get ABGs, chest x-ray, CBC in the morning. Critical care time spent more than 35 minutes. Thank you and will follow with you. Adam Christianson MD cc: [id number] TT: 02/23/2017 19:32:41 Confirmation # [id number] Dictation # [id number] mn
[2017-02-23] MEDS: Latanoprost 2.5 ml Opht Soln OU SCH (22:42)
[2017-02-24] MEDS: Albuterol-Ipratrop 3 mg / 0.5 (3 ml) UD INH PRN (00:43)
--- NOTE | 2017-02-24 03:01 | CP.PCM.PN ---
Subjective - Date & Time of Evaluation Date of Evaluation: 02/24/17 Time of Evaluation: 02:58 - Subjective Subjective: Nurse calls and tells that patient had bloody urine.She been incontinent of urine. She was seen at bedside.She has no complaints.Denies hemoptysis, hemetemesis, hematochezia. Has no chest pain , sob. Medical record was reviewed. This 76 year old white woman was admitted with fever, sob, fainting. Has PMH of CVA,non stei, left upper and lower extremity weakness, CHF, atrial fibrillation, COPD, dementia, glaucoma, cataract, multiple UTI, CAD, anemia, multiple transfusion, indwelling Soni, catheter. Objective - Vital Signs/Intake and Output Vital Signs (last 24 hours): Temp Pulse Resp BP Pulse Ox 98.6 F 82 19 124/57 L 95 02/24/17 00:01 02/24/17 02:00 02/24/17 00:01 02/24/17 00:01 02/24/17 00:01 Intake and Output: 02/23/17 02/24/17 18:59 06:59 Intake Total 580 Output Total 1580 Balance -1000 - Medications Medications: Current Medications Acetaminophen (Tylenol 325mg Tab) 650 mg PO Q6H PRN PRN Reason: Fever >100.4 F Last Admin: 02/23/17 19:34 Dose: 650 mg Albuterol/Ipratropium (Duoneb 3 Mg/0.5 Mg (3 Ml) Ud) 3 ml INH [id number] PRN PRN Reason: Shortness of Breath Last Admin: 02/24/17 00:43 Dose: 3 ml Aspirin (Ecotrin) 81 mg PO DAILY [facility] Last Admin: 02/23/17 09:16 Dose: 81 mg Atorvastatin Calcium (Lipitor) 80 mg PO DAILY [facility] Last Admin: 02/23/17 09:16 Dose: 80 mg Budesonide (Pulmicort Respules) 1 mg IH Q12H [facility] Calcium Carbonate (Oscal) 1,250 mg PO DAILY [facility] Last Admin: 02/23/17 09:17 Dose: 1,250 mg Clopidogrel Bisulfate (Plavix) 75 mg PO DAILY [facility] Last Admin: 02/23/17 09:17 Dose: 75 mg Donepezil HCl (Aricept) 10 mg PO DAILY [facility] Last Admin: 02/23/17 09:16 Dose: 10 mg Enoxaparin Sodium (Lovenox) 70 mg SC Q12H [facility] PRN Reason: Protocol Last Admin: 02/23/17 21:31 Dose: 70 mg Famotidine (Pepcid) 40 mg PO DAILY [facility] Last Admin: 02/23/17 09:17 Dose: 40 mg Furosemide (Lasix) 40 mg PO DAILY [facility] Last Admin: 02/21/17 13:00 Dose: 40 mg Meropenem 1g/NS 100mL IVPB (Meropenem 1g/Ns 100ml Ivpb) 1 gm in 100 mls @ 100 mls/hr IVPB Q8 [facility] PRN Reason: Protocol Stop: 02/26/17 07:01 Last Admin: 02/23/17 21:31 Dose: 100 mls/hr Latanoprost (Xalatan Opht) 0 ml OU HS [facility] Last Admin: 02/23/17 22:42 Dose: 2.5 ml Metoprolol Tartrate (Lopressor) 12.5 mg PO BRKDIN [facility] Last Admin: 02/23/17 17:35 Dose: 12.5 mg Multivitamins (Thera Tab) 1 tab PO DAILY [facility] Last Admin: 02/23/17 09:17 Dose: 1 tab Nitroglycerin (Nitro-Bid 2% Oint) 1 ea TOP Q6H [facility] Last Admin: 02/23/17 21:31 Dose: 1 ea Potassium Chloride (K-Dur 20 Meq Er Tab) 20 meq PO DAILY [facility] Last Admin: 02/23/17 09:16 Dose: 20 meq - Labs Labs: 02/23/17 10:50 02/23/17 05:30 PT 11.9 Seconds (9.9-11.8) H 02/21/17 02:47 INR 1.10 (0.93-1.08) H 02/21/17 02:47 APTT 29.0 Seconds (23.7-30.8) 02/21/17 02:47 - Constitutional Appears: Well, No Acute Distress - Head Exam Head Exam: ATRAUMATIC, NORMAL INSPECTION, NORMOCEPHALIC - Eye Exam Eye Exam: Normal appearance - ENT Exam ENT Exam: Normal External Ear Exam Additional comments: Has BiPAP mask on. - Neck Exam Neck Exam: Normal Inspection - Respiratory Exam Respiratory Exam: NORMAL BREATHING PATTERN - Cardiovascular Exam Cardiovascular Exam: absent: JVD - GI/Abdominal Exam GI & Abdominal Exam: absent: Distended - Rectal Exam Rectal Exam: Deferred - Extremities Exam Extremities Exam: Normal Inspection - Back Exam Back Exam: NORMAL INSPECTION - Neurological Exam Neurological Exam: Alert, Oriented x3 - Psychiatric Exam Psychiatric exam: Normal Affect, Normal Mood - Skin Additional comments: Multiple echomosis secondarty to intravenous infiltrate. Assessment and Plan - Assessment and Plan (Free Text) Assessment: Hematuria. Hemiparesis. CAD. NSTEMI. Anemia. Plan: Monitor. Add PT/INR in AM labs of CBC. Hold ASA, plavix, lovenox. Nurse will call PMD prior to giving AM dose of above medications. Continue present medications.
[2017-02-24] MEDS: Nitroglycerin 2% Ointment Foilpak UD TOP SCH ×4 (06:02→21:52)
[2017-02-24] MEDS: Meropenem 1g/NS 100mL IVPB 1 GM/100 ML PIGGYBACK IVPB SCH ×2 (06:02→13:00)
[2017-02-24 06:53] LABS: ADD MANUAL DIFF? NO
[2017-02-24 06:56] LABS: BASO # 0.01 K/mm3 (0.0-2.0); BASO % 0.2 % (0.0-3.0); EOS # 0.1 (0.0-0.7); EOS % 1.3 % (1.5-5.0); GRAN % 74.8 % (50.0-68.0); HEMATOCRIT 24.7 % (36.0-48.0); LYMPH # 1.1 (1.2-3.4); LYMPH % 18.5 % (22.0-35.0); MEAN CELL VOLUME 78.9 fL (80.0-105.0); MEAN CORPUSCULAR HEMOGLOBIN 25.2 pg (25.0-35.0); MONO # 0.3 (0.1-0.6); MONO % 5.2 % (1.0-6.0); PLATELET COUNT 127 10^3/uL (120.0-450.0); RED CELL DISTRIBUTION WIDTH 19.6 % (11.5-14.5)
[2017-02-24 07:06] LABS: INR 1.09 (0.93-1.08); PARTIAL THROMBOPLASTIN TIME 33.4 Seconds (23.7-30.8)
[2017-02-24 07:30] LABS: ALB/GLOB RATIO 0.9 (1.1-1.8); ALKALINE PHOSPHATASE 54 U/L (38-133); ALT/SGPT 34 U/L (7-56); AST/SGOT 32 U/L (15-39); BILIRUBIN,TOTAL 0.6 mg/dL (0.2-1.3); BLOOD UREA NITROGEN 20 mg/dL (7-21); CALCIUM 8.2 mg/dL (8.4-10.5); CARBON DIOXIDE 26 mmol/L (21-33); CHLORIDE 111 mmol/L (98-107); CHOLESTEROL 66 mg/dL (130-200); GFR AFRICAN-AMERICAN > 60; GLUCOSE,RANDOM 83 mg/dL (70-110); MAGNESIUM 2.1 mg/dL (1.7-2.2); PHOSPHOROUS 2.7 mg/dL (2.5-4.5); POTASSIUM 3.2 mmol/L (3.6-5.0); SODIUM 143 mmol/L (132-148); TOTAL PROTEIN 5.6 g/dL (5.8-8.3)
[2017-02-24 07:41] LABS: TROPONIN I 5.46 ng/mL
[2017-02-24] MEDS ORDERED: Potassium Chloride 20 mEq ER Tab PO ONE ×2 (09:25→16:00)
[2017-02-24] MEDS: Multivitamin Therapeutic Tab PO SCH (10:29)
[2017-02-24] MEDS: Enoxaparin 80 mg Syringe SC SCH (10:30)
[2017-02-24] MEDS: Potassium Chloride 20 mEq ER Tab PO SCH (10:30)
--- NOTE | 2017-02-24 11:57 | PN ---
DATE: 02/24/2017 The patient is in bed, in no acute distress, nontoxic. PHYSICAL EXAMINATION: VITAL SIGNS: Temperature is 98, blood pressure is 130/60, respiratory rate of 16. HEENT: Unremarkable. NECK: Supple. LUNGS: Have decreased breath sounds. HEART: Normal S1, S2. ABDOMEN: Soft, nontender. LABORATORY DATA: Reveals a white count of 6, hemoglobin of 7 and platelets of 127. Chemistries reve al a BUN of 20, creatinine of 1.0. Procalcitonin is 21.9 from yesterday. Microbiology reveals urine culture is negative. Blood cultures are negative. Review of the orders reveals the patient to be on meropenem. The patient's chest x-ray from yesterda y: Decreased to a right lower lobe infiltrate, decreased vascular congestion. Dr. Christianson's progress note is reviewed. ASSESSMENT AND PLAN: A 76-year-old female with cerebrovascular accident, coronary artery disease, hi story of ST-elevation myocardial infarction, history of urinary tract infection with sepsis with urin e as the source, bilateral stent, coronary artery disease, negative blood cultures at this time, non- [id number] segment myocardial infarction and severe aortic stenosis, hypertension with cardiomyopat hy with an ejection fraction of 30% with acute systolic congestive heart failure on top of chronic co ngestive heart failure, who had a procalcitonin level was 0.16, which was repeated yesterday, was up to 21. The CAT scan of the chest from 02/21/2017 is noted to be positive for infiltrates. On day #3 of meropenem, now with an elevated procalcitonin. The patient initially did have a fever. Would co mplete 4-7 days of antibiotics. Today is day #3 of meropenem of 4-7 days. Will order a procalcitoni n level again. Lamberto Lima MD cc: [id number] TT: 02/24/2017 11:56:36 Confirmation # [id number] Dictation # [id number] mn
[2017-02-24] MEDS ORDERED: Budesonide 0.5 mg/2 ml Inhal Susp UD IH SCH (12:48)
--- NOTE | 2017-02-24 13:27 | PN ---
DATE: 02/24/2017 REASON FOR CONSULTATION AND FOLLOWUP: Positive troponin, cardiac evaluation, asymptomatic, possible GI bleed, dropping H and H. BRIEF CLINICAL HISTORY: A 76-year-old female with a past medical history significant for non-ST-segm ent myocardial infarction, coronary artery disease, anemia, history of multiple transfusions, GI blee d, history of CVA, contracture of the left upper extremity and weakness of left lower extremity. Adm itted with sepsis, WBC 20,000, possible UTI, troponin positive, asymptomatic. Denies any chest pain, shortness of breath, any palpitation. Troponin is trending down. This morning, hemoglobin is 7.8. PHYSICAL EXAMINATION: VITAL SIGNS: Temperature afebrile, heart rate 75, blood pressure 135/66. HEENT: PERRLA. Extraocular muscles intact. NECK: Supple. No carotid bruits. No thyromegaly. CHEST: Clear to auscultation. HEART: S1, S2 regular. ABDOMEN: Soft. EXTREMITIES: Clubbing, cyanosis negative. BLOOD WORKUP: WBC 6, hemoglobin 7.9, hematocrit 24.7, platelet count 127. Chemistry shows sodium 14 0, potassium 3.2, chloride 111, carbon dioxide 26, anion gap of 9, BUN 20, creatinine 1.0. Troponin 5.46. IMPRESSION: Non-ST segment myocardial infarction, coronary artery disease, cerebrovascular accident, anemia, drop in H and H, hemoglobin 7.4, hypokalemia, contracture of left upper extremity, asymptoma tic. RECOMMENDATION: Aggressive medical treatment, beta-annabelle, nitrate, aspirin. The patient was on Pl avix, but patient is dropping H and H, so Plavix is going to be hold. Continue Lovenox. Since the p atient is dropping H and H, we will decrease the dose of Lovenox to deep venous thrombosis prophylaxi s, consider packed red blood cell transfusion. The patient had recent echo done 01/02/2017 that shows severe aortic stenosis, valve area 0.4 cm squared, mild to moderate mitral regurgitation, mild to mo derate tricuspid regurgitation, right ventricular systolic pressure 43, ejection fraction 35%-40%, se kwabena aortic stenosis. RECOMMENDATION: Continue medical treatment. Overall, patient's condition is critical. Prognosis is extremely guarded. Consider hospice care. The patient cannot tolerate aspirin, Plavix and keeps on dropping H and H, cannot tolerate Lovenox and required multiple transfusions last time, requiring tr ansfusion again. If aggressive treatment is considered, first needs GI workup to see the active site of bleeding. We will follow with you. Thank you, Dr. Jung, for providing us the opportunity in taking care of the patient. Because of dr dorita H and H, we will change the Lovenox 1 mg/kg q. 12 to deep venous thrombosis prophylaxis from t omorrow. Monitor H and H. Consider packed red blood cell transfusion. Agree with Dr. Jung, to give 2 units of packed red blood cells, keep hemoglobin around 10. Will supplement potassium. C ontinue nitrate. Adam Del Castillo MD cc: [id number] TT: 02/24/2017 13:26:39 Confirmation # [id number] Dictation # [id number] en
--- NOTE | 2017-02-24 22:12 | PN ---
DATE: 02/24/2017 REFERRING PHYSICIAN: Dr. Jung. SUBJECTIVE: She is lying in the bed, head at 45 degrees, awake, alert, being transfused mild cough. No sputum production, no nausea, no vomiting, no chest pain, no leg pain or leg swelling. OBJECTIVE: GENERAL: In no acute distress. VITAL SIGNS: Temp is 98, heart rate is 88, respiratory rate is 18, blood pressure 110/53 and pulse o x 100% on nasal cannula. HEENT: Moist mucous membranes. Crowded airway. NECK: Supple. No JVD. LUNGS: Have fair airflow with few rhonchi. HEART: S1, S2. ABDOMEN: Soft, nontender. No organomegaly. EXTREMITIES: There is no edema. NEUROLOGIC: Awake, alert, follows simple commands. MEDICATIONS: The patient is on Aricept 10 mg daily, DuoNeb q. 6 hours p.r.n., Ecotrin 81 mg daily, p otassium 20 mEq daily, Lasix 40 mg daily, Lipitor 80 mg daily, metoprolol tartrate 25 mg twice a day, Lovenox 30 mg subQ daily, meropenem 1 gram IV q. 8 hours, Nitro-Bid 2% at affected area q. 6 hours, Os-Danilo 1250 mg daily, Pepcid 40 mg daily, Pulmicort inhaled twice a day, multivitamins daily, Tylenol on a p.r.n. basis. LABORATORY DATA: Shows hemoglobin 7.9, hematocrit 24.7, WBC 6.0, platelet is 127. INR 1.09. Sodium 143, potassium 3.2, chloride 111, bicarbonate 26, BUN 20, creatinine 1.0, glucose 83. Hemoglobin A1 c 5.7, calcium is 8.2, phosphorus 2.7, magnesium 2.1, total bili 0.6, AST 32, ALT 34, alk phos is 54. LDH 700 Troponin 5.46. Albumin 2.6. Procalcitonin 21, which decreased to 8.5 today. IMPRESSION AND PLAN: Cardiomyopathy, history of myocardial infarction, elevated cardiac enzymes whic h are slowly improving, pneumonia, renal stones, history of hematuria, cerebrovascular accident, aort ic stenosis, chronic obstructive lung disease, obstructive sleep apnea syndrome with CO2 retention, b ilateral conjunctival bleed, anemia, being transfused. I spoke to Dr. Jung. Plavix disconti nue and Lovenox changed to DVT prophylaxis. Keep head elevated at 45 degrees, aspiration precaution, bronchodilator. Encourage BiPAP use while sleeping. Follow up labs in the morning. Thank you and will follow with you. Adam Christianson MD cc: [id number] TT: 02/24/2017 22:11:27 Confirmation # [id number] Dictation # [id number] mn
[2017-02-24] MEDS: Latanoprost 2.5 ml Opht Soln OU SCH (22:30)
[2017-02-25] MEDS: Meropenem 1g/NS 100mL IVPB 1 GM/100 ML PIGGYBACK IVPB SCH ×3 (00:11→12:59)
[2017-02-25] MEDS ORDERED: Budesonide 0.5 mg/2 ml Inhal Susp UD IH SCH (00:43)
[2017-02-25] MEDS: Albuterol-Ipratrop 3 mg / 0.5 (3 ml) UD INH PRN ×2 (01:10→08:17)
[2017-02-25] MEDS: Nitroglycerin 2% Ointment Foilpak UD TOP SCH ×3 (04:30→16:04)
--- NOTE | 2017-02-25 06:31 | PN ---
DATE: 02/24/2017 SUBJECTIVE: The patient was seen and examined on the bedside, looks comfortable. No nausea, vomiting. No hematuria or hematochezia. Does not look like in distress. No chest pain, no palpitations. No headache, no dizziness. PHYSICAL EXAMINATION: VITAL SIGNS: Temperature 98, heart rate 80, respiratory rate 18, blood pressure 10/52, pulse oximetry 100% on room air. HEENT: Head normocephalic, atraumatic. Eyes: PERRLA. Extraocular muscles intact. Conjunctivae clear. Nose patent. Mucous membranes moist. NECK: Supple. No carotid bruit, JVD or thyromegaly. CHEST: Bilaterally symmetrical. HEART: S1, S2 positive. LUNGS: Have fair airflow with a few rhonchi. HEART: S1, S2 positive. ABDOMEN: Soft, nontender. No organomegaly. EXTREMITIES: No edema, no cyanosis. NEUROLOGIC: The patient is awake, alert, follows simple commands. MEDICATIONS: Aricept, DuoNeb, Ecotrin, potassium, Lasix, Lipitor, metoprolol, Lovenox, Pulmicort, Tylenol. LABORATORY DATA: Hemoglobin 7.9, hematocrit 24.7, white blood cells 6.0, platelets 127. Sodium 143, potassium 3.2, BUN 20, creatinine 1.0, glucose 83, hemoglobin A1c 5.7, ALT 34, AST 32. ASSESSMENT AND PLAN: The patient is a 76-year-old lady with multiple medical problems, cardiomyopathy, history of myocardial infarction, elevated cardiac enzymes which were slowly improving, pneumonia, renal stones, history of hematuria, ureteral stent, cerebrovascular accident, aortic stenosis, chronic obstructive pulmonary disease, obstructive sleep apnea syndrome, bilateral conjunctival bleed, anemia, will get transfusion. Gastrointestinal and deep vein thrombosis prophylaxis. Length of time discussion done with Dr. Christianson. Because of the patient's hematuria, maybe we have to stop the Plavix. We will discuss with the therapeutic riding instructor. Encourage BiPAP while sleeping. Hemoglobin and hematocrit, We will follow up. Florence Jung MD cc: [id number] TT: 02/25/2017 06:31:07 Confirmation # [id number] Dictation # [id number] joan ARMSTRONG
[2017-02-25 06:42] VITALS: O2SAT 98
[2017-02-25 06:56] LABS: ADD MANUAL DIFF? NO
[2017-02-25 07:06] LABS: BASO # 0.02 K/mm3 (0.0-2.0); BASO % 0.2 % (0.0-3.0); EOS % 0.3 % (1.5-5.0); GRAN # 7.81 (1.4-6.5); GRAN % 83.4 % (50.0-68.0); HEMATOCRIT 33.1 % (36.0-48.0); MEAN CELL VOLUME 80.5 fL (80.0-105.0); MEAN CORPUSCULAR HEMOGLOBIN 25.3 pg (25.0-35.0); MEAN CORPUSCULAR HGB CONC 31.4 g/dl (31.0-37.0); MONO # 0.5 (0.1-0.6); MONO % 5.1 % (1.0-6.0); PLATELET COUNT 138 10^3/uL (120.0-450.0); RED CELL DISTRIBUTION WIDTH 18.3 % (11.5-14.5); WHITE BLOOD COUNT 9.4 10^3/ul (4.5-11.0)
[2017-02-25 07:21] LABS: ALKALINE PHOSPHATASE 62 U/L (38-133); ALT/SGPT 28 U/L (7-56); AST/SGOT 31 U/L (15-39); BILIRUBIN,TOTAL 1.4 mg/dL (0.2-1.3); BLOOD UREA NITROGEN 19 mg/dL (7-21); CALCIUM 8.7 mg/dL (8.4-10.5); CARBON DIOXIDE 26 mmol/L (21-33); CHLORIDE 109 mmol/L (98-107); GFR AFRICAN-AMERICAN > 60; GLUCOSE,RANDOM 102 mg/dL (70-110); MAGNESIUM 2.2 mg/dL (1.7-2.2); PHOSPHOROUS 2.9 mg/dL (2.5-4.5); POTASSIUM 4.1 mmol/L (3.6-5.0); SODIUM 143 mmol/L (132-148); TOTAL PROTEIN 6.4 g/dL (5.8-8.3)
--- NOTE | 2017-02-25 08:32 | PN ---
DATE: 02/23/2017 SUBJECTIVE: The patient was seen and examined on the bedside. Looks comfortable. No nausea, vomiting, or diarrhea. No hematuria or hematochezia. No swelling of the legs. No chest pain, no palpitation. No headache, no dizziness. No fever, no chills. PHYSICAL EXAMINATION: VITAL SIGNS: Temperature 98.6, heart rate 108, blood pressure 112/54, respiratory rate 18. HEENT: Head normocephalic, atraumatic. Eyes: PERRLA. Extraocular muscles intact. Conjunctivae are clear. Nose patent. Mucous membranes moist. NECK: Supple. No carotid bruit, JVD or thyromegaly. CHEST: Bilaterally symmetrical. HEART: S1, S2 positive. LUNGS: Clear to auscultation. ABDOMEN: Soft. Bowel sounds present. No organomegaly. EXTREMITIES: No edema, no cyanosis. NEUROLOGIC: The patient is awake, alert and moving all 4 extremities. No focal deficits. MEDICATIONS: Aricept, Ecotrin, potassium, Lasix, Lipitor, Lopressor, Lovenox, meropenem, nitro, calcium, Pepcid, Plavix, Pulmicort, multivitamins, Tylenol. LABORATORY DATA: White blood cells 15.3, hemoglobin 9.0, hematocrit 28.2, and platelets 148. Sodium 143, potassium 4.0, BUN 22, creatinine 1.0, glucose 115. Troponin 9.92, second is 7.93. Prolactin 21.97. ASSESSMENT AND PLAN: The patient is a 76-year-old lady with leukocytosis, anemia, hyperglycemia; myocardial infarction, troponin is positive; proteinuria , hematuria, urinary tract infection. Vancomycin trough is high at 17.6. Seen by infectious disease/Dr. Lima. History of cerebrovascular accident, coronary artery disease, history of ST-elevation myocardial infarction, history of urinary tract infection with sepsis with urine as the source, bilateral stents, [id number] myocardial infarction with severe aortic stenosis and hypertension, cardiomyopathy, congestive heart failure. Waiting for final cultures as per Dr. Lima. Today is meropenem day 2. We will continue present treatment. GI and DVT prophylaxis. Repeat labs. Will follow up. Florence Jung MD cc: [id number] TT: 02/24/2017 07:19:05 Confirmation # [id number] Dictation # [id number] jose alberto ARMSTRONG
[2017-02-25] MEDS: Potassium Chloride 20 mEq ER Tab PO SCH (09:12)
[2017-02-25] MEDS: Multivitamin Therapeutic Tab PO SCH (09:14)
[2017-02-25] MEDS ORDERED: Enoxaparin 30 mg Syringe SC SCH (10:00)
--- NOTE | 2017-02-25 12:13 | CP.PCM.PN ---
Subjective - Date & Time of Evaluation Date of Evaluation: 02/25/17 Time of Evaluation: 10:20 - Subjective Subjective: Comfortable, afebrile, no distress, no diarrhea. Objective - Vital Signs/Intake and Output Vital Signs (last 24 hours): Temp Pulse Resp BP Pulse Ox 97.6 F 111 H 18 129/59 L 98 02/25/17 06:00 02/25/17 06:00 02/25/17 06:00 02/25/17 06:00 02/25/17 06:00 Intake and Output: 02/25/17 02/25/17 06:59 18:59 Intake Total 845 Balance 845 - Medications Medications: Current Medications Acetaminophen (Tylenol 325mg Tab) 650 mg PO Q6H PRN PRN Reason: Fever >100.4 F Last Admin: 02/23/17 19:34 Dose: 650 mg Albuterol/Ipratropium (Duoneb 3 Mg/0.5 Mg (3 Ml) Ud) 3 ml INH [id number] PRN PRN Reason: Shortness of Breath Last Admin: 02/25/17 08:17 Dose: 3 ml Aspirin (Ecotrin) 81 mg PO DAILY [facility] Last Admin: 02/25/17 09:12 Dose: 81 mg Atorvastatin Calcium (Lipitor) 80 mg PO DAILY [facility] Last Admin: 02/25/17 09:12 Dose: 80 mg Budesonide (Pulmicort Respules) 1 mg IH [id number] [facility] Last Admin: 02/25/17 08:17 Dose: 1 mg Calcium Carbonate (Oscal) 1,250 mg PO DAILY [facility] Last Admin: 02/25/17 09:13 Dose: 1,250 mg Donepezil HCl (Aricept) 10 mg PO DAILY [facility] Last Admin: 02/25/17 09:12 Dose: 10 mg Enoxaparin Sodium (Lovenox) 30 mg SC DAILY [facility] PRN Reason: Protocol Last Admin: 02/25/17 09:13 Dose: 30 mg Famotidine (Pepcid) 40 mg PO DAILY [facility] Last Admin: 02/25/17 09:14 Dose: 40 mg Furosemide (Lasix) 40 mg PO DAILY [facility] Last Admin: 02/21/17 13:00 Dose: 40 mg Meropenem 1g/NS 100mL IVPB (Meropenem 1g/Ns 100ml Ivpb) 1 gm in 100 mls @ 100 mls/hr IVPB Q8 [facility] PRN Reason: Protocol Stop: 02/26/17 07:01 Last Admin: 02/25/17 05:57 Dose: 100 mls/hr Latanoprost (Xalatan Opht) 0 ml OU HS [facility] Last Admin: 02/24/17 22:30 Dose: 2.5 ml Metoprolol Tartrate (Lopressor) 12.5 mg PO BRKDIN [facility] Last Admin: 02/25/17 09:12 Dose: 12.5 mg Multivitamins (Thera Tab) 1 tab PO DAILY [facility] Last Admin: 02/25/17 09:14 Dose: 1 tab Nitroglycerin (Nitro-Bid 2% Oint) 1 ea TOP Q6H [facility] Last Admin: 02/25/17 09:15 Dose: 1 ea Potassium Chloride (K-Dur 20 Meq Er Tab) 20 meq PO DAILY [facility] Last Admin: 02/25/17 09:12 Dose: 20 meq - Labs Labs: 02/25/17 06:40 02/25/17 06:40 PT 11.8 Seconds (9.9-11.8) 02/24/17 06:30 INR 1.09 (0.93-1.08) H 02/24/17 06:30 APTT 33.4 Seconds (23.7-30.8) H 02/24/17 06:30 - Constitutional Appears: Non-toxic, No Acute Distress - Head Exam Head Exam: NORMAL INSPECTION - Neck Exam Neck Exam: absent: Meningismus - Respiratory Exam Respiratory Exam: Decreased Breath Sounds - Cardiovascular Exam Cardiovascular Exam: +S1, +S2 - GI/Abdominal Exam GI & Abdominal Exam: Soft. absent: Tenderness Assessment and Plan - Assessment and Plan (Free Text) Plan: Assessment Consider sepsis due to healthcare-associated pneumonia in a patient with acute CHF and acute NSTEMI bilateral ureteral stents and indwelling Soni catheter CVA CAD with history of STEMI history of UTI indwelling Soni catheter urolithiasis and S/P bilateral ureteral stent placement history of skin cancer atrial fibrillation Plan continue Merrem day 4, to complete a 4-7 day course Will continue to monitor clinically
[2017-02-25 12:46] VITALS: PULSE 90; RESP 19
--- NOTE | 2017-02-25 13:57 | PN ---
DATE: 02/25/2017 REASON FOR CONSULTATION AND FOLLOWUP: Positive troponin, cardiac evaluation, asymptomatic, possibly gastrointestinal bleed, drop in hemoglobin and hematocrit. BRIEF CLINICAL HISTORY: A 76-year-old female with a past medical history significant for non-ST-segm ent myocardial infarction, coronary artery disease, history of multiple transfusion, GI bleed, histor y of CVA, contracted left upper extremity weakness of left lower extremity. Admitted with sepsis. W BC 20,000. Possible UTI. Fever, positive troponin, asymptomatic. Denies any chest pain, shortness of breath, any palpitation. Troponin is positive, trending down. Repeat hemoglobin 7.8. PHYSICAL EXAMINATION: As follows: VITAL SIGNS: Temperature afebrile, heart rate 109, blood pressure 129/79. HEENT: PERRLA. Extraocular muscles intact. NECK: Supple. No carotid bruits. No thyromegaly. CHEST: Clear to auscultation. HEART: S1, S2 regular. ABDOMEN: Soft. EXTREMITIES: Clubbing and cyanosis negative. BLOOD WORKUP: As follows: WBC 9.4, hemoglobin 10.4, hematocrit 33.1, platelet count 138. Chemistry shows sodium 140, potassium ____, chloride 101, carbon dioxide 26, anion gap of 12, BUN 19, creatini ne 0.9, total bilirubin 1.4, total protein ____, albumin ____, albumin/globulin ratio 1. IMPRESSION: Gastrointestinal bleed, dropping hemoglobin and hematocrit status post packed red blood cell transfusion; ves-AK-wxsjpan myocardial infarction, asymptomatic; cerebrovascular accident. The patient without any anticoagulation ____ and asymptomatic ____ because ____ comorbidities ____ medica lly. The patient cannot tolerate Plavix because of drop in hemoglobin and hematocrit so we will hold Plavix. Continue baby aspirin. Continue deep venous thrombosis prophylaxis because patient is ____ lying on the bed. Continue beta annabelle. Continue nitrates. Continue gentle diuretics. Overall, patient's condition is critical. Long-term prognosis is guarded. We will follow with you. Thank you, Dr. Jung, for providing the opportunity in taking care of the patient. Adam Del Castillo MD cc: [id number] TT: 02/25/2017 13:08:11 Confirmation # [id number] Dictation # [id number] sn
[2017-02-25 17:38] VITALS: BP 134/64; TEMP 98.3
--- NOTE | 2017-02-26 11:54 | DS ---
Discharged to [facility] on 02/25/17. CHIEF COMPLAINT: Fever, shortness of breath. HISTORY OF PRESENT ILLNESS: The patient is a 76-year-old female with a past medical history of CVA, history of kidney stones, Soni, ureteral stents, came with shortness of breath. The patient was adm itted. Antibiotics given. CAT scan of the chest, abdomen and pelvis done, was seen by Walter Alfonso , infectious disease. Consult was called with Dr. Pravin Holliday. The patient was kept in ICU. IV antibiotics given, improved, discharged back to [facility] with Merrem, 3 more days of IV antibiotics , will continue treatment in [facility]. PAST MEDICAL HISTORY: Atrial fibrillation, congestive heart failure, COPD, dementia, history of para lysis, cataract, glaucoma, hemiplegia, hemiparesis. FAMILY HISTORY: Father and mother noncontributory. HABITS: Never smoked, no drugs, no ethanol. ALLERGIES: The patient is not allergic with any medications. HOME MEDICATIONS: Reviewed by me. PHYSICAL EXAMINATION: VITAL SIGNS: Temperature 98.6, heart rate of 109, blood pressure 129/79, respiratory rate 18. HEENT: Head normocephalic, atraumatic. Eyes: PERRLA. Extraocular muscles intact. Conjunctivae cl ear. Nose patent. Mucous membrane moist. NECK: Supple. No carotid bruit, JVD or thyromegaly. CHEST: Bilaterally symmetrical. HEART: S1, S2 positive. LUNGS: Clear to auscultation. ABDOMEN: Soft. Bowel sounds present. No organomegaly. EXTREMITIES: No edema, no cyanosis. NEUROLOGIC: The patient is awake, alert, moving all 4 extremities. No focal deficit. VITAL SIGNS: Temperature 98.3, pulse 90, blood pressure 134/54, respiratory rate 19. MEDICATIONS: Aricept, DuoNeb, Ecotrin, Lasix, Lipitor, Lopressor, Lovenox, meropenem, nitro, Os-Danilo, Pulmicort. LABORATORY DATA: White blood cells 9.4, hemoglobin 10.4, hematocrit 33.1, and platelets 138. ASSESSMENT AND PLAN: The patient is a 76-year-old lady with multiple medical problems. Has sepsis d ue to healthcare-associated pneumonia in the patient with acute congestive heart failure, acute non-S T myocardial infarction, bilateral ureteral stents, indwelling Soni catheter. cerebrovascular accid ent, coronary artery disease with history of ST elevation myocardial infarction, multiple times histo ry of urinary tract infection, urolithiasis and status post bilateral ureteral stent placement, histo ry of skin cancers, atrial fibrillation, severe anemia, status post blood transfusion. According to infectious disease, we have to complete 7 days of meropenem. On 02/25, it was the fourth day. Three more days we will complete in [facility]. The patient discharged home to [facility] with the plan of c ompleting antibiotics, meropenem, over there for 7 days. Because of urethral bleeding, floor worker well service stopped the Plavix. We will continue aspirin and Lovenox. History of gastrointestinal bleeding also , dropping hemoglobin. Packed RBCs given. Continue baby aspirin as per floor worker well service. We will follo w up in [facility]. Florence Jung MD cc: [id number] TT: 02/26/2017 11:53:28 tn
== END 2017-02-25 18:24 | DRG 871 ==
LOC: ED 01:49 → ERH 04:20 → 2RNO 06:38 → CCU 19:39 → 2RSO 02-23 20:21
PROVIDERS: ADMIT Internal Medicine; ATTEND Internal Medicine
PROC: 30233N1 Transfusion of Nonautologous Red Blood Cells into Peripheral Vein, Percutaneous Approach (ICD-10-PCS; principal; 2017-02-24)
DX: A41.9 Sepsis, unspecified organism (principal); J69.0 Pneumonitis due to inhalation of food and vomit; I21.4 Non-ST elevation (NSTEMI) myocardial infarction; I50.23 Acute on chronic systolic (congestive) heart failure; E87.2 Acidosis; J44.0 Chronic obstructive pulmonary disease with (acute) lower respiratory infection; K92.2 Gastrointestinal hemorrhage, unspecified; I42.9 Cardiomyopathy, unspecified; I69.354 Hemiplegia and hemiparesis following cerebral infarction affecting left non-dominant side; L03.211 Cellulitis of face; J98.11 Atelectasis; I11.0 Hypertensive heart disease with heart failure; E11.65 Type 2 diabetes mellitus with hyperglycemia; D64.9 Anemia, unspecified; E78.5 Hyperlipidemia, unspecified; E87.6 Hypokalemia; F03.90 Unspecified dementia, unspecified severity, without behavioral disturbance, psychotic disturbance, mood disturbance, and anxiety; G47.33 Obstructive sleep apnea (adult) (pediatric); H10.9 Unspecified conjunctivitis; H40.9 Unspecified glaucoma; I08.3 Combined rheumatic disorders of mitral, aortic and tricuspid valves; I25.10 Atherosclerotic heart disease of native coronary artery without angina pectoris; I25.2 Old myocardial infarction; I48.91 Unspecified atrial fibrillation; Z85.828 Personal history of other malignant neoplasm of skin; K21.9 Gastro-esophageal reflux disease without esophagitis; N20.9 Urinary calculus, unspecified; N36.8 Other specified disorders of urethra; R32 Unspecified urinary incontinence; Y95 Nosocomial condition; Z79.02 Long term (current) use of antithrombotics/antiplatelets; Z79.82 Long term (current) use of aspirin; Z79.899 Other long term (current) drug therapy; Z87.440 Personal history of urinary (tract) infections; Z87.442 Personal history of urinary calculi; R40.2412 Glasgow coma scale score 13-15, at arrival to emergency department; R31.9 Hematuria, unspecified; Z74.01 Bed confinement status; I51.7 Cardiomegaly; K80.20 Calculus of gallbladder without cholecystitis without obstruction; H11.33 Conjunctival hemorrhage, bilateral

== ENCOUNTER 2017-04-14 09:31 | Inpatient (IN) | payer MEDICARE, OTHER, MEDICAID ==
[2017-04-14 09:31] VITALS: BMI 30.7
--- NOTE | 2017-04-14 10:24 | ED PDOC ---
Arrival/HPI - General Chief Complaint: Abnormal Labs Time Seen by Provider: 04/14/17 09:46 Historian: Patient - History of Present Illness Narrative History of Present Illness (Text): 04/14/17 10:13 A 76 year old female was sent into the emergency department for further evaluation due to low hemoglobin count. Patient was scheduled to have a cystoscopy done today but blood from this morning showed a low hemoglobin count. Patient notes hematuria and hematochezia but denies any physical complaints. Patient denies any fever, chills, nausea, vomiting, diarrhea, abdominal pain, chest pain, shortness of breath or any other complaints. 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) - HEENT Hx Cataracts: Yes Hx Glaucoma: Yes - Renal Hx Renal Disorder: No - Endocrine/Metabolic Hx Endocrine Disorders: No - Hematological/Oncological Hx Blood Transfusions: (UNKNOWN) - Integumentary Hx Cellulitis: Yes (face) - Musculoskeletal/Rheumatological Hx Musculoskeletal Disorders: Yes (HEMIPLEGIA, HEMIPARESIS) - Gastrointestinal Hx Gastrointestinal Disorders: No Hx Gastroesophageal Reflux: Yes - Genitourinary/Gynecological Hx Genitourinary Disorders: No - Psychiatric Hx Emotional Abuse: No Hx Physical Abuse: No Hx Substance Use: No - Anesthesia Hx Anesthesia Reactions: No Hx Malignant Hyperthermia: No - Suicidal Assessment Feels Threatened In Home Enviroment: No Family/Social History - Physician Review Nursing Documentation Reviewed: Yes Family/Social History: No Known Family HX Smoking Status: Never Smoked Hx Alcohol Use: No Hx Substance Use: No Hx Substance Use Treatment: No Allergies/Home Meds Allergies/Adverse Reactions: Allergies No Known Allergies Allergy (Verified 01/02/17 01:38) Home Medications: Home Meds Medication Instructions Recorded Confirmed Aspirin [Adult Low Dose Aspirin EC] 81 mg PO DAILY 01/23/17 04/14/17 Atorvastatin [Lipitor] 80 mg PO DAILY 01/23/17 04/14/17 Calcium Carbonate 1,250 mg PO DAILY 01/23/17 04/14/17 Donepezil [Aricept] 10 mg PO DAILY 01/23/17 04/14/17 Famotidine [Pepcid] 40 mg PO DAILY 01/23/17 04/14/17 Metoprolol Tartrate [Lopressor] 25 mg PO BID 01/23/17 04/14/17 Multivitamin [Multivitamins] 1 each PO DAILY 01/23/17 04/14/17 Acetaminophen [Tylenol 325mg tab] 650 mg PO Q6H PRN 02/17/17 04/14/17 Albuterol/Ipratropium [Duoneb 3 1 inh INH Q6H PRN 02/17/17 04/14/17 mg/0.5 mg (3 ml) UD] Potassium Chloride [K-Dur 20 mEq 20 meq PO DAILY 02/17/17 04/14/17 ER Tab] Travoprost [Travatan Z] 1 % OU HS 02/17/17 04/14/17 Acetaminophen [Tylenol (Renal)] 650 mg PO Q6 PRN 04/14/17 04/14/17 Budesonide 1 vial IH Q12 04/14/17 04/14/17 Review of Systems - Physician Review All systems were reviewed & negative as marked: Yes - Review of Systems Constitutional: Other (low hgb count). absent: Fevers, Night Sweats Respiratory: absent: SOB Cardiovascular: absent: Chest Pain Gastrointestinal: Hematochezia. absent: Abdominal Pain, Diarrhea, Nausea, Vomiting Genitourinary Female: Hematuria Physical Exam Vital Signs Reviewed: Yes Vital Signs Temp Pulse Resp BP Pulse Ox 04/14/17 12:59 98.6 F 78 18 130/60 97 04/14/17 12:07 98.1 F 68 18 132/51 L 98 04/14/17 09:37 98.3 F 78 18 131/88 98 Temperature: Afebrile Blood Pressure: Normal Pulse: Regular Respiratory Rate: Normal Appearance: Positive for: Well-Appearing, Non-Toxic, Comfortable Pain Distress: None Mental Status: Positive for: Alert and Oriented X 3 - Systems Exam Head: Present: Atraumatic, Normocephalic Pupils: Present: PERRL Extroacular Muscles: Present: EOMI Conjunctiva: Present: Normal Mouth: Present: Moist Mucous Membranes Neck: Present: Normal Range of Motion Respiratory/Chest: Present: Clear to Auscultation, Good Air Exchange. No: Respiratory Distress, Accessory Muscle Use Cardiovascular: Present: Murmurs (Aortic systolic murmur), Normal S1, S2 Abdomen: Present: Normal Bowel Sounds. No: Tenderness, Distention, Peritoneal Signs Rectal: Present: Normal Rectal Tone. No: Occult Blood, Rectal Tenderness, Gross Blood, Melena, Hemorrhoids Back: Present: Normal Inspection Upper Extremity: Present: Normal Inspection. No: Cyanosis, Edema Lower Extremity: Present: Normal Inspection. No: Edema Neurological: Present: GCS=15, CN II-XII Intact, Speech Normal Skin: Present: Warm, Dry, Normal Color. No: Rashes Psychiatric: Present: Alert, Oriented x 3, Normal Insight, Normal Concentration Medical Decision Making ED Course and Treatment: 04/14/17 10:13 Impression: A 76 year old female sent in for low hemoglobin count. Patient notes hematuria and hematochezia. Plan: -- Labs -- Urine culture and Urinalysis -- Reassess and disposition Progress Notes: 04/14/17 10:52 Rectal exam performed by me, chaperoned by nurse, showed guaiac negative. 04/14/17 11:[address] Holliday, who is aware of low hemoglobin count. Request to admit under Dr. Jung, if needed. States the procedure will not be performed today. 04/14/17 11:[address] Jung, who requests to transfuse 1 unit of blood and admit under her service to [facility]. - Lab Interpretations Lab Results: 04/14/17 10:00 04/14/17 10:00 Lab Results 04/14/17 10:30: Urine Color Light red, Urine Appearance Cloudy, Urine pH 6.5, Ur Specific [place] 1.015, Urine Protein 100 H, Urine Glucose (UA) Negative, Urine Ketones Negative, Urine Blood Large H, Urine Nitrate Positive H, Urine Bilirubin Negative, Urine Urobilinogen 0.2, Ur Leukocyte Esterase Large H, Urine RBC 25 - 30, Urine WBC Tntc, Ur Epithelial Cells 1 - 3, Urine Bacteria Many 04/14/17 10:00: Blood Type O POSITIVE, Antibody Screen Negative, Crossmatch See Detail, BBK History Checked Patient has bt 04/14/17 10:00: PT 11.0, INR 1.02, APTT 26.1 04/14/17 10:00: Sodium 140, Potassium 4.0, Chloride 105, Carbon Dioxide 24, Anion Gap 15, BUN 24 H, Creatinine 1.7 H, Est GFR ( Amer) 35, Est GFR ( Non-Af Amer) 29, Random Glucose 96, Calcium 9.2, Total Bilirubin 0.4, AST 21, ALT 16, Alkaline Phosphatase 68, Total Protein 7.2, Albumin 3.4, Globulin 3.8, Albumin/Globulin Ratio 0.9 L 04/14/17 10:00: WBC 5.4, RBC 3.07 L, Hgb 7.9 L, Hct 26.1 L, MCV 85.0, MCH 25.7, MCHC 30.3 L, RDW 19.1 H, Plt Count 221, MPV 10.6, Gran % 71.2 H, Lymph % (Auto) 19.1 L, [place] % (Auto) 7.6 H, Eos % (Auto) 1.9, Baso % (Auto) 0.2, Gran # 3.85, Lymph # 1.0 L, [place] # 0.4, Eos # 0.1, Baso # 0.01 I have reviewed the lab results: Yes - Medication Orders Current Medication Orders: Acetaminophen (Tylenol 325mg Tab) 650 mg PO Q6 PRN PRN Reason: Pain, Mild (1-3) Acetaminophen (Tylenol 325mg Tab) 650 mg PO Q6H PRN PRN Reason: Fever >100.4 F Albuterol/Ipratropium (Duoneb 3 Mg/0.5 Mg (3 Ml) Ud) 3 ml INH Q6H PRN PRN Reason: Shortness of Breath Atorvastatin Calcium (Lipitor) 80 mg PO DAILY FILI Budesonide (Pulmicort Respules) 1 mg IH [id number] FILI Calcium Carbonate (Oscal) 1,250 mg PO DAILY FILI Donepezil HCl (Aricept) 10 mg PO DAILY FILI Famotidine (Pepcid) 40 mg PO DAILY FILI Furosemide (Lasix) 40 mg PO DAILY FILI Latanoprost (Xalatan Opht) 0 ml OU HS FILI Metoprolol Tartrate (Lopressor) 25 mg PO BID FILI Multivitamins (Thera Tab) 1 tab PO DAILY FILI Potassium Chloride (K-Dur 20 Meq Er Tab) 20 meq PO DAILY FILI Discontinued Medications Oxycodone/Acetaminophen (Percocet 5/325 Mg Tab) Confirm Administered Dose 1 tab .ROUTE .STK-MED ONE Stop: 04/14/17 18:10 Pneumococcal Polyvalent Vaccine (Pneumovax 23 Vaccine) 0.5 ml IM .ONCE ONE Stop: 04/14/17 16:44 - Scribe Statement The provider has reviewed the documentation as recorded by the Marielosibprosper Owen Provider Scribe Attestation: All medical record entries made by the Scribe were at my direction and personally dictated by me. I have reviewed the chart and agree that the record accurately reflects my personal performance of the history, physical exam, medical decision making, and the department course for this patient. I have also personally directed, reviewed, and agree with the discharge instructions and disposition. Disposition/Present on Arrival - Present on Arrival Any Indicators Present on Arrival: No History of DVT/PE: No History of Uncontrolled Diabetes: No Urinary Catheter: Yes History of Decub. Ulcer: No History Surgical Site Infection Following: None - Disposition Have Diagnosis and Disposition been Completed?: Yes Diagnosis: Anemia Disposition: HOSPITALIZED Disposition Time: 11:50 Condition: STABLE
[2017-04-14 10:27] LABS: BASO # 0.01 K/mm3 (0.0-2.0); BASO % 0.2 % (0.0-3.0); EOS # 0.1 (0.0-0.7); EOS % 1.9 % (1.5-5.0); GRAN # 3.85 (1.4-6.5); GRAN % 71.2 % (50.0-68.0); LYMPH % 19.1 % (22.0-35.0); MEAN CORPUSCULAR HEMOGLOBIN 25.7 pg (25.0-35.0); MEAN CORPUSCULAR HGB CONC 30.3 g/dl (31.0-37.0); MEAN PLATELET VOLUME 10.6 fl (7.0-11.0); MONO # 0.4 (0.1-0.6); MONO % 7.6 % (1.0-6.0); PLATELET COUNT 221 10^3/uL (120.0-450.0); RBC 3.07 10^6/uL (3.5-6.1); RED CELL DISTRIBUTION WIDTH 19.1 % (11.5-14.5); WHITE BLOOD COUNT 5.4 10^3/ul (4.5-11.0)
[2017-04-14 10:29] LABS: HEMOGLOBIN 7.9 gm/dL (12.0-16.0)
[2017-04-14 10:36] LABS: ALB/GLOB RATIO 0.9 (1.1-1.8); ALBUMIN 3.4 g/dL (3.0-4.8); CALCIUM 9.2 mg/dL (8.4-10.5)
[2017-04-14 10:38] LABS: INR 1.02 (0.93-1.08); PARTIAL THROMBOPLASTIN TIME 26.1 Seconds (23.7-30.8)
[2017-04-14 10:42] LABS: PH,URINE 6.5 (4.7-8.0); URINE BILIRUBIN NEGATIVE (NEGATIVE); URINE BLOOD LARGE (NEGATIVE); URINE GLUCOSE (UA) NEGATIVE (NEGATIVE); URINE LEUKOCYTE ESTERASE LARGE Leu/uL (NEGATIVE); URINE NITRATE POSITIVE (NEGATIVE); URINE PROTEIN 100 mg/dL (<30 mg/dL); URINE UROBILINOGEN 0.2 E.U./dL (<1 E.U./dL)
[2017-04-14 10:44] LABS: URINE APPEARANCE CLOUDY (CLEAR); URINE COLOR LIGHT RED (YELLOW)
[2017-04-14 11:02] LABS: URINE BACTERIA MANY (NEG); URINE RBC 25 - 30 /hpf (0-2); URINE WBC TNTC /hpf (0-6)
[2017-04-14] MEDS ORDERED: Pneumococcal 23-Valent Vaccine IM ONE (16:43)
[2017-04-14] MEDS ORDERED: Oxycodone/Acetaminophen 5/325 mg Tab ONE (18:09)
[2017-04-14] MEDS ORDERED: Albuterol-Ipratrop 3 mg / 0.5 (3 ml) UD INH PRN (18:18)
[2017-04-14 19:55] LABS: % IRON SATURATION 8 % (20-55); IRON 21 ug/dL (45-180); TOTAL IRON BINDING CAPACITY 279 ug/dL (265-497)
[2017-04-14] MEDS ORDERED: Budesonide 0.5 mg/2 ml Inhal Susp UD IH SCH (20:00)
[2017-04-14] MEDS: Latanoprost 2.5 ml Opht Soln OU SCH (21:27)
--- NOTE | 2017-04-14 23:02 | CP.PCM.HP ---
History of Present Illness - History of Present Illness History of Present Illness: Narrative History of Present Illness (Text): 04/14/17 A 76 year old female was sent into the emergency department for further evaluation due to low hemoglobin count. Patient was scheduled to have a cystoscopy today but blood test from this morning showed a low hemoglobin count. Patient notes hematuria and hematoche procedure purnima but denies any physical complaints. Patient denies any fever, chills, nausea, vomiting, diarrhea, abdominal pain, chest pain, shortness of breath or any other complaints.i got massage from dr Jose Maria lu and Nurse Dorota . about pt condition , and trans nettie pt to ER , now pt is getting blood transfusion , at least 2 units of PRBC , will inform Tammy lu to re schedule Present on Admission - Present on Admission Any Indicators Present on Admission: No Review of Systems - Constitutional Constitutional: As Per HPI - EENT Eyes: As Per HPI Ears: As Per HPI Nose/Mouth/Throat: As Per HPI - Breasts Breasts: As Per HPI - Cardiovascular Cardiovascular: As Per HPI - Respiratory Respiratory: As Per HPI - Gastrointestinal Gastrointestinal: As Per HPI - Genitourinary Genitourinary: Hematuria, Freq UTI - Musculoskeletal Musculoskeletal: As Per HPI - Integumentary Integumentary: As Per HPI - Neurological Neurological: As Per HPI - Psychiatric Psychiatric: As Per HPI - Endocrine Endocrine: As Per HPI - Hematologic/Lymphatic Hematologic: As Per HPI Past Patient History - Infectious Disease Hx of Infectious Diseases: None - Past Medical History & Family History Past Medical History?: Yes - Past Social History Smoking Status: Never Smoked - CARDIAC Hx Congestive Heart Failure: Yes Hx Pacemaker: No - PULMONARY Hx Chronic Obstructive Pulmonary Disease (COPD): Yes - NEUROLOGICAL Hx 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) - HEENT Hx Cataracts: Yes Hx Glaucoma: Yes - RENAL Hx Chronic Kidney Disease: No - ENDOCRINE/METABOLIC Hx Endocrine Disorders: No - HEMATOLOGICAL/ONCOLOGICAL Hx Blood Transfusions: (UNKNOWN) - INTEGUMENTARY Hx Cellulitis: Yes (face) - MUSCULOSKELETAL/RHEUMATOLOGICAL Hx Musculoskeletal Disorders: Yes (HEMIPLEGIA, HEMIPARESIS) - GASTROINTESTINAL Hx Gastrointestinal Disorders: No Hx Gastroesophageal Reflux: Yes - GENITOURINARY/GYNECOLOGICAL Hx Genitourinary Disorders: No - PSYCHIATRIC Hx Emotional Abuse: No Hx Physical Abuse: No Hx Substance Use: No - SURGICAL HISTORY Hx Surgeries: Yes Other/Comment: 02/19/2017 r and l ureteral stents removed and replaced, cystogram - ANESTHESIA Hx Anesthesia Reactions: No Hx Malignant Hyperthermia: No Meds Allergies/Adverse Reactions: Allergies Allergy/AdvReac Type Severity Reaction Status Date / Time No Known Allergies Allergy Verified 01/02/17 01:38 Physical Exam - Constitutional Appears: Well - Head Exam Head Exam: ATRAUMATIC, NORMAL INSPECTION, NORMOCEPHALIC - Eye Exam Eye Exam: EOMI, Normal appearance, PERRL Pupil Exam: NORMAL ACCOMODATION, PERRL - ENT Exam ENT Exam: Mucous Membranes Moist, Normal Exam - Neck Exam Neck exam: Positive for: Normal Inspection - Respiratory Exam Respiratory Exam: Clear to Auscultation Bilateral, NORMAL BREATHING PATTERN - Cardiovascular Exam Cardiovascular Exam: REGULAR RHYTHM - GI/Abdominal Exam GI & Abdominal Exam: Normal Bowel Sounds, Soft. absent: Tenderness - Rectal Exam Rectal Exam: NORMAL INSPECTION - Exam Exam: Circumcision, NORMAL INSPECTION External exam: NORMAL EXTERNAL EXAM Speculum exam: NORMAL SPECULUM EXAM Bimanual exam: NORMAL BIMANUAL EXAM - Extremities Exam Extremities exam: Positive for: normal inspection - Back Exam Back exam: NORMAL INSPECTION - Neurological Exam Neurological exam: Alert, Oriented x3 - Psychiatric Exam Psychiatric exam: Normal Affect, Normal Mood - Skin Skin Exam: Dry, Intact, Normal Color, Warm Results - Vital Signs Recent Vital Signs: Last Vital Signs Temp 98.6 F 04/14/17 22:35 Pulse 84 04/14/17 22:35 Resp 18 04/14/17 22:35 BP 132/51 L 04/14/17 22:35 Pulse Ox 97 04/14/17 17:29 - Labs Result Diagrams: 04/14/17 10:00 04/14/17 10:00 Assessment & Plan (1) Hematuria Status: Acute (2) UTI (urinary tract infection) Status: Acute (3) UTI (urinary tract infection) due to urinary indwelling catheter Status: Acute (4) Anemia Status: Acute (5) S/P cord blood transplantation Status: Acute (6) Anemia Status: Acute (7) CHF (congestive heart failure) Status: Acute (8) COPD exacerbation Status: Acute (9) NSTEMI (non-ST elevated myocardial infarction) Status: Acute - Assessment and Plan (Free Text) Assessment: 04/14/17 10:13 A 76 year old female was sent into the emergency department for further evaluation due to low hemoglobin count. Patient was scheduled to have a cystoscopy done today but blood from this morning showed a low hemoglobin count. Patient notes hematuria and hematochezia but denies any physical complaints. Patient denies any fever, chills, nausea, vomiting, diarrhea, abdominal pain, chest pain, shortness of breath or any other complaints. anemia , getting blood transfusion , will see dr Jose Maria lu for procedure
[2017-04-15 07:49] LABS: MEAN CELL VOLUME 86.4 fL (80.0-105.0); MEAN CORPUSCULAR HGB CONC 32.4 g/dl (31.0-37.0); MEAN PLATELET VOLUME 11.1 fl (7.0-11.0); RBC 3.54 10^6/uL (3.5-6.1); RED CELL DISTRIBUTION WIDTH 18.1 % (11.5-14.5); WHITE BLOOD COUNT 6.4 10^3/ul (4.5-11.0)
[2017-04-15 07:54] LABS: HEMOGLOBIN 9.9 gm/dL (12.0-16.0)
[2017-04-15 08:01] LABS: ALB/GLOB RATIO 0.9 (1.1-1.8); ALBUMIN 3.2 g/dL (3.0-4.8); ALT/SGPT 17 U/L (7-56); AST/SGOT 18 U/L (15-39); BLOOD UREA NITROGEN 20 mg/dL (7-21); CALCIUM 8.9 mg/dL (8.4-10.5); GFR AFRICAN-AMERICAN 44; GFR NON-AFRICAN AMERICAN 36; HDL CHOLESTEROL 28 mg/dL (29-60)
[2017-04-15 08:16] LABS: LDL CHOLESTEROL < 30 mg/dL (0-129)
[2017-04-15] MEDS ORDERED: Multivitamin Therapeutic Tab PO SCH (10:00)
[2017-04-15] MEDS ORDERED: Potassium Chloride 20 mEq ER Tab PO SCH (10:00)
[2017-04-15 13:08] LABS: FOLATE 12.7 ng/mL
--- NOTE | 2017-04-15 19:21 | CARD ---
APPROVED REPORT EKG Measurement Heart [id number] AL [id number] <Conclusion> Normal sinus rhythm Left ventricular hypertrophy with repolarization abnormality Consider Lateral ischemia Abnormal ECG
[2017-04-15] MEDS: Latanoprost 2.5 ml Opht Soln OU SCH (22:06)
--- NOTE | 2017-04-16 02:51 | PN ---
DATE: 04/15/17. SUBJECTIVE: The patient was examined at the bedside. She is looking comfortable. No nausea, vomiting, diarrhea. No hematuria or hematochezia. No swelling of the leg, still having bleeding from the urethra. No fever, no chills. No constipation, no diarrhea. PHYSICAL EXAMINATION VITAL SIGNS: Temperature 96.4, pulse 76, blood pressure 128/38, and respiratory rate 20. HEENT: Head: Normocephalic, atraumatic. Eyes: PERRLA. Extraocular muscles intact. Conjunctivae clear. Nose patent. Mucous membrane moist. NECK: Supple. No carotid bruits. No thyromegaly. CHEST: Bilaterally symmetrical HEART: S1 and S2, positive. LUNGS: Clear to auscultation. ABDOMEN: Soft. Bowel sounds present. No organomegaly. EXTREMITIES: No edema, no cyanosis. NEUROLOGICAL: The patient is awake, alert. Moving all 4 extremities. No focal deficits. MEDICATIONS: Aricept, DuoNeb, potassium, Lasix, Lipitor, Lopressor, calcium, Pepcid, Pulmicort, and Tylenol. LABORATORY DATA: White blood cell 6.4, hemoglobin 9.9, hematocrit 30.6, and platelets 223. Sodium 141, potassium 3.7, BUN 20 and creatinine 1.4. ASSESSMENT AND PLAN: Ms. Kp Sanders is an 76-year-old lady with acute renal insufficiency, improved with IV hydration; anemia with a hemoglobin was 7.9, 2 units of packed red blood cells were given, repeat hemoglobin is 9.9. Chest x-ray and echocardiography done. History of multiple time urinary tract infections, has ureteral stent, cystoscopy, multiple times. History of cerebrovascular accident, aphasia, congestive heart failure, chronic obstructive pulmonary disease, left-sided weakness, cataract surgery, glaucoma, gastroesophageal reflux disease, and dementia. The patient is going for cystoscopy and change of ureteral stent by Dr. Pravin Holliday. The patient was on aspirin and Plavix, but Plavix was held because of hematuria. Now due to hematuria, even aspirin is on hold. Gastrointestinal \and deep venous thrombosis prophylaxis and repeat labs. We will follow. Florence Jung MD MTDTammy
--- NOTE | 2017-04-16 09:21 | RAD ---
HISTORY: preop COMPARISON: 02/23/2017 FINDINGS: LUNGS: No active pulmonary disease. PLEURA: No significant pleural effusion identified, no pneumothorax apparent. CARDIOVASCULAR: Normal. OSSEOUS STRUCTURES: No significant abnormalities. VISUALIZED UPPER ABDOMEN: Normal. OTHER FINDINGS: None. IMPRESSION: No active disease.
[2017-04-16 10:27] LABS: BASO # 0.03 K/mm3 (0.0-2.0); BASO % 0.5 % (0.0-3.0); EOS # 0.1 (0.0-0.7); EOS % 1.8 % (1.5-5.0); GRAN # 4.71 (1.4-6.5); GRAN % 75.7 % (50.0-68.0); HEMOGLOBIN 11.4 gm/dL (12.0-16.0); LYMPH # 0.9 (1.2-3.4); MEAN CELL VOLUME 87.3 fL (80.0-105.0); MEAN CORPUSCULAR HEMOGLOBIN 28.3 pg (25.0-35.0); MEAN CORPUSCULAR HGB CONC 32.4 g/dl (31.0-37.0); MEAN PLATELET VOLUME 10.6 fl (7.0-11.0); MONO # 0.5 (0.1-0.6); PLATELET COUNT 230 10^3/uL (120.0-450.0); RBC 4.03 10^6/uL (3.5-6.1); RED CELL DISTRIBUTION WIDTH 18.5 % (11.5-14.5); WHITE BLOOD COUNT 6.2 10^3/ul (4.5-11.0)
[2017-04-16 10:37] LABS: ALB/GLOB RATIO 0.9 (1.1-1.8); ALBUMIN 3.7 g/dL (3.0-4.8); CALCIUM 9.4 mg/dL (8.4-10.5); MAGNESIUM 2.1 mg/dL (1.7-2.2)
[2017-04-16] MEDS ORDERED: Iohexol 240 (50 ml) ONE ×2 (10:50→11:18)
[2017-04-16] MEDS ORDERED: cefTRIAXone (Rocephin) 1 gm Inj ONE (10:50)
[2017-04-16] MEDS ORDERED: Propofol 10 mg/ml Inj (20 ML) ONE (11:00)
[2017-04-16] MEDS ORDERED: Lidocaine 2% Inj (20ml) ONE (11:06)
[2017-04-16] MEDS ORDERED: Lactated Ringer's 1,000 ML IV SCH (11:47)
[2017-04-16 12:03] VITALS: TEMP 98.3
--- NOTE | 2017-04-16 13:37 | RAD ---
PROCEDURE: Retrograde pyelogram HISTORY: STENT EXCHANGE COMPARISON: TECHNIQUE: Fluoroscopy was provided in the operating room. 23.5 seconds of fluoro time. Seven images were submitted FINDINGS: The study shows placement of bilateral ureteral stents IMPRESSION: As above
[2017-04-16 16:58] VITALS: BP 139/98; PULSE 75; RESP 18; O2SAT 98
--- NOTE | 2017-04-17 10:02 | CP.PCM.DIS ---
Provider - Provider Date of Admission: discharge tamiko for 04/16/17 Attending physician: Florence Jung MD Primary care physician: NO PRIMARY CARE PROVIDER Time Spent in preparation of Discharge (in minutes): 60 Diagnosis - Discharge Diagnosis (1) Hematuria Status: Acute (2) UTI (urinary tract infection) Status: Acute (3) UTI (urinary tract infection) due to urinary indwelling catheter Status: Acute (4) Anemia Status: Acute (5) S/P cord blood transplantation Status: Acute (6) Anemia Status: Acute (7) CHF (congestive heart failure) Status: Acute (8) COPD exacerbation Status: Acute (9) NSTEMI (non-ST elevated myocardial infarction) Status: Acute Hospital Course - Lab Results Lab Results: Most Recent Lab Values WBC 6.2 10^3/ul (4.5-11.0) 04/16/17 10:21 RBC 4.03 10^6/uL (3.5-6.1) 04/16/17 10:21 Hgb 11.4 gm/dL (12.0-16.0) L 04/16/17 10:21 Hct 35.2 % (36.0-48.0) L 04/16/17 10:21 MCV 87.3 fL (80.0-105.0) 04/16/17 10:21 MCH 28.3 pg (25.0-35.0) 04/16/17 10:21 MCHC 32.4 g/dl (31.0-37.0) 04/16/17 10:21 RDW 18.5 % (11.5-14.5) H 04/16/17 10:21 Plt Count 230 10^3/uL (120.0-450.0) 04/16/17 10:21 MPV 10.6 fl (7.0-11.0) 04/16/17 10:21 Gran % 75.7 % (50.0-68.0) H 04/16/17 10:21 Lymph % (Auto) 14.0 % (22.0-35.0) L 04/16/17 10:21 [place] % (Auto) 8.0 % (1.0-6.0) H 04/16/17 10:21 Eos % (Auto) 1.8 % (1.5-5.0) 04/16/17 10:21 Baso % (Auto) 0.5 % (0.0-3.0) 04/16/17 10:21 Gran # 4.71 (1.4-6.5) 04/16/17 10:21 Lymph # 0.9 (1.2-3.4) L 04/16/17 10:21 [place] # 0.5 (0.1-0.6) 04/16/17 10:21 Eos # 0.1 (0.0-0.7) 04/16/17 10:21 Baso # 0.03 K/mm3 (0.0-2.0) 04/16/17 10:21 PT 11.0 Seconds (9.9-11.8) 04/14/17 10:00 INR 1.02 (0.93-1.08) 04/14/17 10:00 APTT 26.1 Seconds (23.7-30.8) 04/14/17 10:00 Sodium 141 mmol/L (132-148) 04/16/17 10:21 Potassium 3.8 mmol/L (3.6-5.0) 04/16/17 10:21 Chloride 106 mmol/L (95-110) 04/16/17 10:21 Carbon Dioxide 23 mmol/L (21-33) 04/16/17 10:21 Anion Gap 16 (10-20) 04/16/17 10:21 BUN 19 mg/dL (7-21) 04/16/17 10:21 Creatinine 1.5 mg/dL (0.5-1.4) H 04/16/17 10:21 Est GFR ( Amer) 41 04/16/17 10:21 Est GFR (Non-Af Amer) 34 04/16/17 10:21 Random Glucose 98 mg/dL (70-110) 04/16/17 10:21 Hemoglobin A1c 6.1 % (4.2-6.5) 04/14/17 10:00 Calcium 9.4 mg/dL (8.4-10.5) 04/16/17 10:21 Magnesium 2.1 mg/dL (1.7-2.2) 04/16/17 10:21 Iron 21 ug/dL (45-180) L 04/14/17 10:00 TIBC 279 ug/dL (265-497) 04/14/17 10:00 % Saturation 8 % (20-55) L 04/14/17 10:00 Total Bilirubin 0.8 mg/dL (0.2-1.3) 04/16/17 10:21 AST 21 U/L (15-39) 04/16/17 10:21 ALT 18 U/L (7-56) 04/16/17 10:21 Alkaline Phosphatase 71 U/L (38-133) 04/16/17 10:21 Total Protein 7.6 g/dL (5.8-8.3) 04/16/17 10:21 Albumin 3.7 g/dL (3.0-4.8) 04/16/17 10:21 Globulin 3.9 gm/dL 04/16/17 10:21 Albumin/Globulin Ratio 0.9 (1.1-1.8) L 04/16/17 10:21 Triglycerides 81 mg/dL (35-160) 04/15/17 07:30 Cholesterol 81 mg/dL (130-200) L 04/15/17 07:30 LDL Cholesterol Direct < 30 mg/dL (0-129) 04/15/17 07:30 HDL Cholesterol 28 mg/dL (29-60) L 04/15/17 07:30 Vitamin B12 432 pg/mL (239-931) 04/15/17 07:30 Folate 12.7 ng/mL 04/15/17 07:30 TSH 3rd Generation 0.93 mIU/mL (0.46-4.68) 04/15/17 07:30 Urine Color Light red (YELLOW) 04/14/17 10:30 Urine Appearance Cloudy (CLEAR) 04/14/17 10:30 Urine pH 6.5 (4.7-8.0) 04/14/17 10:30 Ur Specific [place] 1.015 (1.005-1.035) 04/14/17 10:30 Urine Protein 100 mg/dL (<30 mg/dL) H 04/14/17 10:30 Urine Glucose (UA) Negative mg/dL (NEGATIVE) 04/14/17 10:30 Urine Ketones Negative mg/dL (NEGATIVE) 04/14/17 10:30 Urine Blood Large (NEGATIVE) H 04/14/17 10:30 Urine Nitrate Positive (NEGATIVE) H 04/14/17 10:30 Urine Bilirubin Negative (NEGATIVE) 04/14/17 10:30 Urine Urobilinogen 0.2 E.U./dL (<1 E.U./dL) 04/14/17 10:30 Ur Leukocyte Esterase Large [place]/uL (NEGATIVE) H 04/14/17 10:30 Urine RBC 25 - 30 /hpf (0-2) 04/14/17 10:30 Urine WBC Tntc /hpf (0-6) 04/14/17 10:30 Ur Epithelial Cells 1 - 3 /hpf (0-5) 04/14/17 10:30 Urine Bacteria Many (NEG) 04/14/17 10:30 Blood Type O POSITIVE 04/14/17 10:00 Antibody Screen Negative 04/14/17 10:00 Crossmatch See Detail 04/14/17 10:00 BBK History Checked Patient has bt 04/14/17 10:00 - Hospital Course Hospital Course: A 76 year old female was sent into the emergency department for further evaluation due to low hemoglobin count. Patient was scheduled to have a cystoscopy today but blood test from this morning showed a low hemoglobin count. Patient notes hematuria and hematoche procedure purnima but denies any physical complaints. Patient denies any fever, chills, nausea, vomiting, diarrhea, abdominal pain, chest pain, shortness of breath or any other complaints.i got massage from dr Jose Maria holliday and Nurse Dorota . about pt condition , and trans nettie pt to ER , now pt got blood transfusion , at least 2 units of PRBC , dr. Jose Maria holliday did the procedure Assessment sepsis due to left sided pyelonephritis with associated gram negative bacilli bacteremia, clinically improving CAD S/P PCI DM HTN dyslipidemia history of arthritis history of cataract surgery obesity with BMI 35 chf , copd Plan got Cefepime in the hospital , no more anb. upon discharge as per id reviewed CT scan of the abdomen and pelvis which showed left sided peripnephric stranding will monitor clinically in the rehab , patient has been afebrile for more than 48 hours, id was on the case , will f/u in the rehab Discharge Exam - Head Exam Head Exam: ATRAUMATIC, NORMAL INSPECTION, NORMOCEPHALIC - Eye Exam Eye Exam: EOMI, Normal appearance, PERRL Pupil Exam: NORMAL ACCOMODATION, PERRL - ENT Exam ENT Exam: Normal Oropharynx - Neck Exam Neck exam: Full Rom - Respiratory Exam Respiratory Exam: Clear to PA & Lateral, NORMAL BREATHING PATTERN, UNREMARKABLE - Cardiovascular Exam Cardiovascular Exam: REGULAR RHYTHM - GI/Abdominal Exam GI & Abdominal Exam: Normal Bowel Sounds - Rectal Exam Rectal Exam: NORMAL INSPECTION - Exam Exam: Circumcision, NORMAL INSPECTION External exam: NORMAL EXTERNAL EXAM Speculum exam: NORMAL SPECULUM EXAM Bimanual exam: NORMAL BIMANUAL EXAM - Neurological Exam Neurological exam: Alert, CN II-XII Intact, Normal Gait, Oriented x3, Reflexes Normal - Psychiatric Exam Psychiatric exam: Normal Affect, Normal Mood - Skin Skin Exam: Dry, Intact, Normal Color, Warm Discharge Plan - Follow Up Plan Condition: STABLE Disposition: TRANSF TO SNF Instructions: Heart Failure (DC), Heart Failure (GEN), Pacemaker (DC), Pacemaker (GEN), Pulmonary Edema (DC), Pulmonary Edema (GEN), Pneumococcal Vaccine for Adults (DC), Cystoscopy (DC), Ascites (DC), Ascites (GEN), Hydronephrosis (DC), Anemia (DC) Additional Instructions: Follow up in one week with primary care physician. Follow up with Dr. Holliday one week. Referrals: Florence Jung MD [Staff Provider] - Perez Holliday MD [Staff Provider] -
== END 2017-04-16 17:42 | DRG 811 ==
LOC: ED 09:31 → ERH 11:51 → 5RSO 13:34
PROVIDERS: ADMIT Internal Medicine; ATTEND Internal Medicine
PROC: 30233N1 Transfusion of Nonautologous Red Blood Cells into Peripheral Vein, Percutaneous Approach (ICD-10-PCS; principal; 2017-04-14)
DX: D64.9 Anemia, unspecified (principal); T83.518A Infection and inflammatory reaction due to other urinary catheter, initial encounter; A41.9 Sepsis, unspecified organism; N12 Tubulo-interstitial nephritis, not specified as acute or chronic; J44.1 Chronic obstructive pulmonary disease with (acute) exacerbation; I69.354 Hemiplegia and hemiparesis following cerebral infarction affecting left non-dominant side; I11.0 Hypertensive heart disease with heart failure; I50.9 Heart failure, unspecified; F03.90 Unspecified dementia, unspecified severity, without behavioral disturbance, psychotic disturbance, mood disturbance, and anxiety; K21.9 Gastro-esophageal reflux disease without esophagitis; H40.9 Unspecified glaucoma; R31.9 Hematuria, unspecified; E66.9 Obesity, unspecified; Y84.6 Urinary catheterization as the cause of abnormal reaction of the patient, or of later complication, without mention of misadventure at the time of the procedure; M19.90 Unspecified osteoarthritis, unspecified site; E78.5 Hyperlipidemia, unspecified; Z79.82 Long term (current) use of aspirin; Z68.35 Body mass index [BMI] 35.0-35.9, adult; I69.320 Aphasia following cerebral infarction

== ENCOUNTER 2017-06-06 00:17 | Inpatient (IN) | payer MEDICARE, OTHER, MEDICAID ==
[2017-06-06 00:29] VITALS: BMI 23.5
--- NOTE | 2017-06-06 01:18 | ED PDOC ---
Arrival/HPI - General Chief Complaint: Female Genitourinary Time Seen by Provider: 06/06/17 00:41 Historian: Patient - History of Present Illness Narrative History of Present Illness (Text): 06/06/17 00:45 Kp Sanders is a 76 year old female who was sent from [facility] for hematuria tonight. Patient denies any pain or any other complaints at this time. 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) - HEENT Hx Cataracts: Yes Hx Glaucoma: Yes - Renal Hx Renal Disorder: No - Endocrine/Metabolic Hx Endocrine Disorders: No - Hematological/Oncological Hx Blood Transfusions: Yes Hx Blood Transfusion Reaction: No - Integumentary Hx Cellulitis: Yes (face) - Musculoskeletal/Rheumatological Hx Musculoskeletal Disorders: Yes (HEMIPLEGIA, HEMIPARESIS) - Gastrointestinal Hx Gastrointestinal Disorders: No Hx Gastroesophageal Reflux: Yes - Genitourinary/Gynecological Hx Genitourinary Disorders: No - Psychiatric Hx Emotional Abuse: No Hx Physical Abuse: No Hx Substance Use: No - Surgical History Other/Comment: 02/19/2017 r and l ureteral stents removed and replaced, cystogram - Anesthesia Hx Anesthesia Reactions: No Hx Malignant Hyperthermia: No - Suicidal Assessment Feels Threatened In Home Enviroment: No Family/Social History - Physician Review Nursing Documentation Reviewed: Yes Family/Social History: No Known Family HX Smoking Status: Never Smoked Hx Alcohol Use: No Hx Substance Use: No Hx Substance Use Treatment: No Allergies/Home Meds Allergies/Adverse Reactions: Allergies No Known Allergies Allergy (Verified 01/02/17 01:38) Home Medications: Home Meds Medication Instructions Recorded Confirmed Acetaminophen [Tylenol 325mg tab] 650 mg PO Q6H PRN 06/06/17 06/06/17 Acetaminophen [Tylenol 325mg tab] 650 mg PO Q6H PRN 06/06/17 06/06/17 Albuterol/Ipratropium [Duoneb 3 3 ml IH Q6H PRN 06/06/17 06/06/17 MG/3 Ml-0.5 MG/3 Ml 3 Ml] Atorvastatin Calcium 80 mg PO HS 06/06/17 06/06/17 Budesonide [Pulmicort Respules] 0.5 mg IH Q12H 06/06/17 06/06/17 Donepezil [Aricept] 10 mg PO HS 06/06/17 06/06/17 Famotidine [Pepcid] 40 mg PO HS 06/06/17 06/06/17 Furosemide [Lasix] 40 mg PO DAILY 06/06/17 06/06/17 Latanoprost 0.005% Opht [XALATAN 1 drp OP HS 06/06/17 06/06/17 2.5 Ml] Metoprolol Tartrate [Lopressor] 25 mg PO BID 06/06/17 06/06/17 Multivitamin Therapeutic Tab 1 tab PO DAILY 06/06/17 06/06/17 [Thera Tab] Potassium Chloride [Klor-Con] 20 meq PO DAILY 06/06/17 06/06/17 Review of Systems - Physician Review All systems were reviewed & negative as marked: Yes - Review of Systems Constitutional: absent: Fevers, Night Sweats Eyes: absent: Vision Changes ENT: absent: Hearing Changes Respiratory: absent: SOB, Cough Cardiovascular: absent: Chest Pain Gastrointestinal: absent: Abdominal Pain Genitourinary Female: Hematuria Musculoskeletal: absent: Arthralgias, Back Pain Skin: absent: Rash, Pruritis Neurological: absent: Headache, Dizziness Endocrine: absent: Diaphoresis Hemo/Lymphatic: absent: Adenopathy Physical Exam Vital Signs Reviewed: Yes Vital Signs Temp Pulse Resp BP Pulse Ox 06/06/17 01:56 16 99 06/06/17 00:31 98.2 F 64 17 143/45 L 96 Temperature: Afebrile Blood Pressure: Hypotensive Pulse: Regular Respiratory Rate: Normal Appearance: Positive for: Well-Appearing, Non-Toxic, Comfortable Pain Distress: None Mental Status: Positive for: Alert and Oriented X 3 - Systems Exam Head: Present: Atraumatic, Normocephalic Pupils: Present: PERRL Extroacular Muscles: Present: EOMI Conjunctiva: Present: Normal Mouth: Present: Moist Mucous Membranes Neck: Present: Normal Range of Motion Respiratory/Chest: Present: Clear to Auscultation, Good Air Exchange. No: Respiratory Distress, Accessory Muscle Use Cardiovascular: Present: Regular Rate and Rhythm, Normal S1, S2. No: Murmurs Abdomen: Present: Normal Bowel Sounds. No: Tenderness, Distention, Peritoneal Signs Back: Present: Normal Inspection Upper Extremity: Present: Normal Inspection. No: Cyanosis, Edema Lower Extremity: Present: Normal Inspection. No: Edema Neurological: Present: GCS=15, CN II-XII Intact, Speech Normal Skin: Present: Warm, Dry, Normal Color. No: Rashes Psychiatric: Present: Alert, Oriented x 3, Normal Insight, Normal Concentration Medical Decision Making ED Course and Treatment: 06/06/17 00:45 Impression: 76 year old female sent from [facility] complaining of hematuria tonight. Differential Diagnosis included but are not limited to: Plan: -- Abdominal and Pelvis CT w/o contrast -- Urine Culture and Urinalysis -- Labs -- Reassess and disposition Prior Visits: Notes and results from previous visits were reviewed. Patient last seen in the ED on 04/14/17 for low hemoglobin count that day. Patient was admitted to hospitalist care for further evaluation. Progress Notes: 06/06/17 06:[address] frazier. request admission for uti, hematuria, urology eval. 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 New mild dilation of the upper pole collecting systems. Thickened irregular urinary bladder wall with stranding in the surrounding fat similar to prior supportive of cystitis. - Lab Interpretations Lab Results: 06/06/17 02:55 06/06/17 02:55 Lab Results 06/06/17 04:00: Urine Color Red, Urine Appearance Bloody, Urine pH 8.5, Ur Specific [place] 1.015, Urine Protein >=300 H, Urine Glucose (UA) Negative, Urine Ketones Negative, Urine Blood Large H, Urine Nitrate Positive H, Urine Bilirubin Small H, Urine Urobilinogen 1.0 H, Ur Leukocyte Esterase Large H, Urine RBC 15 - 20, Urine WBC 5 - 10, Ur Epithelial Cells 0 - 2, Urine Bacteria Mod 06/06/17 02:55: Sodium 140, Potassium 3.6, Chloride 105, Carbon Dioxide 27, Anion Gap 12, BUN 18, Creatinine 1.0, Est GFR ( Amer) > 60, Est GFR (Non- Af Amer) 54, Random Glucose 93, Calcium 8.8, Total Bilirubin 0.4, AST 18, ALT 18 , Alkaline Phosphatase 74, Total Protein 6.8, Albumin 3.4, Globulin 3.3, Albumin /Globulin Ratio 1.0 L, Lipase 77 06/06/17 02:55: PT 10.8, INR 1.00, APTT 25.8 06/06/17 02:55: WBC 8.1 D, RBC 3.91, Hgb 11.0 L, Hct 34.9 L, MCV 89.3, MCH 28.1 , MCHC 31.5, RDW 16.5 H, Plt Count 139, MPV 11.8 H, Gran % 74.3 H, Lymph % (Auto ) 17.6 L, [place] % (Auto) 5.3, Eos % (Auto) 2.6, Baso % (Auto) 0.2, Gran # 5.99, Lymph # 1.4, [place] # 0.4, Eos # 0.2, Baso # 0.02 I have reviewed the lab results: Yes - RAD Interpretation Radiology Orders: 06/06/17 00:48 ABD & PELVIS W/O PO OR IV CONT [CT] Stat - Medication Orders Current Medication Orders: Discontinued Medications Ceftriaxone Sodium (Rocephin 1 Gram Ivpb) 1 gm in 100 mls @ 200 mls/hr IVPB STAT STA PRN Reason: Protocol Stop: 06/06/17 04:12 Last Admin: 06/06/17 04:47 Dose: 200 mls/hr - Scribe Statement The provider has reviewed the documentation as recorded by the Tray Steele Provider Scribe Attestation: All medical record entries made by the Tray were at my direction and personally dictated by me. I have reviewed the chart and agree that the record accurately reflects my personal performance of the history, physical exam, medical decision making, and the department course for this patient. I have also personally directed, reviewed, and agree with the discharge instructions and disposition. Disposition/Present on Arrival - Present on Arrival Any Indicators Present on Arrival: No History of DVT/PE: No History of Uncontrolled Diabetes: No Urinary Catheter: Yes History of Decub. Ulcer: No History Surgical Site Infection Following: None - Disposition Have Diagnosis and Disposition been Completed?: Yes Diagnosis: Hematuria, UTI (urinary tract infection) Disposition: HOSPITALIZED Disposition Time: 06:08 Condition: STABLE
[2017-06-06 03:20] LABS: BASO # 0.02 K/mm3 (0.0-2.0); BASO % 0.2 % (0.0-3.0); EOS # 0.2 (0.0-0.7); EOS % 2.6 % (1.5-5.0); GRAN # 5.99 (1.4-6.5); GRAN % 74.3 % (50.0-68.0); HEMATOCRIT 34.9 % (36.0-48.0); LYMPH # 1.4 (1.2-3.4); LYMPH % 17.6 % (22.0-35.0); MEAN CELL VOLUME 89.3 fl (80.0-105.0); MEAN CORPUSCULAR HEMOGLOBIN 28.1 pg (25.0-35.0); MEAN CORPUSCULAR HGB CONC 31.5 g/dl (31.0-37.0); MEAN PLATELET VOLUME 11.8 fl (7.0-11.0); MONO # 0.4 (0.1-0.6); MONO % 5.3 % (1.0-6.0); RED CELL DISTRIBUTION WIDTH 16.5 % (11.5-14.5); WHITE BLOOD COUNT 8.1 10^3/ul (4.5-11.0)
[2017-06-06 03:28] LABS: PARTIAL THROMBOPLASTIN TIME 25.8 Seconds (23.7-30.8)
[2017-06-06 03:38] LABS: ALKALINE PHOSPHATASE 74 U/L (38-126); ALT/SGPT 18 U/L (7-56); AST/SGOT 18 U/L (14-36); BILIRUBIN,TOTAL 0.4 mg/dL (0.2-1.3); BLOOD UREA NITROGEN 18 mg/dL (7-21); CALCIUM 8.8 mg/dL (8.4-10.5); CARBON DIOXIDE 27 mmol/L (21-33); CHLORIDE 105 mmol/L (98-107); GFR AFRICAN-AMERICAN > 60; GLUCOSE,RANDOM 93 mg/dL (70-110); LIPASE 77 U/L (23-300); POTASSIUM 3.6 mmol/L (3.6-5.0); SODIUM 140 mmol/L (132-148); TOTAL PROTEIN 6.8 g/dL (5.8-8.3)
--- NOTE | 2017-06-06 03:42 | CT ---
EXAM: CT Abdomen and Pelvis Without Intravenous Contrast EXAM DATE/TIME: 06/06/2017 12:48 AM CLINICAL HISTORY: 76 years old, female; Signs and symptoms; Other: Hematuria TECHNIQUE: Axial computed tomography images of the abdomen and pelvis without intravenous contrast. All CT scans at this facility use one or more dose reduction techniques, viz.: automated exposure control; ma/kV adjustment per patient size (including targeted exams where dose is matched to indication; i.e. head); or iterative reconstruction technique. Coronal and sagittal reformatted images were created and reviewed. COMPARISON: CT - CHEST,ABDOMEN,PELVIS W/WO IV 02/21/2017 9:59:43 PM FINDINGS: Gallstones. There are stable hypoattenuating hepatic lesions better visualized on prior w contrast. The adrenals, spleen, and pancreas appear grossly normal on this non-contrast study. There are duplicated collecting systems in the kidneys bilaterally. There are bilateral ureteral stents both of which are in the upper pole collecting system. There is mild fullness of the upper pole collecting systems bilaterally. There is stranding surrounding the right lower pole proximal ureter similar to prior. The lower pole of the left kidney appears similar to prior. There are stable nonobstructing renal calculi bilaterally. There are stable bilateral low attenuation lesions. There is stable bilateral perinephric stranding. The urinary bladder is decompressed. The wall is thickened and irregular with stranding in the surrounding fat. A right anterior diverticuli again seen. Colonic diverticulosis is present. A normal appendix is identified coronal image 29 through 31. IVC filter. Left femoral hardware. Degenerative changes in the osseous structures. 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 New mild dilation of the upper pole collecting systems. Thickened irregular urinary bladder wall with stranding in the surrounding fat similar to prior supportive of cystitis.
[2017-06-06] MEDS ORDERED: cefTRIAXone 1 gm 1 GM/100 ML BAG IVPB STA (03:43)
[2017-06-06 04:41] LABS: PH,URINE 8.5 (4.7-8.0); URINE BILIRUBIN SMALL (NEGATIVE); URINE BLOOD LARGE (NEGATIVE); URINE GLUCOSE (UA) NEGATIVE (NEGATIVE); URINE KETONE NEGATIVE (NEGATIVE); URINE LEUKOCYTE ESTERASE LARGE Leu/uL (NEGATIVE); URINE PROTEIN >=300 mg/dL (<30 mg/dL)
[2017-06-06 04:47] LABS: URINE APPEARANCE BLOODY (CLEAR); URINE COLOR RED (YELLOW)
[2017-06-06 05:18] LABS: URINE RBC 15 - 20 /hpf (0-2)
[2017-06-06 05:19] LABS: URINE BACTERIA MOD (NEG); URINE EPITHELIAL CELLS 0 - 2 /hpf (0-5)
--- NOTE | 2017-06-06 08:43 | PCM.URO ---
Urology Progress Note - Subjective Hematuria: Yes (infection, stent, stones) - Objective Lab Studies: Reviewed (gu plans: full note to be dictated. for now, patino catheter , antibiotics will plan for cystoscopy next week 06/09/ if medically cleared , thank you for consult) Vital Signs: Vital Signs - 24 hr 06/06/17 06/06/17 05:00 07:30 Temperature 98.1 F 97.9 F Pulse Rate 69 72 Respiratory 18 18 Rate Blood Pressure 142/53 L 146/77 O2 Sat by Pulse 96 96 Oximetry
[2017-06-06] MEDS: Budesonide 0.5 mg/2 ml Inhal Susp UD IH SCH ×2 (10:08→20:02)
[2017-06-06] MEDS: Multivitamin Therapeutic Tab PO SCH (10:58)
[2017-06-06] MEDS: cefTRIAXone 1 gm 1 GM/100 ML BAG IVPB SCH (10:58)
[2017-06-06] MEDS: Potassium Chloride 20 mEq ER Tab PO SCH (10:58)
[2017-06-06] MEDS: Sodium Chloride 0.9% 1,000 ML IV SCH (11:49)
[2017-06-06] MEDS: Albuterol-Ipratrop 3 mg / 0.5 (3 ml) UD IH PRN (20:02)
[2017-06-06] MEDS: Latanoprost 2.5 ml Opht Soln OD SCH (21:28)
[2017-06-07] MEDS: Sodium Chloride 0.9% 1,000 ML IV SCH ×2 (01:32→17:46)
--- NOTE | 2017-06-07 04:05 | CP.PCM.PCO ---
Physician Communication Note - Physician Communication Note Physician Communication Note: chart reviewed and full consult to follow
[2017-06-07 06:59] LABS: HEMATOCRIT 34.6 % (36.0-48.0); MEAN CELL VOLUME 89.6 fl (80.0-105.0); MEAN CORPUSCULAR HGB CONC 31.2 g/dl (31.0-37.0); MEAN PLATELET VOLUME 12.2 fl (7.0-11.0); RED CELL DISTRIBUTION WIDTH 16.2 % (11.5-14.5); WHITE BLOOD COUNT 6.4 10^3/ul (4.5-11.0)
[2017-06-07 07:19] LABS: ALKALINE PHOSPHATASE 72 U/L (38-126); ALT/SGPT 25 U/L (7-56); AST/SGOT 20 U/L (14-36); BILIRUBIN,TOTAL 0.5 mg/dL (0.2-1.3); BLOOD UREA NITROGEN 15 mg/dL (7-21); CALCIUM 8.7 mg/dL (8.4-10.5); CARBON DIOXIDE 26 mmol/L (21-33); CHLORIDE 107 mmol/L (98-107); GFR AFRICAN-AMERICAN > 60; GLUCOSE,RANDOM 89 mg/dL (70-110); POTASSIUM 3.5 mmol/L (3.6-5.0); SODIUM 144 mmol/L (132-148); TOTAL PROTEIN 6.5 g/dL (5.8-8.3)
[2017-06-07] MEDS: Budesonide 0.5 mg/2 ml Inhal Susp UD IH SCH ×3 (07:20→20:21)
[2017-06-07] MEDS: Albuterol-Ipratrop 3 mg / 0.5 (3 ml) UD IH PRN ×2 (07:21→20:21)
[2017-06-07] MEDS: Multivitamin Therapeutic Tab PO SCH (11:17)
[2017-06-07] MEDS: Potassium Chloride 20 mEq ER Tab PO SCH (11:18)
[2017-06-07] MEDS: cefTRIAXone 1 gm 1 GM/100 ML BAG IVPB SCH (11:38)
--- NOTE | 2017-06-07 17:40 | CP.PCM.CON ---
History of Present Illness - History of Present Illness History of Present Illness: Infectious Disease Consultation: June 07, 2017 76 yo female with presentation of hematuria with mild suprapubic pain. Patient denies any other symptoms at this time. She appears otherwise comfortable. Potential cystoscopy next week. Started on IV antibiotics of Ceftriaxone so far. No leukocytosis. Urinalysis strongly suggestive of a UTI. She is an extremely poor historian. 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 PSHx: Cataract surgery Allergies: NKDA Social Hx: No tobacco, EtOH, or illicit drug use Active Medications Acetaminophen (Tylenol 325mg Tab) 650 mg PO Q6H PRN PRN Reason: Fever >100.4 F Albuterol/Ipratropium (Duoneb 3 Mg/0.5 Mg (3 Ml) Ud) 3 ml IH Q6H PRN PRN Reason: Shortness of Breath Last Admin: 06/07/17 07:21 Dose: 3 ml Atorvastatin Calcium (Lipitor) 80 mg PO [facility] Last Admin: 06/06/17 21:28 Dose: 80 mg Budesonide (Pulmicort Respules) 0.5 mg IH Q12H [facility] Last Admin: 06/07/17 07:21 Dose: 0.5 mg Donepezil HCl (Aricept) 10 mg PO [facility] Last Admin: 06/06/17 21:28 Dose: 10 mg Famotidine (Pepcid) 40 mg PO [facility] Last Admin: 06/06/17 21:28 Dose: 40 mg Furosemide (Lasix) 40 mg PO DAILY [facility] Last Admin: 06/07/17 11:16 Dose: 40 mg Ceftriaxone Sodium (Rocephin 1 Gram Ivpb) 1 gm in 100 mls @ 100 mls/hr IVPB DAILY [facility] PRN Reason: Protocol Last Admin: 06/07/17 11:38 Dose: 100 mls/hr Sodium Chloride (Sodium Chloride 0.9%) 1,000 mls @ 70 mls/hr IV .[id number] [facility] Last Admin: 06/07/17 01:32 Dose: 70 mls/hr Latanoprost (Xalatan Opht) 0 ml OD [facility] Last Admin: 06/06/17 21:28 Dose: 2.5 ml Metoprolol Tartrate (Lopressor) 25 mg PO BID [facility] Last Admin: 06/07/17 11:17 Dose: 25 mg Multivitamins (Thera Tab) 1 tab PO DAILY [facility] Last Admin: 06/07/17 11:17 Dose: 1 tab Potassium Chloride (K-Dur 20 Meq Er Tab) 20 meq PO DAILY [facility] Last Admin: 06/07/17 11:18 Dose: 20 meq Family Hx: none given ROS: Patient unable to provide. Past Patient History - Infectious Disease Hx of Infectious Diseases: None - Past Medical History & Family History Past Medical History?: Yes - Past Social History Smoking Status: Former Smoker - CARDIAC Hx Congestive Heart Failure: Yes Hx Pacemaker: No - PULMONARY Hx Chronic Obstructive Pulmonary Disease (COPD): Yes - NEUROLOGICAL Hx 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) - HEENT Hx Cataracts: Yes Hx Glaucoma: Yes - RENAL Hx Chronic Kidney Disease: No - ENDOCRINE/METABOLIC Hx Endocrine Disorders: No - HEMATOLOGICAL/ONCOLOGICAL Hx Blood Transfusions: Yes Hx Blood Transfusion Reaction: No - INTEGUMENTARY Hx Cellulitis: Yes (face) - MUSCULOSKELETAL/RHEUMATOLOGICAL Hx Falls: Yes - GASTROINTESTINAL Hx Gastrointestinal Disorders: No Hx Gastroesophageal Reflux: Yes - GENITOURINARY/GYNECOLOGICAL Hx Genitourinary Disorders: No - PSYCHIATRIC Hx Substance Use: No - SURGICAL HISTORY Other/Comment: 02/19/2017 r and l ureteral stents removed and replaced, cystogram - ANESTHESIA Hx Anesthesia Reactions: No Hx Malignant Hyperthermia: No Meds Allergies/Adverse Reactions: Allergies Allergy/AdvReac Type Severity Reaction Status Date / Time No Known Allergies Allergy Verified 01/02/17 01:38 - Medications Medications: Current Medications Acetaminophen (Tylenol 325mg Tab) 650 mg PO Q6H PRN PRN Reason: Fever >100.4 F Albuterol/Ipratropium (Duoneb 3 Mg/0.5 Mg (3 Ml) Ud) 3 ml IH Q6H PRN PRN Reason: Shortness of Breath Last Admin: 06/07/17 07:21 Dose: 3 ml Atorvastatin Calcium (Lipitor) 80 mg PO HS [facility] Last Admin: 06/06/17 21:28 Dose: 80 mg Budesonide (Pulmicort Respules) 0.5 mg IH Q12H [facility] Last Admin: 06/07/17 07:21 Dose: 0.5 mg Donepezil HCl (Aricept) 10 mg PO HS [facility] Last Admin: 06/06/17 21:28 Dose: 10 mg Famotidine (Pepcid) 40 mg PO HS [facility] Last Admin: 06/06/17 21:28 Dose: 40 mg Furosemide (Lasix) 40 mg PO DAILY [facility] Last Admin: 06/07/17 11:16 Dose: 40 mg Ceftriaxone Sodium (Rocephin 1 Gram Ivpb) 1 gm in 100 mls @ 100 mls/hr IVPB DAILY [facility] PRN Reason: Protocol Last Admin: 06/07/17 11:38 Dose: 100 mls/hr Sodium Chloride (Sodium Chloride 0.9%) 1,000 mls @ 70 mls/hr IV .[id number] [facility] Last Admin: 06/07/17 01:32 Dose: 70 mls/hr Latanoprost (Xalatan Opht) 0 ml OD [facility] Last Admin: 06/06/17 21:28 Dose: 2.5 ml Metoprolol Tartrate (Lopressor) 25 mg PO BID [facility] Last Admin: 06/07/17 11:17 Dose: 25 mg Multivitamins (Thera Tab) 1 tab PO DAILY [facility] Last Admin: 06/07/17 11:17 Dose: 1 tab Potassium Chloride (K-Dur 20 Meq Er Tab) 20 meq PO DAILY [facility] Last Admin: 06/07/17 11:18 Dose: 20 meq Physical Exam - Constitutional Appears: Non-toxic, No Acute Distress, Chronically Ill - Head Exam Head Exam: ATRAUMATIC, NORMOCEPHALIC - Eye Exam Eye Exam: EOMI, PERRL Pupil Exam: NORMAL ACCOMODATION, PERRL - ENT Exam ENT Exam: Mucous Membranes Moist, Normal External Ear Exam, TM's Normal Bilaterally - Neck Exam Neck exam: Positive for: Full Rom, Normal Inspection - Respiratory Exam Respiratory Exam: Clear to Auscultation Bilateral, NORMAL BREATHING PATTERN. absent: Rales, Rhonchi, Wheezes - Cardiovascular Exam Cardiovascular Exam: REGULAR RHYTHM, RRR, +S1, +S2 - GI/Abdominal Exam GI & Abdominal Exam: Normal Bowel Sounds, Soft. absent: Distended, Tenderness - Extremities Exam Additional comments: chronic venous stasis of both lower extremities. - Neurological Exam Neurological exam: Alert, CN II-XII Intact, Normal Gait - Psychiatric Exam Psychiatric exam: Normal Affect, Normal Mood - Skin Additional comments: Signs of chronic venous stasis in the lower extremities. eczema of the skin on the hands and forearms. Results - Vital Signs Recent Vital Signs: Last Vital Signs Temp 98.4 F 06/07/17 16:13 Pulse 68 06/07/17 16:13 Resp 20 06/07/17 16:13 BP 173/48 H 06/07/17 16:13 Pulse Ox 96 06/07/17 16:13 - Labs Result Diagrams: 06/07/17 06:30 06/07/17 06:30 Labs: Laboratory Results - last 24 hr 06/07/17 06/07/17 06:30 06:30 WBC 6.4 D RBC 3.86 Hgb 10.8 L Hct 34.6 L MCV 89.6 MCH 28.0 MCHC 31.2 RDW 16.2 H Plt Count 139 MPV 12.2 H Sodium 144 Potassium 3.5 L Chloride 107 Carbon Dioxide 26 Anion Gap 15 BUN 15 Creatinine 1.0 Est GFR ( Amer) > 60 Est GFR (Non-Af Amer) 54 Random Glucose 89 Calcium 8.7 Total Bilirubin 0.5 AST 20 ALT 25 Alkaline Phosphatase 72 Total Protein 6.5 Albumin 3.3 Globulin 3.2 Albumin/Globulin Ratio 1.0 L Assessment & Plan - Assessment and Plan (Free Text) Assessment: 76 yo female with hematuria and potential UTI sent to [facility] for evaluation. The patient is awake and alert. No complaints other than the hematuria and mild Suprapubic pain. The patient comes from a [facility] facility. The patient is currently on Rocephin. Will expand coverage with Cefepime for now until culture results return. Supportive care. Thank you for allowing me to participate in the care of the patient, we will follow with you.
[2017-06-07] MEDS: Latanoprost 2.5 ml Opht Soln OD SCH (21:33)
[2017-06-07] MEDS: Cefepime 1gm in NS 100ml 1 GM/100 ML BAG IVPB SCH (21:34)
[2017-06-08] MEDS: Budesonide 0.5 mg/2 ml Inhal Susp UD IH SCH ×2 (07:54→19:59)
[2017-06-08] MEDS: Albuterol-Ipratrop 3 mg / 0.5 (3 ml) UD IH PRN ×2 (07:54→19:59)
--- NOTE | 2017-06-08 08:11 | PN ---
DATE: HISTORY: The patient was seen and examined at the bedside, looking comfortable. No nausea, vomiting or diarrhea. No hematuria. No hematochezia. No headache. No dizziness. No fever, no chills. PHYSICAL EXAMINATION: VITAL SIGNS: Temperature 98.4, pulse 68, blood pressure 173/48, respiratory rate 20. HEENT: Head is normocephalic and atraumatic. Eyes, PERRLA. Extraocular muscles intact. Conjunctivae clear. Nose patent. NECK: Supple. No carotid bruits. No JVD or thyromegaly. CHEST: Bilateral symmetrical. HEART: S1 and S2 positive. LUNGS: Clear to auscultation. ABDOMEN: Soft. Bowel sounds positive. No organomegaly. EXTREMITIES: No edema. No cyanosis. NEUROLOGIC: The patient is awake and alert. Moving all 4 extremities. No focal deficits. MEDICATIONS: Aricept, DuoNeb, potassium, Lasix, Lipitor, Lopressor, famotidine, Pulmicort, NS, Tylenol eye drops. LABORATORY DATA: White blood cell 6.4, hemoglobin 10.8, hematocrit 34.6, and platelets 139. Sodium 144, potassium is 3.5, BUN 13, creatinine is 1.0 and glucose 89. ASSESSMENT AND PLAN: The patient is a 76-year-old female with anemia, hypokalemia, proteinuria, hematuria, urinary tract infections, history of nephrolithiasis, history of multiple times urinary tract infections, hypotension, left-sided cerebrovascular accident with allegedly left-sided weakness, chronic obstructive pulmonary disease, depression, anxiety, paroxysmal atrial fibrillation and congestive heart failure, seen by ID, history of hypokalemia replaced. The patient is currently on Rocephin. We will expand coverage with cefepime for now until cultures are sent back, supportive care as per Dr. Joshi, venue attendant on the case for cystitis. We will followup. Florence Jung MD MTDTammy
[2017-06-08] MEDS: Multivitamin Therapeutic Tab PO SCH (10:35)
[2017-06-08] MEDS: Potassium Chloride 20 mEq ER Tab PO SCH (10:35)
[2017-06-08] MEDS: Cefepime 1gm in NS 100ml 1 GM/100 ML BAG IVPB SCH ×2 (10:42→22:18)
[2017-06-08] MEDS: Sodium Chloride 0.9% 1,000 ML IV SCH (10:48)
--- NOTE | 2017-06-08 15:57 | CP.PCM.PN ---
Subjective - Date & Time of Evaluation Date of Evaluation: 06/08/17 Time of Evaluation: 14:45 - Subjective Subjective: Infectious Disease Follow Up: June 08, 2017 76 yo female with presentation of hematuria with mild suprapubic pain. Patient denies any other symptoms at this time. She appears otherwise comfortable. Potential cystoscopy next week. Started on IV antibiotics of Ceftriaxone so far. No leukocytosis. Urinalysis strongly suggestive of a UTI. She is an extremely poor historian. She is not making any new complaints. Urine cultures showing multiple organisms. Objective - Vital Signs/Intake and Output Vital Signs (last 24 hours): Temp Pulse Resp BP Pulse Ox 98.2 F 80 20 134/47 L 96 06/08/17 07:38 06/08/17 10:40 06/08/17 07:38 06/08/17 10:41 06/08/17 07:38 Intake and Output: 06/08/17 06/08/17 06:59 18:59 Intake Total 8 480 Output Total 800 Balance -792 480 - Medications Medications: Current Medications Acetaminophen (Tylenol 325mg Tab) 650 mg PO Q6H PRN PRN Reason: Fever >100.4 F Albuterol/Ipratropium (Duoneb 3 Mg/0.5 Mg (3 Ml) Ud) 3 ml IH Q6H PRN PRN Reason: Shortness of Breath Last Admin: 06/08/17 07:54 Dose: 3 ml Amlodipine Besylate (Norvasc) 10 mg PO DAILY [facility] Last Admin: 06/08/17 10:40 Dose: Not Given Atorvastatin Calcium (Lipitor) 80 mg PO HS [facility] Last Admin: 06/07/17 21:33 Dose: 80 mg Budesonide (Pulmicort Respules) 0.5 mg IH Q12H [facility] Last Admin: 06/08/17 07:54 Dose: 0.5 mg Donepezil HCl (Aricept) 10 mg PO HS [facility] Last Admin: 06/07/17 21:33 Dose: 10 mg Famotidine (Pepcid) 40 mg PO HS [facility] Last Admin: 06/07/17 21:33 Dose: 40 mg Furosemide (Lasix) 40 mg PO DAILY [facility] Last Admin: 06/08/17 10:41 Dose: Not Given Sodium Chloride (Sodium Chloride 0.9%) 1,000 mls @ 70 mls/hr IV .[id number] [facility] Last Admin: 06/08/17 10:48 Dose: 70 mls/hr Cefepime HCl (Maxipime 1gm) 1 gm in 100 mls @ 100 mls/hr IVPB Q12 [facility] PRN Reason: Protocol Last Admin: 06/08/17 10:42 Dose: 100 mls/hr Latanoprost (Xalatan Opht) 0 ml OD HS [facility] Last Admin: 06/07/17 21:33 Dose: 2.5 ml Metoprolol Tartrate (Lopressor) 25 mg PO BID [facility] Last Admin: 06/08/17 10:40 Dose: Not Given Multivitamins (Thera Tab) 1 tab PO DAILY [facility] Last Admin: 06/08/17 10:35 Dose: 1 tab Polyethylene Glycol (Miralax) 17 gm PO BID [facility] Potassium Chloride (K-Dur 20 Meq Er Tab) 20 meq PO DAILY [facility] Last Admin: 06/08/17 10:35 Dose: 20 meq - Labs Labs: PT 10.8 Seconds (9.9-11.8) 06/06/17 02:55 INR 1.00 (0.93-1.08) 06/06/17 02:55 APTT 25.8 Seconds (23.7-30.8) 06/06/17 02:55 - Constitutional Appears: Non-toxic, No Acute Distress, Chronically Ill - Head Exam Head Exam: ATRAUMATIC, NORMOCEPHALIC - Eye Exam Eye Exam: EOMI, PERRL Pupil Exam: NORMAL ACCOMODATION, PERRL - ENT Exam ENT Exam: Mucous Membranes Moist, Normal External Ear Exam, TM's Normal Bilaterally - Neck Exam Neck Exam: Full ROM, Normal Inspection - Respiratory Exam Respiratory Exam: Clear to Ausculation Bilateral, NORMAL BREATHING PATTERN. absent: Rales, Rhonchi, Wheezes - Cardiovascular Exam Cardiovascular Exam: REGULAR RHYTHM, RRR, +S1, +S2 - GI/Abdominal Exam GI & Abdominal Exam: Soft, Normal Bowel Sounds. absent: Distended, Tenderness - Extremities Exam Additional comments: chronic venous stasis of both lower extremities. - Neurological Exam Neurological Exam: Alert, CN II-XII Intact - Psychiatric Exam Psychiatric exam: Normal Affect, Normal Mood - Skin Additional comments: Signs of chronic venous stasis in the lower extremities. eczema of the skin on the hands and forearms. Assessment and Plan - Assessment and Plan (Free Text) Assessment: 76 yo female with hematuria and potential UTI sent to [facility] for evaluation. The patient is awake and alert. No complaints other than the hematuria and mild Suprapubic pain. The patient comes from a group home facility. The patient is currently on Cefepime for now until culture results return. Supportive care. Will resend urine for culture given the multiorganism result. Thank you for allowing me to participate in the care of the patient, we will follow with you.
[2017-06-08] MEDS: POLYETHYLENE GLYCOL 3350 17 GM/Dose PACKET PO SCH (18:03)
[2017-06-08 18:12] LABS: PH,URINE 6.5 (4.7-8.0); URINE BILIRUBIN NEGATIVE (NEGATIVE); URINE BLOOD LARGE (NEGATIVE); URINE GLUCOSE (UA) NEGATIVE (NEGATIVE); URINE KETONE NEGATIVE (NEGATIVE); URINE LEUKOCYTE ESTERASE LARGE Leu/uL (NEGATIVE); URINE PROTEIN 30 mg/dL (<30 mg/dL); URINE UROBILINOGEN 0.2 E.U./dL (<1 E.U./dL)
[2017-06-08 18:13] LABS: URINE APPEARANCE CLEAR (CLEAR); URINE COLOR YELLOW (YELLOW)
[2017-06-08 18:45] LABS: URINE AMORPHOUS SEDIMENT FEW; URINE BACTERIA MANY (NEG); URINE RBC 25 - 30 /hpf (0-2); URINE WBC 25 - 30 /hpf (0-6)
[2017-06-08] MEDS: Latanoprost 2.5 ml Opht Soln OD SCH (22:19)
--- NOTE | 2017-06-09 02:55 | PN ---
SUBJECTIVE: The patient is a 76-year-old female. The patient is seen and examined on the bedside, looking comfortable. No nausea, vomiting or diarrhea. No hematuria or hematochezia. No swelling of the leg. PHYSICAL EXAMINATION: VITAL SIGNS: Temperature 98, pulse 72, blood pressure 139/51, respiratory rate 20. HEENT: Head is normocephalic and atraumatic. Eyes, PERRLA. Extraocular muscles intact. Conjunctivae clear. Nose patent. Mucous membranes moist. NECK: Supple. No carotid bruit. No JVD or thyromegaly. CHEST: Bilaterally symmetrical. HEART: S1 and S2 positive. LUNGS: Clear to auscultation. ABDOMEN: Soft. Bowel sounds positive. No organomegaly. EXTREMITIES: No edema. No cyanosis. NEUROLOGIC: The patient is awake and alert. Moving all 4 extremities. No focal deficits. MEDICATIONS: Aricept, DuoNeb, Tien-Dur, Lasix, Lipitor, Lopressor, Maxipime, MiraLax, Norvasc, Pepcid, Pulmicort, NS, multivitamin, Tylenol, Xalatan Ophthalmic. LABORATORY DATA: We do not have recent labs today, but I reviewed old labs. ASSESSMENT AND PLAN: The patient is a 76-year-old lady with anemia, hypokalemia, proteinuria, hematuria, urinary tract infection, history of cerebrovascular accident, dementia, repeated urinary tract infection, may be go for cystoscopy tomorrow. Hematuria is better. The patient is taking cefepime. Supportive care. Gastrointestinal and deep venous thrombosis prophylaxis. Repeat labs. Florence Jung MD
[2017-06-09] MEDS: Albuterol-Ipratrop 3 mg / 0.5 (3 ml) UD IH PRN ×2 (07:11→19:46)
[2017-06-09] MEDS: Budesonide 0.5 mg/2 ml Inhal Susp UD IH SCH ×2 (07:11→19:46)
--- NOTE | 2017-06-09 08:58 | HP ---
CHIEF COMPLAINT: Blood in the urine. HISTORY OF PRESENT ILLNESS: The patient is a 76-year-old female with past medical history of nephrolithiasis, stroke, hemiparesis, partial aphasia, resident of [facility], came to [facility] emergency room because of the zaire blood in the bag. The patient was admitted. Urology consult called with Dr. Holliday. The patient did not have fever and no chills. PAST MEDICAL HISTORY: Congestive heart failure, COPD, left side with weakness due to stroke, cataract, glaucoma, and gastroesophageal reflux disease. FAMILY HISTORY: Father and mother, noncontributory. HABITS: No smoking, no drugs, and no ethanol. ALLERGIES: THE PATIENT IS NOT ALLERGIC TO ANY MEDICATION. HOME MEDICATIONS: Tylenol, atorvastatin, Pulmicort, Aricept, Lasix, and Lopressor. REVIEW OF SYSTEMS: The patient is seen and examined on the bedside in the room, looking comfortable. No nausea, vomiting, or diarrhea. No headaches. No dizziness. Still having blood in the bag. No diaphoresis. No adenopathy. No rash or pruritus. No arthralgia or back pain. No abdominal pain, but still has hematuria. PHYSICAL EXAMINATION: VITAL SIGNS: Temperature 98.2, pulse 64, respiratory rate 17, blood pressure 143/45, pulse oximetry 96. HEENT: Head is normocephalic and atraumatic. Eyes: PERRLA. Extraocular muscles intact. Conjunctivae clear. Nose patent. Mucous membrane moist. NECK: Supple. No carotid bruits. No JVD or thyromegaly. CHEST: Bilaterally symmetrical. HEART: S1 and S2 positive. LUNGS: Clear to auscultation. ABDOMEN: Soft. Bowel sounds positive. No organomegaly. EXTREMITIES: No edema. No cyanosis. NEUROLOGIC: The patient is awake and alert. The patient is actually aphasic. LABORATORY DATA: White blood cells 8.1, hemoglobin 11.9, hematocrit 34.9, platelets 139. Sodium 140, potassium 3.6, BUN 18, creatinine 0.50, glucose 93. ASSESSMENT AND PLAN: The patient is a 76 years old lady with anemia, history of nephrolithiasis, ureteral stents, has new mild dilatation of the upper pole of the collecting system, thickening irregular urinary bladder wall with ,in the surroundings that is similar to prior suppurative cystitis. The patient is admitted, ceftriaxone started, consult called with Dr. Pravin Holliday. According to him, the patient needs cystoscopy. Hematuria, chronic obstructive pulmonary disease, gastroesophageal reflux disease, dyspepsia continue present treatment. Gastrointestinal and deep venous thrombosis prophylaxis. Repeat labs. Florence Jung MD MTDD
[2017-06-09] MEDS: Multivitamin Therapeutic Tab PO SCH (09:35)
[2017-06-09] MEDS: Cefepime 1gm in NS 100ml 1 GM/100 ML BAG IVPB SCH ×2 (09:35→21:02)
[2017-06-09] MEDS: Potassium Chloride 20 mEq ER Tab PO SCH (09:35)
[2017-06-09] MEDS: POLYETHYLENE GLYCOL 3350 17 GM/Dose PACKET PO SCH ×2 (09:37→17:32)
[2017-06-09] MEDS: Sodium Chloride 0.9% 1,000 ML IV SCH (14:42)
--- NOTE | 2017-06-09 18:19 | CP.PCM.PN ---
Subjective - Date & Time of Evaluation Date of Evaluation: 06/09/17 Time of Evaluation: 17:00 - Subjective Subjective: Infectious Disease Follow Up: June 09, 2017 76 yo female with presentation of hematuria with mild suprapubic pain. Patient denies any other symptoms at this time. She appears otherwise comfortable. Potential cystoscopy next week. On IV antibiotics of Cefepime so far. No leukocytosis. Urinalysis strongly suggestive of a UTI. She is an extremely poor historian. She is not making any new complaints. Urine cultures showing multiple organisms. Repeat urine culture is showing gram negative rods of 50,000 to 100, 000 CFU/ml. Objective - Vital Signs/Intake and Output Vital Signs (last 24 hours): Temp Pulse Resp BP Pulse Ox 98.0 F 80 19 160/48 H 96 06/09/17 07:30 06/09/17 17:29 06/09/17 07:30 06/09/17 17:29 06/09/17 07:30 Intake and Output: 06/09/17 06/09/17 06:59 18:59 Intake Total 2040 500 Output Total 1475 1600 Balance 565 -1100 - Medications Medications: Current Medications Acetaminophen (Tylenol 325mg Tab) 650 mg PO Q6H PRN PRN Reason: Fever >100.4 F Albuterol/Ipratropium (Duoneb 3 Mg/0.5 Mg (3 Ml) Ud) 3 ml IH Q6H PRN PRN Reason: Shortness of Breath Last Admin: 06/09/17 07:11 Dose: 3 ml Amlodipine Besylate (Norvasc) 10 mg PO DAILY [facility] Last Admin: 06/09/17 09:37 Dose: 10 mg Atorvastatin Calcium (Lipitor) 80 mg PO [facility] Last Admin: 06/08/17 22:18 Dose: 80 mg Budesonide (Pulmicort Respules) 0.5 mg IH Q12H [facility] Last Admin: 06/09/17 07:11 Dose: 0.5 mg Donepezil HCl (Aricept) 10 mg PO HS [facility] Last Admin: 06/08/17 22:19 Dose: 10 mg Famotidine (Pepcid) 40 mg PO [facility] Last Admin: 06/08/17 22:18 Dose: 40 mg Furosemide (Lasix) 40 mg PO DAILY [facility] Last Admin: 06/09/17 09:35 Dose: 40 mg Sodium Chloride (Sodium Chloride 0.9%) 1,000 mls @ 70 mls/hr IV .[id number] [facility] Last Admin: 06/09/17 14:42 Dose: 70 mls/hr Cefepime HCl (Maxipime 1gm) 1 gm in 100 mls @ 100 mls/hr IVPB Q12 [facility] PRN Reason: Protocol Last Admin: 06/09/17 09:35 Dose: 100 mls/hr Latanoprost (Xalatan Opht) 0 ml OD HS [facility] Last Admin: 06/08/17 22:19 Dose: 2.5 ml Metoprolol Tartrate (Lopressor) 25 mg PO BID [facility] Last Admin: 06/09/17 17:29 Dose: 25 mg Multivitamins (Thera Tab) 1 tab PO DAILY [facility] Last Admin: 06/09/17 09:35 Dose: 1 tab Polyethylene Glycol (Miralax) 17 gm PO BID [facility] Last Admin: 06/09/17 17:32 Dose: 17 gm Potassium Chloride (K-Dur 20 Meq Er Tab) 20 meq PO DAILY [facility] Last Admin: 06/09/17 09:35 Dose: 20 meq - Labs Labs: PT 10.8 Seconds (9.9-11.8) 06/06/17 02:55 INR 1.00 (0.93-1.08) 06/06/17 02:55 APTT 25.8 Seconds (23.7-30.8) 06/06/17 02:55 - Constitutional Appears: Non-toxic, No Acute Distress, Chronically Ill - Head Exam Head Exam: ATRAUMATIC, NORMOCEPHALIC - Eye Exam Eye Exam: EOMI, PERRL Pupil Exam: NORMAL ACCOMODATION, PERRL - ENT Exam ENT Exam: Mucous Membranes Moist, Normal External Ear Exam, TM's Normal Bilaterally - Neck Exam Neck Exam: Full ROM, Normal Inspection - Respiratory Exam Respiratory Exam: Clear to Ausculation Bilateral, NORMAL BREATHING PATTERN. absent: Rales, Rhonchi, Wheezes - Cardiovascular Exam Cardiovascular Exam: REGULAR RHYTHM, RRR, +S1, +S2 - GI/Abdominal Exam GI & Abdominal Exam: Soft, Normal Bowel Sounds. absent: Distended, Tenderness - Extremities Exam Additional comments: chronic venous stasis of both lower extremities. - Neurological Exam Neurological Exam: Alert, Awake, CN II-XII Intact Additional comments: AAO x 2-3 - Psychiatric Exam Psychiatric exam: Normal Affect, Normal Mood - Skin Additional comments: Signs of chronic venous stasis in the lower extremities. eczema of the skin on the hands and forearms. Assessment and Plan - Assessment and Plan (Free Text) Assessment: 76 yo female with hematuria and potential UTI sent to [facility] for evaluation. The patient is awake and alert. No complaints other than the hematuria and mild Suprapubic pain. [facility] The patient is currently on Cefepime for now until culture results return. Supportive care. Will resend urine for culture given the multiorganism result. The results of the repeat urine culture is showing gram negative kristin. May need Meropenem for treatment. Thank you for allowing me to participate in the care of the patient, we will follow with you.
[2017-06-09] MEDS: Latanoprost 2.5 ml Opht Soln OD SCH (21:02)
--- NOTE | 2017-06-09 23:36 | PCM.URO ---
Urology Progress Note - Subjective Abdominal Pain: Yes - Objective Lab Studies: Reviewed (pt for cysto 06/10) Intake & Output: Intake & Output 06/09/17 06/09/17 06/10/17 06:59 18:59 06:59 Intake Total 2040 500 120 Output Total 1475 1600 1000 Balance 165 1100 -200 Intake: IV 1680 Right Forearm 1680 Oral 360 500 120 Output: Urine 1475 1600 1000 Urethral (Soni) 1475 1600 1000 Urine, Voided 0 Other: # Voids Urine, Voided 0 # Bowel Movements 0 1 0 Vital Signs: Vital Signs - 24 hr 06/09/17 06/09/17 06/09/17 07:30 09:35 09:36 Temperature 98.0 F Pulse Rate 72 80 Respiratory 19 Rate Blood Pressure 160/42 H 144/47 L 144/47 L O2 Sat by Pulse 96 Oximetry 06/09/17 06/09/17 06/09/17 09:37 16:00 17:29 Temperature 97.8 F Pulse Rate 80 80 Respiratory 18 Rate Blood Pressure 144/47 L 160/48 H 160/48 H O2 Sat by Pulse 96 Oximetry
[2017-06-10] MEDS: Sodium Chloride 0.9% 1,000 ML IV SCH ×2 (05:22→20:00)
--- NOTE | 2017-06-10 06:28 | PN ---
DATE: SUBJECTIVE: The patient is seen and examined at the bedside, looking comfortable. Today, she is supposed to go for cystoscopy but because of Dr. Holliday being busy, cannot do today, maybe the patient will go tomorrow for cystoscopy. PHYSICAL EXAMINATION: VITAL SIGNS: Temperature 97,8, pulse 80, blood pressure 135/48, respiratory rate 18. HEENT: Head is normocephalic and atraumatic. Eyes, PERRLA. Extraocular muscle intact. Conjunctivae clear. Nose is patent. Mucous membrane moist. NECK: Supple. No carotid bruits. No JVD or thyromegaly. CHEST: Bilaterally symmetrical. HEART: S1 and S2 positive. LUNGS: Clear to auscultation. ABDOMEN: Soft. Bowel sounds positive. No organomegaly. EXTREMITIES: No edema and no cyanosis. NEUROLOGICAL: The patient is awake and alert. MEDICATIONS: Aricept, DuoNeb, Tien-Dur, Lasix, Lipitor, Lopressor, Maxipime, MiraLax, Norvasc, Pepcid, Pulmicort, Tylenol, Xalatan. LABORATORY DATA: We do not have recent labs today, but I reviewed old labs. ASSESSMENT AND PLAN: Ms. Kp Sanders is a 76-year-old lady with multiple medical problems, history of anemia, status post blood transfusion, hypokalemia replaced, proteinuria, hematuria, urinary tract infection, getting antibiotics, history of cerebrovascular accident, the patient is partially aphasic, has dementia, repeated urinary tract infection, getting antibiotics by Dr. Joshi. Supposed to go for cystoscopy but Dr. Holliday cannot make it, maybe will go tomorrow. We will follow up. Florence Jung MD NATHANIEL
[2017-06-10] MEDS: Budesonide 0.5 mg/2 ml Inhal Susp UD IH SCH ×2 (07:24→20:49)
--- NOTE | 2017-06-10 09:18 | RAD ---
HISTORY: preop cysto COMPARISON: 04/15/2017 FINDINGS: LUNGS: No active pulmonary disease. PLEURA: No significant pleural effusion identified, no pneumothorax apparent. CARDIOVASCULAR: Normal. OSSEOUS STRUCTURES: No significant abnormalities. VISUALIZED UPPER ABDOMEN: Normal. OTHER FINDINGS: None. IMPRESSION: No active disease.
[2017-06-10] MEDS: Cefepime 1gm in NS 100ml 1 GM/100 ML BAG IVPB SCH (09:49)
[2017-06-10] MEDS: Multivitamin Therapeutic Tab PO SCH (10:00)
[2017-06-10] MEDS: Potassium Chloride 20 mEq ER Tab PO SCH (10:00)
[2017-06-10] MEDS: POLYETHYLENE GLYCOL 3350 17 GM/Dose PACKET PO SCH (10:00)
--- NOTE | 2017-06-10 12:57 | CARD ---
APPROVED REPORT EKG Measurement Heart [id number] OR [id number] [id number] <Conclusion> Normal sinus rhythm Possible Left atrial enlargement Left ventricular hypertrophy with repolarization abnormality Possible Inferior infarct, age undetermined Abnormal ECG
--- NOTE | 2017-06-10 17:25 | CP.PCM.PN ---
Subjective - Date & Time of Evaluation Date of Evaluation: 06/10/17 Time of Evaluation: 16:20 - Subjective Subjective: Infectious Disease Follow Up: June 10, 2017 76 yo female with presentation of hematuria with mild suprapubic pain. Patient denies any other symptoms at this time. She appears otherwise comfortable. Potential cystoscopy next week. On IV antibiotics of Cefepime so far. No leukocytosis. Urinalysis strongly suggestive of a UTI. She is an extremely poor historian. She is not making any new complaints. Urine cultures showing multiple organisms. Repeat urine culture is showing gram negative rods of 50,000 to 100, 000 CFU/ml. Identification showed ESBL+ Klebsiella. Objective - Vital Signs/Intake and Output Vital Signs (last 24 hours): Temp Pulse Resp BP Pulse Ox 97.6 F 76 20 169/48 H 94 L 06/10/17 12:00 06/10/17 12:00 06/10/17 12:00 06/10/17 08:21 06/10/17 12:00 Intake and Output: 06/10/17 06/10/17 06:59 18:59 Intake Total 1800 Output Total 1650 650 Balance 150 -650 - Medications Medications: Current Medications Acetaminophen (Tylenol 325mg Tab) 650 mg PO Q6H PRN PRN Reason: Fever >100.4 F Albuterol/Ipratropium (Duoneb 3 Mg/0.5 Mg (3 Ml) Ud) 3 ml IH Q6H PRN PRN Reason: Shortness of Breath Last Admin: 06/09/17 19:46 Dose: 3 ml Amlodipine Besylate (Norvasc) 10 mg PO DAILY [facility] Last Admin: 06/10/17 10:00 Dose: Not Given Atorvastatin Calcium (Lipitor) 80 mg PO [facility] Last Admin: 06/09/17 21:02 Dose: 80 mg Budesonide (Pulmicort Respules) 0.5 mg IH Q12H [facility] Last Admin: 06/10/17 07:24 Dose: 0.5 mg Donepezil HCl (Aricept) 10 mg PO [facility] Last Admin: 06/09/17 21:02 Dose: 10 mg Famotidine (Pepcid) 40 mg PO [facility] Last Admin: 06/09/17 21:02 Dose: 40 mg Furosemide (Lasix) 40 mg PO DAILY [facility] Last Admin: 06/10/17 10:00 Dose: Not Given Sodium Chloride (Sodium Chloride 0.9%) 1,000 mls @ 70 mls/hr IV .[id number] [facility] Last Admin: 06/10/17 05:22 Dose: 70 mls/hr Cefepime HCl (Maxipime 1gm) 1 gm in 100 mls @ 100 mls/hr IVPB Q12 [facility] PRN Reason: Protocol Last Admin: 06/10/17 09:49 Dose: 100 mls/hr Latanoprost (Xalatan Opht) 0 ml OD HS [facility] Last Admin: 06/09/17 21:02 Dose: 2.5 ml Metoprolol Tartrate (Lopressor) 25 mg PO BID [facility] Last Admin: 06/10/17 08:21 Dose: 25 mg Multivitamins (Thera Tab) 1 tab PO DAILY [facility] Last Admin: 06/10/17 10:00 Dose: Not Given Polyethylene Glycol (Miralax) 17 gm PO BID [facility] Last Admin: 06/10/17 10:00 Dose: Not Given Potassium Chloride (K-Dur 20 Meq Er Tab) 20 meq PO DAILY [facility] Last Admin: 06/10/17 10:00 Dose: Not Given - Labs Labs: PT 10.8 Seconds (9.9-11.8) 06/06/17 02:55 INR 1.00 (0.93-1.08) 06/06/17 02:55 APTT 25.8 Seconds (23.7-30.8) 06/06/17 02:55 - Constitutional Appears: Non-toxic, No Acute Distress, Chronically Ill - Head Exam Head Exam: ATRAUMATIC, NORMOCEPHALIC - Eye Exam Eye Exam: EOMI, PERRL Pupil Exam: NORMAL ACCOMODATION, PERRL - ENT Exam ENT Exam: Mucous Membranes Moist, Normal External Ear Exam, TM's Normal Bilaterally - Neck Exam Neck Exam: Full ROM, Normal Inspection - Respiratory Exam Respiratory Exam: Clear to Ausculation Bilateral, NORMAL BREATHING PATTERN. absent: Rales, Rhonchi, Wheezes - Cardiovascular Exam Cardiovascular Exam: REGULAR RHYTHM, RRR, +S1, +S2 - GI/Abdominal Exam GI & Abdominal Exam: Soft, Normal Bowel Sounds. absent: Distended, Tenderness - Extremities Exam Additional comments: chronic venous stasis of both lower extremities. - Neurological Exam Neurological Exam: Alert, Awake, CN II-XII Intact Additional comments: AAO x 2-3 - Psychiatric Exam Psychiatric exam: Normal Affect, Normal Mood - Skin Additional comments: Signs of chronic venous stasis in the lower extremities. eczema of the skin on the hands and forearms. Assessment and Plan - Assessment and Plan (Free Text) Assessment: 76 yo female with hematuria and potential UTI [place] [facility] The patient is awake and alert. No complaints other than the hematuria and mild Suprapubic pain. The patient comes from a senior living facility. The patient is currently on Cefepime for now until culture results return. Supportive care. Will resend urine for culture given the multiorganism result. The results of the repeat urine culture is showing gram negative kristin. Growth of ESBL+ E. coli. Switch from Cefepime to Meropenem. Contact isolation for ESBL+ Klebsiella. Thank you for allowing me to participate in the care of the patient, we will follow with you.
[2017-06-10] MEDS: Latanoprost 2.5 ml Opht Soln OD SCH (21:15)
[2017-06-10] MEDS: Meropenem 1g/NS 100mL IVPB 1 GM/100 ML PIGGYBACK IVPB SCH (22:00)
--- NOTE | 2017-06-11 04:56 | PN ---
SUBJECTIVE: The patient is a 76-year-old female. The patient is seen and examined on the bedside, no change of status. No nausea, vomiting or diarrhea. No hematuria, no hematochezia. No swelling of the legs. No chest pain, no palpitations. The patient is not a good historian. PHYSICAL EXAMINATION: VITAL SIGNS: Temperature 98.4, blood pressure 155/52, and respiratory rate 18. HEENT: Head is normocephalic and atraumatic. Eyes: PERRLA. Extraocular muscles intact. Conjunctivae clear. Nose patent. Mucous membrane moist. NECK: Supple. No carotid bruits, JVD, or thyromegaly. CHEST: Bilaterally symmetrical. HEART: S1 and S2 positive. LUNGS: Clear to auscultation. ABDOMEN: Soft. Bowel sounds present. No organomegaly. EXTREMITIES: No edema, no cyanosis. NEUROLOGIC: The patient is awake and alert. Moving all 4 extremities. MEDICATIONS: Aricept, DuoNeb, Tien-Dur, Lasix, Lipitor, Lopressor, meropenem, MiraLax, Norvasc, Pepcid, Pulmicort. LABORATORY DATA: White blood cells 6.4, hemoglobin 10.8, hematocrit 34.6, and platelets 139. ASSESSMENT AND PLAN: The patient is a 76-year-old lady with dementia, cerebrovascular accident, has hematuria, potential urinary tract infection. The patient is on cefepime until culture results return, supportive care. Results of the urine , culture is showing negative rods, growth of extended-spectrum beta-lactamases plus Escherichia coli. Switch from cefepime to meropenem. Contact isolation for extended-spectrum beta-lactamases plus Klebsiella. The patient was supposed to go for cystoscopy on 06/09 and even on 06/10, cystoscopy is not done and I do not know Dr. Holliday's plan, but meanwhile, we will continue antibiotics. Gastrointestinal and deep venous thrombosis prophylaxis. Repeat labs. Florence Jung MD NATHANIEL
[2017-06-11] MEDS: Meropenem 1g/NS 100mL IVPB 1 GM/100 ML PIGGYBACK IVPB SCH ×3 (05:30→16:20)
[2017-06-11] MEDS: Budesonide 0.5 mg/2 ml Inhal Susp UD IH SCH ×3 (07:02→20:47)
[2017-06-11 07:09] LABS: HEMATOCRIT 36.2 % (36.0-48.0); MEAN CELL VOLUME 89.2 fl (80.0-105.0); MEAN CORPUSCULAR HEMOGLOBIN 27.6 pg (25.0-35.0); MEAN CORPUSCULAR HGB CONC 30.9 g/dl (31.0-37.0); MEAN PLATELET VOLUME 12.2 fl (7.0-11.0); RED CELL DISTRIBUTION WIDTH 15.7 % (11.5-14.5); WHITE BLOOD COUNT 7.8 10^3/ul (4.5-11.0)
[2017-06-11 07:27] LABS: BLOOD UREA NITROGEN 7 mg/dL (7-21); CALCIUM 8.3 mg/dL (8.4-10.5); CARBON DIOXIDE 24 mmol/L (21-33); CHLORIDE 109 mmol/L (98-107); GFR AFRICAN-AMERICAN > 60; GLUCOSE,RANDOM 72 mg/dL (70-110); POTASSIUM 3.4 mmol/L (3.6-5.0); SODIUM 143 mmol/L (132-148)
[2017-06-11] MEDS ORDERED: Etomidate 20 mg/10ml Inj IV ONE (08:56)
[2017-06-11] MEDS: Iohexol 240 (50 ml) ONE ×2 (09:20→09:30)
[2017-06-11] MEDS ORDERED: Sevoflurane - Inhalation Anesthetic Liq (250 ml) ONE (09:31)
[2017-06-11] MEDS ORDERED: Lactated Ringer's 1,000 ML IV SCH (09:58)
--- NOTE | 2017-06-11 12:40 | RAD ---
PROCEDURE: Retrograde pyelogram HISTORY: R/O OBSTRUCTION COMPARISON: TECHNIQUE: Fluoroscopy was provided in the operating room. Nine images were submitted FINDINGS: There is placement of a right ureteral stent. There is also placement of a left ureteral stent in the upper pole collecting system. 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 IMPRESSION: As above
[2017-06-11] MEDS: Multivitamin Therapeutic Tab PO SCH (16:11)
[2017-06-11] MEDS: Potassium Chloride 20 mEq ER Tab PO SCH (16:11)
[2017-06-11] MEDS: POLYETHYLENE GLYCOL 3350 17 GM/Dose PACKET PO SCH ×3 (16:12→18:41)
--- NOTE | 2017-06-11 16:26 | CP.PCM.PN ---
Subjective - Date & Time of Evaluation Date of Evaluation: 06/11/17 Time of Evaluation: 15:00 - Subjective Subjective: Infectious Disease Follow Up: June 11, 2017 76 yo female with presentation of hematuria with mild suprapubic pain. Patient denies any other symptoms at this time. She appears otherwise comfortable. Potential cystoscopy next week. On IV antibiotics of Cefepime so far. No leukocytosis. Urinalysis strongly suggestive of a UTI. She is an extremely poor historian. She is not making any new complaints. Urine cultures showing multiple organisms. Repeat urine culture is showing gram negative rods of 50,000 to 100, 000 CFU/ml. Identification showed ESBL+ Klebsiella. Antibiotics switched to Meropenem for treatment at this time. Objective - Vital Signs/Intake and Output Vital Signs (last 24 hours): Temp Pulse Resp BP Pulse Ox 97.9 F 56 L 16 162/69 H 100 06/11/17 10:55 06/11/17 10:55 06/11/17 10:55 06/11/17 10:55 06/11/17 10:55 Intake and Output: 06/11/17 06/11/17 06:59 18:59 Intake Total 1920 75 Output Total 1300 100 Balance 620 -25 - Medications Medications: Current Medications Acetaminophen (Tylenol 325mg Tab) 650 mg PO Q6H PRN PRN Reason: Fever >100.4 F Albuterol/Ipratropium (Duoneb 3 Mg/0.5 Mg (3 Ml) Ud) 3 ml IH Q6H PRN PRN Reason: Shortness of Breath Last Admin: 06/09/17 19:46 Dose: 3 ml Amlodipine Besylate (Norvasc) 10 mg PO DAILY [facility] Last Admin: 06/10/17 10:00 Dose: Not Given Atorvastatin Calcium (Lipitor) 80 mg PO HS [facility] Last Admin: 06/10/17 22:14 Dose: 80 mg Budesonide (Pulmicort Respules) 0.5 mg IH Q12H [facility] Last Admin: 06/11/17 07:05 Dose: 0.5 mg Donepezil HCl (Aricept) 10 mg PO HS [facility] Last Admin: 06/10/17 22:00 Dose: 10 mg Famotidine (Pepcid) 40 mg PO HS [facility] Last Admin: 06/10/17 21:14 Dose: 40 mg Furosemide (Lasix) 40 mg PO DAILY [facility] Last Admin: 06/10/17 10:00 Dose: Not Given Sodium Chloride (Sodium Chloride 0.9%) 1,000 mls @ 70 mls/hr IV .[id number] [facility] Last Admin: 06/10/17 20:00 Dose: 70 mls/hr Meropenem 1g/NS 100mL IVPB (Meropenem 1g/Ns 100ml Ivpb) 1 gm in 100 mls @ 100 mls/hr IVPB Q8 [facility] PRN Reason: Protocol Last Admin: 06/11/17 05:30 Dose: 100 mls/hr Latanoprost (Xalatan Opht) 0 ml OD HS [facility] Last Admin: 06/10/17 21:15 Dose: 1 ml Metoprolol Tartrate (Lopressor) 25 mg PO BID [facility] Last Admin: 06/11/17 07:25 Dose: 25 mg Multivitamins (Thera Tab) 1 tab PO DAILY [facility] Last Admin: 06/10/17 10:00 Dose: Not Given Polyethylene Glycol (Miralax) 17 gm PO BID [facility] Last Admin: 06/10/17 10:00 Dose: Not Given Potassium Chloride (K-Dur 20 Meq Er Tab) 20 meq PO DAILY [facility] Last Admin: 06/10/17 10:00 Dose: Not Given - Labs Labs: 06/11/17 06:30 06/11/17 06:30 PT 10.8 Seconds (9.9-11.8) 06/06/17 02:55 INR 1.00 (0.93-1.08) 06/06/17 02:55 APTT 25.8 Seconds (23.7-30.8) 06/06/17 02:55 - Constitutional Appears: Non-toxic, No Acute Distress, Chronically Ill - Head Exam Head Exam: ATRAUMATIC, NORMOCEPHALIC - Eye Exam Eye Exam: EOMI, PERRL Pupil Exam: NORMAL ACCOMODATION, PERRL - ENT Exam ENT Exam: Mucous Membranes Moist, Normal External Ear Exam, TM's Normal Bilaterally - Neck Exam Neck Exam: Full ROM, Normal Inspection - Respiratory Exam Respiratory Exam: Clear to Ausculation Bilateral, NORMAL BREATHING PATTERN. absent: Rales, Rhonchi, Wheezes - Cardiovascular Exam Cardiovascular Exam: REGULAR RHYTHM, RRR, +S1, +S2 - GI/Abdominal Exam GI & Abdominal Exam: Soft, Normal Bowel Sounds. absent: Distended, Tenderness - Extremities Exam Additional comments: chronic venous stasis of both lower extremities. - Neurological Exam Neurological Exam: Alert, Awake, CN II-XII Intact Additional comments: AAO x 2-3 - Psychiatric Exam Psychiatric exam: Normal Affect, Normal Mood - Skin Additional comments: Signs of chronic venous stasis in the lower extremities. eczema of the skin on the hands and forearms. Assessment and Plan - Assessment and Plan (Free Text) Assessment: 76 yo female with hematuria and potential UTI sent to [facility] for evaluation. The patient is awake and alert. No complaints other than the hematuria and mild Suprapubic pain. The patient comes from a long-term facility. The patient was currently on Cefepime and now on Meropenem. Supportive care. Will resend urine for culture given the multiorganism result. The results of the repeat urine culture is showing gram negative kristin. Growth of ESBL+ E. coli. On Meropenem. Contact isolation for ESBL+ Klebsiella. Looking for 10 days of treatment. Thank you for allowing me to participate in the care of the patient, we will follow with you.
[2017-06-11] MEDS: Latanoprost 2.5 ml Opht Soln OD SCH (21:45)
[2017-06-12] MEDS: Meropenem 1g/NS 100mL IVPB 1 GM/100 ML PIGGYBACK IVPB SCH ×3 (00:14→13:58)
[2017-06-12 00:49] VITALS: O2SAT 96
[2017-06-12] MEDS: Sodium Chloride 0.9% 1,000 ML IV SCH (06:17)
--- NOTE | 2017-06-12 06:23 | PN ---
SUBJECTIVE: The patient is 76 years old female. The patient seen and examined at the bedside early in the morning. She was NPO for cystoscopy. Later on, she went for cystoscopy. No nausea, vomiting, or diarrhea. No fever, no chills. PHYSICAL EXAMINATION: VITAL SIGNS: Temperature 97.4, pulse 72, blood pressure 156/52, respiratory rate 20. HEENT: Head normocephalic and atraumatic. Eyes; PERRLA. Extraocular muscles intact. Conjunctivae clear. Nose patent. Mucous membrane moist. NECK: Supple. No carotid bruit, JVD, or thyromegaly. CHEST: Bilaterally symmetrical. HEART: S1 and S2 positive. LUNGS: Clear to auscultation. ABDOMEN: Soft. Bowel sounds positive. No organomegaly. EXTREMITIES: No edema, no cyanosis. NEUROLOGIC: The patient is awake and alert. MEDICATIONS: Aricept, DuoNeb, Tien-Dur, Lasix, Lipitor, Lopressor, meropenem, MiraLax, Norvasc, Pepcid, Pulmicort, NS, multivitamins, Tylenol, Xalatan. LABORATORY DATA: White blood cells 7.8, hemoglobin 11.2, hematocrit 36.2, and platelets 148. Sodium 143, potassium 3.5, BUN 7, creatinine 0.7, calcium 8.3. ASSESSMENT AND PLAN: The patient is 76 years old female with anemia, hypokalemia, hypocalcemia, proteinuria, hematuria, urinary tract infection, went for cystoscopy today by Dr. Holliday, getting antibiotics by Dr. Joshi. The patient is now on meropenem, supportive care. The patient should be on contact isolation for extended-spectrum beta-lactamases plus Klebsiella, and Dr. Joshi wants to give 10 days of treatment. History of hypertension, hypercholesterolemia, transient ischemic attack, chronic obstructive pulmonary disease. We will follow up. Florence Jung MD
[2017-06-12 07:49] VITALS: PULSE 76; RESP 18; TEMP 98.2
[2017-06-12] MEDS: Budesonide 0.5 mg/2 ml Inhal Susp UD IH SCH (08:55)
[2017-06-12] MEDS: Potassium Chloride 20 mEq ER Tab PO SCH (09:36)
[2017-06-12] MEDS: Multivitamin Therapeutic Tab PO SCH (09:37)
[2017-06-12] MEDS: POLYETHYLENE GLYCOL 3350 17 GM/Dose PACKET PO SCH (09:39)
[2017-06-12 09:43] VITALS: BP 159/61
--- NOTE | 2017-06-12 17:15 | CP.PCM.PN ---
Subjective - Date & Time of Evaluation Date of Evaluation: 06/12/17 Time of Evaluation: 16:15 - Subjective Subjective: Infectious Disease Follow Up: June 12, 2017 76 yo female with presentation of hematuria with mild suprapubic pain. Patient denies any other symptoms at this time. She appears otherwise comfortable. Potential cystoscopy next week. On IV antibiotics of Cefepime so far. No leukocytosis. Urinalysis strongly suggestive of a UTI. She is an extremely poor historian. She is not making any new complaints. Urine cultures showing multiple organisms. Repeat urine culture is showing gram negative rods of 50,000 to 100, 000 CFU/ml. Identification showed ESBL+ Klebsiella. Antibiotics continued with Meropenem for treatment at this time. Objective - Vital Signs/Intake and Output Vital Signs (last 24 hours): Temp Pulse Resp BP Pulse Ox 98.2 F 76 18 159/61 H 96 06/12/17 07:30 06/12/17 07:30 06/12/17 07:30 06/12/17 09:39 06/12/17 07:30 Intake and Output: 06/12/17 06/12/17 06:59 18:59 Intake Total 1320 640 Output Total 1475 500 Balance -155 140 - Medications Medications: Current Medications Acetaminophen (Tylenol 325mg Tab) 650 mg PO Q6H PRN PRN Reason: Fever >100.4 F Albuterol/Ipratropium (Duoneb 3 Mg/0.5 Mg (3 Ml) Ud) 3 ml IH Q6H PRN PRN Reason: Shortness of Breath Last Admin: 06/09/17 19:46 Dose: 3 ml Amlodipine Besylate (Norvasc) 10 mg PO DAILY [facility] Last Admin: 06/12/17 09:37 Dose: 10 mg Atorvastatin Calcium (Lipitor) 80 mg PO HS [facility] Last Admin: 06/11/17 21:45 Dose: 80 mg Budesonide (Pulmicort Respules) 0.5 mg IH Q12H [facility] Last Admin: 06/12/17 08:55 Dose: 0.5 mg Donepezil HCl (Aricept) 10 mg PO HS [facility] Last Admin: 06/11/17 21:45 Dose: 10 mg Famotidine (Pepcid) 40 mg PO HS [facility] Last Admin: 06/11/17 21:45 Dose: 40 mg Furosemide (Lasix) 40 mg PO DAILY [facility] Last Admin: 06/12/17 09:36 Dose: 40 mg Meropenem 1g/NS 100mL IVPB (Meropenem 1g/Ns 100ml Ivpb) 1 gm in 100 mls @ 100 mls/hr IVPB Q8 [facility] PRN Reason: Protocol Last Admin: 06/12/17 13:58 Dose: 100 mls/hr Latanoprost (Xalatan Opht) 0 ml OD HS [facility] Last Admin: 06/11/17 21:45 Dose: 1 ml Metoprolol Tartrate (Lopressor) 25 mg PO BID [facility] Last Admin: 06/12/17 09:39 Dose: 25 mg Multivitamins (Thera Tab) 1 tab PO DAILY [facility] Last Admin: 06/12/17 09:37 Dose: 1 tab Polyethylene Glycol (Miralax) 17 gm PO BID [facility] Last Admin: 06/12/17 09:39 Dose: 17 gm Potassium Chloride (K-Dur 20 Meq Er Tab) 20 meq PO DAILY [facility] Last Admin: 06/12/17 09:36 Dose: 20 meq - Labs Labs: 06/11/17 06:30 06/11/17 06:30 PT 10.8 Seconds (9.9-11.8) 06/06/17 02:55 INR 1.00 (0.93-1.08) 06/06/17 02:55 APTT 25.8 Seconds (23.7-30.8) 06/06/17 02:55 - Constitutional Appears: Non-toxic, No Acute Distress, Chronically Ill - Head Exam Head Exam: ATRAUMATIC, NORMOCEPHALIC - Eye Exam Eye Exam: EOMI, PERRL Pupil Exam: NORMAL ACCOMODATION, PERRL - ENT Exam ENT Exam: Mucous Membranes Moist, Normal External Ear Exam, TM's Normal Bilaterally - Neck Exam Neck Exam: Full ROM, Normal Inspection - Respiratory Exam Respiratory Exam: Clear to Ausculation Bilateral, NORMAL BREATHING PATTERN. absent: Rales, Rhonchi, Wheezes - Cardiovascular Exam Cardiovascular Exam: REGULAR RHYTHM, RRR, +S1, +S2 - GI/Abdominal Exam GI & Abdominal Exam: Soft, Normal Bowel Sounds. absent: Distended, Tenderness - Extremities Exam Additional comments: chronic venous stasis of both lower extremities. - Neurological Exam Neurological Exam: Alert, Awake, CN II-XII Intact Additional comments: AAO x 2-3 - Psychiatric Exam Psychiatric exam: Normal Affect, Normal Mood - Skin Additional comments: Signs of chronic venous stasis in the lower extremities. eczema of the skin on the hands and forearms. Assessment and Plan - Assessment and Plan (Free Text) Assessment: 76 yo female with hematuria and potential UTI sent to [facility] for evaluation. The patient is awake and alert. No complaints other than the hematuria and mild Suprapubic pain. The patient comes from a [facility] facility. The patient was on Cefepime and now on Meropenem. Supportive care. Will resend urine for culture given the multiorganism result. The results of the repeat urine culture is showing gram negative kristin. Growth of ESBL+ E. coli. On Meropenem. Contact isolation for ESBL+ Klebsiella. Looking for 10 days of treatment. Thank you for allowing me to participate in the care of the patient, we will follow with you.
== END 2017-06-12 17:23 | DRG 690 ==
LOC: ED 00:17 → ERH 04:09 → 5RNO 06:28 → OBSVTOIN 06-07 23:45 → 5RNO 06-09 23:23
PROVIDERS: ADMIT Internal Medicine; ATTEND Internal Medicine
PROC: 3E0F7GC Introduction of Other Therapeutic Substance into Respiratory Tract, Via Natural or Artificial Opening (ICD-10-PCS; 2017-06-06)
PROC: 0T788DZ Dilation of Bilateral Ureters with Intraluminal Device, Via Natural or Artificial Opening Endoscopic (ICD-10-PCS; principal; 2017-06-11 08:30)
PROC: BT141ZZ Fluoroscopy of Kidneys, Ureters and Bladder using Low Osmolar Contrast (ICD-10-PCS; 2017-06-11 08:30)
DX: N30.91 Cystitis, unspecified with hematuria (principal); I50.9 Heart failure, unspecified; I11.0 Hypertensive heart disease with heart failure; F03.90 Unspecified dementia, unspecified severity, without behavioral disturbance, psychotic disturbance, mood disturbance, and anxiety; I69.354 Hemiplegia and hemiparesis following cerebral infarction affecting left non-dominant side; N20.0 Calculus of kidney; J44.9 Chronic obstructive pulmonary disease, unspecified; R31.9 Hematuria, unspecified; K21.9 Gastro-esophageal reflux disease without esophagitis; I48.0 Paroxysmal atrial fibrillation; I87.2 Venous insufficiency (chronic) (peripheral); E87.6 Hypokalemia; D64.9 Anemia, unspecified; R80.9 Proteinuria, unspecified; F32.9 Major depressive disorder, single episode, unspecified; I69.320 Aphasia following cerebral infarction; E83.51 Hypocalcemia; E78.00 Pure hypercholesterolemia, unspecified; F41.9 Anxiety disorder, unspecified; H40.9 Unspecified glaucoma; Z87.442 Personal history of urinary calculi; Z85.828 Personal history of other malignant neoplasm of skin; Z87.891 Personal history of nicotine dependence